=== PATIENT | female | born 1955 | race Caucasian/White ===

== ENCOUNTER 2018-09-10 21:30 | Inpatient (IN) | payer SELFPAY ==
[2018-09-10] MEDS ORDERED: FENTANYL CITR 100 MCG/2 ML ONE (22:14)
[2018-09-10] MEDS ORDERED: KETOROLAC 30 MG/ML INJ ONE (22:14)
[2018-09-10] MEDS ORDERED: NA CHLORIDE 0.9% 1,000 ML ONE (22:14)
[2018-09-10 22:28] LABS: Absolute Lymphocytes (CBC) 2.6 K/uL (0.7-4.9); Absolute Monocytes 1.3 K/uL (0.1-1.3); Absolute Neutrophil 5.3 K/uL (1.8-8.0); Basophils % 1.2 % (0-1.3); Eosinophils % 1.6 % (0-4.4); Hematocrit 42.4 % (36.0-45.0); Lymphocytes % 27.1 % (15.3-44.8); MCH 30.8 pg (27.0-35.0); MCV 89.9 fL (80-100); MPV 8.2 fL (7.6-11.3); Monocytes % 13.8 % (3.3-12.3); RBC Red Blood Cell Count 4.71 M/uL (3.86-4.86)
--- NOTE | 2018-09-10 22:56 | ER ---
Nurse's Notes [facility] Name: Simona Juárez Age: 63 yrs Sex: Female : 1955 Arrival Date: 09/10/2018 Time: 21:30 Bed 20 Private MD: Diagnosis: Cholecystitis Presentation: 09/10 21:42 Presenting complaint: Patient states: I have had upper abdominal pain since Sunday, and jb4 started having lower back pain yesterday. Transition of care: patient was not received from another setting of care. Onset of symptoms was September 08, 2018. Risk Assessment: Do you want to hurt yourself or someone else? Patient reports no desire to harm self or others. Initial Sepsis Screen: Does the patient meet any 2 criteria? No. Patient's initial sepsis screen is negative. Does the patient have a suspected source of infection? No. Patient's initial sepsis screen is negative. Care prior to arrival: None. 21:42 Method Of Arrival: Ambulatory jb4 21:42 Acuity: FRANCOISE 3 jb4 Triage Assessment: 21:44 General: Appears in no apparent distress. uncomfortable, Behavior is calm, cooperative, jb4 appropriate for age. Pain: Complains of pain in back, right upper quadrant and left upper quadrant Pain currently is 10 out of 10 on a pain scale. EENT: No signs and/or symptoms were reported regarding the EENT system. Neuro: Level of Consciousness is awake, alert, obeys commands, Oriented to person, place, time, situation. Cardiovascular: Patient's skin is warm and dry. Respiratory: Airway is patent Respiratory effort is even, unlabored, Respiratory pattern is regular, symmetrical. GI: Abdomen is round non-distended, Bowel sounds present X 4 quads. Abd is soft and non tender in right lower quadrant and left lower quadrant Abdomen is tender to palpation in umbilical area, right upper quadrant and left upper quadrant Reports upper abdominal pain. : No signs and/or symptoms were reported regarding the genitourinary system. Derm: Skin is intact, Skin is pink, warm \T\ dry. Musculoskeletal: Circulation, motion, and sensation intact. Reports pain in back. Historical: - Allergies: 21:44 No Known Allergies; jb4 - Home Meds: 21:44 lisinopril 40 mg Oral tab 1 tab once daily [Active]; jb4 21:48 amlodipine-benazepril oral oral [Active]; jb4 - PMHx: 21:44 Hypertension; jb4 - PSHx: 21:44 None; jb4 - Immunization history:: Adult Immunizations unknown, Flu vaccine is not up to date. - Social history:: Smoking status: Patient uses tobacco products, denies chronic smoking, but will smoke occasionally. - Ebola Screening: : No symptoms or risks identified at this time. Screenin:52 Abuse screen: Denies threats or abuse. Nutritional screening: No deficits noted. jb4 Tuberculosis screening: No symptoms or risk factors identified. Fall Risk None identified. Assessment: 21:52 General: see triage assessment.. jb4 Vital Signs: 21:44 BP 149 / 83; Pulse 74; Resp 18; Temp 98.1; Pulse Ox 94% on R/A; Weight 79.38 kg (R); jb4 Height 5 ft. 7 in. (170.18 cm) (R); Pain 10/10; 21:44 Body Mass Index 27.41 (79.38 kg, 170.18 cm) jb4 ED Course: 21:30 Patient arrived in ED. ds1 21:44 Triage completed. jb4 21:44 Arm band placed on right wrist. jb4 21:49 Kathy Benitez FNP-C [facility]. snw 21:49 Mehul Roberson MD is Attending Physician. snw 21:52 Cam Jose, RN is Primary Nurse. jb4 21:52 Patient has correct armband on for positive identification. Bed in low position. Call jb4 light in reach. Side rails up X 1. Pulse ox on. NIBP on. 22:00 No provider procedures requiring assistance completed. Patient admitted, IV remains in rv place. Inserted saline lock: 20 gauge in right antecubital area, using aseptic technique. Blood collected. 22:[address] via wheelchair. vr 22:14 US Abdomen Limited In Process Unspecified. EDMS 22:19 CT completed. Patient tolerated procedure well. Patient moved back from CT. nj 22:19 CT Stone Protocol In Process Unspecified. EDMS 22:55 Amber Wray MD is Hospitalizing Provider. snw 23:22 Notified Nurse Practitioner and/or Physician Care Team Coordinator Scheduler of a critical lab result(s), AST fc 380, ALT 388. Administered Medications: 22:15 Drug: TORadol 30 mg Route: IVP; Site: right forearm; jb4 09/11 00:18 Follow up: Response: No adverse reaction rv 09/10 22:15 Drug: fentaNYL (PF) 25 mcg Route: IVP; Site: right forearm; jb4 09/11 00:17 Follow up: Response: No adverse reaction rv 09/10 22:45 Drug: NS 0.9% 1000 ml Route: IV; Rate: 125 ml/hr; Site: right antecubital; rv 09/11 00:16 Follow up: IV Status: IV converted to saline lock rv 09/10 23:00 Drug: Mefoxin 1 grams Route: IVPB; Infused Over: 30 mins; Site: right antecubital; rv 09/11 00:16 Follow up: IV Status: Completed infusion rv Outcome: 09/10 22:55 Decision to Hospitalize by Provider. snw 09/11 00:19 Admitted to Med/surg accompanied by tech, via wheelchair, room 209, with chart, Report rv called to [facility] frank Condition: good 00:20 Patient left the ED. rv Signatures: Dispatcher [employer] EDMS Kathy Benitez, RN ADMISSION-C RN ADMISSION-Csnw Rajani Go, RN RN Eri Sanders Victoria vr Bryson, James, RN RN Gr[employer] Macedo Ronaldo, RN RN rv Corrections: (The following items were deleted from the chart) 09/10 21:52 21:44 GI: Reports upper abdominal pain, marina gray
--- NOTE | 2018-09-10 22:56 | EDPHYS ---
Physician Documentation [facility] Name: Simona Juárez Age: 63 yrs Sex: Female : 1955 Arrival Date: 09/10/2018 Time: 21:30 Bed 20 Private MD: ED Physician Mehul Roberson HPI: 09/10 22:31 This 63 yrs old Female presents to ER via Ambulatory with complaints of Abd snw Pain -Upper, Back Pain. 22:32 Onset: The symptoms/episode began/occurred suddenly, 3 day(s) ago, and became worse and snw became persistent. Associated signs and symptoms: Pertinent positives: back pain. Modifying factors: The patient symptoms are alleviated by nothing. The patient has not experienced similar symptoms in the past. The patient has not recently seen a physician. Historical: - Allergies: 21:44 No Known Allergies; jb4 - Home Meds: 21:44 lisinopril 40 mg Oral tab 1 tab once daily [Active]; jb4 21:48 amlodipine-benazepril oral oral [Active]; jb4 - PMHx: 21:44 Hypertension; jb4 - PSHx: 21:44 None; jb4 - Immunization history:: Adult Immunizations unknown, Flu vaccine is not up to date. - Social history:: Smoking status: Patient uses tobacco products, denies chronic smoking, but will smoke occasionally. - Ebola Screening: : No symptoms or risks identified at this time. ROS: 22:31 Constitutional: Negative for fever, chills, and weight loss, Eyes: Negative for injury, snw pain, redness, and discharge, ENT: Negative for injury, pain, and discharge, Neck: Negative for injury, pain, and swelling, Cardiovascular: Negative for chest pain, palpitations, and edema, Respiratory: Negative for shortness of breath, cough, wheezing, and pleuritic chest pain, Back: Negative for injury and pain, : Negative for injury, bleeding, discharge, and swelling, MS/Extremity: Negative for injury and deformity, Skin: Negative for injury, rash, and discoloration, Neuro: Negative for headache, weakness, numbness, tingling, and seizure. 22:31 Abdomen/GI: Positive for abdominal pain, nausea. Exam: 22:30 Constitutional: This is a well developed, well nourished patient who is awake, alert, snw and in no acute distress. Head/Face: Normocephalic, atraumatic. Eyes: Pupils equal round and reactive to light, extra-ocular motions intact. Lids and lashes normal. Conjunctiva and sclera are non-icteric and not injected. Cornea within normal limits. Periorbital areas with no swelling, redness, or edema. ENT: Nares patent. No nasal discharge, no septal abnormalities noted. Tympanic membranes are normal and external auditory canals are clear. Oropharynx with no redness, swelling, or masses, exudates, or evidence of obstruction, uvula midline. Mucous membranes moist. Neck: Trachea midline, no thyromegaly or masses palpated, and no cervical lymphadenopathy. Supple, full range of motion without nuchal rigidity, or vertebral point tenderness. No Meningismus. Chest/axilla: Normal chest wall appearance and motion. Nontender with no deformity. No lesions are appreciated. Cardiovascular: Regular rate and rhythm with a normal S1 and S2. No gallops, murmurs, or rubs. Normal PMI, no JVD. No pulse deficits. Respiratory: Lungs have equal breath sounds bilaterally, clear to auscultation and percussion. No rales, rhonchi or wheezes noted. No increased work of breathing, no retractions or nasal flaring. Abdomen/GI: Soft, tender, with normal bowel sounds No distension or tympany. No guarding or rebound. No evidence of tenderness throughout. Back: No spinal tenderness. No costovertebral tenderness. Full range of motion. Skin: Warm, dry with normal turgor. Normal color with no rashes, no lesions, and no evidence of cellulitis. MS/ Extremity: Pulses equal, no cyanosis. Neurovascular intact. Full, normal range of motion. Neuro: Awake and alert, GCS 15, oriented to person, place, time, and situation. Cranial nerves II-XII grossly intact. Motor strength 5/5 in all extremities. Sensory grossly intact. Cerebellar exam normal. Normal gait. Vital Signs: 21:44 BP 149 / 83; Pulse 74; Resp 18; Temp 98.1; Pulse Ox 94% on R/A; Weight 79.38 kg (R); jb4 Height 5 ft. 7 in. (170.18 cm) (R); Pain 10/10; 21:44 Body Mass Index 27.41 (79.38 kg, 170.18 cm) jb4 MDM: 21:50 Patient medically screened. snw 21:51 Patient medically screened. snw 22:46 Data reviewed: vital signs, nurses notes. Data interpreted: Pulse oximetry: on room air snw is 94 %. Interpretation: acceptable. Counseling: I had a detailed discussion with the patient and/or guardian regarding: the historical points, exam findings, and any diagnostic results supporting the discharge/admit diagnosis, the presence of at least one elevated blood pressure reading (>120/80) during this emergency department visit, lab results, radiology results, the need for further work-up and treatment in the hospital. Physician consultation: Cam Ayala MD was called at 22:47, was contacted at 22:47, regarding consult, patient's condition, would like admission per Dr. Amber Wray MD. 22:56 Physician consultation: Amber Wray MD was called at 22:56, was contacted at 22:56, snw regarding admission, to the telemetry unit. 09/10 21:50 Order name: Urine Microscopic Only; Complete Time: 23:45 snw 09/10 21:57 Order name: Basic Metabolic Panel; Complete Time: 23:24 snw 09/10 21:57 Order name: CBC with Diff; Complete Time: 22:30 snw 09/10 21:57 Order name: Hepatic Function; Complete Time: 23:24 snw 09/10 21:57 Order name: Lipase; Complete Time: 23:24 snw 09/10 22:10 Order name: Urine Dipstick--Ancillary (enter results); Complete Time: 23:42 oe 09/10 21:50 Order name: US Abdomen Limited snw 09/10 21:50 Order name: Urine Dipstick-Ancillary (obtain specimen); Complete Time: 22:10 snw 09/10 21:57 Order name: IV Saline Lock; Complete Time: 21:59 snw 09/10 21:57 Order name: CT Stone Protocol sn 09/10 21:57 Order name: Labs collected and sent; Complete Time: 21:59 snw 09/10 22:47 Order name: NPO; Complete Time: 23:33 snw Administered Medications: 22:15 Drug: TORadol 30 mg Route: IVP; Site: right forearm; jb4 09/11 00:18 Follow up: Response: No adverse reaction rv 09/10 22:15 Drug: fentaNYL (PF) 25 mcg Route: IVP; Site: right forearm; jb4 09/11 00:17 Follow up: Response: No adverse reaction rv 09/10 22:45 Drug: NS 0.9% 1000 ml Route: IV; Rate: 125 ml/hr; Site: right antecubital; rv 09/11 00:16 Follow up: IV Status: IV converted to saline lock rv 09/10 23:00 Drug: Mefoxin 1 grams Route: IVPB; Infused Over: 30 mins; Site: right antecubital; rv 09/11 00:16 Follow up: IV Status: Completed infusion rv Disposition: 06:46 Co-signature as Attending Physician, Mehul Roberson MD I agree with the assessment and pavithra plan of care. Disposition: 09/10/18 22:55 Hospitalization ordered by Amber Wray for Observation. Preliminary diagnosis is Cholecystitis. - Bed requested for Telemetry/MedSurg (observation). - Status is Observation. rv - Condition is Stable. - Problem is new. - Symptoms are unchanged. UTI on Admission? No Signatures: Dispatcher [employer] EDMS Gina Perry RN Mehul Phan MD MD cha Therrien, Shelly, DIRECTOR ENVIRONMENTAL-C DIRECTOR ENVIRONMENTAL-Csnw Cam Jose, RN RN jb4 Sushil Strong RN RN rv Corrections: (The following items were deleted from the chart) 09/10 23:12 22:55 Hospitalization Ordered by Amber Wray MD for Observation. Preliminary diagnosis is Cholecystitis. Bed requested for Telemetry/MedSurg (observation). Status is Observation. Condition is Stable. Problem is new. Symptoms are unchanged. UTI on Admission? No. snw 09/11 00:20 09/10 23:12 09/10/2018 22:55 Hospitalization Ordered by Amber Wray MD for rv Observation. Preliminary diagnosis is Cholecystitis. Bed requested for Telemetry/MedSurg (observation). Status is Observation. Condition is Stable. Problem is new. Symptoms are unchanged. UTI on Admission? No. kl
[2018-09-10] MEDS ORDERED: CEFOXITIN/SWI 1gm 1 GM/10 ML SYR ONE (23:17)
[2018-09-10 23:20] LABS: Albumin 3.4 g/dL (3.4-5.0); Bilirubin Direct 2.8 mg/dL (0-0.2); Bilirubin Total 3.6 mg/dL (0.2-1.0); Potassium 3.5 mmol/L (3.5-5.1); Protein, Total 8.1 g/dL (6.4-8.2)
[2018-09-10 23:40] LABS: Urine Blood NEGATIVE (NEG); Urine Glucose NEGATIVE (NEG); Urine Protein 1+ (NEG); Urine pH 6.5 (5.0-7.0)
[2018-09-10 23:44] LABS: Urine Bacteria <20 /HPF (<20); Urine Culture Reflex Order NOT NEEDED; Urine RBC <5 /HPF (NONE SEEN)
[2018-09-11] MEDS ORDERED: ENOXAPARIN 80 MG/0.8 ML SQ ONE (00:11)
[2018-09-11] MEDS ORDERED: ACETAMINOPHEN 500 MG TAB PO PRN (00:28)
[2018-09-11] MEDS ORDERED: ONDANSETRON 4 MG/2 ML VIAL IV PRN (00:28)
[2018-09-11 00:42] VITALS: BMI 28.1
[2018-09-11] MEDS: NA CHLORIDE 0.9% 1,000 ML IV SCH ×4 (01:02→20:53)
[2018-09-11] MEDS: MORPHINE 4 MG/ML SYR IV PRN ×3 (01:33→20:51)
[2018-09-11] MEDS: CEFOXITIN 1 GM in NA CHLORIDE 0.9% 100 ML IVPB SCH ×2 (05:00→06:00)
[2018-09-11] MEDS ORDERED: CEFOXITIN/SWI 1gm 1 GM/10 ML SYR ONE (05:09)
[2018-09-11 05:38] LABS: Absolute Monocytes 1.2 K/uL (0.1-1.3); Absolute Neutrophil 3.6 K/uL (1.8-8.0); Basophils % 0.9 % (0-1.3); Eosinophils % 3.1 % (0-4.4); Hematocrit 36.5 % (36.0-45.0); Lymphocytes % 37.3 % (15.3-44.8); MCH 31.3 pg (27.0-35.0); MPV 8.1 fL (7.6-11.3); RBC Red Blood Cell Count 4.02 M/uL (3.86-4.86)
[2018-09-11 05:44] LABS: Protime INR 1.02
[2018-09-11 06:07] LABS: Albumin 2.8 g/dL (3.4-5.0); Bilirubin Total 3.9 mg/dL (0.2-1.0); Potassium 3.3 mmol/L (3.5-5.1); Protein, Total 6.6 g/dL (6.4-8.2)
[2018-09-11 06:24] LABS: Blood Morphology Comment NOT SEEN (NOT SEEN); Platelet Estimate ADEQ; Urine White Blood Cell Casts OK
[2018-09-11] MEDS ORDERED: HYDRALAZINE HCL 20 MG/ML VIAL IV PRN (06:40)
[2018-09-11] MEDS ORDERED: SODIUM CHLORIDE 0.9% 10ML INJ IV PRN (06:40)
--- NOTE | 2018-09-11 07:39 | RAD REPORT ---
EXAM DESCRIPTION: CT - Stone Protocol - 09/11/2018 5:47 am CLINICAL HISTORY: Abdominal pain. Right upper quadrant pain COMPARISON: 2013 TECHNIQUE: Computed axial tomography of the abdomen pelvis was obtained without oral or IV contrast. Lack of IV and oral contrast limits evaluation of solid organs, bowel, and vessels. Coronal reformat wendy images were obtained and reviewed. Preliminaries report generated by [employer] and revi ewed prior to dictation All CT scans are performed using dose optimization technique as appropriate and may include automated exposure control or mA/KV adjustment according to patient size. FINDINGS: A renal calculus is not seen. An ureteral calculus is not noted. A bladder calculus is not present. The liver, spleen, pancreas and adrenals appear grossly normal. Small hepatic cyst There is no evidence of diverticulitis. The appendix appears normal The gallbladder is distended with a thickened wall. Biliary tree is dilated. Vague densities within t he gallbladder represent small stones Small umbilical hernia is present. IMPRESSION: Distended gallbladder with a thickened wall with cholecystitis. Cholelithiasis. The dila tation biliary tree probably secondary to a nonvisualized stone within duct
--- NOTE | 2018-09-11 07:40 | RAD REPORT ---
EXAM DESCRIPTION: US - Abdomen Exam Limited - 09/10/2018 10:14 pm CLINICAL HISTORY: Abdominal pain. COMPARISON: September 11, 2018 cat scan FINDINGS: The gallbladder is distended containing multiple gallstones. The gallbladder wall is thic kened measuring up to a 7 millimeters. Common bile duct measures 8 millimeters IMPRESSION: Cholelithiasis with gallbladder distention thickened wall compatible with cholecystitis Dilatation of the common bile duct probably secondary to a nonvisualized stone
[2018-09-11] MEDS ORDERED: INFLUENZA VACCINE (for 3y+) 0.5 ML DOSE IMVAC ONE (08:00)
[2018-09-11] MEDS: PANTOPRAZOLE 40 MG INJ IVP SCH (08:56)
--- NOTE | 2018-09-11 10:01 | RAD REPORT ---
EXAM DESCRIPTION: MRI - Cholangiogram - 09/11/2018 8:22 am CLINICAL HISTORY: Abdominal pain, abnormal CT with suspicion for bile duct stone COMPARISON: CT study September 10, gallbladder ultrasound September 10 TECHNIQUE: Axial and coronal heavily T2 weighted sequences were obtained. Coronal T2 HASTE fat satur ation static and coronal multiplane reconstruction imaging generated and reviewed. Horizontal and omid tical axis rotational views obtained using maximum intensity projection (MIP) protocol. FINDINGS: Gallbladder is distended and contains innumerable small less than 5 millimeter sized galls tones. These extend into the neck of the gallbladder. Wall is thickened. Common bile duct is dilated at 10 mm. There are at least 5 gallstones within the common bile duct all measuring less than 5 mm in size. Intrahepatic biliary tree is prominent. IMPRESSION: Multi stone choledocholithiasis with common bile duct 10 mm in size. Innumerable gallstones within the distended gallbladder.
--- NOTE | 2018-09-11 10:27 | P.PN ---
Subjective Date of Service: 09/11/18 Primary Care Provider: [facility] Chief Complaint: Right upper quadrant abdominal pain, nausea Subjective: Other (Right upper quadrant pain improved. Less nausea noted.) Physical Examination - Vital Signs Temperature: 97.1 F Blood Pressure: 161/77 Pulse: 63 Respirations: 16 Pulse Ox (%): 97 - Physical Exam General: Alert, In no apparent distress, Oriented x3, Cooperative HEENT: Atraumatic Neck: Supple Respiratory: Clear to auscultation bilaterally, Normal air movement Cardiovascular: Normal pulses, Regular rate/rhythm Gastrointestinal: Normal bowel sounds, Soft and benign, Non-distended, No masses , No rebound, No guarding, Tenderness (Pain to the right upper quadrant with palpation noted) Musculoskeletal: No erythema, No tenderness, No warmth Integumentary: No tenderness/swelling, No erythema, No warmth, No cyanosis Neurological: Normal speech, Normal strength at 5/5 x4 extr, Normal tone, Normal affect - Studies Laboratory Data (last 24 hrs) 09/10/18 21:44: WBC 9.4, Hgb 14.5, Hct 42.4, Plt Count 356 09/10/18 21:44: Sodium 138, Potassium 3.5, BUN 21 H, Creatinine 1.10, Glucose 123 H, Total Bilirubin 3.6 H, AST 380 H*, ALT 388 H*, Alkaline Phosphatase 208 H , Lipase 296 Medications List Reviewed: Yes Assessment & Plan Discharge Plan: Home Plan to discharge in: Greater than 2 days Physician Review Additional Text: Impression: Right upper quadrant abdominal pain with noted elevated liver function secondary to acute cholecystitis with cholelithiasis and choledocholithiasis Renal insufficiency likely dehydration Hypokalemia Hypertension Plan: Right upper quadrant abdominal pain with noted elevated liver function secondary to acute cholecystitis with cholelithiasis and choledocholithiasis: Will continue with IV fluids and antibiotic therapy. GI and surgery consulted. MRCP shows multi stone choledocholithiasis with cholelithiasis. Common bile duct around 10 mm in size. About 5 stones noted all less than 5 mm in size in the common bile duct noted. Will discuss case with GI. Patient will likely require ERCP prior to cholecystectomy. Will discuss with surgery as well. Renal insufficiency likely dehydration: Continue with IV fluids. Will monitor closely. Hypokalemia: Will continue to replace electrolytes. Hypertension: Will provide medication IV. Time Spent Managing Pts Care (In Minutes): 55
[2018-09-11] MEDS: CEFOXITIN/SWI 1gm 1 GM/10 ML SYR IV SCH ×2 (13:08→17:22)
--- NOTE | 2018-09-11 14:35 | P.CNS ---
Date of Consult: 09/11/18 PC: I saw this patient left side emergency room, complaining of right upper quadrant abdominal pain to presented for diagnosis and treatment. HPC: Patient been having right upper quadrant abdominal pain for the last few days. Pain intensified on Sunday. Describes it as severe, radiating straight through to her back between her shoulder blades. Described it is worsened labor pains. She could no longer stand it came to the emergency room PMH: Hypertension PSHx: Previous tubal ligation SOC: No known allergies SYS REVIEW: No cough, wheeze or shortness of breath. No chest pain or palpitations. States she has been relatively good health. Had noticed since been having right upper quadrant abdominal pain off and on for the last few months. O/E awake alert vital signs are stable, obviously uncomfortable at the moment. HEENT: Not clinically jaundice Chest: Chest movement equal bilaterally ABD: Mild right upper quadrant tenderness LOCO: Intact DATA: Elevated transaminases, and bili Encarnacion. Ultrasound demonstrates small stones IMPRESSION: Cholecystitis with cholelithiasis, biliary colic PLAN: I suspect this patient has in addition to her gallbladder stones common bile duct stones. I have discussed this with the ER physician. He was able to arrange for a GI Dc the patient with the offer of ERCP if needed. She will be admitted at this time. She will receive NM are CP in a.m.. Pending the results of this may require ERCP with stent. Cholecystectomy can be delayed as long as she continues to improve clinically.
--- NOTE | 2018-09-11 14:37 | P.CNS ---
Date of Consult: 09/11/18
--- NOTE | 2018-09-11 14:38 | P.HP ---
Patient History Date of Service: 09/11/18 Primary Care Provider: [facility] Reason for admission: Right upper quadrant abdominal pain, nausea Allergies No Known Allergies Allergy (Verified 09/11/18 00:41) Home Medications: Amlodipine Besylate 5 mg PO DAILY 09/11/18 - Past Medical/Surgical History Has patient received pneumonia vaccine in the past: No Diabetic: No -: HTN -: Tubal ligation - Social History Smoking Status: Current some day smoker Alcohol use: Yes CD- Drugs: No Caffeine use: Yes Place of Residence: Home Physical Examination - Vital Signs Temperature: 97.1 F Blood Pressure: 161/77 Pulse: 63 Respirations: 16 Pulse Ox (%): 97 - Studies Laboratory Data (last 24 hrs) 09/10/18 21:44: WBC 9.4, Hgb 14.5, Hct 42.4, Plt Count 356 09/10/18 21:44: Sodium 138, Potassium 3.5, BUN 21 H, Creatinine 1.10, Glucose 123 H, Total Bilirubin 3.6 H, AST 380 H*, ALT 388 H*, Alkaline Phosphatase 208 H , Lipase 296 Assessment and Plan - Advance Directives Does patient have a Living Will: No Does patient have a Durable POA for Healthcare: No
--- NOTE | 2018-09-11 21:27 | P.HP ---
Certification for Inpatient Patient admitted to: Inpatient With expected LOS: >2 Midnights Patient will require the following post-hospital care: None Practitioner: I am a practitioner with admitting privileges, knowledge of patient current condition, hospital course, and medical plan of care. Services: Services provided to patient in accordance with Admission requirements found in Title 42 Section 412.3 of the Code of Federal Regulations Patient History Date of Service: 09/10/18 Reason for admission: Right upper quadrant abdominal pain, nausea History of Present Illness: Patient is a 63-year-old female who came to the hospital with abdominal pain. Pain was mainly in the right upper quadrant. This pain has been going on for the last 48 hr and patient started having intractable nausea and vomiting. Her symptoms were not improving so patient came into the emergency room for further evaluation. In the emergency room patient had a CT scan which revealed cholelithiasis with acute cholecystitis. General surgery was consulted and we admitted the patient with GI consultation. Allergies No Known Allergies Allergy (Verified 09/11/18 00:41) Home Medications: Amlodipine Besylate 5 mg PO DAILY 09/11/18 - Past Medical/Surgical History Has patient received pneumonia vaccine in the past: No Diabetic: No -: HTN -: Tubal ligation - Family History Father Family History: Reviewed- Non-Contributory - Social History Smoking Status: Current some day smoker Alcohol use: Yes CD- Drugs: No Caffeine use: Yes Place of Residence: Home Review of Systems 10-point ROS is otherwise unremarkable Physical Examination - Vital Signs Temperature: 98.0 F Blood Pressure: 188/89 Pulse: 67 Respirations: 16 Pulse Ox (%): 96 - Physical Exam General: Alert, In no apparent distress, Oriented x3 HEENT: Atraumatic, PERRLA, Mucous membr. moist/pink, EOMI, Sclerae nonicteric Neck: Supple, 2+ carotid pulse no bruit, No LAD, Without JVD or thyroid abnormality Respiratory: Clear to auscultation bilaterally, Normal air movement Cardiovascular: Regular rate/rhythm, Normal S1 S2, No murmurs Gastrointestinal: Normal bowel sounds, Soft and benign, Non-distended, No rebound, No guarding, Tenderness Musculoskeletal: No tenderness Integumentary: No rashes Neurological: Normal gait, Normal speech, Normal strength at 5/5 x4 extr, Normal tone, Sensation intact, Cranial nerves 3-12 intact, Normal affect Lymphatics: No axilla or inguinal lymphadenopathy - Studies Laboratory Data (last 24 hrs) 09/11/18 05:00: Sodium Cancelled, Potassium Cancelled, BUN Cancelled, Creatinine Cancelled, Glucose Cancelled 09/11/18 05:00: WBC Cancelled, Hgb Cancelled, Hct Cancelled, Plt Count Cancelled 09/11/18 04:33: Sodium 142, Potassium 3.3 L, BUN 18, Creatinine 1.00, Glucose 92 , Total Bilirubin 3.9 H, AST 319 H*, ALT 352 H*, Alkaline Phosphatase 175 H, Triglycerides 145, Cholesterol 177, HDL Cholesterol 24 L, Cholesterol/HDL Ratio 7.38 09/11/18 04:33: PT 12.0, INR 1.02, APTT 32.0 09/11/18 04:33: WBC 8.1, Hgb 12.6, Hct 36.5, Plt Count 309 09/10/18 21:44: WBC 9.4, Hgb 14.5, Hct 42.4, Plt Count 356 09/10/18 21:44: Sodium 138, Potassium 3.5, BUN 21 H, Creatinine 1.10, Glucose 123 H, Total Bilirubin 3.6 H, AST 380 H*, ALT 388 H*, Alkaline Phosphatase 208 H , Lipase 296 Assessment & Plan - Problems (Diagnosis) (1) Acute cholecystitis due to biliary calculus Current Visit: Yes Status: Acute (2) HTN (hypertension) Current Visit: Yes Status: Acute Qualifiers: Hypertension type: essential hypertension Qualified Code(s): I10 - Essential (primary) hypertension - Plan -management per surgery & GI -IV hydration and IV antibiotics -NPO -strict blood pressure and blood sugar control -monitor electrolytes, LFTs, and blood count closely -pain control -DVT prophylaxis Discharge Plan: Home Plan to discharge in: Greater than 2 days - Advance Directives Does patient have a Living Will: No Does patient have a Durable POA for Healthcare: No - Code Status/Comfort Care Code Status Assessed: Yes Code Status: Full Code Critical Care: No Time Spent Managing PTS Care (In Minutes): 50
[2018-09-12] MEDS: NA CHLORIDE 0.9% 1,000 ML IV SCH ×5 (00:37→22:39)
[2018-09-12] MEDS: CEFOXITIN/SWI 1gm 1 GM/10 ML SYR IV SCH ×5 (00:37→23:23)
[2018-09-12 05:09] LABS: Absolute Lymphocytes (CBC) 3.1 K/uL (0.7-4.9); Absolute Neutrophil 3.6 K/uL (1.8-8.0); Basophils % 1.4 % (0-1.3); Eosinophils % 8.2 % (0-4.4); Hematocrit 38.3 % (36.0-45.0); Lymphocytes % 36.5 % (15.3-44.8); MPV 7.7 fL (7.6-11.3); Monocytes % 11.3 % (3.3-12.3); RBC Red Blood Cell Count 4.16 M/uL (3.86-4.86)
[2018-09-12 05:13] LABS: Protime INR 1.01
[2018-09-12 05:30] LABS: Albumin 2.8 g/dL (3.4-5.0); Bilirubin Total 1.3 mg/dL (0.2-1.0); Potassium 3.6 mmol/L (3.5-5.1); Protein, Total 6.8 g/dL (6.4-8.2)
[2018-09-12] MEDS: PANTOPRAZOLE 40 MG INJ IVP SCH (08:32)
[2018-09-12] MEDS: FENTANYL CITR 100 MCG/2 ML IV PRN ×2 (09:59→22:38)
[2018-09-12] MEDS ORDERED: GENTAMICIN SULF 80 MG/2ML INJ ONE (10:48)
[2018-09-12] MEDS ORDERED: GLUCAGON 1 MG/VIAL ONE (10:48)
[2018-09-12] MEDS ORDERED: Ringers Lactate 1,000 ML IV ONE (10:49)
[2018-09-12] MEDS ORDERED: PROPOFOL 200 MG/20 ML VIAL IV ONE ×2 (12:08)
[2018-09-12] MEDS ORDERED: LIDOCAINE 1% MPF 2 ML AMPULE ONE (12:08)
--- NOTE | 2018-09-12 12:54 | RAD REPORT ---
EXAM DESCRIPTION: RADFluoroscopy ERCP09/12/2018 12:44 pm CLINICAL HISTORY: Abdominal pain FINDINGS: The examination was performed by Dr. Adkins The common bile duct was cannulated and contr ast administered. Mild dilatation of the biliary tree is seen. Small filling defects within the duct are compatible wit h stones. Fluoroscopy 5.48 minutes. For fluoroscopic spot images obtained
--- NOTE | 2018-09-12 12:55 | ENDO RPT ---
[address], [address] ERCP PROCEDURE REPORT EXAM DATE: 09/12/2018 PATIENT NAME: Simona Juárez MR #: [id number] BIRTHDATE: 1955 ATTENDING: Marques Adkins Dr STATUS: inpatient - [facility] SPLICING SUPERVISOR: Lulu Santana and Petra Helms RN INDICATIONS: The patient is a 63 yr old Female here for an ERCP due to stone, abdominal pain, abnormal Liver Function Tests, jaundice, and abnormal Liver Function Tests PROCEDURE PERFORMED: ERCP with sphincterotomy, ERCP with balloon passage, and ERCP with stent placement MEDICATIONS: Per Anesthesia. CONSENT: The patient understands the risks and benefits of the procedure and understands that these risks include, but are not limited to: sedation, allergic reaction, infection, perforation and/or bleeding. Alternative means of evaluation and treatment include, among others: physical exam, x-rays, and/or surgical intervention. The patient elects to proceed with this endoscopic procedure. DESCRIPTION OF PROCEDURE: During intra-op preparation period all mechanical medical equipment was checked for proper function. Hand hygiene and appropriate measures for infection prevention was taken. Procedure, possible complications, and alternatives including but not limited to the possibility of bleeding, perforation, tear, infection, sepsis, need for surgery, need for blood transfusion, and anesthesia related complications were explained to the patient. In addition, 5-30% incidence of acute pancreatitis as a result of ERCP were explained. After the risks, benefits and alternatives of the procedure were thoroughly explained, Informed was verified, confirmed and timeout was successfully executed by the treatment team. With the patient in left semi-prone position, medications were administered intravenously.The [id number] ([id number]) was passed from the mouth into the esophagus and further advanced from the esophagus into the stomach. From stomach scope was directed to the descending duodenum. Major papilla was aligned with the duodenoscope. The scope position was confirmed fluoroscopically. Rest of the findings/therapeutics are given below. The scope was then completely withdrawn from the patient and the procedure completed. The pulse, BP, and O2 saturation were monitored and documented by the physician and the nursing staff throughout the entire procedure. The patient was cared for as planned according to standard protocol. The patient was then discharged to recovery in stable condition and with appropriate post procedure care. Multiple stones were found in the common bile duct. The common bile duct and intrahepatics were successfully cannulated and filled with contrast. Sphincterotomy was performed with a regular 20 mm papillotome. A stone retrieval balloon was passed. A straight stent was placed. ADVERSE EVENT: none IMPRESSIONS: 1) Multiple ( 3) small 5-7 mm stones in the common bile duct 2) 9 mm balloon catheter passage yet unable to remove stones (possibly all bunched up at distal CBD) 3) 7-5 plastic biliary stent placement RECOMMENDATIONS: 1. antibiotics 2. cholecystectomy as per surgery REPEAT EXAM: Return in 2 week(s) Marques Adkins Dr eSigned: Marques Adkins Dr 09/12/2018 12:47 PM cc: Oscar Guzman D.O. CPT CODES: ICD9 CODES: PATIENT NAME: Simona Juárez MR#: [id number]
--- NOTE | 2018-09-12 13:49 | P.PN ---
Subjective Date of Service: 09/12/18 Primary Care Provider: Hart Ric Chief Complaint: Right upper quadrant abdominal pain, nausea Subjective: Doing well (Patient NPO for ERCP today) Physical Examination - Vital Signs Temperature: 99.1 F Blood Pressure: 159/68 Pulse: 65 Respirations: 18 Pulse Ox (%): 96 - Physical Exam General: Alert, In no apparent distress, Oriented x3, Cooperative HEENT: Atraumatic Neck: Supple Respiratory: Clear to auscultation bilaterally, Normal air movement Cardiovascular: Normal pulses, Regular rate/rhythm Gastrointestinal: Normal bowel sounds, Soft and benign, Non-distended, No tenderness, No masses, No rebound, No guarding Musculoskeletal: No erythema, No tenderness, No warmth Integumentary: No tenderness/swelling, No erythema, No warmth, No cyanosis Neurological: Normal speech, Normal strength at 5/5 x4 extr, Normal tone - Studies Medications List Reviewed: Yes Assessment & Plan Discharge Plan: Home Plan to discharge in: 48 Hours Physician Review Additional Text: Impression: Right upper quadrant abdominal pain with noted elevated liver function secondary to acute cholecystitis with cholelithiasis and choledocholithiasis Renal insufficiency likely dehydration Hypokalemia Hypertension Plan: Right upper quadrant abdominal pain with noted elevated liver function secondary to acute cholecystitis with cholelithiasis and choledocholithiasis: Will continue with IV fluids and antibiotic therapy. Liver function tests slightly improved. GI and surgery consulted. MRCP shows multi stone choledocholithiasis with cholelithiasis. Common bile duct around 10 mm in size. About 5 stones noted all less than 5 mm in size in the common bile duct noted. ERCP planned for today. I suspect cholecystectomy will follow after the ERCP done after 1 day. Will discuss further with GI and surgery Renal insufficiency likely dehydration: Continue with IV fluids. Will monitor closely. Hypokalemia: Will continue to replace electrolytes. Hypertension: Will provide medication IV. Time Spent Managing Pts Care (In Minutes): 55
[2018-09-12] MEDS: HYDRALAZINE HCL 20 MG/ML VIAL IV PRN (23:23)
[2018-09-13] MEDS ORDERED: METOPROLOL TARTRATE 5 MG/5 ML INJ IV STA ×2 (00:42→00:52)
[2018-09-13] MEDS ORDERED: METOPROLOL TARTRATE 5 MG/5 ML INJ IV SCH (00:47)
[2018-09-13] MEDS: NA CHLORIDE 0.9% 1,000 ML IV SCH (05:41)
[2018-09-13] MEDS: CEFOXITIN/SWI 1gm 1 GM/10 ML SYR IV SCH ×4 (05:41→23:21)
[2018-09-13] MEDS: PANTOPRAZOLE 40 MG INJ IVP SCH (09:36)
[2018-09-13] MEDS: FENTANYL CITR 100 MCG/2 ML IV PRN ×2 (09:36→23:21)
--- NOTE | 2018-09-13 11:04 | P.PN ---
Subjective Date of Service: 09/13/18 Primary Care Provider: Nicky Larios Chief Complaint: Right upper quadrant abdominal pain, nausea Subjective: Doing well Physical Examination - Vital Signs Temperature: 99.1 F Blood Pressure: 174/79 Pulse: 72 Respirations: 17 Pulse Ox (%): 94 - Physical Exam General: Alert, In no apparent distress, Oriented x3, Cooperative HEENT: Atraumatic Neck: Supple Respiratory: Clear to auscultation bilaterally, Normal air movement Cardiovascular: Normal pulses, Regular rate/rhythm Gastrointestinal: Normal bowel sounds, Soft and benign, Non-distended, No tenderness, No masses, No rebound, No guarding Musculoskeletal: No erythema, No tenderness, No warmth Integumentary: No tenderness/swelling, No erythema, No warmth, No cyanosis Neurological: Normal speech, Normal strength at 5/5 x4 extr, Normal tone, Normal affect - Studies Medications List Reviewed: Yes Assessment & Plan Discharge Plan: Home Plan to discharge in: 24 Hours Physician Review Additional Text: Impression: Right upper quadrant abdominal pain with noted elevated liver function secondary to acute cholecystitis with cholelithiasis and choledocholithiasis status post ERCP with stent placement Renal insufficiency likely dehydration Hypokalemia Hypertension Plan: Right upper quadrant abdominal pain with noted elevated liver function secondary to acute cholecystitis with cholelithiasis and choledocholithiasis status post ERCP with stent placement: Will continue with IV fluids and antibiotic therapy. Will recheck lab again this morning to monitor liver function tests. Patient had ERCP done yesterday. Stones were not able to be removed. Stent placed. Surgery to assess patient today for possible cholecystectomy. Await recommendations by surgery and GI. Continue to monitor closely. Renal insufficiency likely dehydration: Continue with IV fluids. Will monitor closely. Hypokalemia: Will continue to replace electrolytes. Hypertension: Will provide medication IV as needed. Time Spent Managing Pts Care (In Minutes): 55
[2018-09-13 11:53] LABS: Absolute Lymphocytes (CBC) 2.8 K/uL (0.7-4.9); Absolute Monocytes 0.7 K/uL (0.1-1.3); Absolute Neutrophil 4.1 K/uL (1.8-8.0); Basophils % 1.1 % (0-1.3); Eosinophils % 3.5 % (0-4.4); Hematocrit 38.4 % (36.0-45.0); Lymphocytes % 35.2 % (15.3-44.8); MCV 91.2 fL (80-100); MPV 7.5 fL (7.6-11.3); Monocytes % 8.7 % (3.3-12.3); RBC Red Blood Cell Count 4.22 M/uL (3.86-4.86)
[2018-09-13 12:14] LABS: Albumin 3.1 g/dL (3.4-5.0); Bilirubin Total 0.9 mg/dL (0.2-1.0); Magnesium 2.1 mg/dL (1.8-2.4); Potassium 3.5 mmol/L (3.5-5.1); Protein, Total 7.4 g/dL (6.4-8.2)
[2018-09-13] MEDS: NACHLORIDE 0.45% 1,000 ML IV SCH (12:48)
[2018-09-13] MEDS: HYDRALAZINE HCL 20 MG/ML VIAL IV PRN (12:53)
[2018-09-13] MEDS ORDERED: PROPOFOL 200 MG/20 ML VIAL IV ONE (14:14)
[2018-09-13] MEDS ORDERED: FENTANYL CITR 100 MCG/2 ML ONE (14:15)
[2018-09-13] MEDS ORDERED: LIDOCAINE 2% MPF 5 ML VIAL ONE (14:16)
[2018-09-13] MEDS ORDERED: MIDAZOLAM HCL 2 MG/2 ML INJ ONE (14:16)
[2018-09-13] MEDS ORDERED: ONDANSETRON 4 MG/2 ML VIAL ONE (14:17)
[2018-09-13] MEDS ORDERED: ROCURONIUM 50 MG/5 ML VIAL IV ONE (14:17)
[2018-09-13] MEDS ORDERED: Ringers Lactate 1,000 ML IV ONE (14:19)
--- NOTE | 2018-09-13 14:26 | P.PN ---
Date of Service: 09/13/18 S: Patient feels well today, still has some right upper quadrant soreness. Has been NPO. O: Vital signs are stable, abdomen is soft, nontender no guarding or rebound A: Stable status post ERCP with stent placement P: I will take her to the operating room for laparoscopic cholecystectomy. The risks of this procedure have been discussed. The possibility of bleeding, infection, injury to bile ducts blood vessels and intestines has been described. The possible need for an open and/or further surgeries and procedures as been discussed. She understands and wants us to proceed.
[2018-09-13] MEDS ORDERED: EPHEDRINE SULF 50 MG/10 ML SYR ONE (15:00)
[2018-09-13] MEDS ORDERED: NEOSTIGMINE 1 MG/ML -5 ML SYRINGE ONE (15:39)
[2018-09-13] MEDS ORDERED: GLYCOPYRROLATE 0.2 MG/ML SYR ONE (15:39)
--- NOTE | 2018-09-13 15:40 | P.OP ---
Preoperative diagnosis: Cholecystitis with cholelithiasis, choledocholithiasis Postoperative diagnosis: The same Primary procedure: Laparoscopic cholecystectomy Anesthesia: General Estimated blood loss: Less than 10 cc Specimen: 1 gallbladder and contents Operative Technique: The patient was brought to the operating room placed supine on the table. After the induction of adequate general endotracheal anesthesia, the area of the abdomen is prepped with a DuraPrep solution, and draped in the usual aseptic manner. A subumbilical incision was made. This brought down through the skin and subcutaneous tissue. The Visiport was used to enter the peritoneal cavity and created pneumoperitoneum to approximately 12 mm of mercury. Under direct vision a 5 mm trocar was placed in the upper midline, and 2 other 5 mm trocars on the right lateral side. The patient's head was then elevated and rolled towards the landfill gas collection system operator's side. We could see a chronically in inflamed gallbladder. There were stones visible in the gallbladder through the wall. It was distended. A grasper was placed on the fundus of the gallbladder. Another 1 was placed down by Britt's pouch. Applying lateral traction we were able to dissect and expose the cystic duct and artery. The tissue in this area showed marked chronic inflammatory changes. The cystic duct was somewhat generous in size. The artery was dealt with 1st. It was clipped and divided in the usual manner. A clip was then placed between the gallbladder and the cystic duct. 2 clips were placed distally. The cystic duct was now transected as was the artery. The cystic duct was quite generous in size, and the 10 mm clip just barely made it across. Hence AE tie of 0 chromic was used to secure the cystic duct and an additional clip was placed. This secured the cystic duct. The gallbladder was now dissected free from the liver bed. We could see there was some dense fibrous tissue between the gallbladder and the liver itself. The gallbladder was finally freed, placed into an Endo-Catch, and brought out through the umbilical trocar site. The gallbladder fossa was inspected to ensure adequate hemostasis. It was irrigated with a saline solution and the irrigant aspirated from the peritoneal cavity. 0.25% Marcaine was aerosolized into the right upper quadrant and the gallbladder fossa. The umbilical trocar site was now approximated with an Endo Close and an absorbable sutures. The pneumoperitoneum was then collapsed, the suture tied, and manasa applied to the skin. A further 0.25% Marcaine was injected around are incision sites. At the end of the procedure the patient was in a stable condition when sent to the recovery room. Needle sponge instrument count were correct. 1 specimen was sent for histopathology.
[2018-09-13] MEDS: MEPERIDINE HCL 50 MG/ML AMP ONE ×3 (15:55→16:09)
[2018-09-13] MEDS: HYDROCODONE/APAP 7.5/325 MG TAB PO PRN (17:41)
--- NOTE | 2018-09-13 18:10 | P.PN ---
Subjective Date of Service: 09/13/18 Primary Care Provider: Nicky Larios Chief Complaint: Right upper quadrant abdominal pain, nausea Subjective: New changes (s/p lap kurt today with post-op pain.) Review of Systems 10-point ROS is otherwise unremarkable Gastrointestinal: Abdominal Pain Physical Examination - Vital Signs Temperature: 99.2 F Blood Pressure: 112/53 Pulse: 73 Respirations: 18 Pulse Ox (%): 96 - Physical Exam General: Alert, In no apparent distress, Oriented x3, Cooperative, Mild distress (with post-op pain) HEENT: Atraumatic, Normocephalic, PERRLA Neck: Supple Respiratory: Normal air movement Cardiovascular: Normal pulses Gastrointestinal: No rebound, Tenderness (post-op pain), Guarding Neurological: Normal speech, Normal strength at 5/5 x4 extr - Studies Medications List Reviewed: Yes Assessment And Plan - Current Problems (Diagnosis) (1) Choledocholithiasis with acute cholecystitis Current Visit: Yes Status: Acute Comment: Improved s/p ERCP with stent & lap kurt (2) Cholelithiasis and acute cholecystitis without obstruction Current Visit: Yes Status: Acute (3) Epigastric abdominal pain Current Visit: Yes Status: Acute (4) Abnormal magnetic resonance cholangiopancreatography (MRCP) Current Visit: Yes Status: Acute (5) Abnormal ultrasound Current Visit: Yes Status: Acute - Plan REC: 1) continue antibiotics 2) diet as per surgery 3) ERCP with stent removal in 2-3 weeks Physician Review Additional Text: Impression: Right upper quadrant abdominal pain with noted elevated liver function secondary to acute cholecystitis with cholelithiasis and choledocholithiasis status post ERCP with stent placement Renal insufficiency likely dehydration Hypokalemia Hypertension Plan: Right upper quadrant abdominal pain with noted elevated liver function secondary to acute cholecystitis with cholelithiasis and choledocholithiasis status post ERCP with stent placement: Will continue with IV fluids and antibiotic therapy. Will recheck lab again this morning to monitor liver function tests. Patient had ERCP done yesterday. Stones were not able to be removed. Stent placed. Surgery to assess patient today for possible cholecystectomy. Await recommendations by surgery and GI. Continue to monitor closely. Renal insufficiency likely dehydration: Continue with IV fluids. Will monitor closely. Hypokalemia: Will continue to replace electrolytes. Hypertension: Will provide medication IV as needed.
--- NOTE | 2018-09-13 19:00 | P.PN ---
Date of Service: 09/13/18 S: Resting comfortably. O: Vital signs are stable, incisions are clean A: Surgically stable status post laparoscopic cholecystectomy P: May be discharged when medically stable. She can see me next Sunday in my office. I left a prescription for pain medicine on her chart.
[2018-09-14] MEDS: NACHLORIDE 0.45% 1,000 ML IV SCH ×4 (02:25→23:02)
[2018-09-14] MEDS: HYDROCODONE/APAP 7.5/325 MG TAB PO PRN ×3 (02:35→16:05)
[2018-09-14] MEDS: FENTANYL CITR 100 MCG/2 ML IV PRN ×2 (04:46→16:50)
[2018-09-14] MEDS: CEFOXITIN/SWI 1gm 1 GM/10 ML SYR IV SCH ×3 (05:38→17:42)
[2018-09-14 09:11] LABS: Absolute Lymphocytes (CBC) 2.3 K/uL (0.7-4.9); Absolute Neutrophil 6.5 K/uL (1.8-8.0); Basophils % 0.7 % (0-1.3); Eosinophils % 0.8 % (0-4.4); Hematocrit 36.6 % (36.0-45.0); Lymphocytes % 23.4 % (15.3-44.8); MCH 31.3 pg (27.0-35.0); MPV 7.3 fL (7.6-11.3); Monocytes % 9.6 % (3.3-12.3); RBC Red Blood Cell Count 4.02 M/uL (3.86-4.86)
[2018-09-14 09:29] LABS: Albumin 2.8 g/dL (3.4-5.0); Bilirubin Total 0.7 mg/dL (0.2-1.0); Potassium 3.9 mmol/L (3.5-5.1); Protein, Total 7.1 g/dL (6.4-8.2)
[2018-09-14] MEDS: PANTOPRAZOLE 40 MG INJ IVP SCH (09:52)
--- NOTE | 2018-09-14 11:00 | P.PN ---
Subjective Date of Service: 09/14/18 Primary Care Provider: Nicky Larios Chief Complaint: Right upper quadrant abdominal pain, nausea Subjective: Other (Patient improved but still fatigued. Patient tolerating clear liquid diet. Some pain to the abdomen noted.) Physical Examination - Vital Signs Temperature: 98.5 F Blood Pressure: 131/64 Pulse: 72 Respirations: 16 Pulse Ox (%): 95 - Physical Exam General: Alert, In no apparent distress, Oriented x3, Cooperative HEENT: Atraumatic Neck: Supple Respiratory: Clear to auscultation bilaterally, Normal air movement Cardiovascular: Normal pulses, Regular rate/rhythm Gastrointestinal: Normal bowel sounds, Soft and benign, Non-distended, No masses , No rebound, No guarding, Tenderness (Pain to the right upper quadrant) Musculoskeletal: No erythema, No tenderness, No warmth Integumentary: No tenderness/swelling, No erythema, No warmth, No cyanosis Neurological: Normal speech, Normal strength at 5/5 x4 extr, Normal tone, Normal affect - Studies Medications List Reviewed: Yes Assessment & Plan Discharge Plan: Home Plan to discharge in: 24 Hours Physician Review Additional Text: Impression: Right upper quadrant abdominal pain with noted elevated liver function secondary to acute cholecystitis with cholelithiasis and choledocholithiasis status post ERCP with stent placement along with laparoscopic cholecystectomy Renal insufficiency likely dehydration Hypokalemia Hypertension Plan: Right upper quadrant abdominal pain with noted elevated liver function secondary to acute cholecystitis with cholelithiasis and choledocholithiasis status post ERCP with stent placement along with laparoscopic cholecystectomy: Patient improved after surgery. Still somewhat fatigued. Some renal insufficiency noted. Will increase IV fluids. Will advance diet slowly. Will have physical therapy ambulate. Anticipate possible discharge tomorrow if significantly improved. Liver function tests improved. Will continue monitor closely. Renal insufficiency likely dehydration: Will increase IV fluids. Encourage oral intake. Recheck lab in the morning Hypokalemia: Will continue to replace electrolytes. Hypertension: Will restart home medication Time Spent Managing Pts Care (In Minutes): 55
--- NOTE | 2018-09-14 15:21 | P.PN ---
Subjective Date of Service: 09/14/18 Primary Care Provider: Nicky Larios Chief Complaint: Right upper quadrant abdominal pain, nausea Subjective: No new changes (Still with post-op pain. Denies stools / flatus yet.) Review of Systems 10-point ROS is otherwise unremarkable Gastrointestinal: Abdominal Pain (post-op pain. ) Physical Examination - Vital Signs Temperature: 98.5 F Blood Pressure: 131/64 Pulse: 72 Respirations: 16 Pulse Ox (%): 95 - Physical Exam General: Alert, In no apparent distress, Oriented x3, Cooperative HEENT: Atraumatic, Normocephalic, PERRLA, EOMI Neck: Supple Respiratory: Normal air movement Cardiovascular: Normal pulses Gastrointestinal: No rebound, Tenderness, Guarding Neurological: Normal speech, Normal strength at 5/5 x4 extr - Studies Medications List Reviewed: Yes Assessment And Plan - Current Problems (Diagnosis) (1) Choledocholithiasis with acute cholecystitis Current Visit: Yes Status: Acute Comment: Improved s/p ERCP with stent & lap kurt (2) Cholelithiasis and acute cholecystitis without obstruction Current Visit: Yes Status: Acute (3) Epigastric abdominal pain Current Visit: Yes Status: Acute (4) Abnormal magnetic resonance cholangiopancreatography (MRCP) Current Visit: Yes Status: Acute (5) Abnormal ultrasound Current Visit: Yes Status: Acute - Plan REC: 1) continue antibiotics 2) diet as per surgery 3) ERCP with stent removal in 2-3 weeks Physician Review Additional Text: Impression: Right upper quadrant abdominal pain with noted elevated liver function secondary to acute cholecystitis with cholelithiasis and choledocholithiasis status post ERCP with stent placement along with laparoscopic cholecystectomy Renal insufficiency likely dehydration Hypokalemia Hypertension Plan: Right upper quadrant abdominal pain with noted elevated liver function secondary to acute cholecystitis with cholelithiasis and choledocholithiasis status post ERCP with stent placement along with laparoscopic cholecystectomy: Patient improved after surgery. Still somewhat fatigued. Some renal insufficiency noted. Will increase IV fluids. Will advance diet slowly. Will have physical therapy ambulate. Anticipate possible discharge tomorrow if significantly improved. Liver function tests improved. Will continue monitor closely. Renal insufficiency likely dehydration: Will increase IV fluids. Encourage oral intake. Recheck lab in the morning Hypokalemia: Will continue to replace electrolytes. Hypertension: Will restart home medication
[2018-09-14] MEDS: ENOXAPARIN 40 MG/0.4 ML SQ SCH (16:45)
[2018-09-15] MEDS: FENTANYL CITR 100 MCG/2 ML IV PRN (00:28)
[2018-09-15] MEDS: CEFOXITIN/SWI 1gm 1 GM/10 ML SYR IV SCH ×4 (00:29→17:46)
[2018-09-15] MEDS: HYDROCODONE/APAP 7.5/325 MG TAB PO PRN ×3 (05:22→19:59)
[2018-09-15 05:58] LABS: Absolute Lymphocytes (CBC) 2.5 K/uL (0.7-4.9); Absolute Neutrophil 5.9 K/uL (1.8-8.0); Basophils % 0.6 % (0-1.3); Eosinophils % 1.5 % (0-4.4); Lymphocytes % 26.4 % (15.3-44.8); MCH 31.6 pg (27.0-35.0); MCV 91.5 fL (80-100); MPV 7.9 fL (7.6-11.3); Monocytes % 10.2 % (3.3-12.3); RBC Red Blood Cell Count 3.94 M/uL (3.86-4.86)
[2018-09-15 06:31] LABS: Albumin 2.9 g/dL (3.4-5.0); Bilirubin Total 0.7 mg/dL (0.2-1.0); Magnesium 1.8 mg/dL (1.8-2.4); Potassium 3.4 mmol/L (3.5-5.1)
[2018-09-15] MEDS ORDERED: MAGNESIUM SULFATE 1 gm IVPB 1 GM/100 ML BAG IV ONE (07:00)
[2018-09-15] MEDS: NACHLORIDE 0.45% 1,000 ML IV SCH (07:00)
[2018-09-15] MEDS: PANTOPRAZOLE 40 MG INJ IVP SCH (09:20)
[2018-09-15] MEDS: AMLODIPINE 5 MG TAB PO SCH (09:20)
--- NOTE | 2018-09-15 12:35 | P.PN ---
Subjective Date of Service: 09/15/18 Primary Care Provider: Nicky Larios Chief Complaint: Right upper quadrant abdominal pain, nausea Subjective: No new changes (Still with post-op pain. No stools / flatus since lap kurt, though with hypoactive bowel sounds on physical exam today.) Review of Systems 10-point ROS is otherwise unremarkable Gastrointestinal: Abdominal Pain Physical Examination - Vital Signs Temperature: 97.9 F Blood Pressure: 134/68 Pulse: 80 Respirations: 16 Pulse Ox (%): 93 - Physical Exam General: Alert, Oriented x3, Cooperative, Mild distress (abdominal pain mild) HEENT: Atraumatic, Normocephalic, PERRLA, EOMI, Sclerae nonicteric Neck: Supple Respiratory: Normal air movement Cardiovascular: Normal pulses Gastrointestinal: Hypoactive, No rebound, Tenderness, Guarding Neurological: Normal speech, Normal strength at 5/5 x4 extr - Studies Medications List Reviewed: Yes Assessment And Plan - Current Problems (Diagnosis) (1) Choledocholithiasis with acute cholecystitis Current Visit: Yes Status: Acute Comment: Improved s/p ERCP with stent & lap kurt (2) Cholelithiasis and acute cholecystitis without obstruction Current Visit: Yes Status: Acute (3) Epigastric abdominal pain Current Visit: Yes Status: Acute (4) Abnormal magnetic resonance cholangiopancreatography (MRCP) Current Visit: Yes Status: Acute (5) Abnormal ultrasound Current Visit: Yes Status: Acute - Plan REC: 1) continue antibiotics 2) diet as per surgery 3) ERCP with stent removal in 2-3 weeks Physician Review Additional Text: Impression: Right upper quadrant abdominal pain with noted elevated liver function secondary to acute cholecystitis with cholelithiasis and choledocholithiasis status post ERCP with stent placement along with laparoscopic cholecystectomy Renal insufficiency likely dehydration Hypokalemia Hypertension Plan: Right upper quadrant abdominal pain with noted elevated liver function secondary to acute cholecystitis with cholelithiasis and choledocholithiasis status post ERCP with stent placement along with laparoscopic cholecystectomy: Patient improved after surgery. Still somewhat fatigued. Some renal insufficiency noted. Will increase IV fluids. Will advance diet slowly. Will have physical therapy ambulate. Anticipate possible discharge tomorrow if significantly improved. Liver function tests improved. Will continue monitor closely. Renal insufficiency likely dehydration: Will increase IV fluids. Encourage oral intake. Recheck lab in the morning Hypokalemia: Will continue to replace electrolytes. Hypertension: Will restart home medication
--- NOTE | 2018-09-15 14:44 | P.PN ---
Subjective Date of Service: 09/15/18 (Hospitalist) [facility] Chief Complaint: Status post laparoscopic cholecystectomy Patient is doing much better slight discomfort he has not had a bowel movement or passed gas feeling better Review of Systems Unremarkable Physical Examination - Vital Signs Temperature: 97.9 F Blood Pressure: 134/68 Pulse: 80 Respirations: 16 Pulse Ox (%): 93 - Physical Exam General: Alert, Oriented x3 Respiratory: Clear to auscultation bilaterally Cardiovascular: No edema Gastrointestinal: Hypoactive, Tenderness (Slight tenderness in the upper abdomen region) - Studies Medications List Reviewed: Yes Assessment & Plan - Problems (Diagnosis) (1) Choledocholithiasis with acute cholecystitis Current Visit: Yes Status: Acute Plan: Patient is 63 years of age she did undergo an ERCP with stent placement status post cholecystectomy and is doing very well. Patient is on on a diet IV fluids Dc possible discharge tomorrow Physician Review Additional Text: I
[2018-09-15] MEDS: ENOXAPARIN 40 MG/0.4 ML SQ SCH (17:46)
[2018-09-15 22:17] VITALS: O2SAT 95
[2018-09-16] MEDS: CEFOXITIN/SWI 1gm 1 GM/10 ML SYR IV SCH ×2 (00:38→06:11)
[2018-09-16] MEDS: HYDROCODONE/APAP 7.5/325 MG TAB PO PRN ×2 (00:46→10:26)
[2018-09-16 06:24] LABS: Absolute Lymphocytes (CBC) 2.8 K/uL (0.7-4.9); Absolute Monocytes 1.1 K/uL (0.1-1.3); Absolute Neutrophil 5.1 K/uL (1.8-8.0); Eosinophils % 5.1 % (0-4.4); Hematocrit 33.5 % (36.0-45.0); Lymphocytes % 29.6 % (15.3-44.8); MCH 32.2 pg (27.0-35.0); MCV 90.5 fL (80-100); MPV 7.9 fL (7.6-11.3); Monocytes % 11.1 % (3.3-12.3)
[2018-09-16 06:46] LABS: Albumin 2.6 g/dL (3.4-5.0); Bilirubin Total 0.5 mg/dL (0.2-1.0); Magnesium 2.2 mg/dL (1.8-2.4); Potassium 3.4 mmol/L (3.5-5.1); Protein, Total 6.8 g/dL (6.4-8.2)
[2018-09-16] MEDS: AMLODIPINE 5 MG TAB PO SCH (09:07)
[2018-09-16] MEDS: PANTOPRAZOLE 40 MG INJ IVP SCH (09:07)
[2018-09-16 10:32] VITALS: BP 171/81; TEMP 97.8
--- NOTE | 2018-09-16 15:46 | P.DS ---
Admission Date: 09/11/18 Discharge Date: 09/16/18 Primary Care Provider: Nicky Larios Disposition: ROUTINE DISCHARGE Discharge Condition: GOOD Reason for Admission: Status post laparoscopic cholecystectomy Consultations: Dr Ayala and Dr Adkins Procedures: Laproscopic Cholecystectomy MRCP and ERCP - Problems (1) Choledocholithiasis with acute cholecystitis Status: Acute (2) Epigastric abdominal pain Status: Acute (3) Abnormal magnetic resonance cholangiopancreatography (MRCP) Status: Acute (4) HTN (hypertension) Onset Date: 09/12/18 Status: Acute Qualifiers: Hypertension type: essential hypertension Qualified Code(s): I10 - Essential (primary) hypertension Brief History of Present Illness: Patient is a 63-year-old female who came to the hospital with abdominal pain. Pain was mainly in the right upper quadrant. This pain has been going on for the last 48 hr and patient started having intractable nausea and vomiting. Her symptoms were not improving so patient came into the emergency room for further evaluation. In the emergency room patient had a CT scan which revealed cholelithiasis with acute cholecystitis. General surgery was consulted and we admitted the patient with GI consultation. Hospital Course: Overall during the hospital stay patient remained stable The patient was initially admitted to the hospital for epigastric abdominal pain and right upper quadrant pain that was not getting better. Patient had an abdominal CT done here in the hospital which was consistent with choledocholithiasis along with acute cholecystitis. General surgery was consulted who recommended MRCP. MRCP was positive for CBD dilation along with stones. GI was consulted. Patient was prepped for a ERCP. Patient had a ECONOMIC ANALYSIS DIRECTOR done however stools were not able to be removed the stent was placed. Patient then had a lap cholecystectomy and gallbladder was removed. Patient tolerated the procedure well. Did overall well post surgery as well. Patient had marked improvement in her symptoms. Patient was able to ambulate and tolerate her diet. Patient was able to pass gas and thus was discharged home under stable condition. Patient was asked to follow up with general surgery and GI post discharge in about 1-2 days. Time Spent> 45 Mins Vital Signs/Physical Exam: Temp Pulse Resp BP Pulse Ox 97.8 F 67 18 171/81 H 97 09/16/18 08:00 09/16/18 08:00 09/16/18 08:00 09/16/18 08:00 09/16/18 08:00 General: Alert, In no apparent distress HEENT: Atraumatic, PERRLA, EOMI Neck: Supple, JVD not distended Respiratory: Clear to auscultation bilaterally, Normal air movement Cardiovascular: Regular rate/rhythm, Normal S1 S2 Gastrointestinal: Normal bowel sounds, No tenderness Musculoskeletal: No tenderness Integumentary: No rashes Neurological: Normal speech, Normal tone, Normal affect Lymphatics: No axilla or inguinal lymphadenopathy Laboratory Data at Discharge: WBC 9.6 K/uL (4.3-10.9) 09/16/18 05:44 Hgb 11.9 g/dL (12.0-15.0) L 09/16/18 05:44 Hct 33.5 % (36.0-45.0) L 09/16/18 05:44 Plt Count 347 K/uL (152-406) 09/16/18 05:44 PT 11.9 SECONDS (9.5-12.5) 09/12/18 04:51 INR 1.01 09/12/18 04:51 APTT 36.6 SECONDS (24.3-36.9) 09/12/18 04:51 Sodium 142 mmol/L (136-145) 09/16/18 05:44 Potassium 3.4 mmol/L (3.5-5.1) L 09/16/18 05:44 BUN 7 mg/dL (7-18) 09/16/18 05:44 Creatinine 0.90 mg/dL (0.55-1.3) 09/16/18 05:44 Glucose 105 mg/dL (74-106) 09/16/18 05:44 Magnesium 2.2 mg/dL (1.8-2.4) 09/16/18 05:44 Total Bilirubin 0.5 mg/dL (0.2-1.0) 09/16/18 05:44 AST 37 U/L (15-37) 09/16/18 05:44 ALT 94 U/L (12-78) H 09/16/18 05:44 Alkaline Phosphatase 100 U/L (45-117) 09/16/18 05:44 Triglycerides 145 mg/dL (<150) 09/11/18 04:33 Cholesterol 177 mg/dL (<200) 09/11/18 04:33 HDL Cholesterol 24 mg/dL (40-60) L 09/11/18 04:33 Cholesterol/HDL Ratio 7.38 09/11/18 04:33 Lipase 296 U/L (73-393) 09/10/18 21:44 Home Medications: Amlodipine Besylate 5 mg PO DAILY 09/11/18 Amlodipine Besylate 5 mg PO DAILY #30 tablet 09/16/18 New Medications: Amlodipine Besylate 5 mg PO DAILY #30 tablet Patient Discharge Instructions: F.U with Dr Ayala in 1 to 2 weeks post discharge. No new medication Diet: Regular Activity: Ad yodit Followup: Cam Ayala MD [ACTIVE - CAN ADMIT] - 1 Week
== END 2018-09-16 13:10 | disposition home or self-care (01) | DRG 419 ==
LOC: ER 21:30 → ERHOLD 22:57 → 2ND 09-11 00:02 → OBSVTOIN 09-11 14:56
PROVIDERS: ADMIT Hospitalist; ATTEND Family Medicine
PROC: 0F798DZ Dilation of Common Bile Duct with Intraluminal Device, Via Natural or Artificial Opening Endoscopic (ICD-10-PCS; 2018-09-12)
PROC: 0F778ZZ Dilation of Common Hepatic Duct, Via Natural or Artificial Opening Endoscopic (ICD-10-PCS; 2018-09-12)
PROC: BF10YZZ Fluoroscopy of Bile Ducts using Other Contrast (ICD-10-PCS; 2018-09-12)
PROC: 0FT44ZZ Resection of Gallbladder, Percutaneous Endoscopic Approach (ICD-10-PCS; principal; 2018-09-13 14:00)
DX: K80.66 Calculus of gallbladder and bile duct with acute and chronic cholecystitis without obstruction (principal); I10 Essential (primary) hypertension; E86.0 Dehydration; N28.9 Disorder of kidney and ureter, unspecified; E87.6 Hypokalemia; R94.5 Abnormal results of liver function studies; F17.210 Nicotine dependence, cigarettes, uncomplicated
CPT/HCPCS: 36415; 74176; 74181; 76377; 76705; 80048; 80053; 80061; 80076; 81003; 81015; 83690; 83735; 85025; 85610; 85730; 88304; 96365; 96375; 97163; 99285; C2625; C9113; G0008; G0378; J0360; J0694; J1580; J1610; J1650; J2001; J2175; J2250; J2405; J2704; J2710; J3010; J3475; J7030; Q2035

== ENCOUNTER 2020-02-20 02:21 | Observation (INO) | payer OTHER ==
--- NOTE | 2020-02-20 02:41 | ER ---
Nurse's Notes [facility] Name: Simona Juárez Age: 64 yrs Sex: Female : 1955 Arrival Date: 02/20/2020 Time: 02:23 Bed 6 Private MD: Diagnosis: Other chest pain;Angina pectoris Presentation: 02/19 02:24 Chief complaint: Patient states: CP in middle of chest radiating to both sides of sg anterior chest wall per EMS, pt states the pain began at 2130, worsening throughout the night, vomiting x1 around 0000, reports having discomfort at this time with anxiety but feeling better. Coronavirus screen: Proceed with normal triage. Ebola Screen: Patient negative for fever greater than or equal to 101.5 degrees Fahrenheit, and additional compatible Ebola Virus Disease symptoms Patient denies exposure to infectious person. Patient denies travel to an Ebola-affected area in the 21 days before illness onset. No symptoms or risks identified at this time. 02:24 Method Of Arrival: EMS: [facility] 02:24 Risk Assessment: Do you want to hurt yourself or someone else? Patient reports no sg desire to harm self or others. Care prior to arrival: Medication(s) given: ASA, 81 mg, x 4. 02:24 Initial Sepsis Screen: Does the patient meet any 2 criteria? No. Patient's initial sg sepsis screen is negative. Does the patient have a suspected source of infection? No. Patient's initial sepsis screen is negative. Onset of symptoms was February 19, 2020. 02:25 Acuity: FRANCOISE 3 sg Historical: - Allergies: 03:05 Morphine; sg - Home Meds: 03:05 amlodipine-benazepril Oral [Active]; lisinopril 40 mg Oral tab 1 tab once daily sg [Active]; Metoprolol Tartrate Oral [Active]; - PMHx: 03:05 Hypertension; sg - PSHx: 03:05 None; sg - Immunization history:: Adult Immunizations up to date. - Social history:: Smoking status: Patient denies any tobacco usage or history of. - Family history:: not pertinent. Screenin:23 Abuse screen: Denies threats or abuse. Denies injuries from another. Nutritional lp1 screening: No deficits noted. Tuberculosis screening: No symptoms or risk factors identified. Fall Risk None identified. Assessment: 02:45 General: Appears in no apparent distress. Behavior is calm, cooperative, appropriate lp1 for age. Pain: Complains of pain in chest Pain radiates to chest and left arm Quality of pain is described as shooting, Pain began gradually. Neuro: Level of Consciousness is awake, alert, obeys commands, Oriented to person, place, time, situation. Cardiovascular: Patient's skin is warm and dry. Respiratory: Respiratory effort is even, unlabored. GI: No signs and/or symptoms were reported involving the gastrointestinal system. : No signs and/or symptoms were reported regarding the genitourinary system. EENT: No signs and/or symptoms were reported regarding the EENT system. Derm: Skin is pink, warm \T\ dry. Musculoskeletal: No deficits noted. 03:30 Reassessment: Patient appears in no apparent distress at this time. lp1 04:24 Reassessment: Patient appears in no apparent distress at this time. Patient is alert, lp1 oriented x 3, equal unlabored respirations, skin warm/dry/pink. Patient aware of pending admission. 05:56 Reassessment: Patient and/or family updated on plan of care and expected duration. Pain ea level reassessed. Patient is alert, oriented x 3, equal unlabored respirations, skin warm/dry/pink. Report given to receiving nurse on second floor. Vital Signs: 02:40 BP 152 / 89; Pulse 88; Resp 18; Temp 97.8; Pulse Ox 99% on R/A; Pain 2/10; sg 03:00 BP 132 / 75; Pulse 67; Resp 17; Pulse Ox 95% on R/A; lp1 03:11 Weight 86.18 kg (R); lp1 03:45 BP 126 / 72; Pulse 62; Resp 20; Pulse Ox 95% on R/A; lp1 04:00 BP 142 / 82; Pulse 70; Resp 18; Pulse Ox 98% ; ea 05:55 BP 120 / 80; Pulse 68; Resp 18; Pulse Ox 98% ; ea ED Course: 02:23 Patient arrived in ED. sg 02:25 Mehul Roberson MD is Attending Physician. pavithra 02:25 Triage completed. sg 02:25 Arm band placed on. sg 02:30 protective services officer on. Pulse ox on. NIBP on. lp1 02:30 Patient has correct armband on for positive identification. Placed in gown. Bed in low lp1 position. 02:30 Patient maintains SpO2 saturation greater than 95% on room air. lp1 02:39 Bg Winters MD is Hospitalizing Provider. pavithra 02:40 Kelly Melara, ZORAIDA is Primary Nurse. ea 02:48 No provider procedures requiring assistance completed. Inserted saline lock: 20 gauge lp1 in right antecubital area, using aseptic technique. Blood collected. 03:12 Patty Mccullough, RN is Primary Nurse. lp1 03:41 XRAY Chest (1 view) In Process Unspecified. EDMS 04:27 Patient admitted, IV remains in place. lp1 Administered Medications: 02:48 Drug: NS 0.9% 1000 ml Route: IV; Rate: 75 ml/hr; Site: right antecubital; lp1 04:59 Follow up: Response: No adverse reaction; IV Status: Infusion continued upon admission ea 03:03 Not Given (EMS gave in route): Aspirin Chewable Tablet 324 mg PO once; 81 mg tablets x 4sg 03:04 Drug: Lopressor (metoprolol TARTRATE) 50 mg Route: PO; lp1 04:28 Follow up: Response: No adverse reaction lp1 04:34 Drug: Lovenox 1 mg/kg Route: Sub-Q; Site: right lower abdomen; lp1 04:59 Follow up: Response: No adverse reaction ea Outcome: 02:40 Decision to Hospitalize by Provider. [facility] 04:27 Condition: stable lp1 04:27 Instructed on the need for admit. 05:54 Admitted to Med/surg accompanied by tech, room 220, Report called to Receiving nurse ea on second floor. 06:01 Patient left the ED. ea Signatures: Dispatcher [employer] EDMS Vince Mccarthy RN RN sg Anderson, Corey, MD MD cha Pena, Laura, RN RN lp1 Kelly Melara, ZORAIDA RN ea Corrections: (The following items were deleted from the chart) 03:04 02:24 Chief complaint: Patient states: CP in middle of chest radiating to both sides of sg anterior chest wall per EMS, pt states the pain began at 2130, worsening throughout the night, vomiting x1 around 0000, reports having discomfort at this time with anxiety but feeling better sg
--- NOTE | 2020-02-20 02:41 | EDPHYS ---
Physician Documentation [facility] Name: Simona Juárez Age: 64 yrs Sex: Female : 1955 Arrival Date: 02/20/2020 Time: 02:23 Bed 6 Private MD: ED Physician Mehul Roberson HPI: 02/19 02:35 This 64 yrs old Female presents to ER via EMS with complaints of Chest Pain > pavithra 29 y/o, Anxiety. 02:35 The patient or guardian reports chest pain that is located primarily in the anterior pavithra chest wall, bilaterally. Onset: 6 hour(s) ago. The pain radiates to left arm. Associated signs and symptoms: Pertinent positives: diaphoresis, nausea, shortness of breath. The chest pain is described as a heaviness, a pressure. Duration: The patient or guardian reports multiple episodes, that have now resolved. Modifying factors: The symptoms are alleviated by nothing. the symptoms are aggravated by nothing. Severity of pain: At its worst the pain was moderate in the emergency department the pain has resolved and did so earlier today. The patient has not experienced similar symptoms in the past. Historical: - Allergies: 03:05 Morphine; sg - Home Meds: 03:05 amlodipine-benazepril Oral [Active]; lisinopril 40 mg Oral tab 1 tab once daily sg [Active]; Metoprolol Tartrate Oral [Active]; - PMHx: 03:05 Hypertension; sg - PSHx: 03:05 None; sg - Immunization history:: Adult Immunizations up to date. - Social history:: Smoking status: Patient denies any tobacco usage or history of. - Family history:: not pertinent. ROS: 02:35 Constitutional: Negative for fever, chills, and weight loss, Eyes: Negative for injury, pavithra pain, redness, and discharge, ENT: Negative for injury, pain, and discharge, Neck: Negative for injury, pain, and swelling, Abdomen/GI: Negative for abdominal pain, nausea, vomiting, diarrhea, and constipation, Back: Negative for injury and pain, : Negative for injury, bleeding, discharge, and swelling, MS/Extremity: Negative for injury and deformity, Skin: Negative for injury, rash, and discoloration, Neuro: Negative for headache, weakness, numbness, tingling, and seizure, Psych: Negative for depression, anxiety, suicide ideation, homicidal ideation, and hallucinations, Allergy/Immunology: Negative for hives, rash, and allergies, Endocrine: Negative for neck swelling, polydipsia, polyuria, polyphagia, and marked weight changes, Hematologic/Lymphatic: Negative for swollen nodes, abnormal bleeding, and unusual bruising. 02:35 Cardiovascular: Positive for chest pain. 02:35 Respiratory: Positive for cough, with no reported sputum, shortness of breath, at rest. Exam: 02:35 Constitutional: This is a well developed, well nourished patient who is awake, alert, pavithra and in no acute distress. Head/Face: Normocephalic, atraumatic. Eyes: Pupils equal round and reactive to light, extra-ocular motions intact. Lids and lashes normal. Conjunctiva and sclera are non-icteric and not injected. Cornea within normal limits. Periorbital areas with no swelling, redness, or edema. ENT: Nares patent. No nasal discharge, no septal abnormalities noted. Tympanic membranes are normal and external auditory canals are clear. Oropharynx with no redness, swelling, or masses, exudates, or evidence of obstruction, uvula midline. Mucous membranes moist. Neck: Trachea midline, no thyromegaly or masses palpated, and no cervical lymphadenopathy. Supple, full range of motion without nuchal rigidity, or vertebral point tenderness. No Meningismus. Chest/axilla: Normal chest wall appearance and motion. Nontender with no deformity. No lesions are appreciated. Cardiovascular: Regular rate and rhythm with a normal S1 and S2. No gallops, murmurs, or rubs. Normal PMI, no JVD. No pulse deficits. Respiratory: Lungs have equal breath sounds bilaterally, clear to auscultation and percussion. No rales, rhonchi or wheezes noted. No increased work of breathing, no retractions or nasal flaring. Abdomen/GI: Soft, non-tender, with normal bowel sounds. No distension or tympany. No guarding or rebound. No evidence of tenderness throughout. Back: No spinal tenderness. No costovertebral tenderness. Full range of motion. Skin: Warm, dry with normal turgor. Normal color with no rashes, no lesions, and no evidence of cellulitis. MS/ Extremity: Pulses equal, no cyanosis. Neurovascular intact. Full, normal range of motion. Neuro: Awake and alert, GCS 15, oriented to person, place, time, and situation. Cranial nerves II-XII grossly intact. Motor strength 5/5 in all extremities. Sensory grossly intact. Cerebellar exam normal. Normal gait. Psych: Awake, alert, with orientation to person, place and time. Behavior, mood, and affect are within normal limits. 02:35 Musculoskeletal/extremity: DVT Exam: No signs of deep vein thrombosis. no pain, no swelling, no tenderness, negative Homans' sign noted on exam, no appreciated bluish discoloration, no erythema, no increased warmth. 03:03 ECG was reviewed by the Attending Physician. [facility] 04:08 Abdomen/GI: Inspection: abdomen appears normal, Bowel sounds: normal, Palpation: [facility] abdomen is soft and non-tender, Liver: no appreciated palpable abnormalities, Hernia: not appreciated. Vital Signs: 02:40 BP 152 / 89; Pulse 88; Resp 18; Temp 97.8; Pulse Ox 99% on R/A; Pain 2/10; sg 03:00 BP 132 / 75; Pulse 67; Resp 17; Pulse Ox 95% on R/A; lp1 03:11 Weight 86.18 kg (R); lp1 03:45 BP 126 / 72; Pulse 62; Resp 20; Pulse Ox 95% on R/A; lp1 04:00 BP 142 / 82; Pulse 70; Resp 18; Pulse Ox 98% ; ea 05:55 BP 120 / 80; Pulse 68; Resp 18; Pulse Ox 98% ; ea MDM: 02:25 Patient medically screened. [facility] 02:38 Data reviewed: vital signs, nurses notes, lab test result(s), EKG, radiologic studies, [facility] CT scan, plain films. 02:40 Differential diagnosis: acute myocardial infarction, coronary artery disease congestive pavithra heart failure unstable angina. ED course: at 930 pm chest pain, pressure, sob and nausea. no hx of chest pain, no cp now. 02/19 02:35 Order name: Basic Metabolic Panel; Complete Time: 04:02 pavithra 02/19 02:35 Order name: CBC with Diff; Complete Time: 04:02 [facility] 02/19 02:35 Order name: LFT's; Complete Time: 04:02 [facility] 02/19 02:35 Order name: Magnesium; Complete Time: 04:02 [facility] 02/19 02:35 Order name: NT PRO-BNP; Complete Time: 04:02 [facility] 02/19 02:35 Order name: Troponin (emerg Dept Use Only); Complete Time: 04:02 [facility] 02/19 02:35 Order name: XRAY Chest (1 view) [facility] 02/19 04:46 Order name: CBC with Automated Diff EDMS 02/19 04:46 Order name: CBC with Automated Diff EDMS 02/19 04:46 Order name: Comprehensive Metabolic Panel EDRI 02/19 04:46 Order name: Comprehensive Metabolic Panel [facility] 02/19 04:46 Order name: Troponin I [facility] 02/19 04:46 Order name: Troponin I [facility] 02/19 04:46 Order name: Troponin I [facility] 02/19 02:35 Order name: EKG; Complete Time: 02:37 [facility] 02/19 02:35 Order name: Cardiac monitoring; Complete Time: 03:04 [facility] 02/19 02:35 Order name: EKG - Nurse/Tech; Complete Time: 03:04 [facility] 02/19 02:35 Order name: IV Saline Lock; Complete Time: 03:04 [facility] 02/19 02:35 Order name: Labs collected and sent; Complete Time: 03:04 [facility] 02/19 02:35 Order name: O2 Per Protocol; Complete Time: 03:04 [facility] 02/19 02:35 Order name: O2 Sat Monitoring; Complete Time: 03:04 [facility] 02/19 04:46 Order name: CONS Pharmacy Consult [facility] 02/19 04:46 Order name: CONS Physician Consult [facility] 02/19 04:46 Order name: Heart Healthy EDMS EC:03 Rate is 65 beats/min. Rhythm is regular. QRS [place] is Normal. [place] interval is normal. QRS pavithra interval is normal. QT interval is normal. No Q waves. T waves are Normal. No ST changes noted. Clinical impression: Normal ECG. Administered Medications: 02:48 Drug: NS 0.9% 1000 ml Route: IV; Rate: 75 ml/hr; Site: right antecubital; lp1 04:59 Follow up: Response: No adverse reaction; IV Status: Infusion continued upon admission ea 03:03 Not Given (EMS gave in route): Aspirin Chewable Tablet 324 mg PO once; 81 mg tablets x 4sg 03:04 Drug: Lopressor (metoprolol TARTRATE) 50 mg Route: PO; lp1 04:28 Follow up: Response: No adverse reaction lp1 04:34 Drug: Lovenox 1 mg/kg Route: Sub-Q; Site: right lower abdomen; lp1 04:59 Follow up: Response: No adverse reaction ea Disposition: 02/20/20 02:40 Hospitalization ordered by Bg Winters for Observation. Preliminary diagnosis are Other chest pain, Angina pectoris. - Bed requested for Telemetry/MedSurg (observation). - Status is Observation. ea - Condition is Stable. - Problem is new. - Symptoms have improved. Signatures: Dispatcher [employer] EDMS Vince Mccarthy RN RN sg Mehul Roberson MD MD cha Pena, Laura, RN RN lp1 Saray Noe RN RN Kelly Melara RN RN ea Corrections: (The following items were deleted from the chart) 04:48 02:40 Hospitalization Ordered by Bg Winters MD for Observation. Preliminary cg diagnosis is Other chest pain; Angina pectoris. Bed requested for Telemetry/MedSurg (observation). Status is Observation. Condition is Stable. Problem is new. Symptoms have improved. [facility] 06:01 04:48 02/20/2020 02:40 Hospitalization Ordered by Bg Winters MD for Observation. ea Preliminary diagnosis is Other chest pain; Angina pectoris. Bed requested for Telemetry/MedSurg (observation). Status is Observation. Condition is Stable. Problem is new. Symptoms have improved. cg
[2020-02-20] MEDS ORDERED: METOPROLOL TAR 50 MG TAB ONE (02:50)
[2020-02-20] MEDS ORDERED: ASPIRIN 81 MG CHEWABLE TABLET ONE (02:50)
[2020-02-20] MEDS ORDERED: NA CHLORIDE 0.9% 1,000 ML ONE (02:50)
[2020-02-20 03:08] LABS: Absolute Lymphocytes (CBC) 3.7 K/uL (0.7-4.9); Basophils % 1.5 % (0-1.3); Hematocrit 44.3 % (36.0-45.0); Lymphocytes % 40.7 % (15.3-44.8); MPV 7.9 fL (7.6-11.3); RBC Red Blood Cell Count 4.78 M/uL (3.86-4.86)
[2020-02-20 03:20] LABS: ALT/SGPT 175 U/L (12-78); AST/SGOT 103 U/L (15-37); Albumin 3.6 g/dL (3.4-5.0); Alkaline Phosphatase 150 U/L (45-117); BUN Blood Urea Nitrogen 16 mg/dL (7-18); Bicarbonate 26 mmol/L (21-32); Bilirubin Direct 0.1 mg/dL (0-0.2); Bilirubin Total 0.3 mg/dL (0.2-1.0); Glucose Level 134 mg/dL (74-106); Magnesium 2.1 mg/dL (1.8-2.4); NT PRO-BNP 151 pg/mL (<125); Potassium 3.8 mmol/L (3.5-5.1); Protein, Total 8.2 g/dL (6.4-8.2); Sodium Level 137 mmol/L (136-145); Troponin (Emerg Dept Use Only) < 0.02 ng/mL (0.0-0.045)
[2020-02-20] MEDS ORDERED: ENOXAPARIN 80 MG/0.8 ML SQ ONE (04:03)
[2020-02-20] MEDS ORDERED: ALBUTEROL 2.5 MG/3 ML NEB SOL NEB PRN (04:40)
[2020-02-20] MEDS ORDERED: ACETAMINOPHEN 500 MG TAB PO PRN (04:40)
[2020-02-20] MEDS ORDERED: ONDANSETRON 4 MG/2 ML VIAL IV PRN (04:40)
[2020-02-20] MEDS ORDERED: MORPHINE 2 MG/ML SYR IV PRN (04:40)
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
[2020-02-20] MEDS ORDERED: LORAZEPAM 0.5 MG TABLET PO PRN (04:50)
[2020-02-20] MEDS ORDERED: NITROGLYCERIN 0.4 MG/TAB SL ONE (04:50)
[2020-02-20] MEDS ORDERED: HYDRALAZINE HCL 20 MG/ML VIAL IV PRN (04:50)
[2020-02-20] MEDS: NA CHLORIDE 0.9% 1,000 ML IV SCH ×2 (05:00→16:12)
[2020-02-20 07:37] VITALS: BMI 30.2
--- NOTE | 2020-02-20 08:39 | RAD REPORT ---
EXAM DESCRIPTION: RAD - Chest Single View - 02/20/2020 3:40 am CLINICAL HISTORY: CHEST PAIN Chest pain. COMPARISON: Chest Single View dated 03/27/2016; CHEST SINGLE VIEW dated 07/17/2014; CHEST SINGLE VIEW dated 07/24/2013 FINDINGS: Portable technique limits examination quality. The lungs are grossly clear. The heart is normal in size. No displaced fractures. IMPRESSION: No acute intrathoracic process suspected.
[2020-02-20] MEDS: NICOTINE 21 MG/PAT TD SCH (09:00)
[2020-02-20] MEDS: ASPIRIN EC 81 MG TAB PO SCH (09:15)
[2020-02-20] MEDS: FAMOTIDINE 20 MG TAB PO SCH ×2 (09:17→20:13)
--- NOTE | 2020-02-20 12:03 | EKG ---
Test Date: 2020-02-20 Test Time: 03:00:58 Diagnostic Radiologist: [facility] MEASUREMENT RESULTS: Intervals: Rate: 65 TN: 152 QRSD: 90 QT: 414 QTc: 430 [place]: P: 70 TN: 152 QRS: -1 T: 51 INTERPRETIVE STATEMENTS: Normal sinus rhythm Normal ECG Compared to ECG 07/18/2014 07:53:47 Sinus bradycardia no longer present Electronically Signed On 02-20-20 12:02:39 CDT by Lorenzo Joe
--- NOTE | 2020-02-20 12:29 | ECHO ---
HEIGHT: 5 ft 7 in WEIGHT: 192 lb 12.8 oz DATE OF STUDY: 02/20/[address]: Lorenzo Joe MD 2-DIMENSIONAL: YES M.MODE: YES DOPPLER: YES COLOR FLOW: YES TDS: NO PORTABLE: NO DEFINITY: NO BUBBLE STUDY: NO DIAGNOSIS: CHEST PAIN CARDIAC HISTORY: CATHERIZATION: NO SURGERY: NO PROSTHETIC VALVE: NO PACEMAKER: NO MEASUREMENTS (cm) DIASTOLIC (NORMALS) SYSTOLIC (NORMALS) IVSd 1.2 (0.6-1.2) LA Diam 3.8 (1.9-4.0) LVEF 69% LVIDd 4.3 (3.5-5.7) LVIDs 2.6 (2.0-3.5) %FS 39% LVPWd 1.2 (0.6-1.2) Ao Diam 2.8 (2.0-3.7) 2 DIMENSIONAL ASSESSMENT: RIGHT ATRIUM: NORMAL LEFT ATRIUM: NORMAL RIGHT VENTRICLE: NORMAL LEFT VENTRICLE: NORMAL TRICUSPID VALVE: NORMAL MITRAL VALVE: NORMAL PULMONIC VALVE: NORMAL AORTIC VALVE: NORMAL PERICARDIAL EFFUSION: NONE AORTIC ROOT: NORMAL LEFT VENTRICULAR WALL MOTION: NORMAL. DOPPLER/COLOR FLOW: NORMAL. COMMENTS: NORMAL 2D ECHO WITH DOPPLER. NO WALL MOTION ABNORMALITY. NO EFFUSION. TECHNOLOGIST: REYNA RAY
[2020-02-20] MEDS ORDERED: PNEUMOCOCCAL VACCINE 0.5 ML IMVAC ONE (17:00)
--- NOTE | 2020-02-20 17:01 | CON ---
Date of Consultation: 02/20/2020 Reason For Consultation: Chest pain and hypertension. History Of Present Illness: Patient is a 64-year-old woman, has really no significant past cardiac h istory. She does have a history of hypertension for which she takes Norvasc. She came in with chest pain that was diffuse. It was anterior. She also had back pain, neck pain, leg pain, abdominal monserrat n. No nausea, vomiting, diaphoresis, PND, orthopnea, pedal edema, palpitation, or syncope. Her pain was not exertional. She denied any fever or chills or cough. On her blood work, she had a troponin of 0.05. Her ALT was 103, AST was 175. Patient denies any alcohol use. Past Medical History: Includes hypertension. Allergies: TO MORPHINE. Review of Systems: Negative. Social History: Negative. Family History: Noncontributory. Physical Examination: Vital Signs: Stable, afebrile, sinus rhythm. HEENT: Negative. Neck: Supple with no bruit. Chest: Clear. Cardiac: Revealed a regular rhythm and rate. No murmurs, gallops, or rubs. Abdomen: Benign. Extremities: Revealed no clubbing, cyanosis, or edema. Diagnostic Data: As stated earlier, her EKG was normal. Chest x-ray was normal. Impression And Plan: Atypical chest pain with slightly elevated troponin not consistent with acute c oronary syndrome. I am concerned that her pain may be gastrointestinal in nature. She does have sandy vated liver function enzymes, which needs to be worked up. Her blood pressure is better controlled r ight now. There is some issue with anxiety. She needs to have an echocardiogram and a stress test. Echocardiogram is pending. Her stress test was canceled because of the fact the patient has already eaten and drank caffeine. We consulted to see what the echo shows and the echo was normal. I think she can be discharged, but she needs to have a liver workup and may be an outpatient stress test at her convenience. DIONNE/SOL Voice ID: [id number] Report ID: [id number]
[2020-02-21] MEDS ORDERED: NITROGLYCERIN 0.4 MG/TAB SL PRN (02:46)
[2020-02-21] MEDS: NA CHLORIDE 0.9% 1,000 ML IV SCH ×2 (02:49→11:00)
[2020-02-21 05:18] LABS: Absolute Lymphocytes (CBC) 3.9 K/uL (0.7-4.9); Basophils % 1.3 % (0-1.3); Hematocrit 40.2 % (36.0-45.0); Lymphocytes % 49.1 % (15.3-44.8); MPV 8.2 fL (7.6-11.3); RBC Red Blood Cell Count 4.37 M/uL (3.86-4.86)
[2020-02-21 05:30] LABS: Albumin 3.2 g/dL (3.4-5.0); Bilirubin Total 0.4 mg/dL (0.2-1.0); Potassium 4.3 mmol/L (3.5-5.1); Protein, Total 7.2 g/dL (6.4-8.2)
[2020-02-21] MEDS: NICOTINE 21 MG/PAT TD SCH (09:00)
[2020-02-21] MEDS: ASPIRIN EC 81 MG TAB PO SCH (10:26)
[2020-02-21] MEDS: FAMOTIDINE 20 MG TAB PO SCH (10:26)
[2020-02-21 14:16] VITALS: O2SAT 98
[2020-02-21] MEDS ORDERED: carvediloL 12.5 MG TAB PO SCH (18:00)
--- NOTE | 2020-02-21 18:27 | P.DS ---
Admission Date: 02/20/20 Discharge Date: 02/21/20 Disposition: ROUTINE DISCHARGE Discharge Condition: GOOD Reason for Admission: Chest pain - Problems (1) Atypical chest pain Current Visit: No Status: Acute Brief History of Present Illness: Patient is a 64-year-old female with a past medical history of hypertension and GERD who presented to the hospital with chest pain. She was admitted for ACS rule out. Her troponins were negative x3. Her 2D echo was within normal limits without wall motion abnormalities. The was a plan to perform a stress test inpatient. However, this test was canceled as patient 8. Cardiology cleared the patient for discharge with a plan to perform a stress test as outpatient. Patient felt better symptomatically. She was also preoccupied by the fact that she has a biliary stent which needs to be removed. She has not seen a production proofreader since her last procedure. Her LFTs were slightly elevated but trending down over the past 24 hr. I advised the patient to call her production proofreader regarding the status of the stent of whether not it needed to be removed. Vital Signs/Physical Exam: Temp Pulse Resp BP Pulse Ox 97.6 F 68 18 188/106 H 98 02/21/20 16:00 02/21/20 16:32 02/21/20 16:00 02/21/20 16:32 02/21/20 16:00 General: Alert, In no apparent distress, Cooperative HEENT: Atraumatic, Normocephalic Neck: Supple Respiratory: Clear to auscultation bilaterally, Normal air movement Cardiovascular: No edema, Normal pulses, Regular rate/rhythm, Normal S1 S2, No murmurs Gastrointestinal: Normal bowel sounds, Soft and benign, Non-distended Musculoskeletal: No clubbing, No swelling, No contractures, No erythema, No tenderness, No warmth Integumentary: No rashes, No breakdown, No significant lesion, No tenderness/swelling, No erythema, No warmth, No cyanosis Neurological: Normal speech, Sensation intact, Normal affect Laboratory Data at Discharge: WBC 8.0 K/uL (4.3-10.9) 02/21/20 04:35 Hgb 13.5 g/dL (12.0-15.0) 02/21/20 04:35 Hct 40.2 % (36.0-45.0) 02/21/20 04:35 Plt Count 333 K/uL (152-406) 02/21/20 04:35 Sodium 143 mmol/L (136-145) 02/21/20 04:35 Potassium 4.3 mmol/L (3.5-5.1) 02/21/20 04:35 BUN 14 mg/dL (7-18) 02/21/20 04:35 Creatinine 0.95 mg/dL (0.55-1.3) 02/21/20 04:35 Glucose 99 mg/dL (74-106) 02/21/20 04:35 Magnesium 2.1 mg/dL (1.8-2.4) 02/20/20 02:48 Total Bilirubin 0.4 mg/dL (0.2-1.0) 02/21/20 04:35 AST 82 U/L (15-37) H 02/21/20 04:35 ALT 143 U/L (12-78) H 02/21/20 04:35 Alkaline Phosphatase 112 U/L (45-117) 02/21/20 04:35 Troponin I 0.08 ng/mL (0.0-0.045) H 02/20/20 10:59 Home Medications: Amlodipine Besylate 10 mg PO DAILY 09/11/18 Metoprolol Tartrate 100 mg PO DAILY 02/20/20 Pantoprazole [Protonix Tab*] 40 mg PO DAILY 02/20/20 Aspirin [Aspirin EC 81 MG] 81 mg PO DAILY #30 tablet. 02/21/20 Atorvastatin Calcium 40 mg PO BEDTIME #30 tablet 02/21/20 Nitroglycerin [Nitrostat*] 0.4 mg SL UD PRN #100 tab 02/21/20 New Medications: Aspirin [Aspirin EC 81 MG] 81 mg PO DAILY #30 tablet. Atorvastatin Calcium 40 mg PO BEDTIME #30 tablet Nitroglycerin [Nitrostat*] 0.4 mg SL UD PRN #100 tab PRN Reason: Pain Scale 2-4 (Mild) Diet: AHA
[2020-02-21 21:10] VITALS: BP 169/86; TEMP 97.3
[2020-02-22] MEDS ORDERED: AMLODIPINE 5 MG TAB PO SCH (09:00)
[2020-02-22] MEDS ORDERED: PANTOPRAZOLE 40MG TABLET PO SCH (09:00)
[2020-02-22] MEDS ORDERED: HOME MED 1 EA UNK (Metoprolol Tartrate [Metoprolol Tartrate] 100 MG) PO SCH (09:00)
== END 2020-02-21 20:15 | disposition home or self-care (01) ==
LOC: ER 02:21 → ERHOLD 04:50 → 2ND 05:55
PROVIDERS: ADMIT Internal Medicine; ATTEND Internal Medicine
DX: R07.89 Other chest pain (principal); I10 Essential (primary) hypertension; K21.9 Gastro-esophageal reflux disease without esophagitis; F17.210 Nicotine dependence, cigarettes, uncomplicated
CPT/HCPCS: 96361; 93005; 93306; 85025 ×2; 80048; 36415 ×2; 83735; 80076; 84484 ×3; 80053; 83880; 71045; 96360; 96372; 99285; J1650; J7030 ×3; G0378 ×3

== ENCOUNTER 2020-03-09 07:24 | Day surgery (SDC) | payer OTHER ==
--- NOTE | 2020-03-05 12:38 | RAD REPORT ---
EXAM DESCRIPTION: RAD - Chest Pa And Lat (2 Views) - 03/05/2020 12:32 pm CLINICAL HISTORY: pre-op for pathology lab technician procedure Chest pain. COMPARISON: Chest Single View dated 02/20/2020; Chest Single View dated 03/27/2016; CHEST SINGLE VIEW dated 07/17/2014; CHEST SINGLE VIEW dated 07/24/2013 FINDINGS: Mild linear opacities are seen in the left lung base likely representing atelectasis or sc arring. The lungs otherwise are hyperexpanded but clear of acute infiltrate. The heart is normal in s ize. No displaced fractures. IMPRESSION: Mild COPD.
[2020-03-05 13:04] LABS: Absolute Lymphocytes (CBC) 4.2 K/uL (0.7-4.9); Basophils % 1.5 % (0-1.3); Hematocrit 44.7 % (36.0-45.0); Lymphocytes % 38.2 % (15.3-44.8); MPV 8.1 fL (7.6-11.3); RBC Red Blood Cell Count 4.85 M/uL (3.86-4.86)
[2020-03-05 13:11] LABS: Protime INR 0.92
[2020-03-05 13:13] LABS: Potassium 4.3 mmol/L (3.5-5.1)
[~2020-03-09 07:24] MED LIST: HEPA 1000U/500MLS 1,000 UNIT/500 ML BAG IV ONE; LIDOCAINE 1% 20 ML MDV ONE; NA CHLORIDE 0.9% 500 ML ONE
[2020-03-09] MEDS ORDERED: ATROPINE SULF 1 MG/10 ML SYR IV ONE (07:33)
[2020-03-09] MEDS ORDERED: MIDAZOLAM HCL 2 MG/2 ML INJ ONE ×2 (07:33→07:40)
[2020-03-09] MEDS ORDERED: FENTANYL CITR 100 MCG/2 ML ONE (07:33)
[2020-03-09] MEDS ORDERED: NITROGLYCERIN 100 MCG/ML SYR (for cath lab use only) IV ONE (07:34)
[2020-03-09] MEDS ORDERED: NITROGLYCERIN/D5W 0 MG/0 ML BTL IV ONE (07:34)
[2020-03-09] MEDS ORDERED: NA CHLORIDE 0.9% 50 ML ONE (07:34)
[2020-03-09] MEDS ORDERED: ASPIRIN 325 MG TAB ONE ×2 (08:05→08:09)
[2020-03-09] MEDS ORDERED: PRASUGREL (EFFIENT) 10 MG TAB ONE (08:05)
[2020-03-09] MEDS ORDERED: ONDANSETRON 4 MG/2 ML VIAL IV PRN (08:51)
[2020-03-09] MEDS ORDERED: NA CHLORIDE 0.9% 1,000 ML IV SCH (09:00)
[2020-03-09] MEDS ORDERED: NITROGLYCERIN 0.4 MG/TAB SL PRN (09:00)
[2020-03-09] MEDS ORDERED: ACETAMINOPHEN 325 MG TABLET PO PRN (09:00)
[2020-03-09 10:19] VITALS: BMI 29.7
[2020-03-09] MEDS ORDERED: ATORVASTATIN 80 MG TAB PO SCH (21:00)
--- NOTE | 2020-03-10 00:11 | OP ---
Date of Procedure: 03/09/2020 Surgeon: Lorenzo Joe MD Coin Box Collector: Lucy Che Patient will remain in the hospital overnight. She will go home tomorrow on aspirin, beta-louise, P lavix, and Lipitor. Procedure: Left heart catheterization, selective coronary arteriogram, and primary stent of the prox imal LAD. Indication For Procedure: Ms. Juárez is a 64-year-old woman who had come into the hospital with atypi kalyan chest pain. Had an outpatient stress test, which was positive in the anteroapical inferior wall. She was scheduled for an outpatient catheterization today because of risk for IN. Description Of Procedure: Patient was brought to the collaborating supervising physician as an outpatient, prepped and draped i n the routine sterile fashion. She was given Versed for sedation. She was prepped and draped in the routine sterile fashion. A 6-Japanese sheath introduced in the right common femoral artery. Leisa catheter left and right were used to do the diagnostic catheterization. She was found to have a norm al left main, normal circumflex, a codominant system. She had 90% to 95% very proximal LAD before th e first septal. Her RCA was completely occluded at the ostium with collaterals to the RCA distally f rom the LAD and the circumflex. We decided to do an intervention. An XB LAD 3.5 guide with side hol e was used to cannulate the left main. A Protivin wire was used to cross the lesion successfully. A 3 .5 x 16 Synergy stent was placed in the proximal LAD with 0% residual and no complications. There we re no thrombus or acute closure. The inflation was done at 11 atmospheres. Intracoronary nitroglyce rin was given after the stent was placed. 0% residual was noted on angiography. There were no compl ications. Blood Loss: 5 mL. Anesthesia: Total conscious sedation was 45 minutes. Patient received aspirin, Effient, and Angiomax during the procedure. Final Diagnosis: Coronary artery disease status post successful primary stent of the proximal LAD. 100% ostial RCA with collaterals from the left system, we will treat medically. DIONNE/MODL Voice ID: [id number] Report ID: [id number]
[2020-03-10 05:17] LABS: Absolute Lymphocytes (CBC) 3.6 K/uL (0.7-4.9); Basophils % 1.2 % (0-1.3); Hematocrit 41.2 % (36.0-45.0); Lymphocytes % 37.9 % (15.3-44.8); MPV 7.7 fL (7.6-11.3); RBC Red Blood Cell Count 4.49 M/uL (3.86-4.86)
[2020-03-10 05:42] LABS: Potassium 3.8 mmol/L (3.5-5.1)
[2020-03-10] MEDS ORDERED: CLOPIDOGREL 75 MG TABLET PO SCH (09:00)
[2020-03-10] MEDS ORDERED: ASPIRIN 81 MG CHEWABLE TABLET PO SCH (09:00)
[2020-03-10 10:07] VITALS: BP 140/87; TEMP 98.1
[2020-03-10 10:24] VITALS: O2SAT 95
--- NOTE | 2020-03-10 13:43 | DS ---
Date of Discharge: 03/10/2020 Hospital Course: Ms. Juárez was admitted yesterday as an outpatient through the pathology laboratory technologist for chest pa in and positive stress test. She underwent a heart catheterization. She was found to have 100% occl usion of her RCA at the ostium with collaterals from the LAD and circumflex. She had a 95% very prox imal LAD lesion. A 3.5 x 16 Synergy stent was placed with 0% residual. Patient had no complication during the procedure. She had Angiomax, Effient, and aspirin during the procedure. Overnight, she d id well. She has no specific complaint. No chest pain. No shortness of breath. Her telemetry show ed normal sinus rhythm. Her vital signs are stable. Her chest is clear. Her right groin insertion site is intact without any hematoma. She has good distal pulses in the right posterior tibial and do rsalis pedis. She will be going home today. Final Diagnosis: Coronary artery disease, status post primary stent of the left anterior descending coronary artery. Plan: 100% loop occlusion of the RCA to be treated medically. The patient will be going home on shanique e medication, but in addition, she will be on Lipitor and Plavix. She can resume normal activities t omorrow. She needs to stay on a low-fat, low-cholesterol diet. She will come see me in the office i n 2 weeks. DIONNE/SOL Voice ID: [id number] Report ID: [id number]
--- NOTE | 2020-03-10 16:18 | EKG ---
Test Date: 2020-03-10 Test Time: 09:02:38 Fashion Supervisor: MARIA DE JESUS MEASUREMENT RESULTS: Intervals: Rate: 84 NM: 136 QRSD: 84 QT: 414 QTc: 489 [place]: P: 42 NM: 136 QRS: 7 T: 94 INTERPRETIVE STATEMENTS: Normal sinus rhythm ST & T wave abnormality, consider anterolateral ischemia Prolonged QT Abnormal ECG Compared to ECG 02/20/2020 03:00:58 ST (T wave) deviation now present Possible ischemia now present Prolonged QT interval now present Electronically Signed On 03-10-20 16:16:28 CDT by Lorenzo Joe
== END 2020-03-10 09:30 | disposition home or self-care (01) ==
LOC: CCL 07:24 → 2ND 08:30 → CCL 03-10 09:30
DX: I25.10 Atherosclerotic heart disease of native coronary artery without angina pectoris (principal); I25.82 Chronic total occlusion of coronary artery; I10 Essential (primary) hypertension; Z88.6 Allergy status to analgesic agent
CPT/HCPCS: 93005; 85025 ×2; 80048 ×2; 36415 ×2; 85610; 80061; 85347 ×3; 85730; 71046; 93454; C1893; C1760; C1725; C1877; C9600; J2250; J3010; J0583; J7040

== ENCOUNTER 2020-06-02 06:26 | Day surgery (SDC) | payer OTHER ==
[2020-05-31 15:17] LABS: Basophils % 1.3 % (0-1.3); Hematocrit 40.7 % (36.0-45.0); Lymphocytes % 40.5 % (15.3-44.8); MPV 8.1 fL (7.6-11.3); RBC Red Blood Cell Count 4.45 M/uL (3.86-4.86)
[2020-05-31 15:23] LABS: Potassium 3.5 mmol/L (3.5-5.1)
[2020-05-31 16:55] LABS: Blood Morphology Comment NOT SEEN (NOT SEEN)
[2020-05-31 16:59] LABS: Platelet Estimate ADEQ
[2020-06-02] MEDS ORDERED: Ringers Lactate 1,000 ML IV ONE (06:54)
[2020-06-02] MEDS ORDERED: FENTANYL CITR 100 MCG/2 ML ONE (07:13)
[2020-06-02] MEDS ORDERED: dexAMETHasone 10 MG/ML VIAL ONE (07:13)
[2020-06-02] MEDS ORDERED: propofoL 200 MG/20 ML VIAL IV ONE (07:13)
[2020-06-02] MEDS ORDERED: MIDAZOLAM HCL 2 MG/2 ML INJ ONE (07:14)
[2020-06-02] MEDS ORDERED: LIDOCAINE 2% MPF 5 ML VIAL ONE (07:14)
[2020-06-02] MEDS ORDERED: CEFAZOLIN/SWI 1gm 1 GM/10 ML SYR ONE (07:57)
[2020-06-02] MEDS ORDERED: GLYCOPYRROLATE 0.2 MG/ML SYR ONE (08:32)
[2020-06-02] MEDS ORDERED: EPHEDRINE SULF 50 MG/ML VIAL ONE (08:44)
[2020-06-02] MEDS ORDERED: KETOROLAC 30 MG/ML INJ ONE (08:50)
--- NOTE | 2020-06-02 09:05 | P.BOP ---
Preoperative diagnosis: tender posterior right shoulder subQ mass Postoperative diagnosis: same Primary procedure: Excisional biopsy tender posterior right shoulder subQ mass 10x9cm Marine Engine Mechanic: Yessy Werner (Cricket) Estimated blood loss: <10cc Specimen: mass Anesthesia: General Complications: None Transferred to: Recovery Room Condition: Good
[2020-06-02] MEDS ORDERED: ONDANSETRON 4 MG/2 ML VIAL ONE (09:20)
[2020-06-02] MEDS ORDERED: MEPERIDINE HCL 25 MG/ML SYR ONE (09:20)
[2020-06-02] MEDS ORDERED: TRAMADOL 37.5mg/APAP 325mg PER TAB ONE (09:56)
[2020-06-02 10:00] VITALS: TEMP 97
[2020-06-02 10:31] VITALS: BP 140/70; O2SAT 95
--- NOTE | 2020-06-02 10:59 | OP ---
Date of Procedure: 06/02/2020 Surgeon: Ignacio Rm MD Leather Coater: Yessy Figueroa. Preoperative Diagnosis: Tender posterior right shoulder subcutaneous mass. Postoperative Diagnosis: Tender posterior right shoulder subcutaneous mass. Procedure: Excisional biopsy of tender posterior right shoulder subcutaneous mass, 10 x 9 cm. Anesthesia: General. Complications: None. Specimen: Mass. Indication: Is the case of a 64-year-old patient who comes to us with a tender fast expanding mass o n the right posterior shoulder region. It is giving her pain, sensation of weakness and sensation of fullness in that area, and also she is concerned about getting bigger, and she is concerned about ca ncer. We explained to her different options that we have. She wants the mass excised. She understa nds the emergency we are going through in her care but at the same time she is concerned about cancer . So she was fully explained the benefits, alternatives, and risks of excisional biopsy of large rig ht posterior subcutaneous mass with benefits, alternatives, and risks including, but not limited to i nfection, bleeding, damage to adjacent structures, anesthesia complication, nonhealing wound, NH, and . She also understands this may not relieve her symptoms. She might need more than one surgic al intervention. She might have sensory deficit and motor deficits. She signed a consent. Description Of Procedure: The area of concern was marked by me and the patient in the holding room. The patient was brought to the operating room, placed in supine position. Anesthesia was done witho ut complication. The patient was placed in lateral decubitus position with proper protection. Local anesthesia was applied followed by sharp incision of the skin. We noticed this mass just deep in th e subcutaneous tissues seen just on top of the muscle. Some fascia of the muscle seems to be involve d, but does not penetrate the muscle itself. The mass was completely excised by blunt dissection of areas adjacent to it to make sure we have this as a 1 unit. The patient tolerated the procedure well . Hemostasis was obtained and then this area was closed in layers with 3-0 chromic and then 4-0 PDS. The patient tolerated the procedure well. Sponge count and instrument counts were correct. The pa tient was sent to recovery in stable condition. Disposition: Home. Activity: As tolerated. No heavy lifting. Plan: Follow up in my office in 1 week. Call for appointment at [phone]. Keep area dry until she see us in the clinic again. Medication: Ultracet q.4 hours p.r.n. pain, Bactrim DS b.i.d. GAGE/SOL Voice ID: [id number] Report ID: [id number]
== END 2020-06-02 10:40 | disposition home or self-care (01) ==
LOC: OR 06:26
PROVIDERS: ATTEND Surgery
PROC: 0JBD0ZZ Excision of Right Upper Arm Subcutaneous Tissue and Fascia, Open Approach (ICD-10-PCS; principal; 2020-06-02 08:15)
DX: D17.21 Benign lipomatous neoplasm of skin and subcutaneous tissue of right arm (principal); M79.89 Other specified soft tissue disorders; Z11.59 Encounter for screening for other viral diseases
CPT/HCPCS: 11406; 12034; 93005; 85025; 80048; 36415; 88304; 71046; U0002; J2704; J2250; J3010; J1100; J2175; J0690; J7120; J2405

== ENCOUNTER 2021-09-12 08:40 | Day surgery (SDC) | payer OTHER ==
[2021-09-08 10:07] LABS: Absolute Lymphocytes (CBC) 4.3 K/uL (0.7-4.9); Basophils % 0.8 % (0-1.3); Lymphocytes % 40.9 % (15.3-44.8); MPV 7.5 fL (7.6-11.3)
--- NOTE | 2021-09-08 10:21 | RAD REPORT ---
EXAM DESCRIPTION: Luan Sanabria And Jeanna (2 Views)09/08/2021 9:54 am CLINICAL HISTORY: Preop for cardiac catheterization. Hypertension COMPARISON: 2019 FINDINGS: Lungs are mildly to moderately hyperaerated. A few areas of scarring or subsegmental atelectasis are present within the lungs. Lungs are otherwise clear of acute infiltrate. Heart is normal size
[2021-09-08 10:23] LABS: Potassium 4.4 mmol/L (3.5-5.1)
[2021-09-08 10:55] LABS: Protime INR 0.93
[~2021-09-12 08:40] MED LIST changes: -HEPA 1000U/500MLS 1,000 UNIT/500 ML BAG IV ONE; -LIDOCAINE 1% 20 ML MDV ONE
[2021-09-12] MEDS ORDERED: HEPA 1000U/500MLS 2,000 UNIT/1,000 ML BAG IV ONE (10:27)
[2021-09-12] MEDS ORDERED: LIDOCAINE 1% 20 ML MDV ONE (10:27)
[2021-09-12] MEDS ORDERED: ATROPINE SULF 1 MG/10 ML SYR IV ONE (10:28)
[2021-09-12] MEDS ORDERED: FENTANYL CITR 100 MCG/2 ML ONE (10:28)
[2021-09-12] MEDS ORDERED: MIDAZOLAM HCL 2 MG/2 ML INJ ONE ×2 (10:28→10:44)
[2021-09-12] MEDS ORDERED: HEPARIN 5000 UNIT/ML 1 ML VIAL ONE (10:29)
--- NOTE | 2021-09-12 12:26 | OP ---
Date of Procedure: 09/12/2021 Surgeon: Lorenzo Joe MD Nonprofit Manager: Heather Che. Continue present medical regimen otherwise. The patient will go home in 2 hours. I will keep her up -to-date regarding the film reviews. Procedure Performed: Abdominal angiogram with runoff. Indication: Severe peripheral arterial disease, abnormal arterial Doppler, and claudication rabia daniels Procedure In Detail: The patient was brought to the stores laborer on 09/12/2021. She was prepped and jean marie ped in routine sterile fashion. Given Versed and fentanyl for sedation. A 6-Sierra Leonean sheath introduce d in the right common femoral artery successfully using the Seldinger technique and 10 cc of Xylocain e. A pigtail catheter was advanced above the renals and distal aorta. Abdominal angiography with ru noff showed a complete occlusion of her left common iliac artery at the ostium, she had 100% right SF A, both reconstitutes, otherwise normal. A 6-S[place] Leonean sheath and catheters were used. No complication s. Blood Loss: 5 cc. Postoperative Diagnosis: Severe peripheral arterial disease. I will review the film with Cardiovascular surgery and my partner, Dr. Montiel for possible left commo n iliac stent versus bypass surgery with an aortofemoral bypass. Case was discussed with the family and the patient. She will go home today after 2 hours of bedrest following an Angio-Seal on the right groin. DIONNE/SOL Voice ID: [id number] Report ID: [id number]
[2021-09-12 12:39] VITALS: TEMP 98
[2021-09-12 13:56] VITALS: O2SAT 96
[2021-09-12 14:08] VITALS: BP 130/60
== END 2021-09-12 13:50 | disposition home or self-care (01) ==
LOC: CCL 08:40
DX: I70.213 Atherosclerosis of native arteries of extremities with intermittent claudication, bilateral legs (principal); I70.92 Chronic total occlusion of artery of the extremities; I25.10 Atherosclerotic heart disease of native coronary artery without angina pectoris; I65.23 Occlusion and stenosis of bilateral carotid arteries; I10 Essential (primary) hypertension; E78.2 Mixed hyperlipidemia; E66.9 Obesity, unspecified; Z68.31 Body mass index [BMI] 31.0-31.9, adult; Z95.5 Presence of coronary angioplasty implant and graft; Z87.891 Personal history of nicotine dependence; Z20.822 Contact with and (suspected) exposure to COVID-19
CPT/HCPCS: 93005; 85025; 80048; 36415; 85610; 85730; 71046; 36200; 75630; U0003; C1893; C1760; J1644 ×2; J2250 ×2; J3010; J7040

== ENCOUNTER 2021-11-26 22:37 | Emergency (ER) | payer OTHER ==
--- OUTSIDE RECORDS SUMMARY | 2021-11-26 22:56 | XMS REPORT | Continuity of Care Document ---
:1955 Author Organization [facility] t Address [address] [place] [address] Care Team Providers Name Role Phone Raslan Attending Clinician Unavailable [place]oving[place], N Admitting Clinician Unavailable Rasdora Admitting Clinician Unavailable Payers Payer Name Policy Type Policy Number Effective Date Expiration Date S ource Problems This patient has no known problems. Allergies, Adverse Reactions, Alerts Allergy Allergy Status Severity Reaction(s) Onset Inactive Treating Comm ents Source Name Type Date Date Clinician morphine DA Active U [facility] 2020-11 [facility] 2-17 Clear 00:00: [address] No Known DA Active U 2020-11 [facility] Allergie - Clear s 00:00: [facility] morphine DA Active U [facility] 2020-11 [facility] 12-11 Clear 00:00: [place] [address] [place] [address] Medications This patient has no known medications. Procedures This patient has no known procedures. Encounters Start End Encounter Admission Attending Care Care Encounter Source Date/Time Date/Time Type Type Clinicians Facility Department ID 2021-11-15 Inpatient ANGELIKA SevillaYADIRA OUTD [id number] [facility] 11:00:00 Ted [id number] [facility] 2021-11-16 2021-11-16 Outpatient ANGELIKA SevillaYADIRA OUTD [id number] [facility] 05:04:00 05:04:00 Ted [id number] [facility] 2021-10-25 2021-10-25 [facility] [id number] [facility] 2021-10-25 2021-10-25 ambulatory [facility] [id number] [facility] 2021-10-24 2021-10-24 ambulatory [facility] [id number] [facility] 2021-10-21 2021-10-23 Inpatient JOHN Montiel [facility] MEDI.01 [id number] [facility] 19:41:00 09:13:00 Ted [id number] [facility] 2021-10-21 2021-10-21 Inpatient JOHN Montiel, [facility] MEDI.01 [id number] [facility] 19:41:00 19:41:00 Ted 34 [facility] 2021-10-11 2021-10-11 Outpatient RAMILA Sevilla OUTD [id number] [facility] 05:17:00 05:17:00 Ted [id number] [facility] 2021-10-10 2021-10-10 Outpatient JOHN Montiel [facility] 3DAY [id number] [facility] 09:00:00 23:00:00 Ted [id number] [facility] 2021-10-04 2021-10-04 ambulatory [facility] [id number] [facility] 2021-09-05 2021-09-05 Outpatient [facility] [id number] [facility] 2021-08-31 2021-08-31 Outpatient [facility] [id number] [facility] 2021-08-31 2021-08-31 Outpatient [facility] [id number] [facility] 2021-08-05 2021-08-05 Outpatient [facility] [id number] [facility] 2021-07-08 2021-07-08 [facility] [id number] [facility] 2021-07-05 2021-07-05 [facility] [id number] [facility] 2021-07-05 2021-07-05 [facility] [id number] [facility] 2021-07-05 2021-07-05 [facility] [id number] [facility] 2021-05-04 2021-05-04 [facility] [id number] [facility] Results Test Description Test Time Test Comments Results Result Comments Source ACT-ISTAT 2021-11-16 17:09:00 Test Item Value Reference Range Interpretation Comme nts ACT-ISTAT (test code = ACTI) 249 SEC 74-137 H 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 [facility] [id number] 16:29:00 Test Item Value Reference Range Interpretation Comments ACT-ISTAT (test code 261 SEC 74-137 H Perform ed by certified = ACTI) 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 press operator at [facility] [id number] 16:11:00 Test Item Value Reference Range Interpretation Comments ACT-ISTAT (test code 350 SEC 74-137 H Perform ed by certified = ACTI) 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 press operator at [facility] BASIC METABOLIC [id number] 13:11:00 Test Item Value Reference Range Interpretation Comments SODIUM (test code = NA) 141 mEq/L 134-147 N POTASSIUM (test code = 4.2 mEq/L 3.4-5.0 N K) CHLORIDE (test code = 107 mEq/L 100-108 N CL) CARBON DIOXIDE (test 30 mEq/l 21-33 N code = CO2) ANION GAP (test code = 9 0-20 N GAP) GLUCOSE (test code = 71 mg/dL 70-110 N GLU) BLOOD UREA NITROGEN 17 mg/dL 7-18 N (test code = BUN) GLOMERULAR FILTRATION 62.5 80-90 L Units of measure = RATE (test code = GFR) ml/mi n/1.73 m2 CREATININE (test code = 0.9 mg/dL 0.6-1.3 N CREAT) CALCIUM (test code = 9.4 mg/dL 8.0-10.5 N CA) PROTHROMBIN [id number] 13:03:00 Test Item Value Reference Range Interpretation Comments PROTHROMBIN TIME 11.1 SECONDS 9.3-12.9 N PATIENT (test code = PTP) INTERNATIONAL NORMAL 1.0 0.8-1.2 N TARGET RATIO (test code = INR BY IN DICATION INR) Indication INR1. Prophyl axis of venous thrombos is 2.0 - 3. 0 (orthopedic ernie sarai), Prophylaxis of venous thrombos is (other than hig h-risk surgery), Annie tment of Deep Vein Thrombosis/Pulm onary Embolism, Preve ntion of systemic emb olism - Tissue heart va lves, Acute Myocardia l Infarction (to prevent systemic embo lism), Valvular heart disease, Atri al Fibrillation, Bileaflet mecha nical valve in aortic position.2. Mec hanical prosthetic valv es (high risk), 2.5 - 3.5 Presence of Lupus Anticoagu lant or Antiphospholi pid Antibodies, Pre vention of systemic e mbolism - Acute Myocard ial Infarction (t o prevent recurre nt infarct). CBC W/AUTO [id number] 12:56:00 Test Item Value Reference Range Interpretation Comments WHITE BLOOD CELL (test code = 9.4 x10 3/uL 4.5-11.0 N WBC) RED BLOOD CELL (test code = 4.31 x10 6/uL 3.54-5.02 N RBC) HEMOGLOBIN (test code = HGB) 13.2 g/dL 11.0-15.0 N HEMATOCRIT (test code = HCT) 40.6 % 33.0-45.0 N MEAN CELL VOLUME (test code = 94.2 fL 81.0-99.0 N MCV) MEAN CELL HGB (test code = MCH) 30.6 pg 27.0-33.0 N MEAN CELL HGB CONCETRATION 32.5 g/dL 33.0-37.0 L (test code = MCHC) RED CELL DISTRIBUTION WIDTH CV 13.3 % 11.5-14.5 N (test code = RDW) PLATELET COUNT (test code = 364 x10 3/uL 150-400 N PLT) NEUTROPHIL % (test code = NT%) 38.0 % 56.0-77.0 L LYMPHOCYTE % (test code = LY%) 43.7 % 14.0-32.0 H NEUTROPHIL # (test code = NT#) 3.55 x10 3/uL 2.0-7.6 N LYMPHOCYTE # (test code = LY#) 4.09 x10 3/uL 1.0-3.8 H MANUAL DIFF REQUIRED (test code NO = MDIFF) RED CELL DISTRIBUTION WIDTH SD 45.6 fL 37.0-54.0 N (test code = RDW-SD) MEAN PLATELET VOLUME (test code 9.5 fL 7.0-9.0 H = MPV) IMMATURE GRANULOCYTE % (test 0.6 % 0.0-2.0 N code = IG%) MONOCYTE % (test code = MO%) 9.8 % 4.8-9.0 H EOSINOPHIL % (test code = EO%) 6.5 % 0.3-3.7 H BASOPHIL % (test code = BA%) 1.4 % 0.0-2.0 N NUCLEATED RBC % (test code = 0.0 % 0-0 N NRBC%) IMMATURE GRANULOCYTE # (test 0.06 x10 3/uL 0.00-0.03 H code = IG#) MONOCYTE # (test code = MO#) 0.92 x10 3/uL 0.1-0.8 H EOSINOPHIL # (test code = EO#) 0.61 x10 3/uL 0.0-0.2 H BASOPHIL # (test code = BA#) 0.13 x10 3/uL 0.0-0.2 N NUCLEATED RBC # (test code = 0.00 x10 3/uL 0.0-0.1 N NRBC#) - XR CHEST 2 [id number] [facility] 1955 Sex: F FAX: John Landin MD [phone] [place]: St: PRE FAX: Ted Pendleton MD [phone] Name: CARLO RICHMOND [facility] : 1955 Age/S: 66/F [address] [place] [address] Unit #: [id number] Loc: [place] [address] Phys: Ted Montiel MD Acct: [id number] Dis Date: Status: PRE [facility] PHONE #: [phone] Exam Date: 11/15/2021 1244 FAX #: [phone] Reason: PREOP EXAMS: CPT CODE: [id number] XR CHEST 2 V 77330 PROCEDURE INFORMATION: Exam: XR Chest Exam date and time: 11/15/2021 12:15 PM Age: 66 years old Clinical indication: Pre-operative exam; Respiratory screening exam; Additional info: Preop TECHNIQUE: Imaging protocol: XR of the chest. Views: 2 views.PA and Lateral COMPARISON: DX XR CHEST 2 V 10/10/2021 4:49 PM FINDINGS: Viv ngs: No consolidation. Pleural spaces: No pleural effusion. Heart/Mediastinum: The heart and vascular markings are within limits of normal. There is atherosclerotic calcificationof the aorta. Bones/joints: No gross acute findings. IMPRESSION: No acute cardiopulmonary findings at 1304 Reported and signed by: Rosmery Covington D.O. CC: John Covington MD; Ted Montiel MD Technologist: Nakul Garrett RT(R) Trnscrd Date/Time/By: 11/15/2021 (3811) : By: Wendy [email or web address] Orig Print D/T: S: 11/15/2021 (2874) PAGE 1 Signed ReportBASIC METABOLIC [id number] 20:17:00 Test Item Value Reference Range Interpretation Comments SODIUM (test code = NA) 143 mEq/L 134-147 N POTASSIUM (test code = 3.8 mEq/L 3.4-5.0 N K) CHLORIDE (test code = 114 mEq/L 100-108 H CL) CARBON DIOXIDE (test 22 mEq/l 21-33 N code = CO2) ANION GAP (test code = 11 0-20 N GAP) GLUCOSE (test code = 103 mg/dL 70-110 N GLU) BLOOD UREA NITROGEN 17 mg/dL 7-18 N (test code = BUN) GLOMERULAR FILTRATION 71.5 80-90 L Units of measure = RATE (test code = GFR) ml/mi n/1.73 m2 CREATININE (test code = 0.8 mg/dL 0.6-1.3 N CREAT) CALCIUM (test code = 8.1 mg/dL 8.0-10.5 N CA) CBC W/AUTO [id number] 19:19:00 Test Item Value Reference Range Interpretation Comments WHITE BLOOD CELL (test code = 9.2 x10 3/uL 4.5-11.0 N WBC) RED BLOOD CELL (test code = 3.97 x10 6/uL 3.54-5.02 N RBC) HEMOGLOBIN (test code = HGB) 12.3 g/dL 11.0-15.0 N HEMATOCRIT (test code = HCT) 36.8 % 33.0-45.0 N MEAN CELL VOLUME (test code = 92.7 fL 81.0-99.0 N MCV) MEAN CELL HGB (test code = MCH) 31.0 pg 27.0-33.0 N MEAN CELL HGB CONCETRATION 33.4 g/dL 33.0-37.0 N (test code = MCHC) RED CELL DISTRIBUTION WIDTH CV 13.2 % 11.5-14.5 N (test code = RDW) RED CELL DISTRIBUTION WIDTH SD 44.9 fL 37.0-54.0 N (test code = RDW-SD) PLATELET COUNT (test code = 303 x10 3/uL 150-400 N PLT) MEAN PLATELET VOLUME (test code 9.4 fL 7.0-9.0 H = MPV) NEUTROPHIL % (test code = NT%) 31.1 % 56.0-77.0 L IMMATURE GRANULOCYTE % (test 0.4 % 0.0-2.0 N code = IG%) LYMPHOCYTE % (test code = LY%) 53.2 % 14.0-32.0 H MONOCYTE % (test code = MO%) 7.4 % 4.8-9.0 N EOSINOPHIL % (test code = EO%) 7.1 % 0.3-3.7 H BASOPHIL % (test code = BA%) 0.8 % 0.0-2.0 N NUCLEATED RBC % (test code = 0.0 % 0-0 N NRBC%) NEUTROPHIL # (test code = NT#) 2.84 x10 3/uL 2.0-7.6 N IMMATURE GRANULOCYTE # (test 0.04 x10 3/uL 0.00-0.03 H code = IG#) LYMPHOCYTE # (test code = LY#) 4.87 x10 3/uL 1.0-3.8 H MONOCYTE # (test code = MO#) 0.68 x10 3/uL 0.1-0.8 N EOSINOPHIL # (test code = EO#) 0.65 x10 3/uL 0.0-0.2 H BASOPHIL # (test code = BA#) 0.07 x10 3/uL 0.0-0.2 N NUCLEATED RBC # (test code = 0.00 x10 3/uL 0.0-0.1 N NRBC#) MANUAL DIFF REQUIRED (test code NO = MDIFF) [id number] 18:42:00 Test Item Value Reference Range Interpretation Comments ACT-ISTAT (test code 255 SEC 74-137 H Perform ed by certified = ACTI) 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 press operator at [facility] [id number] 17:59:00 Test Item Value Reference Range Interpretation Comments ACT-ISTAT (test code 273 SEC 74-137 H Perform ed by certified = ACTI) 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 press operator at [facility] [id number] 17:29:00 Test Item Value Reference Range Interpretation Comments ACT-ISTAT (test code 357 SEC 74-137 H Perform ed by certified = ACTI) 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 press operator at [facility] BASIC METABOLIC [id number] 11:34:00 Test Item Value Reference Range Interpretation Comments SODIUM (test code = NA) 142 mEq/L 134-147 N POTASSIUM (test code = 3.8 mEq/L 3.4-5.0 N K) CHLORIDE (test code = 110 mEq/L 100-108 H CL) CARBON DIOXIDE (test 26 mEq/l 21-33 N code = CO2) ANION GAP (test code = 9 0-20 N GAP) GLUCOSE (test code = 96 mg/dL 70-110 N GLU) BLOOD UREA NITROGEN 22 mg/dL 7-18 H (test code = BUN) GLOMERULAR FILTRATION 71.5 80-90 L Units of measure = RATE (test code = GFR) ml/mi n/1.73 m2 CREATININE (test code = 0.8 mg/dL 0.6-1.3 N CREAT) CALCIUM (test code = 9.1 mg/dL 8.0-10.5 N CA) PROTHROMBIN [id number] 11:32:00 Test Item Value Reference Range Interpretation Comments PROTHROMBIN TIME 11.0 SECONDS 9.3-12.9 N PATIENT (test code = PTP) INTERNATIONAL NORMAL 1.0 0.8-1.2 N TARGET RATIO (test code = INR BY IN DICATION INR) Indication INR1. Prophyl axis of venous thrombos is 2.0 - 3. 0 (orthopedic ernie sarai), Prophylaxis of venous thrombos is (other than hig h-risk surgery), Annie tment of Deep Vein Thrombosis/Pulm onary Embolism, Preve ntion of systemic emb olism - Tissue heart va lves, Acute Myocardia l Infarction (to prevent systemic embo lism), Valvular heart disease, Atri al Fibrillation, Bileaflet mecha nical valve in aortic position.2. Mec hanical prosthetic valv es (high risk), 2.5 - 3.5 Presence of Lupus Anticoagu lant or Antiphospholi pid Antibodies, Pre vention of systemic e mbolism - Acute Myocard ial Infarction (t o prevent recurre nt infarct). CBC W/AUTO [id number] 11:11:00 Test Item Value Reference Range Interpretation Comments WHITE BLOOD CELL (test code = 9.1 x10 3/uL 4.5-11.0 N WBC) RED BLOOD CELL (test code = 4.42 x10 6/uL 3.54-5.02 N RBC) HEMOGLOBIN (test code = HGB) 13.9 g/dL 11.0-15.0 N HEMATOCRIT (test code = HCT) 41.2 % 33.0-45.0 N MEAN CELL VOLUME (test code = 93.2 fL 81.0-99.0 N MCV) MEAN CELL HGB (test code = MCH) 31.4 pg 27.0-33.0 N MEAN CELL HGB CONCETRATION 33.7 g/dL 33.0-37.0 N (test code = MCHC) RED CELL DISTRIBUTION WIDTH CV 13.2 % 11.5-14.5 N (test code = RDW) RED CELL DISTRIBUTION WIDTH SD 45.2 fL 37.0-54.0 N (test code = RDW-SD) PLATELET COUNT (test code = 343 x10 3/uL 150-400 N PLT) MEAN PLATELET VOLUME (test code 9.3 fL 7.0-9.0 H = MPV) NEUTROPHIL % (test code = NT%) 39.4 % 56.0-77.0 L IMMATURE GRANULOCYTE % (test 0.4 % 0.0-2.0 N code = IG%) LYMPHOCYTE % (test code = LY%) 45.2 % 14.0-32.0 H MONOCYTE % (test code = MO%) 8.0 % 4.8-9.0 N EOSINOPHIL % (test code = EO%) 6.0 % 0.3-3.7 H BASOPHIL % (test code = BA%) 1.0 % 0.0-2.0 N NUCLEATED RBC % (test code = 0.0 % 0-0 N NRBC%) NEUTROPHIL # (test code = NT#) 3.59 x10 3/uL 2.0-7.6 N IMMATURE GRANULOCYTE # (test 0.04 x10 3/uL 0.00-0.03 H code = IG#) LYMPHOCYTE # (test code = LY#) 4.13 x10 3/uL 1.0-3.8 H MONOCYTE # (test code = MO#) 0.73 x10 3/uL 0.1-0.8 N EOSINOPHIL # (test code = EO#) 0.55 x10 3/uL 0.0-0.2 H BASOPHIL # (test code = BA#) 0.09 x10 3/uL 0.0-0.2 N NUCLEATED RBC # (test code = 0.00 x10 3/uL 0.0-0.1 N NRBC#) MANUAL DIFF REQUIRED (test code NO = MDIFF) BASIC METABOLIC [id number] 18:08:00 Test Item Value Reference Range Interpretation Comments SODIUM (test code = NA) 142 mEq/L 134-147 N POTASSIUM (test code = 4.3 mEq/L 3.4-5.0 N K) CHLORIDE (test code = 109 mEq/L 100-108 H CL) CARBON DIOXIDE (test 28 mEq/l 21-33 N code = CO2) ANION GAP (test code = 9 0-20 N GAP) GLUCOSE (test code = 102 mg/dL 70-110 N GLU) BLOOD UREA NITROGEN 19 mg/dL 7-18 H (test code = BUN) GLOMERULAR FILTRATION 62.5 80-90 L Units of measure = RATE (test code = GFR) ml/mi n/1.73 m2 CREATININE (test code = 0.9 mg/dL 0.6-1.3 N CREAT) CALCIUM (test code = 9.2 mg/dL 8.0-10.5 N CA) PROTHROMBIN [id number] 18:03:00 Test Item Value Reference Range Interpretation Comments PROTHROMBIN TIME 10.9 SECONDS 9.3-12.9 N PATIENT (test code = PTP) INTERNATIONAL NORMAL 1.0 0.8-1.2 N TARGET RATIO (test code = INR BY IN DICATION INR) Indication INR1. Prophyl axis of venous thrombos is 2.0 - 3. 0 (orthopedic ernie sarai), Prophylaxis of venous thrombos is (other than hig h-risk surgery), Annie tment of Deep Vein Thrombosis/Pulm onary Embolism, Preve ntion of systemic emb olism - Tissue heart va lves, Acute Myocardia l Infarction (to prevent systemic embo lism), Valvular heart disease, Atri al Fibrillation, Bileaflet mecha nical valve in aortic position.2. Mec hanical prosthetic valv es (high risk), 2.5 - 3.5 Presence of Lupus Anticoagu lant or Antiphospholi pid Antibodies, Pre vention of systemic e mbolism - Acute Myocard ial Infarction (t o prevent recurre nt infarct). CBC W/AUTO [id number] 17:52:00 Test Item Value Reference Range Interpretation Comments WHITE BLOOD CELL (test code = 10.0 x10 3/uL 4.5-11.0 N WBC) RED BLOOD CELL (test code = 4.28 x10 6/uL 3.54-5.02 N RBC) HEMOGLOBIN (test code = HGB) 13.6 g/dL 11.0-15.0 N HEMATOCRIT (test code = HCT) 40.7 % 33.0-45.0 N MEAN CELL VOLUME (test code = 95.1 fL 81.0-99.0 N MCV) MEAN CELL HGB (test code = MCH) 31.8 pg 27.0-33.0 N MEAN CELL HGB CONCETRATION 33.4 g/dL 33.0-37.0 N (test code = MCHC) RED CELL DISTRIBUTION WIDTH CV 13.6 % 11.5-14.5 N (test code = RDW) RED CELL DISTRIBUTION WIDTH SD 47.7 fL 37.0-54.0 N (test code = RDW-SD) PLATELET COUNT (test code = 328 x10 3/uL 150-400 N PLT) MEAN PLATELET VOLUME (test code 9.5 fL 7.0-9.0 H = MPV) NEUTROPHIL % (test code = NT%) 33.7 % 56.0-77.0 L IMMATURE GRANULOCYTE % (test 0.7 % 0.0-2.0 N code = IG%) LYMPHOCYTE % (test code = LY%) 49.5 % 14.0-32.0 H MONOCYTE % (test code = MO%) 8.6 % 4.8-9.0 N EOSINOPHIL % (test code = EO%) 6.3 % 0.3-3.7 H BASOPHIL % (test code = BA%) 1.2 % 0.0-2.0 N NUCLEATED RBC % (test code = 0.0 % 0-0 N NRBC%) NEUTROPHIL # (test code = NT#) 3.36 x10 3/uL 2.0-7.6 N IMMATURE GRANULOCYTE # (test 0.07 x10 3/uL 0.00-0.03 H code = IG#) LYMPHOCYTE # (test code = LY#) 4.95 x10 3/uL 1.0-3.8 H MONOCYTE # (test code = MO#) 0.86 x10 3/uL 0.1-0.8 H EOSINOPHIL # (test code = EO#) 0.63 x10 3/uL 0.0-0.2 H BASOPHIL # (test code = BA#) 0.12 x10 3/uL 0.0-0.2 N NUCLEATED RBC # (test code = 0.00 x10 3/uL 0.0-0.1 N NRBC#) MANUAL DIFF REQUIRED (test code NO = MDIFF) - XR CHEST 2 [id number] [facility]00[facility] 1955 Sex: F FAX: John Landin MD [phone] [place]: St: PRE FAX: Ted Pendleton MD [phone] Name: CARLO RICHMOND [facility] : 1955 Age/S: 66/F [address] [place] [address] Unit #: [id number] Loc: [place] [address] Phys: Ted Montiel MD Acct: [id number] Dis Date: Status: PRE SDC PHONE #: [phone] Exam Date: 10/10/2021 1659 FAX #: [phone] Reason: PREOP EXAMS: CPT CODE: [id number] XR CHEST 2 V [id number] PROCEDURE INFORMATION: Exam: XR Chest Exam date and time: 10/10/2021 4:49 PM Age: 66 years old Clinical indication: Pre-operative exam; Cardiovascular screening and respiratory screening exam; Additional info: Preop TECHNIQUE: Imaging protocol: XR of the chest. Views: 2 views. PA and Lateral COMPARISON: No relevant prior studies available. FINDINGS: Lungs: The lungs are clear. Pleural spaces: No pleural effusion.No pneumothorax. Heart/Mediastinum: Cardiomediastinal silhouette is normal in size. Bones/joints: No acute bony finding. IMPRESSION: No acute or active pulmonary findings. at 1722 Reported and signed by: Vince Patrick M.D. CC: John Covington MD; Ted Montiel MD Technologist: RT Jian(R) Trnscrd Date/Time/By: 10/10/2021 (1721) : By: [email or web address] Orig Print D/T: S: 10/10/2021 (172) PAGE 1 Signed Report
[2021-11-27 00:02] LABS: Absolute Lymphocytes (CBC) 4.4 K/uL (0.7-4.9); Hematocrit 36.3 % (36.0-45.0); MPV 7.1 fL (7.6-11.3); RBC Red Blood Cell Count 4.01 M/uL (3.86-4.86)
[2021-11-27 00:03] LABS: Protime INR 0.99
[2021-11-27] MEDS ORDERED: NA CHLORIDE 0.9% 500 ML ONE (00:03)
[2021-11-27] MEDS ORDERED: ONDANSETRON 4 MG/2 ML VIAL ONE (00:03)
[2021-11-27] MEDS ORDERED: FENTANYL CITR 100 MCG/2 ML ONE (00:03)
[2021-11-27 00:35] LABS: ALT/SGPT 34 U/L (12-78); AST/SGOT 19 U/L (15-37); Albumin 3.4 g/dL (3.4-5.0); Alkaline Phosphatase 100 U/L (45-117); BUN Blood Urea Nitrogen 20 mg/dL (7-18); Bicarbonate 26 mmol/L (21-32); Bilirubin Direct < 0.1 mg/dL (0-0.2); Bilirubin Total 0.2 mg/dL (0.2-1.0); Glucose Level 127 mg/dL (74-106); Magnesium 2.4 mg/dL (1.8-2.4); NT PRO-BNP 69 pg/mL (<125); Potassium 3.7 mmol/L (3.5-5.1); Protein, Total 8.6 g/dL (6.4-8.2); Sodium Level 140 mmol/L (136-145)
[2021-11-27 01:31] LABS: Urine Blood Negative (Negative); Urine Glucose Negative (Negative); Urine Protein Negative (Negative); Urine Specific Gravity >=1.030 (1.005-1.030)
--- NOTE | 2021-11-27 02:02 | EDPHYS ---
Physician Documentation [facility] Name: Simona Juárez Age: 66 yrs Sex: Female : 1955 Arrival Date: 11/26/2021 Time: 22:40 Bed 11 Private MD: EWA Physician Mehul Roberson HPI: 11/26 23:18 This 66 yrs old Female presents to ER via Ambulatory with complaints of Leg pavithra Swelling. 23:18 The patient presents with decreased range of motion, pain, swelling, tenderness. The pavithra complaints affect the lateral aspect of left thigh, lateral aspect of left knee, lateral aspect of left calf, left quadriceps, left knee and left anthony. Context: The problem was sustained at an unknown site, resulted from an unknown cause, had stent 10 days ago. Onset: The symptoms/episode began/occurred 3 day(s) ago. Modifying factors: The symptoms are alleviated by nothing. the symptoms are aggravated by nothing. Associated signs and symptoms: The patient has no apparent associated signs or symptoms. Severity of symptoms: At their worst the symptoms were mild, in the emergency department the symptoms are unchanged. The patient has not experienced similar symptoms in the past. Historical: - Allergies: 22:52 Morphine; ld1 - Home Meds: 22:52 amlodipine-benazepril Oral [Active]; lisinopril 40 mg Oral tab 1 tab once daily ld1 [Active]; Metoprolol Tartrate Oral [Active]; levothyroxine oral [Active]; aspirin 81 mg Oral chew 1 tab once daily [Active]; - PMHx: 22:52 Hypertension; Hypercholesterolemia; ld1 - PSHx: 22:52 None; ld1 - Immunization history:: Adult Immunizations up to date, Client reports receiving the 2nd dose of the Covid vaccine. - Social history:: Smoking status: Patient denies any tobacco usage or history of. Patient/guardian denies using alcohol, Smoking status: . - Family history:: not pertinent. ROS: 23:18 Constitutional: Negative for fever, chills, and weight loss, Eyes: Negative for injury, pavithra pain, redness, and discharge, ENT: Negative for injury, pain, and discharge, Neck: Negative for injury, pain, and swelling, Cardiovascular: Negative for chest pain, palpitations, and edema, Respiratory: Negative for shortness of breath, cough, wheezing, and pleuritic chest pain, Abdomen/GI: Negative for abdominal pain, nausea, vomiting, diarrhea, and constipation, Back: Negative for injury and pain, : Negative for injury, bleeding, discharge, and swelling, Skin: Negative for injury, rash, and discoloration, Neuro: Negative for headache, weakness, numbness, tingling, and seizure, Psych: Negative for depression, anxiety, suicide ideation, homicidal ideation, and hallucinations, Allergy/Immunology: Negative for hives, rash, and allergies, Endocrine: Negative for neck swelling, polydipsia, polyuria, polyphagia, and marked weight changes, Hematologic/Lymphatic: Negative for swollen nodes, abnormal bleeding, and unusual bruising. 23:18 MS/extremity: Positive for pain, swelling, tenderness, of the left leg. Exam: 23:18 Constitutional: This is a well developed, well nourished patient who is awake, alert, pavithra and in no acute distress. Head/Face: Normocephalic, atraumatic. Eyes: Pupils equal round and reactive to light, extra-ocular motions intact. Lids and lashes normal. Conjunctiva and sclera are non-icteric and not injected. Cornea within normal limits. Periorbital areas with no swelling, redness, or edema. ENT: Nares patent. No nasal discharge, no septal abnormalities noted. Tympanic membranes are normal and external auditory canals are clear. Oropharynx with no redness, swelling, or masses, exudates, or evidence of obstruction, uvula midline. Mucous membranes moist. Neck: Trachea midline, no thyromegaly or masses palpated, and no cervical lymphadenopathy. Supple, full range of motion without nuchal rigidity, or vertebral point tenderness. No Meningismus. Chest/axilla: Normal chest wall appearance and motion. Nontender with no deformity. No lesions are appreciated. Cardiovascular: Regular rate and rhythm with a normal S1 and S2. No gallops, murmurs, or rubs. Normal PMI, no JVD. No pulse deficits. Respiratory: Lungs have equal breath sounds bilaterally, clear to auscultation and percussion. No rales, rhonchi or wheezes noted. No increased work of breathing, no retractions or nasal flaring. Abdomen/GI: Soft, non-tender, with normal bowel sounds. No distension or tympany. No guarding or rebound. No evidence of tenderness throughout. Back: No spinal tenderness. No costovertebral tenderness. Full range of motion. Female : Normal external genitalia. Skin: Warm, dry with normal turgor. Normal color with no rashes, no lesions, and no evidence of cellulitis. Neuro: Awake and alert, GCS 15, oriented to person, place, time, and situation. Cranial nerves II-XII grossly intact. Motor strength 5/5 in all extremities. Sensory grossly intact. Cerebellar exam normal. Normal gait. Psych: Awake, alert, with orientation to person, place and time. Behavior, mood, and affect are within normal limits. 23:18 Musculoskeletal/extremity: ROM: full active range of motion, full passive range of motion, Circulation is intact in all extremities. Pulses: noted to be 2+ in the bilateral radial, brachial, femoral, popliteal, posterior tibial and and dorsalis pedis arteries., Sensation intact. Compartment Syndrome exam of affected extremity: is normal. Weight bearing: able to fully bear weight, DVT Exam: negative Homans' sign noted on exam, no appreciated bluish discoloration, no erythema, no increased warmth, pain, swelling, tenderness. 11/27 02:01 ECG was reviewed by the Attending Physician. [facility] Vital Signs: 11/26 22:52 BP 141 / 77; Pulse 82; Resp 18; Temp 98.2(TE); Pulse Ox 100% on R/A; Weight 88.45 kg; ld1 Height 5 ft. 7 in. (170.18 cm); Pain 0/10; 11/27 03:28 BP 134 / 63; Pulse 70; Resp 22; Temp 98.8; Pulse Ox 95% on R/A; Pain 5/10; sv1 11/26 22:52 Body Mass Index 30.54 (88.45 kg, 170.18 cm) ld1 MDM: 11/26 23:03 Patient medically screened. [facility] 23:22 Differential diagnosis: contusion, abrasion, tendonitis. Data reviewed: vital signs, [facility] nurses notes, lab test result(s), EKG, radiologic studies, CT scan, doppler, plain films. Data interpreted: site monitor: rate is 82 beats/min, rhythm is regular, Pulse oximetry: on room air is 100 %. Test interpretation: by ED physician or midlevel provider: ECG, plain radiologic studies. Counseling: I had a detailed discussion with the patient and/or guardian regarding: the historical points, exam findings, and any diagnostic results supporting the discharge/admit diagnosis, lab results, radiology results. 11/26 23:12 Order name: Basic Metabolic Panel [facility] 11/26 23:12 Order name: CBC with Diff; Complete Time: 00:59 [facility] 11/26 23:12 Order name: LFT's [facility] 11/26 23:12 Order name: Magnesium; Complete Time: 00:59 [facility] 11/26 23:12 Order name: NT PRO-BNP; Complete Time: 00:59 [facility] 11/26 23:12 Order name: PT-INR; Complete Time: 00:59 [facility] 11/26 23:12 Order name: Troponin HS; Complete Time: 00:59 [facility] 11/26 23:12 Order name: XRAY Chest (1 view) [facility] 11/26 23:13 Order name: Basic Metabolic Panel; Complete Time: 00:59 [facility] 11/26 23:13 Order name: Liver (Hepatic) Function; Complete Time: 00:59 [facility] 11/26 23:14 Order name: US Extremity Venous W Compression Phong [facility] 11/26 23:14 Order name: Uric Acid; Complete Time: 00:59 [facility] 11/26 23:14 Order name: SARS-COV-2 RT PCR (Document "Date of Onset" if Symptomatic); Complete Time: [facility] 00:59 11/27 01:31 Order name: Urine Dipstick-Ancillary; Complete Time: 02:01 [facility] 11/26 23:12 Order name: EKG; Complete Time: 23:13 [facility] 11/26 23:12 Order name: Cardiac monitoring; Complete Time: 03:54 [facility] 11/26 23:12 Order name: EKG - Nurse/Tech; Complete Time: 03:54 [facility] 11/26 23:12 Order name: IV Saline Lock; Complete Time: 23:57 [facility] 11/26 23:12 Order name: Labs collected and sent; Complete Time: 23:57 [facility] 11/26 23:12 Order name: O2 Per Protocol; Complete Time: 23:57 [facility] 11/26 23:12 Order name: O2 Sat Monitoring; Complete Time: 23:58 [facility] 11/26 23:14 Order name: Urine Dipstick-Ancillary (obtain specimen) [facility] EC/23 02:01 Rate is 66 beats/min. Rhythm is regular. QRS [place] is Normal. GA interval is normal. QRS pavithra interval is normal. QT interval is normal. T waves are Normal. No ST changes noted. Clinical impression: Normal ECG and No evidence of ischemia. Interpreted by me. Reviewed by me. Administered Medications: 00:23 Drug: fentaNYL (PF) 50 mcg Route: IVP; Site: left antecubital; vc1 00:23 Drug: Zofran (Ondansetron) 4 mg Route: IVP; Site: left antecubital; vc1 00:24 Drug: NS 0.9% 500 ml Route: IV; Rate: bolus; Site: left antecubital; vc1 02:04 Follow up: Response: No adverse reaction; IV Status: Completed infusion sv1 02:23 Drug: KeFLEX (cephalexin) 500 mg Route: PO; sv1 03:56 Follow up: Response: No adverse reaction sv1 02:24 Drug: NS 0.9% 1000 ml Route: IV; Rate: 1 bolus; Site: left antecubital; sv1 03:56 Follow up: IV Status: Completed infusion; IV Intake: 1300ml sv1 02:24 Drug: Colcrys (colchicine) 1.2 mg Route: PO; sv1 02:25 Not Given (Provider DC'd.): Mucomyst - Acetylcysteine 600 mg PO once sv1 03:43 Drug: Colcrys (colchicine) 0.6 mg Route: PO; sv1 Disposition Summary: 11/27/21 02:02 Discharge Ordered Location: Home pavithra Problem: new pavithra Symptoms: have improved pavithra Condition: Stable pavithra Diagnosis - Edema, unspecified pavithra - Idiopathic gout, right ankle and foot pavithra Followup: pavithra - With: Private Physician - When: 2 - 3 days - Reason: Recheck today's complaints, Continuance of care, Re-evaluation by your physician Followup: pavithra - With: Ted Montiel MD - When: 2 - 3 days - Reason: Recheck today's complaints, Continuance of care, Re-evaluation by your physician Discharge Instructions: - Discharge Summary Sheet pavithra - Edema pavithra - Gout pavithra - Edema, [id number] pavithra - Low-Purine Eating Plan pavithra - Gout, [id number] pavithra - Peripheral Edema pavithra Forms: - Medication Reconciliation Form pavithra - Thank You Letter pavithra - Antibiotic Education pavithra - Prescription Opioid Use pavithra Prescriptions: - colchicine 0.6 mg Oral tablet - take 2 tablet by ORAL route 2 times per day; 6 tablet; Refills: 0, Product [facility] Selection Permitted - Cephalexin 500 mg Oral Capsule - take 1 capsule by ORAL route every 6 hours for 7 days; 28 capsule; Refills: 0, [facility] Product Selection Permitted - Medrol (Lazaro) 4 mg Oral Tablets, Dose Pack - take 1 tablet by ORAL route as directed - follow package instructions; 1 [facility] packet; Refills: 0, Product Selection Permitted - Tylenol-Codeine #3 300 mg-30 mg Oral - take 2 tablet by ORAL route every 6 hours; 20 tablet; Refills: 0, Product pavithra Selection Permitted Signatures: Dispatcher [employer] EDMehul Del Cid MD MD cha Dibbern, Lauren, RN RN ld1 Vince Kelly RN RN sv1 Tiara Ramírez RN RN vc1 Corrections: (The following items were deleted from the chart) 01:32 11/26 23:15 Chest For PE Angio+CT.RAD.BRZ ordered. EDTX EDMS
--- NOTE | 2021-11-27 02:02 | ER ---
Nurse's Notes [facility] Name: Simona Juárez Age: 66 yrs Sex: Female : 1955 Arrival Date: 11/26/2021 Time: 22:40 Bed 11 Private MD: Diagnosis: Edema, unspecified;Idiopathic gout, right ankle and foot Presentation: 11/26 22:52 Chief complaint: Patient states: Left leg swelling, toe swelling X 2 days. Coronavirus ld1 screen: At this time, the client does not indicate any symptoms associated with coronavirus-19. Ebola Screen: No symptoms or risks identified at this time. Initial Sepsis Screen: Does the patient meet any 2 criteria? No. Patient's initial sepsis screen is negative. Does the patient have a suspected source of infection? No. Patient's initial sepsis screen is negative. Risk Assessment: Do you want to hurt yourself or someone else? Patient reports no desire to harm self or others. Onset of symptoms was November 26, 2021. 22:52 Method Of Arrival: Ambulatory ld1 22:52 Acuity: FRANCOISE 3 ld1 Triage Assessment: 22:52 General: Appears in no apparent distress. comfortable, Behavior is calm, cooperative, ld1 appropriate for age. Pain: Denies pain. Neuro: Level of Consciousness is awake, alert, obeys commands, Oriented to person, place, time, situation. Respiratory: Airway is patent Respiratory effort is even, unlabored. Historical: - Allergies: 22:52 Morphine; ld1 - Home Meds: 22:52 amlodipine-benazepril Oral [Active]; lisinopril 40 mg Oral tab 1 tab once daily ld1 [Active]; Metoprolol Tartrate Oral [Active]; levothyroxine oral [Active]; aspirin 81 mg Oral chew 1 tab once daily [Active]; - PMHx: 22:52 Hypertension; Hypercholesterolemia; ld1 - PSHx: 22:52 None; ld1 - Immunization history:: Adult Immunizations up to date, Client reports receiving the 2nd dose of the Covid vaccine. - Social history:: Smoking status: Patient denies any tobacco usage or history of. Patient/guardian denies using alcohol, Smoking status: . - Family history:: not pertinent. Screenin/23 03:28 Abuse screen: Denies threats or abuse. Nutritional screening: No deficits noted. sv1 Tuberculosis screening: No symptoms or risk factors identified. Fall Risk No fall in past 12 months (0 pts). Secondary diagnosis (15 points) IV access (20 points). Ambulatory Aid- None/Bed Rest/Nurse Assist (0 pts). Gait- Weak (10 pts.). Mental Status- Oriented to own ability (0 pts). Total Vazquez Fall Scale indicates Low Risk Score (25-44 pts). Fall prevention measures have been instituted. Side Rails Up X 2 Placed close to Nursing Station Frequent Obs/Assesments occuring. Assessment: 03:54 Reassessment: All labs completed. Imaging completed. Tolerating meds well. . sv1 Vital Signs: 11/26 22:52 BP 141 / 77; Pulse 82; Resp 18; Temp 98.2(TE); Pulse Ox 100% on R/A; Weight 88.45 kg; ld1 Height 5 ft. 7 in. (170.18 cm); Pain 0/10; 11/27 03:28 BP 134 / 63; Pulse 70; Resp 22; Temp 98.8; Pulse Ox 95% on R/A; Pain 5/10; sv1 11/26 22:52 Body Mass Index 30.54 (88.45 kg, 170.18 cm) ld1 ED Course: 11/26 22:40 Patient arrived in ED. ja2 22:52 Arm band placed on right wrist. ld1 22:54 Triage completed. ld1 23:03 Mehul Roberson MD is Attending Physician. [facility] 23:23 Vince Kelly, RN is Primary Nurse. sv1 23:34 XRAY Chest (1 view) In Process Unspecified. EDMS 23:57 SARS-COV-2 RT PCR (Document "Date of Onset" if Symptomatic) Sent. sv1 23:57 Liver (Hepatic) Function Sent. sv1 23:57 Basic Metabolic Panel Sent. sv1 23:57 Basic Metabolic Panel Sent. sv1 23:57 LFT's Sent. sv1 23:57 CBC with Diff Sent. sv1 23:58 Magnesium Sent. sv1 23:58 NT PRO-BNP Sent. sv1 23:58 PT-INR Sent. sv1 23:58 Troponin HS Sent. sv1 11/27 00:25 SARS-COV-2 RT PCR (Document "Date of Onset" if Symptomatic) Sent. vc1 01:14 US Extremity Venous W Compression Phong In Process Unspecified. EDVT 02:02 Ted Montiel MD is Referral Physician. [facility] 03:28 Patient has correct armband on for positive identification. Call light in reach. Side sv1 rails up X 1. 03:57 No provider procedures requiring assistance completed. IV discontinued. sv1 Administered Medications: 00:23 Drug: fentaNYL (PF) 50 mcg Route: IVP; Site: left antecubital; vc1 00:23 Drug: Zofran (Ondansetron) 4 mg Route: IVP; Site: left antecubital; vc1 00:24 Drug: NS 0.9% 500 ml Route: IV; Rate: bolus; Site: left antecubital; vc1 02:04 Follow up: Response: No adverse reaction; IV Status: Completed infusion sv1 02:23 Drug: KeFLEX (cephalexin) 500 mg Route: PO; sv1 03:56 Follow up: Response: No adverse reaction sv1 02:24 Drug: NS 0.9% 1000 ml Route: IV; Rate: 1 bolus; Site: left antecubital; sv1 03:56 Follow up: IV Status: Completed infusion; IV Intake: 1300ml sv1 02:24 Drug: Colcrys (colchicine) 1.2 mg Route: PO; sv1 02:25 Not Given (Provider DC'd.): Mucomyst - Acetylcysteine 600 mg PO once sv1 03:43 Drug: Colcrys (colchicine) 0.6 mg Route: PO; sv1 Intake: 03:56 IV: 1300ml; Total: 1300ml. sv1 Outcome: 02:02 Discharge ordered by . pavithra 03:57 Discharged to home ambulatory. sv1 03:57 Condition: good 03:57 Discharge instructions given to patient. 04:25 Patient left the ED. sv1 Signatures: Dispatcher [employer] EDVT Mehul Roberson MD MD cha Dibbern, Lauren, RN RN ld1 Jessica Parsons Steven, RN RN sv1 Tiara Ramírez RN RN vc1 Corrections: (The following items were deleted from the chart) 02:24 02:23 Colcrys (colchicine) 0.6 mg PO sv1 sv1
[2021-11-27] MEDS ORDERED: COLCHICINE 0.6 MG TAB ONE ×2 (02:11→02:13)
[2021-11-27] MEDS ORDERED: CEPHALEXIN 250 MG CAP ONE (02:11)
[2021-11-27] MEDS ORDERED: NA CHLORIDE 0.9% 1,000 ML ONE (02:12)
[2021-11-27] MEDS ORDERED: ACETYLCYST 6,000 MG/30 ML VIAL ONE (02:16)
--- NOTE | 2021-11-27 07:56 | RAD REPORT ---
EXAM DESCRIPTION: US - Extrem Venous W Compress Phong - 11/27/2021 1:14 am CLINICAL HISTORY: Swelling COMPARISON: None. TECHNIQUE: Real-time sonographic evaluation of the bilateral lower extremity deep venous systems was performed. FINDINGS: Normal compressibility, flow augmentation, phasic flow and spontaneous flow is identified in both the left and right lower extremity deep venous systems. No intraluminal filling defects seen. IMPRESSION: No DVT in either lower extremity.
--- NOTE | 2021-11-27 07:58 | RAD REPORT ---
EXAM DESCRIPTION: RAD - Chest Single View - 11/26/2021 11:34 pm CLINICAL HISTORY: COUGH COMPARISON: Chest Pa And Lat (2 Views) dated 09/08/2021; Chest Pa And Lat (2 Views) dated 05/31/2020; Chest Pa And Lat (2 Views) dated 03/05/2020; Chest Single View dated 02/20/2020 FINDINGS: Lines: None. Lungs: Developing ill-defined airspace disease in the left lung base. Pleural: No significant pleural effusions or pneumothorax. Cardiac: The heart size is within normal limits. Bones: No acute fractures. Other: IMPRESSION: Developing airspace disease in the left lung base could reflect pneumonia.
[2021-11-27 10:19] VITALS: BP 134/63; TEMP 98.8; O2SAT 95
--- NOTE | 2021-11-28 08:05 | EKG ---
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
== END 2021-11-27 04:25 | disposition home or self-care (01) ==
LOC: ER 22:37
DX: M10.071 Idiopathic gout, right ankle and foot (principal); I10 Essential (primary) hypertension; E78.00 Pure hypercholesterolemia, unspecified; Z88.5 Allergy status to narcotic agent; Z20.822 Contact with and (suspected) exposure to COVID-19
CPT/HCPCS: 96361; 93005; 85025; 80048; 36415; 83735; 85610; 80076; 84550; 81003; 84484; 83880; 71045; 93970; 96375; 96374; 99283; U0003; J3010; J7040; J7030; J2405

== ENCOUNTER 2022-07-28 18:30 | Emergency (ER) | payer OTHER ==
--- OUTSIDE RECORDS SUMMARY | 2022-07-28 18:35 | XMS REPORT | Continuity of Care Document ---
:1955 Author Organization [facility] t Address [address] [place] [address] Care Team Providers Name Role Phone Suzanna Covington Attending Clinician Unavailable Ted Montiel Attending Clinician Unavailable John Covington Admitting Clinician Unavailable Payers Payer Name Policy Type Policy Number Effective Date Expiration Date S ource Problems This patient has no known problems. Allergies, Adverse Reactions, Alerts Allergy Allergy Status Severity Reaction(s) Onset Inactive Treating Comm ents Source Name Type Date Date Clinician morphine DA Active U ITCHING 2020-11 [facility] 12-22 Clear 00:00: Collins 00 [facility] No Known DA Active U 2020-11 [facility] Allergie 12-11 Clear s 00:00: Collins 00 [facility] morphine DA Active U ITCHING 2020-11 [facility] 12-11 Clear 00:00: Collins [address] [place] [address] Medications This patient has no known medications. Procedures Procedure Date / Time Performed Performing Clinician Murtaza humphrey [id number] 2021-10-21 00:00:00 RASSA [facility] Clear [facility] Encounters Start End Encounter Admission Attending Care Care Encounter Source Date/Time Date/Time Type Type Clinicians Facility Department ID 2022-05-02 Outpatient MARY Covington [facility] [id number] Common 10:18:02 Suzanna [facility] 2021-11-30 [facility] [id number] Common 14:18:57 Suzanna [id number] [facility] 2021-11-30 Outpatient Covington, STLMLC STLMLC [id number] Common 14:09:44 Suzanna [id number] [facility] 2021-11-30 Outpatient Covington, STLMLC STLMLC [id number] Common 13:45:52 Suzanna [id number] [facility] 2021-11-30 Outpatient Covington, STLMLC STLMLC [id number] Common 13:45:04 Suzanna [id number] [facility] 2021-11-30 Outpatient STLMLC STLMLC [id number] Common 13:43:37 [id number] [facility] 2021-11-30 Outpatient COVINGTON, STLMLC STLMLC [id number] Common 13:21:03 SUZANNA [id number] [facility] 2022-07-03 2022-07-03 ambulatory STLMLC STLMLC [id number] Common 00:00:00 00:00:00 [facility] 2022-05-04 2022-05-04 ambulatory STLMLC STLMLC [id number] Common 00:00:00 00:00:00 [facility] 2022-03-09 2022-03-09 ambulatory STLMLC STLMLC [id number] Common 00:00:00 00:00:00 [facility] 2022-01-03 2022-01-03 ambulatory STLMLC STLMLC [id number] Common 00:00:00 00:00:00 [facility] 2022-01-02 2022-01-02 ambulatory STLMLC STLMLC [id number] Common 00:00:00 00:00:00 [facility] 2021-12-28 2021-12-28 Inpatient EL Rasdora, HCACL OUTD [id number] [facility] 05:25:00 05:25:00 Ted Sinclair [facility] 2021-12-21 2021-12-21 ambulatory STLMLC STLMLC [id number] Common 00:00:00 00:00:00 [facility] 2021-12-20 2021-12-20 ambulatory STLMLC STLMLC [id number] Common 00:00:00 00:00:00 [facility] 2021-11-16 2021-11-16 Inpatient ANGELIKA SevillaCL OUTD [id number] [facility] 05:04:00 05:04:00 Ted 87 [facility] 2021-10-25 2021-10-25 ambulatory STLMLC STLMLC [id number] Common 00:00:00 00:00:00 [facility] 2021-10-25 2021-10-25 ambulatory STLMLC STLMLC [id number] Common 00:00:00 00:00:00 [facility] 2021-10-24 2021-10-24 ambulatory STLMLC STLMLC [id number] Common 00:00:00 00:00:00 [facility] 2021-10-11 2021-10-11 Inpatient JOHN Montiel, HCACL OUTD [id number] [facility] 05:17:00 05:17:00 Ted 34 [facility] 2021-10-10 2021-10-10 Outpatient JOHN Montiel, HCACL 3DAY [id number] [facility] 09:00:00 23:00:00 Ted 56 [facility] 2021-10-04 2021-10-04 ambulatory STLMLC STLMLC [id number] Common 00:00:00 00:00:00 [facility] 2021-09-05 2021-09-05 Outpatient STLMLC STLMLC [id number] Common 00:00:00 00:00:00 [facility] 2021-08-31 2021-08-31 Outpatient STLMLC STLMLC [id number] Common 00:00:00 00:00:00 [facility] 2021-08-31 2021-08-31 Outpatient STLMLC STLMLC [id number] Common 00:00:00 00:00:00 [facility] 2021-08-05 2021-08-05 Outpatient STLMLC STLMLC [id number] Common 00:00:00 00:00:00 [facility] 2021-07-08 2021-07-08 Outpatient STLMLC STLC [id number] Common 00:00:00 00:00:00 [facility] 2021-07-05 2021-07-05 Outpatient STLMLC STLC [id number] Common 00:00:00 00:00:00 [facility] 2021-07-05 2021-07-05 Outpatient STLMLC STLC [id number] Common 00:00:00 00:00:00 [facility] 2021-07-05 2021-07-05 Outpatient STLC STLC [id number] Common 00:00:00 00:00:00 [facility] 2021-05-04 2021-05-04 Outpatient STLC STLC [id number] Common 00:00:00 00:00:00 [facility] Results Test Description Test Time Test Comments Results Result Comments Source ACT-ISTAT 2021-12-28 15:47:00 Test Item Value Reference Range Interpretation Comme nts ACT-ISTAT (test code = ACTI) 255 SEC 74-137 H 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 Prophylax is of venous thrombos is 2.0 - 3.0 (orthoped ic surgery), Proph ylaxis of venous throm bosis (other than hig h-risk surgery), Treat ment of Deep Vein Thrombosis/Pulm onary Embolism, Preve ntion of systemic emb olism - Tissue heart va lves, Acute Myocardia l Infarction (to prevent systemic emboli sm), Valvular heart disease, Atrial Fibrillation, Bileaflet mecha nical valve in aortic position.2. Mec hanical prosthetic valv es (high risk), 2. 5 - 3.5 Presence of Lup us Anticoagulant o r Antiphospholipi d Antibodies, Pre vention of systemic emb olism - Acute Myocardia l Infarction (to prevent recurrent infar ct). BASIC METABOLIC [id number] 11:03:00 Test Item Value Reference Range Interpretation Comments SODIUM (test code = NA) 142 mEq/L 134-147 N POTASSIUM (test code = 4.0 mEq/L 3.4-5.0 N K) CHLORIDE (test code = 104 mEq/L 100-108 N CL) CARBON DIOXIDE (test 31 mEq/l 21-33 N code = CO2) ANION GAP (test code = 11 0-20 N GAP) GLUCOSE (test code = 101 mg/dL 70-110 N GLU) BLOOD UREA NITROGEN 23 mg/dL 7-18 H (test code = BUN) GLOMERULAR FILTRATION 55.3 80-90 L Units of measure = RATE (test code = GFR) ml/mi n/1.73 m2 CREATININE (test code = 1.0 mg/dL 0.6-1.3 N CREAT) CALCIUM (test code = 9.3 mg/dL 8.0-10.5 N CA) CBC W/AUTO [id number] 10:48:00 Test Item Value Reference Range Interpretation Comments WHITE BLOOD CELL (test code = 13.4 x10 3/uL 4.5-11.0 H WBC) RED BLOOD CELL (test code = 4.62 x10 6/uL 3.54-5.02 N RBC) HEMOGLOBIN (test code = HGB) 13.9 g/dL 11.0-15.0 N HEMATOCRIT (test code = HCT) 43.0 % 33.0-45.0 N MEAN CELL VOLUME (test code = 93.1 fL 81.0-99.0 N MCV) MEAN CELL HGB (test code = MCH) 30.1 pg 27.0-33.0 N MEAN CELL HGB CONCETRATION 32.3 g/dL 33.0-37.0 L (test code = MCHC) RED CELL DISTRIBUTION WIDTH CV 14.6 % 11.5-14.5 H (test code = RDW) RED CELL DISTRIBUTION WIDTH SD 49.6 fL 37.0-54.0 N (test code = RDW-SD) PLATELET COUNT (test code = 477 x10 3/uL 150-400 H PLT) MEAN PLATELET VOLUME (test code 9.1 fL 7.0-9.0 H = MPV) NEUTROPHIL % (test code = NT%) 57.9 % 56.0-77.0 N IMMATURE GRANULOCYTE % (test 2.1 % 0.0-2.0 H code = IG%) LYMPHOCYTE % (test code = LY%) 31.4 % 14.0-32.0 N MONOCYTE % (test code = MO%) 7.7 % 4.8-9.0 N EOSINOPHIL % (test code = EO%) 0.3 % 0.3-3.7 N BASOPHIL % (test code = BA%) 0.6 % 0.0-2.0 N NUCLEATED RBC % (test code = 0.0 % 0-0 N NRBC%) NEUTROPHIL # (test code = NT#) 7.78 x10 3/uL 2.0-7.6 H IMMATURE GRANULOCYTE # (test 0.28 x10 3/uL 0.00-0.03 H code = IG#) LYMPHOCYTE # (test code = LY#) 4.22 x10 3/uL 1.0-3.8 H MONOCYTE # (test code = MO#) 1.04 x10 3/uL 0.1-0.8 H EOSINOPHIL # (test code = EO#) 0.04 x10 3/uL 0.0-0.2 N BASOPHIL # (test code = BA#) 0.08 x10 3/uL 0.0-0.2 N NUCLEATED RBC # (test code = 0.00 x10 3/uL 0.0-0.1 N NRBC#) MANUAL DIFF REQUIRED (test code NO = MDIFF) [id number] 17:09:00 Test Item Value Reference Range Interpretation Comments ACT-ISTAT (test code 249 SEC 74-137 H Perform ed by certified = ACTI) hoop coiling machine operator at [facility] [id number] 16:29:00 Test Item Value Reference Range Interpretation Comments ACT-ISTAT (test code 261 SEC 74-137 H Perform ed by certified = ACTI) hoop coiling machine operator at [facility] [id number] 16:11:00 Test Item Value Reference Range Interpretation Comments ACT-ISTAT (test code 350 SEC 74-137 H Perform ed by certified = ACTJane) hoop coiling machine operator at [facility] BASIC METABOLIC [id number] 13:11:00 Test Item Value Reference Range Interpretation [...] = 9.4 mg/dL 8.0-10.5 N CA) PROTHROMBIN [id number] 13:03:00 Test Item Value Reference Range Interpretation Comments PROTHROMBIN TIME 11.1 SECONDS 9.3-12.9 N PATIENT (test code = PTP) INTERNATIONAL NORMAL 1.0 0.8-1.2 N TARGE T INR BY RATIO (test code = INDICATIO N Indication INR) INR1. Prophylax is of venous thrombos is 2.0 - 3.0 (orthoped ic surgery), Proph ylaxis of venous throm bosis (other than hig h-risk surgery), Treat ment of Deep Vein Thrombosis/Pulm onary Embolism, Preve ntion of systemic emb olism - Tissue heart va lves, Acute Myocardia l Infarction (to prevent systemic emboli sm), Valvular heart disease, Atrial Fibrillation, Bileaflet mecha nical valve in aortic position.2. Mec hanical prosthetic valv es (high risk), 2. 5 - 3.5 Presence of Lup us Anticoagulant o r Antiphospholipi d Antibodies, Pre vention of systemic emb olism - Acute Myocardia l Infarction (to prevent recurrent infar ct). CBC W/AUTO [id number] 12:56:00 Test Item Value Reference Range Interpretation [...] 0.0-0.1 N NRBC#) - XR CHEST 2 [id number] 00:00:00 [facility] : 1955 Sex: F FAX: John Landin MD [phone] [place]: St: PRE FAX: Ted Pendleton MD [phone] -------- Name: SIMONA JUÁREZ [facility] : 1955 Age/S: 66/F [address] [place] [address] Unit #: [id number] Loc: [place] [address] Phys: Ted Montiel MD Acct: [id number] Dis Date: Status: [place] [facility] [place] #: [phone] Exam Date: 11/15/2021 1244 FAX #: [phone] Reason: PREOP EXAMS: CPT CODE: [id number] XR CHEST 2 V 02751 PROCEDURE INFORMATION: Exam: XR Chest Exam date and time: 11/15/2021 12:15 PM Age: 66 years old Clinical indication: Pre-operative exam; Respiratory screening exam; Additional info: Preop TECHNIQUE: Imaging protocol: XR of the chest. Views: 2 views. PA and Lateral COMPARISON: DX XR CHEST 2 V 10/10/2021 4:49 PM FINDINGS: Lungs: No consolidation. Pleural spaces: No pleural effusion. Heart/Mediastinum: The heart and vascular markings are within limits of normal. There is atherosclerotic calcification of the aorta. Bones/joints: No gross acute findings. IMPRESSION: No acute cardiopulmonary findings at 1304 Reported and signed by: Rosmery Covington D.O. CC: John Covington MD; Ted Montiel MD Technologist: RT Omar(R) Trnscrd Date/Time/By: 11/15/2021 (7548) : By: [email or web address] Orig Print D/T: S: 11/15/2021 (9209) PAGE 1 Signed ReportBASIC METABOLIC [id number] 20:17:00 Test Item Value Reference Range Interpretation [...] 8.1 mg/dL 8.0-10.5 N CA) CBC W/AUTO [id number] 19:19:00 Test Item Value Reference Range Interpretation [...] DIFF REQUIRED (test code NO = MDIFF) [id number] 18:42:00 Test Item Value Reference Range Interpretation Comments ACT-ISTAT (test code 255 SEC 74-137 H Perform ed by certified = ACTI) hoop coiling machine operator at [facility] [id number] 17:59:00 Test Item Value Reference Range Interpretation Comments ACT-ISTAT (test code 273 SEC 74-137 H Perform ed by certified = ACTI) hoop coiling machine operator at [facility] [id number] 17:29:00 Test Item Value Reference Range Interpretation Comments ACT-ISTAT (test code 357 SEC 74-137 H Perform ed by certified = ACTI) hoop coiling machine operator at [facility] BASIC METABOLIC [id number] 11:34:00 Test Item Value Reference Range Interpretation [...] = 9.1 mg/dL 8.0-10.5 N CA) PROTHROMBIN [id number] 11:32:00 Test Item Value Reference Range Interpretation Comments PROTHROMBIN TIME 11.0 SECONDS 9.3-12.9 N PATIENT (test code = PTP) INTERNATIONAL NORMAL 1.0 0.8-1.2 N TARGET INR BY RATIO (test code = INDICATIO N Indication INR) INR1. Prophylax is of venous thrombos is 2.0 - 3.0 (orthoped ic surgery), Proph ylaxis of venous throm bosis (other than hig h-risk surgery), Treat ment of Deep Vein Thrombosis/Pulm onary Embolism, Preve ntion of systemic emb olism - Tissue heart va lves, Acute Myocardia l Infarction (to prevent systemic emboli sm), Valvular heart disease, Atrial Fibrillation, Bileaflet mecha nical valve in aortic position.2. Mec hanical prosthetic valv es (high risk), 2. 5 - 3.5 Presence of Lup us Anticoagulant o r Antiphospholipi d Antibodies, Pre vention of systemic emb olism - Acute Myocardia l Infarction (to prevent recurrent infar ct). CBC W/AUTO [id number] 11:11:00 Test Item Value Reference Range Interpretation [...] (test code NO = MDIFF) BASIC METABOLIC [id number] 18:08:00 Test Item Value Reference Range Interpretation [...] = 9.2 mg/dL 8.0-10.5 N CA) PROTHROMBIN [id number] 18:03:00 Test Item Value Reference Range Interpretation Comments PROTHROMBIN TIME 10.9 SECONDS 9.3-12.9 N PATIENT (test code = PTP) INTERNATIONAL NORMAL 1.0 0.8-1.2 N TARGE T INR BY RATIO (test code = INDICATIO N Indication INR) INR1. Prophylax is of venous thrombos is 2.0 - 3.0 (orthoped ic surgery), Proph ylaxis of venous throm bosis (other than hig h-risk surgery), Treat ment of Deep Vein Thrombosis/Pulm onary Embolism, Preve ntion of systemic emb olism - Tissue heart va lves, Acute Myocardia l Infarction (to prevent systemic emboli sm), Valvular heart disease, Atrial Fibrillation, Bileaflet mecha nical valve in aortic position.2. Mec hanical prosthetic valv es (high risk), 2. 5 - 3.5 Presence of Lup us Anticoagulant o r Antiphospholipi d Antibodies, Pre vention of systemic emb olism - Acute Myocardia l Infarction (to prevent recurrent infar ct). CBC W/AUTO [id number] 17:52:00 Test Item Value Reference Range Interpretation [...] NO = MDIFF) - XR CHEST 2 [id number] 00:00:00 [facility] : 1955 Sex: F FAX: John Landin MD [phone] [place]: St: PRE FAX: Ted Pendleton MD [phone] -------- Name: SIMONA JUÁREZ [facility] : 1955 Age/S: 66/F [address] [place] [address] Unit #: [id number] Loc: [place] [address] Phys: Ted Montiel MD Acct: [id number] Dis Date: Status[place] [facility] [place] #: [phone] Exam Date: 10/10/20211658 FAX #: [phone] Reason: PREOP EXAMS: CPT CODE: [id number] XR CHEST 2 V 40449 PROCEDURE INFORMATION: Exam: XR Chest Exam date and time: 10/10/2021 4:49 PM Age: 66 years old Clinical indication: Pre-operative exam; Cardiovascular screening and respiratory screening exam; Additional info: Preop TECHNIQUE: Imaging protocol: XR of the chest. Views: 2 views. PA and Lateral COMPARISON: No relevant prior studies available. FINDINGS: Lungs: The lungs are clear. Pleural spaces: No pleural effusion. No pneumothorax. Heart/Mediastinum: Cardiomediastinal silhouette is normal in size.Bones/joints: No acute bony finding. IMPRESSION: No acute or active pulmonary findings. at 1722 Reported and signed by: Vince Patrick M.D. CC: John Covington MD; Ted Montiel MD Technologist: Tricia Torres RT(R) Trnscrd Date/Time/By: 10/10/2021 (1721) : By: [email or web address] Orig Print D/T: S: 10/10/2021 (172) PAGE 1 Signed Report
--- NOTE | 2022-07-28 19:47 | RAD REPORT ---
EXAM DESCRIPTION: RAD - Foot Right 3 View - 07/28/2022 7:40 pm CLINICAL HISTORY: PAIN COMPARISON: No comparisons FINDINGS: Soft tissue swelling is seen along the dorsum of the midfoot. No fracture seen. Small plan tar calcaneal spur.
--- NOTE | 2022-07-28 20:49 | ER ---
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 Assumed it was a blood vessel. Swelling went down - now today the swelling is the size of a marble and foot is starting to swell and is painful. Coronavirus screen: At this time, the client does not indicate any symptoms associated with coronavirus-19. Ebola Screen: No symptoms or risks identified at this time. Initial Sepsis Screen: Does the patient meet any 2 criteria? No. Patient's initial sepsis screen is negative. Does the patient have a suspected source of infection? No. Patient's initial sepsis screen is negative. Risk Assessment: Do you want to hurt yourself or someone else? Patient reports no desire to harm self or others. Onset of symptoms was July 28, 2022. 19:09 Method Of Arrival: Wheelchair ld1 19:09 Acuity: FRANCOISE 3 ld1 Triage Assessment: 19:12 General: Appears in no apparent distress. comfortable, Behavior is calm, cooperative, ld1 appropriate for age. Pain: Complains of pain in right foot Pain does not radiate. Pain currently is 6 out of 10 on a pain scale. Quality of pain is described as throbbing. EENT: No signs and/or symptoms were reported regarding the EENT system. Neuro: Level of Consciousness is awake, alert, obeys commands, Oriented to person, place, time, situation. Cardiovascular: Capillary refill < 3 seconds Patient's skin is warm and dry. Respiratory: Airway is patent Respiratory effort is even, unlabored. GI: Abdomen is round non-distended. : No signs and/or symptoms were reported regarding the genitourinary system. Derm: No signs and/or symptoms reported regarding the dermatologic system. Musculoskeletal: No signs and/or symptoms reported regarding the musculoskeletal system. Historical: - Allergies: 19:12 Morphine; ld1 - PMHx: 19:12 Hypercholesterolemia; Hypertension; ld1 - PSHx: 19:12 Cholecystectomy; Heart stent; ld1 - Immunization history:: Adult Immunizations up to date, Client reports receiving the 2nd dose of the Covid vaccine. - Social history:: Smoking status: Patient denies any tobacco usage or history of. Patient/guardian denies using alcohol. Screenin:40 Abuse screen: Denies threats or abuse. Nutritional screening: No deficits noted. ke1 Tuberculosis screening: No symptoms or risk factors identified. 20:50 Fall Risk No fall in past 12 months (0 pts). No secondary diagnosis (0 pts). No IV (0 ke1 pts). Ambulatory Aid- None/Bed Rest/Nurse Assist (0 pts). Gait- Normal/Bed Rest/Wheelchair (0 pts) Mental Status- Oriented to own ability (0 pts). Total Vazquez Fall Scale indicates No Risk (0-24 pts). Assessment: 20:40 Reassessment: No changes from previously documented assessment. ke1 20:40 Reassessment: Patient is alert, oriented x 3, equal unlabored respirations, skin ke1 warm/dry/pink. 20:50 Pain: Complains of pain in right foot Pain currently is 4 out of 10 on a pain scale. at ke1 worst was 4 out of 10 on a pain scale. level that patient reports is acceptable is 3 out of 10 on a pain scale. Vital Signs: 19:09 BP 136 / 108; Pulse 62; Resp 18; Temp 97.3(TE); Pulse Ox 99% on R/A; Weight 86.18 kg; ld1 Height 5 ft. 7 in. (170.18 cm); Pain 6/10; 19:09 Body Mass Index 29.76 (86.18 kg, 170.18 cm) ld1 ED Course: 18:33 Patient arrived in ED. mr 18:33 Silvano Covington DO is Private Physician. mr 19:12 Triage completed. ld1 19:12 Arm band placed on right wrist. ld1 19:15 Mahsa Preston FNP-C is PHCP. kb 19:15 Robin Tyler MD is Attending Physician. kb 19:42 Foot Right 3 View XRAY In Process Unspecified. EDMS 20:03 Anne-Marie Barajas, ZORAIDA is Primary Nurse. ke1 20:40 Bed in low position. ke1 Administered Medications: 20:50 Drug: Ibuprofen 800 mg Route: PO; ke1 20:58 Follow up: Response: Medication administered at discharge. ke1 Outcome: 20:48 Discharge ordered by . kb 20:57 Patient left the ED. ke1 Signatures: Dispatcher [employer] EDMS Mahsa Preston FNP-C FNP-Marcial José MiguelCalli mr Tricia Urbina RN RN ld1 Anne-Marie Barajas RN RN ke1
--- NOTE | 2022-07-28 20:49 | EDPHYS ---
Physician Documentation [facility] Name: Simona Juárez Age: 67 yrs Sex: Female : 1955 Arrival Date: 07/28/2022 Time: 18:33 Bed 24 Private MD: Zack Covingtonh ED Physician Robni Tyler HPI: 07/29 00:23 This 67 yrs old Female presents to ER via Wheelchair with complaints of Feet Swelling. kb 00:23 The patient presents with pain. The complaints affect the right foot. Context: The kb problem was sustained at home, resulted from the patient kicking, the patient can fully bear weight, the patient is able to ambulate. Onset: The symptoms/episode began/occurred 5 day(s) ago. Modifying factors: The symptoms are alleviated by nothing, the symptoms are aggravated by weight bearing, movement. Associated signs and symptoms: Pertinent positives: swelling, Pertinent negatives: calf tenderness, fever, nausea, numbness, rash, tingling, vomiting, warmth, weakness. Severity of symptoms: At their worst the symptoms were moderate, in the emergency department the symptoms are unchanged. The patient has not experienced similar symptoms in the past. The patient has not recently seen a physician. Pt states she hit top of right foot on refrigerator on Sunday. Reports pain and swelling to top of right foot since then.. Historical: - Allergies: 07/28 19:12 Morphine; ld1 - PMHx: 19:12 Hypercholesterolemia; Hypertension; ld1 - PSHx: 19:12 Cholecystectomy; Heart stent; ld1 - Immunization history:: Adult Immunizations up to date, Client reports receiving the 2nd dose of the Covid vaccine. - Social history:: Smoking status: Patient denies any tobacco usage or history of. Patient/guardian denies using alcohol. ROS: 07/29 00:22 Constitutional: Negative for fever, chills, and weight loss. kb MS/extremity: Positive for contusion, pain, swelling, tenderness, of the dorsum of right foot. All other systems are negative. Exam: 00:21 Constitutional: This is a well developed, well nourished patient who is awake, alert, kb and in no acute distress. Head/Face: Normocephalic, atraumatic. ENT: Moist Mucous membranes Cardiovascular: Regular rate and rhythm with a normal S1 and S2. No gallops, murmurs, or rubs. No pulse deficits. Respiratory: Respirations even and unlabored. No increased work of breathing. Talking in full sentences Skin: Warm, dry with normal turgor. Normal color. Neuro: Awake and alert, GCS 15, oriented to person, place, time, and situation. Moves all extremities. Normal gait. Psych: Awake, alert, with orientation to person, place and time. Behavior, mood, and affect are within normal limits. 00:21 Musculoskeletal/extremity: Extremities: grossly normal except: noted in the right foot: contusion, pain, ROM: intact in all extremities, Circulation is intact in all extremities. Sensation intact. Weight bearing: able to fully bear weight. Vital Signs: 07/28 19:09 BP 136 / 108; Pulse 62; Resp 18; Temp 97.3(TE); Pulse Ox 99% on R/A; Weight 86.18 kg; ld1 Height 5 ft. 7 in. (170.18 cm); Pain 6/10; 19:09 Body Mass Index 29.76 (86.18 kg, 170.18 cm) ld1 MDM: 19:15 Patient medically screened. kb 07/29 00:21 Data reviewed: vital signs, nurses notes. Data interpreted: Pulse oximetry: on room air kb is 99 %. Interpretation: normal. Counseling: I had a detailed discussion with the patient and/or guardian regarding: the historical points, exam findings, and any diagnostic results supporting the discharge/admit diagnosis, radiology results, the need for outpatient follow up, a family practitioner, to return to the emergency department if symptoms worsen or persist or if there are any questions or concerns that arise at home. 07/28 19:20 Order name: Foot Right 3 View XRAY; Complete Time: 20:02 kb Administered Medications: 07/28 20:50 Drug: Ibuprofen 800 mg Route: PO; ke1 20:58 Follow up: Response: Medication administered at discharge. ke1 Disposition: 07/29 08:24 Co-signature as Attending Physician, Robin Tyler MD. rn Disposition Summary: 07/28/22 20:48 Discharge Ordered Location: Home kb Condition: Stable kb Diagnosis - Contusion of right foot kb Followup: kb - With: Emergency Department - When: As needed - Reason: Worsening of condition Followup: kb - With: Private Physician - When: 2 - 3 days - Reason: Recheck today's complaints, Continuance of care, Re-evaluation by your physician Discharge Instructions: - Discharge Summary Sheet kb - Hematoma, [id number] kb - Foot Contusion, [id number] kb Forms: - Medication Reconciliation Form kb - Thank You Letter kb - Antibiotic Education kb - Prescription Opioid Use kb Signatures: Dispatcher [employer] Mahsa Preston, ILIANAC GABRIELA-Robin Amaro MD MD rn Dibbern, Lauren RN RN ld1 Anne-Marie Barajas RN RN ke1
[2022-07-28] MEDS ORDERED: IBUPROFEN 400 MG TAB ONE (20:57)
[2022-07-30 11:58] VITALS: BP 136/108; TEMP 97.3; O2SAT 99
== END 2022-07-28 20:57 | disposition home or self-care (01) ==
LOC: ER 18:30
DX: S90.31XA Contusion of right foot, initial encounter (principal); Z88.5 Allergy status to narcotic agent
CPT/HCPCS: 99283

== ENCOUNTER 2024-09-26 17:37 | Emergency (ER) | payer OTHER ==
--- OUTSIDE RECORDS SUMMARY | 2024-09-26 17:42 | XMS REPORT | Continuity of Care Document ---
Author Name Unknown Address [address] [facility] [place] [address] Organization [facility]connect Address [address] [facility]. [address] [place] [address] Care Team Providers Care Health Underwriter Name Role Phone Suzanna Covington Attending Clinician Unavailable [email or web address] Attending Clinician Unavaila Ted Anderson Attending Clinician Unavailable [email or web address]_S Admitting Clinician Unavaila John Frey Admitting Clinician Unavailable Payers Payer Name Policy Type Policy Number Effective Date Expirati on Date Source [employer] (MEDICARE REPLACEMENT/ADV ANTAGE - PPO) [id number] [place] [id number] MEDICAID MC [id number] 2019 00:00:00 [facility] MEDICARE NOVITAS MB [id number] [facility] MEDICARE C1 [id number] [facility] MEDICAID MC [id number] 2019 00:00:00 [facility] [employer] MEDICARE [id number] [facility] MEDICAID MC [id number] 2019 00:00:00 [facility] [employer] MEDICARE C1 [id number] [facility] MEDICAID MC [id number] 2019 00:00:00 [facility] MEDICARE C1 [id number] Comm on [facility] MEDICARE C1 [id number] [facility] MEDICAID MC [id number] 2019 00:00:00 [facility] Problems Condition Name Condition Details Condition Category Status Onset Date Resolution Date Last Treatment Date Treating Clinician Comments Source Type B viral hepatitis Type B Viral Hepatitis Problem Active 2-20 00:00: 00 [facility] 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 coma Viral Hepatitis B without Hepatic Coma Problem Active 2-08 00:00: 00 [facility] Exposure to viral hepatitis Exposure to Viral Hepatitis Problem Active 2-22 00:00: 00 [facility] Hepatitis C carrier Hepatitis C Carrier Problem Active 2-22 00:00: 00 [facility] Herpetic vulvovagin itis Herpetic Vulvovagin itis Problem Active 2-22 00:00: 00 [facility] Ulceration of vulva Ulceration of Vulva Problem Active 2-07 00:00: 00 [facility] Atrophic vaginitis Atrophic Vaginitis Problem Active 1- 00:00: 00 [facility] Gynecologi kalyan examinatio n abnormal Gynecologi kalyan Examinatio n Abnormal Problem Active 2020-11 2- 00:00: 00 [facility] [id number] Stage 3a chronic kidney disease Problem [facility] [id number] PAD (periphera l artery disease) Problem [facility] [id number] 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 Problem [facility] Laboratory test result abnormal Abnormal laboratory test Problem [facility] [id number] Genital herpes simplex, unspecifie d site Problem [facility] [id number] Other obesity due to excess calories Problem [facility] [id number] Body mass index [BMI] 31.0-31.9, adult Problem [facility] [id number] Tobacco use disorder Problem [facility] [id number] Mixed hyperlipid emia Problem [facility] [id number] Stented coronary artery Problem [facility] [id number] Acute hepatitis C virus infection without hepatic coma Problem [facility] [id number] Essential (primary) hypertensi on Problem [facility] [id number] Hypothyroi dism (acquired) Problem [facility] [id number] 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 Problem [facility] [id number] 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 of body Problem [facility] Amnesia Memory changes Problem [facility] [id number] Primary insomnia Problem [facility] [id number] Chronic hepatitis C without hepatic coma Problem [facility] Allergies, Adverse Reactions, Alerts Allergy Name Allergy Type Status Severity Reaction(s) Onset Date Inactive Date Treating Clinician Comments Source morphine DA Active U ITCHING 2020-11 00:00: 00 [facility] No Known Allergie s DA Active U 2020-11 00:00: 00 [facility] morphine DA Active U ITCHING 2020-11 00:00: 00 [facility] Social History Social Habit Start Date Stop Date Quantity Comments Source History of Tobacco Use [facility] Sex Assigned At [facility] Smoking Status Start Date Stop Date Source Former Smoker [facility] Current Smoker 2022-05-04 00:00:00 [facility] Medications Ordered Medication Name Filled Medication Name Start Date Stop Date Current Medication? Ordering Clinician Indication Dosage Frequency Signature (SIG) Comments Components Source traZODone HCl 100 MG traZODone HCl 100 MG 07-10 00:00: 00 No 1{table t_at_be dtime} QD traZODone HCl 100 MG valACYclovi r HCl 1 GM valACYclovi r HCl 1 GM 08-03 00:00: 00 08-23 00:00 :00 No 1{table t} BID valACYclov ir HCl 1 GM aspirin 80 aspirin 80 No aspirin 80 [facility] atorvastati n 80 mg tablet Take 1 tablet every day by oral route. atorvastati n 80 mg tablet Take 1 tablet every day by oral route. No 1 Q1D atorvastat in 80 mg tablet Take 1 tablet every day by oral route. [facility] clopidogrel 75 mg tablet Take 1 tablet every day by oral route. clopidogrel 75 mg tablet Take 1 tablet every day by oral route. No 1 Q1D clopidogre l 75 mg tablet Take 1 tablet every day by oral route. [facility] hydrochloro thiazide 25 mg tablet Take 1 tablet every day by oral route. hydrochloro thiazide 25 mg tablet Take 1 tablet every day by oral route. No 1 Q1D hydrochlor othiazide 25 mg tablet Take 1 tablet every day by oral route. [facility] levothyroxi ne levothyroxi ne No levothyrox ine [facility] metoprolol tartrate 100 mg tablet 1 tablet with food; Twice a day; 30 day(s) metoprolol tartrate 100 mg tablet 1 tablet with food; Twice a day; 30 day(s) No metoprolol tartrate 100 mg tablet 1 tablet with food; Twice a day; 30 day(s) [facility] Levothyroxi ne Sodium 88 MCG Levothyroxi ne Sodium 88 MCG No QD Levothyrox ine Sodium 88 MCG Atorvastati n Calcium 80 MG Atorvastati n Calcium 80 MG No 1{table t} QD Atorvastat in Calcium 80 MG hydroCHLORO thiazide 25 MG hydroCHLORO thiazide 25 MG No 1{table t_in_th e_morni ng} QD hydroCHLOR Othiazide 25 MG Donepezil HCl 5 MG Donepezil HCl 5 MG No 1{table t_at_be dtime} QD Donepezil HCl 5 MG Melatonin 3 MG Melatonin 3 MG No 1{table t_at_be dtime_a s_neede d} QD Melatonin 3 MG amLODIPine Besylate 10 MG amLODIPine Besylate 10 MG No 1{table t} QD amLODIPine Besylate 10 MG Clopidogrel Bisulfate 75 MG Clopidogrel Bisulfate 75 MG No 1{table t} QD Clopidogre l Bisulfate 75 MG Metoprolol Tartrate 100 MG Metoprolol Tartrate 100 MG No 1{table t_with_ food} QD Metoprolol Tartrate 100 MG Aspirin Adult Low Strength 81 MG Aspirin Adult Low Strength 81 MG No 1{table t} QD Aspirin Adult Low Strength 81 MG Multivitami n Multivitami n No Multivitam in Immunizations Ordered Immunization Name Filled Immunization Name Date Status Comments Source FLUZONE HIGH DOSE OVER 65 FLUZONE HIGH DOSE OVER 65 2022-08-03 10:12:00 Completed [facility] FLUZONE HIGH DOSE OVER 65 FLUZONE HIGH DOSE OVER 65 2022-08-03 10:12:00 Completed [facility] FLUZONE HIGH DOSE OVER 65 FLUZONE HIGH DOSE OVER 65 2022-08-03 10:12:00 Completed [facility] FLUZONE HIGH DOSE OVER 65 FLUZONE HIGH DOSE OVER 65 2022-08-03 10:12:00 Completed [facility] FLUZONE HIGH DOSE OVER 65 FLUZONE HIGH DOSE OVER 65 2022-08-03 10:12:00 Completed [facility] FLUZONE HIGH DOSE OVER 65 FLUZONE HIGH DOSE OVER 65 2022-08-03 10:12:00 Completed [facility] FLUZONE HIGH DOSE OVER 65 FLUZONE HIGH DOSE OVER 65 2022-08-03 10:12:00 Completed [facility] FLUZONE HIGH DOSE OVER 65 FLUZONE HIGH DOSE OVER 65 2022-08-03 10:12:00 Completed [facility] Fluzone Fluzone 2021-10-04 10:15:00 Completed [facility] Fluzone Fluzone 2021-10-04 10:15:00 Completed [facility] Fluzone Fluzone 2021-10-04 10:15:00 Completed [facility] Fluzone Fluzone 2021-10-04 10:15:00 Completed [facility] Fluzone Fluzone 2021-10-04 10:15:00 Completed [facility] Fluzone Fluzone 2021-10-04 10:15:00 Completed [facility] Fluzone Fluzone 2021-10-04 10:15:00 Completed [facility] Fluzone Fluzone 2021-10-04 10:15:00 Completed [facility] Fluzone Fluzone 2021-10-04 10:15:00 Completed [facility] Fluzone Fluzone 2021-10-04 10:15:00 Completed [facility] Fluzone Fluzone 2021-10-04 10:15:00 Completed [facility] Moderna COVID-19 Vaccine Moderna COVID-19 Vaccine 2021-08-05 10:19:00 Completed [facility] Moderna COVID-19 Vaccine Moderna COVID-19 Vaccine 2021-08-05 10:19:00 Completed [facility] Moderna COVID-19 Vaccine Moderna COVID-19 Vaccine 2021-08-05 10:19:00 Completed [facility] Moderna COVID-19 Vaccine Moderna COVID-19 Vaccine 2021-08-05 10:19:00 Completed [facility] Moderna COVID-19 Vaccine Moderna COVID-19 Vaccine 2021-08-05 10:19:00 Completed [facility] Moderna COVID-19 Vaccine Moderna COVID-19 Vaccine 2021-08-05 10:19:00 Completed [facility] Moderna COVID-19 Vaccine Moderna COVID-19 Vaccine 2021-08-05 10:19:00 Completed [facility] Moderna COVID-19 Vaccine Moderna COVID-19 Vaccine 2021-08-05 10:19:00 Completed [facility] Moderna COVID-19 Vaccine Moderna COVID-19 Vaccine 2021-08-05 10:19:00 Completed [facility] Moderna COVID-19 Vaccine Moderna COVID-19 Vaccine 2021-08-05 10:19:00 Completed [facility] Moderna COVID-19 Vaccine Moderna COVID-19 Vaccine 2021-08-05 10:19:00 Completed [facility] Moderna COVID-19 Vaccine Moderna COVID-19 Vaccine 2021-08-05 10:19:00 Completed [facility] Moderna COVID-19 Vaccine Moderna COVID-19 Vaccine 2021-07-08 09:01:00 Completed [facility] Moderna COVID-19 Vaccine Moderna COVID-19 Vaccine 2021-07-08 09:01:00 Completed [facility] Moderna COVID-19 Vaccine Moderna COVID-19 Vaccine 2021-07-08 09:01:00 Completed [facility] Moderna COVID-19 Vaccine Moderna COVID-19 Vaccine 2021-07-08 09:01:00 Completed [facility] Moderna COVID-19 Vaccine Moderna COVID-19 Vaccine 2021-07-08 09:01:00 Completed [facility] Moderna COVID-19 Vaccine Moderna COVID-19 Vaccine 2021-07-08 09:01:00 Completed [facility] Moderna COVID-19 Vaccine Moderna COVID-19 Vaccine 2021-07-08 09:01:00 Completed [facility] Moderna COVID-19 Vaccine Moderna COVID-19 Vaccine 2021-07-08 09:01:00 Completed [facility] Moderna COVID-19 Vaccine Moderna COVID-19 Vaccine 2021-07-08 09:01:00 Completed [facility] Moderna COVID-19 Vaccine Moderna COVID-19 Vaccine 2021-07-08 09:01:00 Completed [facility] Moderna COVID-19 Vaccine Moderna COVID-19 Vaccine 2021-07-08 09:01:00 Completed [facility] Moderna COVID-19 Vaccine Moderna COVID-19 Vaccine 2021-07-08 09:01:00 Completed [facility] Prevnar 13 (PCV13) Prevnar 13 (PCV13) 2021-07-05 12:03:00 Completed [facility] Prevnar 13 (PCV13) Prevnar 13 (PCV13) 2021-07-05 12:03:00 Completed [facility] Prevnar 13 (PCV13) Prevnar 13 (PCV13) 2021-07-05 12:03:00 Completed [facility] Prevnar 13 (PCV13) Prevnar 13 (PCV13) 2021-07-05 12:03:00 Completed [facility] Prevnar 13 (PCV13) Prevnar 13 (PCV13) 2021-07-05 12:03:00 Completed [facility] Prevnar 13 (PCV13) Prevnar 13 (PCV13) 2021-07-05 12:03:00 Completed [facility] Prevnar 13 (PCV13) Prevnar 13 (PCV13) 2021-07-05 12:03:00 Completed [facility] Prevnar 13 (PCV13) Prevnar 13 (PCV13) 2021-07-05 12:03:00 Completed [facility] Prevnar 13 (PCV13) Prevnar 13 (PCV13) 2021-07-05 12:03:00 Completed [facility] Prevnar 13 (PCV13) Prevnar 13 (PCV13) 2021-07-05 12:03:00 Completed [facility] Prevnar 13 (PCV13) Prevnar 13 (PCV13) 2021-07-05 12:03:00 Completed [facility] Prevnar 13 (PCV13) Prevnar 13 (PCV13) 2021-07-05 12:03:00 Completed [facility] Prevnar 20 (PCV20) Prevnar 20 (PCV20) Unknown Completed [facility] Moderna COVID-19 Vaccine Moderna COVID-19 Vaccine Unknown Completed [facility] Fluzone Fluzone Unknown Completed [facility] FLUZONE HIGH DOSE OVER 65 FLUZONE HIGH DOSE OVER 65 Unknown Completed [facility] Prevnar 13 (PCV13) Prevnar 13 (PCV13) Unknown Completed [facility] Prevnar 20 (PCV20) Prevnar 20 (PCV20) Unknown Completed [facility] Moderna COVID-19 Vaccine Moderna COVID-19 Vaccine Unknown Completed [facility] Fluzone Fluzone Unknown Completed [facility] FLUZONE HIGH DOSE OVER 65 FLUZONE HIGH DOSE OVER 65 Unknown Completed [facility] Prevnar 13 (PCV13) Prevnar 13 (PCV13) Unknown Completed [facility] Prevnar 20 (PCV20) Prevnar 20 (PCV20) Unknown Completed [facility] Moderna COVID-19 Vaccine Moderna COVID-19 Vaccine Unknown Completed [facility] Fluzone Fluzone Unknown Completed [facility] FLUZONE HIGH DOSE OVER 65 FLUZONE HIGH DOSE OVER 65 Unknown Completed [facility] Prevnar 13 (PCV13) Prevnar 13 (PCV13) Unknown Completed [facility] Prevnar 20 (PCV20) Prevnar 20 (PCV20) Unknown Completed [facility] Moderna COVID-19 Vaccine Moderna COVID-19 Vaccine Unknown Completed [facility] Fluzone Fluzone Unknown Completed [facility] FLUZONE HIGH DOSE OVER 65 FLUZONE HIGH DOSE OVER 65 Unknown Completed [facility] Prevnar 13 (PCV13) Prevnar 13 (PCV13) Unknown Completed [facility] Prevnar 20 (PCV20) Prevnar 20 (PCV20) Unknown Completed [facility] Moderna COVID-19 Vaccine Moderna COVID-19 Vaccine Unknown Completed [facility] Fluzone Fluzone Unknown Completed [facility] FLUZONE HIGH DOSE OVER 65 FLUZONE HIGH DOSE OVER 65 Unknown Completed [facility] Prevnar 13 (PCV13) Prevnar 13 (PCV13) Unknown Completed [facility] Prevnar 20 (PCV20) Prevnar 20 (PCV20) Unknown Completed [facility] Moderna COVID-19 Vaccine Moderna COVID-19 Vaccine Unknown Completed [facility] Fluzone Fluzone Unknown Completed [facility] FLUZONE HIGH DOSE OVER 65 FLUZONE HIGH DOSE OVER 65 Unknown Completed [facility] Prevnar 13 (PCV13) Prevnar 13 (PCV13) Unknown Completed [facility] Prevnar 20 (PCV20) Prevnar 20 (PCV20) Unknown Completed [facility] Moderna COVID-19 Vaccine Moderna COVID-19 Vaccine Unknown Completed [facility] Fluzone Fluzone Unknown Completed [facility] FLUZONE HIGH DOSE OVER 65 FLUZONE HIGH DOSE OVER 65 Unknown Completed [facility] Prevnar 13 (PCV13) Prevnar 13 (PCV13) Unknown Completed [facility] Prevnar 20 (PCV20) Prevnar 20 (PCV20) Unknown Completed [facility] Moderna COVID-19 Vaccine Moderna COVID-19 Vaccine Unknown Completed [facility] Fluzone Fluzone Unknown Completed [facility] FLUZONE HIGH DOSE OVER 65 FLUZONE HIGH DOSE OVER 65 Unknown Completed [facility] Prevnar 13 (PCV13) Prevnar 13 (PCV13) Unknown Completed [facility] Prevnar 20 (PCV20) Prevnar 20 (PCV20) Unknown Completed [facility] Moderna COVID-19 Vaccine Moderna COVID-19 Vaccine Unknown Completed [facility] Fluzone Fluzone Unknown Completed [facility] FLUZONE HIGH DOSE OVER 65 FLUZONE HIGH DOSE OVER 65 Unknown Completed [facility] Prevnar 13 (PCV13) Prevnar 13 (PCV13) Unknown Completed [facility] Prevnar 20 (PCV20) Prevnar 20 (PCV20) Unknown Completed [facility] Moderna COVID-19 Vaccine Moderna COVID-19 Vaccine Unknown Completed [facility] Fluzone Fluzone Unknown Completed [facility] FLUZONE HIGH DOSE OVER 65 FLUZONE HIGH DOSE OVER 65 Unknown Completed [facility] Prevnar 13 (PCV13) Prevnar 13 (PCV13) Unknown Completed [facility] Prevnar 20 (PCV20) Prevnar 20 (PCV20) Unknown Completed [facility] Moderna COVID-19 Vaccine Moderna COVID-19 Vaccine Unknown Completed [facility] Fluzone Fluzone Unknown Completed [facility] FLUZONE HIGH DOSE OVER 65 FLUZONE HIGH DOSE OVER 65 Unknown Completed [facility] Prevnar 13 (PCV13) Prevnar 13 (PCV13) Unknown Completed [facility] Prevnar 20 (PCV20) Prevnar 20 (PCV20) Unknown Completed [facility] Moderna COVID-19 Vaccine Moderna COVID-19 Vaccine Unknown Completed [facility] Fluzone Fluzone Unknown Completed [facility] FLUZONE HIGH DOSE OVER 65 FLUZONE HIGH DOSE OVER 65 Unknown Completed [facility] Prevnar 13 (PCV13) Prevnar 13 (PCV13) Unknown Completed [facility] Prevnar 20 (PCV20) Prevnar 20 (PCV20) Unknown Completed [facility] Moderna COVID-19 Vaccine Moderna COVID-19 Vaccine Unknown Completed [facility] Fluzone Fluzone Unknown Completed [facility] FLUZONE HIGH DOSE OVER 65 FLUZONE HIGH DOSE OVER 65 Unknown Completed [facility] Prevnar 13 (PCV13) Prevnar 13 (PCV13) Unknown Completed [facility] Prevnar 20 (PCV20) Prevnar 20 (PCV20) Unknown Completed [facility] Moderna COVID-19 Vaccine Moderna COVID-19 Vaccine Unknown Completed [facility] Fluzone Fluzone Unknown Completed [facility] FLUZONE HIGH DOSE OVER 65 FLUZONE HIGH DOSE OVER 65 Unknown Completed [facility] Prevnar 13 (PCV13) Prevnar 13 (PCV13) Unknown Completed [facility] Vital Signs Vital Name Observation Time Observation Value Comments S dane height 2024-06-17 10:00:00 67 [in_i] Commo n [facility] weight 2024-06-17 10:00:00 205.4 [lb_av] Co [facility] temperature 2024-06-17 10:00:00 97.4 [degF] Com [facility] bmi 2024-06-17 10:00:00 32.17 kg/m2 Comm on [facility] oximetry 2024-06-17 10:00:00 96 % Commo n [facility] respiratory rate 2024-06-17 10:00:00 16 /min [facility] blood pressure systolic 2024-06-17 10:00:00 130 mm[Hg] [facility] blood pressure diastolic 2024-06-17 10:00:00 68 mm[Hg] [facility] height 2024-06-17 10:00:00 67 [in_i] Commo n [facility] weight 2024-06-17 10:00:00 205.4 [lb_av] Co [facility] temperature 2024-06-17 10:00:00 97.4 [degF] Com [facility] bmi 2024-06-17 10:00:00 32.17 kg/m2 Comm on [facility] oximetry 2024-06-17 10:00:00 96 % Commo n [facility] respiratory rate 2024-06-17 10:00:00 16 /min [facility] blood pressure systolic 2024-06-17 10:00:00 130 mm[Hg] [facility] blood pressure diastolic 2024-06-17 10:00:00 68 mm[Hg] [facility] [place] [facility] height 2024-02-08 11:10:00 67 [in_i] Commo n [facility] weight 2024-02-08 11:10:00 209 [lb_av] Comm on [facility] temperature 2024-02-08 11:10:00 98 [degF] Comm on [facility] bmi 2024-02-08 11:10:00 32.73 kg/m2 Comm on [facility] blood pressure systolic 2024-02-08 11:10:00 116 mm[Hg] [facility] blood pressure diastolic 2024-02-08 11:10:00 78 mm[Hg] [facility] BMI (Body Mass Index) 2023-12-25 00:00:00 34 kg/m2 [facility] Body Weight 2023-12-25 00:00:00 210.4 [lb_av] [facility] BP Diastolic 2023-12-25 00:00:00 69 mm[Hg] [facility] Height 2023-12-25 00:00:00 66 [in_i] [facility] BP Systolic 2023-12-25 00:00:00 146 mm[Hg] [facility] height 2023-10-09 11:40:00 67 [in_i] Commo n [facility] weight 2023-10-09 11:40:00 206 [lb_av] Comm on [facility] temperature 2023-10-09 11:40:00 98 [degF] Comm on [facility] bmi 2023-10-09 11:40:00 32.26 kg/m2 Comm on [facility] blood pressure systolic 2023-10-09 11:40:00 132 mm[Hg] [facility] blood pressure diastolic 2023-10-09 11:40:00 70 mm[Hg] [facility] height 2023-07-10 09:50:00 67 [in_i] Commo n [facility] weight 2023-07-10 09:50:00 211.0 [lb_av] Co [facility] temperature 2023-07-10 09:50:00 97.9 [degF] Com [facility] bmi 2023-07-10 09:50:00 33.04 kg/m2 Comm on [facility] oximetry 2023-07-10 09:50:00 98 % Commo n [facility] respiratory rate 2023-07-10 09:50:00 18 /min [facility] blood pressure systolic 2023-07-10 09:50:00 122 mm[Hg] [facility] blood pressure diastolic 2023-07-10 09:50:00 65 mm[Hg] [facility] height 2023-07-10 10:00:00 67 [in_i] Commo n [facility] weight 2023-07-10 10:00:00 211.0 [lb_av] Co [facility] temperature 2023-07-10 10:00:00 97.9 [degF] Com [facility] bmi 2023-07-10 10:00:00 33.04 kg/m2 Comm on [facility] oximetry 2023-07-10 10:00:00 98 % Commo n [facility] respiratory rate 2023-07-10 10:00:00 18 /min Common [facility] blood pressure systolic 2023-07-10 10:00:00 122 mm[Hg] [facility] blood pressure diastolic 2023-07-10 10:00:00 65 mm[Hg] [facility] height 2023-03-05 11:40:00 67 [in_i] Commo n [facility] weight 2023-03-05 11:40:00 197 [lb_av] Comm on [facility] temperature 2023-03-05 11:40:00 97 [degF] Comm on [facility] bmi 2023-03-05 11:40:00 30.85 kg/m2 Comm on [facility] blood pressure systolic 2023-03-05 11:40:00 132 mm[Hg] [facility] blood pressure diastolic 2023-03-05 11:40:00 70 mm[Hg] [facility] [place] [facility] height 2022-12-06 11:20:00 67 [in_i] Commo n [facility] weight 2022-12-06 11:20:00 198 [lb_av] Comm on [facility] temperature 2022-12-06 11:20:00 98 [degF] Comm on [facility] bmi 2022-12-06 11:20:00 31.01 kg/m2 Comm on [facility] blood pressure systolic 2022-12-06 11:20:00 126 mm[Hg] [facility] blood pressure diastolic 2022-12-06 11:20:00 76 mm[Hg] [facility] height 2022-11-01 14:40:00 67 [in_i] Commo n [facility] weight 2022-11-01 14:40:00 198.1 [lb_av] Co [facility]mon [facility] bmi 2022-11-01 14:40:00 31.02 kg/m2 Comm on [facility] height 2022-09-04 11:20:00 67 [in_i] Commo n [facility] weight 2022-09-04 11:20:00 198.1 [lb_av] Co [facility] temperature 2022-09-04 11:20:00 98.1 [degF] Com mon [facility] bmi 2022-09-04 11:20:00 31.02 kg/m2 Comm on [facility] oximetry 2022-09-04 11:20:00 95 % Commo n [facility] respiratory rate 2022-09-04 11:20:00 18 /min Common [facility] blood pressure systolic 2022-09-04 11:20:00 133 mm[Hg] [facility] blood pressure diastolic 2022-09-04 11:20:00 68 mm[Hg] [facility] height 2022-08-03 10:20:00 67 [in_i] Commo n [facility] weight 2022-08-03 10:20:00 198.2 [lb_av] Co on [facility] temperature 2022-08-03 10:20:00 97.1 [degF] Com [facility] bmi 2022-08-03 10:20:00 31.04 kg/m2 Comm on [facility] oximetry 2022-08-03 10:20:00 99 % Commo n [facility] respiratory rate 2022-08-03 10:20:00 18 /min [facility] blood pressure systolic 2022-08-03 10:20:00 127 mm[Hg] [facility] blood pressure diastolic 2022-08-03 10:20:00 74 mm[Hg] [facility] height 2022-08-03 09:20:00 67 [in_i] Commo n [facility] weight 2022-08-03 09:20:00 198.2 [lb_av] Co mmon [facility] temperature 2022-08-03 09:20:00 97.1 [degF] Com mon [facility] bmi 2022-08-03 09:20:00 31.04 kg/m2 Comm on [facility] oximetry 2022-08-03 09:20:00 99 % Commo n [facility] respiratory rate 2022-08-03 09:20:00 18 /min Common [facility] blood pressure systolic 2022-08-03 09:20:00 127 mm[Hg] Common Spiri t [facility] blood pressure diastolic 2022-08-03 09:20:00 74 mm[Hg] [facility] height 2022-05-04 11:10:00 67 [in_i] Commo n [facility] weight 2022-05-04 11:10:00 200.7 [lb_av] Co mmon [facility] temperature 2022-05-04 11:10:00 97.9 [degF] Com mon [facility] bmi 2022-05-04 11:10:00 31.43 kg/m2 Comm on [facility] oximetry 2022-05-04 11:10:00 97 % Commo n [facility] respiratory rate 2022-05-04 11:10:00 17 /min [facility] blood pressure systolic 2022-05-04 11:10:00 135 mm[Hg] [facility] blood pressure diastolic 2022-05-04 11:10:00 78 mm[Hg] [facility] height 2022-01-03 08:30:00 67 [in_i] Commo n [facility] weight 2022-01-03 08:30:00 197 [lb_av] Comm on [facility] temperature 2022-01-03 08:30:00 97.4 [degF] Com mon [facility] bmi 2022-01-03 08:30:00 30.85 kg/m2 Comm on [facility] blood pressure systolic 2022-01-03 08:30:00 132 mm[Hg] Common Spiri t [facility] blood pressure diastolic 2022-01-03 08:30:00 73 mm[Hg] [facility] [place] [facility] height 2021-12-21 13:20:00 67 [in_i] Commo n [facility] weight 2021-12-21 13:20:00 198 [lb_av] Comm on [facility] bmi 2021-12-21 13:20:00 31.01 kg/m2 Comm on [facility] height 2021-10-25 09:40:00 67 [in_i] Commo n [facility] weight 2021-10-25 09:40:00 197.5 [lb_av] Co mmon [facility] temperature 2021-10-25 09:40:00 98.4 [degF] Com mon [facility] bmi 2021-10-25 09:40:00 30.93 kg/m2 Comm on [facility] oximetry 2021-10-25 09:40:00 97 % Commo n [facility] respiratory rate 2021-10-25 09:40:00 17 /min Common [facility] blood pressure systolic 2021-10-25 09:40:00 135 mm[Hg] Common [facility] blood pressure diastolic 2021-10-25 09:40:00 74 mm[Hg] Common [facility] height 2021-10-04 10:00:00 67 [in_i] Commo n [facility] weight 2021-10-04 10:00:00 199.8 [lb_av] Co mmon [facility] temperature 2021-10-04 10:00:00 98.1 [degF] Com mon [facility] bmi 2021-10-04 10:00:00 31.29 kg/m2 Comm on [facility] oximetry 2021-10-04 10:00:00 95 % Commo n [facility] respiratory rate 2021-10-04 10:00:00 16 /min [facility] blood pressure systolic 2021-10-04 10:00:00 133 mm[Hg] Common [facility] blood pressure diastolic 2021-10-04 10:00:00 72 mm[Hg] Common Spiri t [facility] Procedures Procedure Date / Time Performed Performing Clinician Source MAMMO, screening, digital, bilateral 2023-12-25 00:00:00 [facility] [id number] 2021-10-21 00:00:00 WILLY [facility] Cardiac - Coronary Artery Stent 2020-11-05 00:00:00 [facility] Cholecystectomy (Gallbladder) 2017-11-05 00:00:00 [facility] Plan of Care Planned Activity Planned Date Details Comments Source Diagnostic Test Pending 2023-12-25 00:00:00 urin alysis, dipstick [code = urinalysis, dipstick] [facility] Future Appointment 2025-12-28 11:30:00 Makayla aguayo, [address] [place] [address] Dr Campbell; [address] [id number] [facility] Encounters Start Date/Time End Date/Time Encounter Type Admission Type Attending Clinicians Care Facility Care Department Encounter ID Source 2024-01-04 10:43:00 Outpatient C[place], Suzanna STLC STLMLC [id number] [facility] 2023-11-30 08:23:00 Outpatient [place], Suzanna STLC STLMLC [id number] [facility] 2022-12-06 07:55:01 Outpatient [place], Suzanna STLMLC STLMLC [id number] [facility] 2022-08-31 09:17:06 Outpatient [place], Suzanna STLC STLMLC [id number] [facility] 2022-05-02 10:18:02 Outpatient [place], Suzanna STLMLC STLMLC [id number] [facility] 2021-11-30 14:18:57 Outpatient [place], Suzanna STLMLC STLMLC [id number] [facility] 2021-11-30 14:09:44 Outpatient [place], Suzanna STLMLC STLMLC [id number] [facility] 2021-11-30 13:45:52 Outpatient [place], Suzanna STLMLC STLMLC [id number] [facility] 2021-11-30 13:45:04 Outpatient Suzanna Covington STLMLC STLMLC [id number] [facility] 2021-11-30 13:43:37 Outpatient STLMLC STLMLC [id number] [facility] 2021-11-30 13:21:03 Outpatient SUZANNA COVINGTON STLC STLMLC [id number] [facility] 2024-06-17 00:00:00 2024-06-17 00:00:00 OFFICE VISIT ESTAB PT LEVEL 4 STLMLC STLMLC [id number] [facility] 2024-06-17 00:00:00 2024-06-17 00:00:00 SUB ANNUAL [facility] WELLNESS VISIT STLMLC STLMLC [id number] [facility] 2024-04-09 00:00:00 2024-04-09 00:00:00 (TEL) STLMLC STLMLC [id number] [facility] 2024-02-08 00:00:00 2024-02-08 00:00:00 OFFICE VISIT ESTAB PT LEVEL 4 STLMLC STLMLC [id number] [facility] 2024-01-04 00:00:00 2024-01-04 00:00:00 (TEL) STLMLC STLMLC [id number] [facility] 2023-12-25 00:00:00 2023-12-25 00:00:00 Outpatient GC_GCBZW_Ka jennifera_S [facility] [id number] [facility] 2023-12-25 00:00:00 2023-12-25 00:00:00 GABRIELA Mars: [address], [place] [address] , Ph. [facility] - GC_GCBZW_[facility]* [id number] [facility] 2023-12-17 00:00:00 2023-12-17 00:00:00 Outpatient GC_GCBZW_Ka diyala_S PRIV PRIV [id number] [facility] 2023-12-13 00:00:00 2023-12-13 00:00:00 (TEL) STLMLC STLMLC [id number] [facility] 2023-12-12 00:00:00 2023-12-12 00:00:00 Outpatient GC_GCBZW_Ka diyala_S PRIV PRIV [id number] [facility] 2023-11-29 00:00:00 2023-11-29 00:00:00 (TEL) STLMLC STLMLC [id number] [facility] 2023-10-15 00:00:00 2023-10-15 00:00:00 (TEL) STLMLC STLMLC [id number] [facility] 2023-10-09 00:00:00 2023-10-09 00:00:00 OFFICE VISIT ESTAB PT LEVEL 4 STLMLC STLMLC [id number] [facility] 2023-10-01 00:00:00 2023-10-01 00:00:00 Outpatient GC_GCBZW_Ka diyala_S PRIV PRIV [id number] [facility] 2023-09-04 00:00:00 2023-09-04 00:00:00 Outpatient GC_GCBZW_Ka diyala_S PRIV PRIV [id number] [facility] 2023-09-03 00:00:00 2023-09-03 00:00:00 (TEL) STLMLC STLMLC [id number] [facility] 2023-07-10 00:00:00 2023-07-10 00:00:00 OFFICE VISIT ESTAB PT LEVEL 4 STLMLC STLMLC [id number] [facility] 2023-07-10 00:00:00 2023-07-10 00:00:00 SUB ANNUAL [facility] WELLNESS VISIT STLMLC STLMLC [id number] [facility] 2023-07-10 00:00:00 2023-07-10 00:00:00 (TEL) STLMLC STLMLC [id number] [facility] 2023-03-05 00:00:00 2023-03-05 00:00:00 OFFICE VISIT ESTAB PT LEVEL 4 STLMLC STLMLC [id number] [facility] 2023-01-05 00:00:00 2023-01-05 00:00:00 (TEL) STLMLC STLMLC [id number] [facility] 2022-12-26 00:00:00 2022-12-26 00:00:00 (TEL) STLMLC STLMLC [id number] [facility] 2022-12-06 00:00:00 2022-12-06 00:00:00 OFFICE VISIT ESTAB PT LEVEL 4 STLMLC STLMLC [id number] [facility] 2022-11-01 00:00:00 2022-11-01 00:00:00 OFFICE VISIT EST PT LEVEL 3 STLMLC STLMLC [id number] [facility] 2022-11-01 00:00:00 2022-11-01 00:00:00 (TEL) STLMLC STLMLC [id number] [facility] 2022-10-06 00:00:00 2022-10-06 00:00:00 (TEL) STLMLC STLMLC [id number] [facility] 2022-09-04 00:00:00 2022-09-04 00:00:00 OFFICE VISIT ESTAB PT LEVEL 4 STLMLC STLMLC [id number] [facility] 2022-08-03 00:00:00 2022-08-03 00:00:00 SUB ANNUAL [facility] WELLNESS VISIT STLMLC STLMLC [id number] [facility] 2022-08-03 00:00:00 2022-08-03 00:00:00 OFFICE VISIT ESTAB PT LEVEL 4 STLMLC STLMLC [id number] [facility] 2022-07-24 00:00:00 2022-07-24 00:00:00 (TEL) STLMLC STLMLC [id number] [facility] 2022-07-03 00:00:00 2022-07-03 00:00:00 (TEL) STLMLC STLMLC [id number] [facility] 2022-05-04 00:00:00 2022-05-04 00:00:00 OFFICE VISIT ESTAB PT LEVEL 4 STLMLC STLMLC [id number] [facility] 2022-03-09 00:00:00 2022-03-09 00:00:00 (TEL) STLMLC STLMLC [id number] [facility] 2022-01-03 00:00:00 2022-01-03 00:00:00 OFFICE VISIT ESTAB PT LEVEL 4 STLMLC STLMLC [id number] [facility] 2022-01-02 00:00:00 2022-01-02 00:00:00 (TEL) STLMLC STLMLC [id number] [facility] 2021-12-28 05:25:00 2021-12-28 05:25:00 Inpatient Ted Sevilla [facility] OUTD [id number] [facility] 2021-12-21 00:00:00 2021-12-21 00:00:00 OFFICE VISIT EST PT LEVEL 3 STLMLC STLMLC [id number] [facility] 2021-12-20 00:00:00 2021-12-20 00:00:00 (TEL) STLMLC STLMLC [id number] [facility] 2021-11-16 05:04:00 2021-11-16 05:04:00 Inpatient Ted Sevilla [facility] OUTD [id number] [facility] 2021-10-25 00:00:00 2021-10-25 00:00:00 (HOSP F/U) Hospital Follow Up STLMLC STLMLC [id number] [facility] 2021-10-25 00:00:2021-10-25 00:00:00 (TEL) STLMLC STLMLC [id number] [facility] 2021-10-24 00:00:00 2021-10-24 00:00:00 (TEL) STLMLC STLMLC [id number] [facility] 2021-10-11 05:17:00 2021-10-11 05:17:00 Inpatient Ted Sevilla [facility] OUTD [id number] [facility] 2021-10-10 09:00:00 2021-10-10 23:00:00 Outpatient Ted Sevilla [facility] 3DAY [id number] [facility] 2021-10-04 00:00:00 2021-10-04 00:00:00 OFFICE VISIT ESTAB PT LEVEL 4 STLMLC STLMLC [id number] [facility] 2021-09-05 00:00:00 2021-09-05 00:00:00 (TEL) STLMLC STLMLC [id number] [facility] 2021-08-31 00:00:00 2021-08-31 00:00:00 (TEL) STLMLC STLMLC [id number] [facility] 2021-08-31 00:00:00 2021-08-31 00:00:00 (TEL) STLMLC STLMLC [id number] [facility] 2021-08-05 00:00:00 2021-08-05 00:00:00 (COVID Inj) COVID Injection STLMLC STLMLC [id number] [facility] 2021-07-08 00:00:00 2021-07-08 00:00:00 Outpatient STLMLC STLMLC [id number] [facility] 2021-07-05 00:00:00 2021-07-05 00:00:00 Outpatient STLMLC STLMLC [id number] [facility] 2021-07-05 00:00:00 2021-07-05 00:00:00 Outpatient STLMLC STLMLC [id number] [facility] 2021-07-05 00:00:00 2021-07-05 00:00:[address] [facility] [id number] [facility] 2021-05-04 00:00:00 2021-05-04 00:00:[address] [facility] [id number] [facility] Results Test Description Test Time Test Comments Results Result Co mments Source Urinalysis macro (dipstick) panel - [id number] 11:49:32* Test Item Value Reference Range Interpretation Comme nts Leukocytes (test code = Leukocytes) Negative Nitrite (test code = Nitrite) negative Urobilinogen (test code = Urobilinogen) Normal Protein (test code = Protein) Negative pH (test code = pH) 6.0 Blood (test code = Blood) Negative Specific [place] (test code = Specific [place]) 1.005 Ketone (test code = Ketone) Negative Bilirubin (test code = Bilirubin) Negative Glucose (test code = Glucose) Negative Appearance (test code = Appearance) Clear Color (test code = Color) Yellow [facility] W/AUTO [id number] 00:00:00* Test Item Value Reference Range Interpretation Comme nts NUCLEATED RBCS (test code = 51656-0) 0.0 /100 WBC'S See_Comment [Automated messa ge] The system which generated this result transmitted reference range: 0.0 /100 WBC'S. The reference range was not used to interpret this result as normal/abnormal. ABSOLUTE EOSINOPHILS (test code = 01563-1) 0.33 K/UL See_Comment [Automated messa ge] The system which generated this result transmitted reference range: 0.00-0.50 K/UL. The reference range was not used to interpret this result as normal/abnormal. ABSOLUTE LYMPHOCYTES (test code = 07633-6) 3.46 K/UL See_Comment [Automated messa ge] The system which generated this result transmitted reference range: 1.00-4.00 K/UL. The reference range was not used to interpret this result as normal/abnormal. ABSOLUTE MONOCYTES (test code = 65492-5) 0.61 K/UL See_Comment [Automated messa ge] The system which generated this result transmitted reference range: 0.20-1.00 K/UL. The reference range was not used to interpret this result as normal/abnormal. ABSOLUTE NEUTROPHILS (test code = 89305-7) 3.17 K/UL See_Comment [Automated messa ge] The system which generated this result transmitted reference range: 1.50-7.50 K/UL. The reference range was not used to interpret this result as normal/abnormal. BASOPHILS (test code = 08210-5) 1.0 % EOSINOPHILS (test code = 16896-9) 4.3 % HEMATOCRIT (test code = 28873-4) 41.2 % See_Comment [Automated messa ge] The system which generated this result transmitted reference range: 34.0-45.0 %. The reference range was not used to interpret this result as normal/abnormal. HEMOGLOBIN (test code = 718-7) 14.1 G/DL See_Comment [Automated messa ge] The system which generated this result transmitted reference range: 11.5-15.5 G/DL. The reference range was not used to interpret this result as normal/abnormal. LYMPHOCYTES (test code = 03497-2) 44.9 % MCH (test code = 48706-8) 31.0 PG See_Comment [Automated messa ge] The system which generated this result transmitted reference range: 25.0-33.0 PG. The reference range was not used to interpret this result as normal/abnormal. MCHC (test code = 78921-2) 34.2 G/DL See_Comment [Automated messa ge] The system which generated this result transmitted reference range: 31.0-36.0 G/DL. The reference range was not used to interpret this result as normal/abnormal. MCV (test code = 74497-8) 90.5 fL See_Comment [Automated messa ge] The system which generated this result transmitted reference range: 80.0-99.0 fL. The reference range was not used to interpret this result as normal/abnormal. MONOCYTES (test code = 46559-4) 7.9 % NEUTROPHILS (test code = 82376-6) 41.3 % PLATELET COUNT (test code = 36189-1) 363 K/UL See_Comment [Automated messa ge] The system which generated this result transmitted reference range: 130-400 K/UL. The reference range was not used to interpret this result as normal/abnormal. RBC (test code = 02261-8) 4.55 M/UL See_Comment [Automated messa ge] The system which generated this result transmitted reference range: 3.80-5.40 M/UL. The reference range was not used to interpret this result as normal/abnormal. RDW (test code = 15617-0) 13.9 % See_Comment [Automated messa ge] The system which generated this result transmitted reference range: 11.5-15.0 %. The reference range was not used to interpret this result as normal/abnormal. WBC (test code = 85258-2) 7.7 K/UL See_Comment [Automated messa ge] The system which generated this result transmitted reference range: 3.5-11.0 K/UL. The reference range was not used to interpret this result as normal/abnormal. CBC W/AUTO [id number] 00:00:00* Test Item Value Reference Range Interpretation Comme nts NUCLEATED RBCS (test code = 24555-7) 0.0 /100 WBC'S See_Comment [Automated messa ge] The system which generated this result transmitted reference range: 0.0 /100 WBC'S. The reference range was not used to interpret this result as normal/abnormal. ABSOLUTE EOSINOPHILS (test code = 66859-6) 0.27 K/UL See_Comment [Automated messa ge] The system which generated this result transmitted reference range: 0.00-0.50 K/UL. The reference range was not used to interpret this result as normal/abnormal. ABSOLUTE LYMPHOCYTES (test code = 52133-7) 3.28 K/UL See_Comment [Automated messa ge] The system which generated this result transmitted reference range: 1.00-4.00 K/UL. The reference range was not used to interpret this result as normal/abnormal. ABSOLUTE MONOCYTES (test code = 50900-5) 0.82 K/UL See_Comment [Automated messa ge] The system which generated this result transmitted reference range: 0.20-1.00 K/UL. The reference range was not used to interpret this result as normal/abnormal. ABSOLUTE NEUTROPHILS (test code = 59531-6) 3.58 K/UL See_Comment [Automated messa ge] The system which generated this result transmitted reference range: 1.50-7.50 K/UL. The reference range was not used to interpret this result as normal/abnormal. BASOPHILS (test code = 81079-4) 1.4 % EOSINOPHILS (test code = 07668-9) 3.3 % HEMATOCRIT (test code = 81735-0) 43.7 % See_Comment [Automated messa ge] The system which generated this result transmitted reference range: 34.0-45.0 %. The reference range was not used to interpret this result as normal/abnormal. HEMOGLOBIN (test code = 718-7) 15.1 G/DL See_Comment [Automated messa ge] The system which generated this result transmitted reference range: 11.5-15.5 G/DL. The reference range was not used to interpret this result as normal/abnormal. LYMPHOCYTES (test code = 38424-7) 40.3 % MCH (test code = 21472-9) 30.8 PG See_Comment [Automated messa ge] The system which generated this result transmitted reference range: 25.0-33.0 PG. The reference range was not used to interpret this result as normal/abnormal. MCHC (test code = 63523-0) 34.6 G/DL See_Comment [Automated messa ge] The system which generated this result transmitted reference range: 31.0-36.0 G/DL. The reference range was not used to interpret this result as normal/abnormal. MCV (test code = 76980-2) 89.0 fL See_Comment [Automated messa ge] The system which generated this result transmitted reference range: 80.0-99.0 fL. The reference range was not used to interpret this result as normal/abnormal. MONOCYTES (test code = 90784-8) 10.1 % NEUTROPHILS (test code = 57549-3) 43.9 % PLATELET COUNT (test code = 20678-3) 373 K/UL See_Comment [Automated messa ge] The system which generated this result transmitted reference range: 130-400 K/UL. The reference range was not used to interpret this result as normal/abnormal. RBC (test code = 07440-9) 4.91 M/UL See_Comment [Automated messa ge] The system which generated this result transmitted reference range: 3.80-5.40 M/UL. The reference range was not used to interpret this result as normal/abnormal. RDW (test code = 57776-3) 13.7 % See_Comment [Automated [employer]] The system which generated this result transmitted reference range: 11.5-15.0 %. The reference range was not used to interpret this result as normal/abnormal. WBC (test code = 68321-8) 8.1 K/UL See_Comment [Automated [employer]] The system which generated this result transmitted reference range: 3.5-11.0 K/UL. The reference range was not used to interpret this result as normal/abnormal. Lipid Panel With LDL/HDL [id number] 00:00:00* Test Item Value Reference Range Interpretation Comme [facility] Cholesterol, Total (test code = 2093-3) 179 mg/dL See_Comment [Automated message] The system which generated this result transmitted reference range: 100-199 mg/dL. The reference range was not used to interpret this result as normal/abnormal. Triglycerides (test code = 2571-8) 329 mg/dL See_Comment H [Automated [employer]] The system which generated this result transmitted reference range: 0-149 mg/dL. The reference range was not used to interpret this result as normal/abnormal. HDL Cholesterol (test code = 2085-9) 33 mg/dL See_Comment L [Automated [employer]] The system which generated this result transmitted reference range: >39 mg/dL. The reference range was not used to interpret this result as normal/abnormal. [id number] 15:47:00* Test Item Value Reference Range Interpretation Comme [facility] ACT-ISTAT (test code = ACTI) 255 SEC 74-137 H Performed by cer tified nitric acid concentrator operator at [facility] [id number] 15:14:00* Test Item Value Reference Range Interpretation Comme [facility] ACT-ISTAT (test code = ACTI) 398 SEC 74-137 H Performed by DrDoctor nitric acid concentrator operator at [facility] PROTHROMBIN [id number] 11:06:00* Test Item Value Reference Range Interpretation Comme [facility] PROTHROMBIN TIME PATIENT (test code = PTP) 10.9 SECONDS 9.3-12.9 N 2PLAVIX/ASPARIN INTERNATIONAL NORMAL RATIO (test code = INR) 1.0 0.8-1.2 N TARGET INR BY INDICATION Indication INR1. Prophylaxis of venous thrombosis 2.0 - 3.0 (orthopedic surgery), Prophylaxis of venous thrombosis (other than high-risk surgery), Treatment of Deep Vein Thrombosis/Pulmonary Embolism, Prevention of systemic embolism - Tissue heart valves, Acute Myocardial Infarction (to prevent systemic embolism), Valvular heart disease, Atrial Fibrillation, Bileaflet mechanical valve in aortic position.2. Mechanical prosthetic valves (high risk), 2.5 - 3.5 Presence of Lupus Anticoagulant or Antiphospholipid Antibodies, Prevention of systemic embolism - Acute Myocardial Infarction (to prevent recurrent infarct). BASIC METABOLIC [id number] 11:03:00* Test Item Value Reference Range Interpretation Comme nts SODIUM (test code = NA) 142 mEq/L 134-147 N POTASSIUM (test code = K) 4.0 mEq/L 3.4-5.0 N CHLORIDE (test code = CL) 104 mEq/L 100-108 N CARBON DIOXIDE (test code = CO2) 31 mEq/l 21-33 N ANION GAP (test code = GAP) 11 0-20 N GLUCOSE (test code = GLU) 101 mg/dL 70-110 N BLOOD UREA NITROGEN (test code = BUN) 23 mg/dL 7-18 H GLOMERULAR FILTRATION RATE (test code = GFR) 55.3 80-90 L Units of measure = ml/min/1.73 m2 CREATININE (test code = CREAT) 1.0 mg/dL 0.6-1.3 N CALCIUM (test code = CA) 9.3 mg/dL 8.0-10.5 N CBC W/AUTO [id number] 10:48:00* Test Item Value Reference Range Interpretation Comme nts WHITE BLOOD CELL (test code = WBC) 13.4 x10 3/uL 4.5-11.0 H RED BLOOD CELL (test code = RBC) 4.62 x10 6/uL 3.54-5.02 N HEMOGLOBIN (test code = HGB) 13.9 g/dL 11.0-15.0 N HEMATOCRIT (test code = HCT) 43.0 % 33.0-45.0 N MEAN CELL VOLUME (test code = MCV) 93.1 fL 81.0-99.0 N MEAN CELL HGB (test code = MCH) 30.1 pg 27.0-33.0 N MEAN CELL HGB CONCETRATION (test code = MCHC) 32.3 g/dL 33.0-37.0 L RED CELL DISTRIBUTION WIDTH CV (test code = RDW) 14.6 % 11.5-14.5 H RED CELL DISTRIBUTION WIDTH SD (test code = RDW-SD) 49.6 fL 37.0-54.0 N PLATELET COUNT (test code = PLT) 477 x10 3/uL 150-400 H MEAN PLATELET VOLUME (test c ode = MPV) 9.1 fL 7.0-9.0 H NEUTROPHIL % (test code = NT%) 57.9 % 56.0-77.0 N IMMATURE GRANULOCYTE % (test code = IG%) 2.1 % 0.0-2.0 H LYMPHOCYTE % (test code = LY%) 31.4 % 14.0-32.0 N MONOCYTE % (test code = MO%) 7.7 % 4.8-9.0 N EOSINOPHIL % (test code = EO%) 0.3 % 0.3-3.7 N BASOPHIL % (test code = BA%) 0.6 % 0.0-2.0 N NUCLEATED RBC % (test code = NRBC%) 0.0 % 0-0 N NEUTROPHIL # (test code = NT#) 7.78 x10 3/uL 2.0-7.6 H IMMATURE GRANULOCYTE # (test code = IG#) 0.28 x10 3/uL 0.00-0.03 H LYMPHOCYTE # (test code = LY#) 4.22 x10 3/uL 1.0-3.8 H MONOCYTE # (test code = MO#) 1.04 x10 3/uL 0.1-0.8 H EOSINOPHIL # (test code = EO#) 0.04 x10 3/uL 0.0-0.2 N BASOPHIL # (test code = BA#) 0.08 x10 3/uL 0.0-0.2 N NUCLEATED RBC # (test code = NRBC#) 0.00 x10 3/uL 0.0-0.1 N MANUAL DIFF REQUIRED (test c ode = MDIFF) NO [id number] 17:09:00* Test Item Value Reference Range Interpretation Comme nts ACT-ISTAT (test code = ACTI) 249 SEC 74-137 H Performed by cer tified nitric acid concentrator operator at [facility] [id number] 16:29:00* Test Item Value Reference Range Interpretation Comme nts ACT-ISTAT (test code = ACTI) 261 SEC 74-137 H Performed by cer tified nitric acid concentrator operator at [facility] [id number] 16:11:00* Test Item Value Reference Range Interpretation Comme nts ACT-ISTAT (test code = ACTI) 350 SEC 74-137 H Performed by [facility] tified nitric acid concentrator operator at [facility] BASIC METABOLIC [id number] 13:11:00* Test Item Value Reference Range Interpretation Comme nts SODIUM (test code = NA) 141 mEq/L 134-147 N POTASSIUM (test code = K) 4.2 mEq/L 3.4-5.0 N CHLORIDE (test code = CL) 107 mEq/L 100-108 N CARBON DIOXIDE (test code = CO2) 30 mEq/l 21-33 N ANION GAP (test code = GAP) 9 0-20 N GLUCOSE (test code = GLU) 71 mg/dL 70-110 N BLOOD UREA NITROGEN (test code = BUN) 17 mg/dL 7-18 N GLOMERULAR FILTRATION RATE (test code = GFR) 62.5 80-90 L Units of measure = ml/min/1.73 m2 CREATININE (test code = CREAT) 0.9 mg/dL 0.6-1.3 N CALCIUM (test code = CA) 9.4 mg/dL 8.0-10.5 N PROTHROMBIN [id number] 13:03:00* Test Item Value Reference Range Interpretation Comme [facility] PROTHROMBIN TIME PATIENT (test code = PTP) 11.1 SECONDS 9.3-12.9 N INTERNATIONAL NORMAL RATIO (test code = INR) 1.0 0.8-1.2 N TARGET INR BY INDICATION Indication INR1. Prophylaxis of venous thrombosis 2.0 - 3.0 (orthopedic surgery), Prophylaxis of venous thrombosis (other than high-risk surgery), Treatment of Deep Vein Thrombosis/Pulmonary Embolism, Prevention of systemic embolism - Tissue heart valves, Acute Myocardial Infarction (to prevent systemic embolism), Valvular heart disease, Atrial Fibrillation, Bileaflet mechanical valve in aortic position.2. Mechanical prosthetic valves (high risk), 2.5 - 3.5 Presence of Lupus Anticoagulant or Antiphospholipid Antibodies, Prevention of systemic embolism - Acute Myocardial Infarction (to prevent recurrent infarct). CBC W/AUTO [id number] 12:56:00* Test Item Value Reference Range Interpretation Comme nts WHITE BLOOD CELL (test code = WBC) 9.4 x10 3/uL 4.5-11.0 N RED BLOOD CELL (test code = RBC) 4.31 x10 6/uL 3.54-5.02 N HEMOGLOBIN (test code = HGB) 13.2 g/dL 11.0-15.0 N HEMATOCRIT (test code = HCT) 40.6 % 33.0-45.0 N MEAN CELL VOLUME (test code = MCV) 94.2 fL 81.0-99.0 N MEAN CELL HGB (test code = MCH) 30.6 pg 27.0-33.0 N MEAN CELL HGB CONCETRATION (test code = MCHC) 32.5 g/dL 33.0-37.0 L RED CELL DISTRIBUTION WIDTH CV (test code = RDW) 13.3 % 11.5-14.5 N PLATELET COUNT (test code = PLT) 364 x10 3/uL 150-400 N NEUTROPHIL % (test code = NT%) 38.0 % 56.0-77.0 L LYMPHOCYTE % (test code = LY%) 43.7 % 14.0-32.0 H NEUTROPHIL # (test code = NT#) 3.55 x10 3/uL 2.0-7.6 N LYMPHOCYTE # (test code = LY#) 4.09 x10 3/uL 1.0-3.8 H MANUAL DIFF REQUIRED (test c ode = MDIFF) NO RED CELL DISTRIBUTION WIDTH SD (test code = RDW-SD) 45.6 fL 37.0-54.0 N MEAN PLATELET VOLUME (test c ode = MPV) 9.5 fL 7.0-9.0 H IMMATURE GRANULOCYTE % (test code = IG%) 0.6 % 0.0-2.0 N MONOCYTE % (test code = MO%) 9.8 % 4.8-9.0 H EOSINOPHIL % (test code = EO%) 6.5 % 0.3-3.7 H BASOPHIL % (test code = BA%) 1.4 % 0.0-2.0 N NUCLEATED RBC % (test code = NRBC%) 0.0 % 0-0 N IMMATURE GRANULOCYTE # (test code = IG#) 0.06 x10 3/uL 0.00-0.03 H MONOCYTE # (test code = MO#) 0.92 x10 3/uL 0.1-0.8 H EOSINOPHIL # (test code = EO#) 0.61 x10 3/uL 0.0-0.2 H BASOPHIL # (test code = BA#) 0.13 x10 3/uL 0.0-0.2 N NUCLEATED RBC # (test code = NRBC#) 0.00 x10 3/uL 0.0-0.1 N - XR CHEST 2 [id number] 00:00:00 [facility] : 1955 Sex: FFAX: John Landin MD [phone] [place]: St: PRE FAX: Ted Pendleton MD [phone] ----- Name: SIMONA JUÁREZ [facility] : 1955 Age/S: 66/F [address] [place] [address] Unit #: [id number] Loc: [place] [address] Phys: Ted Montiel MD Acct: [id number] Dis Date: Status: PRE [facility] PHONE #: [phone] Exam Date: 11/15/2021 1244 FAX #: [phone] Reason: PREOP EXAMS: CPT CODE: [id number] XR CHEST 2 V 31868 PROCEDURE INFORMATION: Exam: XR Chest Exam date and time: 11/15/2021 12:15 PM Age: 66 years old Clinical indication: Pre-operative exam; Respiratory screening exam; Additional info: Preop TECHNIQUE: Imaging protocol: XR of the chest. Views: 2 views. PA and Lateral COMPARISON: DX XR CHEST2 V 10/10/2021 4:49 PM FINDINGS: Lungs: No consolidation. Pleural spaces: No pleural effusion. Heart/Mediastinum: The heart and vascular markings are within limits of normal. There is atheroscleroticcalcification of the aorta. Bones/joints: No gross acute findings. IMPRESSION: No acute cardiopulmonary findings at 1304 Reported and signed by: Rosmery Covington D.O. CC: John Covington MD; Ted Montiel MD Technologist: RT Omar(R) Trnscrd Date/Time/By: 11/15/2021 (1400) : By: [email or web address] Orig Print D/T: S: 11/15/2021 (9557) PAGE 1 Signed ReportBASIC METABOLIC [id number] 20:17:00* Test Item Value Reference Range Interpretation Comme nts SODIUM (test code = NA) 143 mEq/L 134-147 N POTASSIUM (test code = K) 3.8 mEq/L 3.4-5.0 N CHLORIDE (test code = CL) 114 mEq/L 100-108 H CARBON DIOXIDE (test code = CO2) 22 mEq/l 21-33 N ANION GAP (test code = GAP) 11 0-20 N GLUCOSE (test code = GLU) 103 mg/dL 70-110 N BLOOD UREA NITROGEN (test code = BUN) 17 mg/dL 7-18 N GLOMERULAR FILTRATION RATE (test code = GFR) 71.5 80-90 L Units of measure = ml/min/1.73 m2 CREATININE (test code = CREAT) 0.8 mg/dL 0.6-1.3 N CALCIUM (test code = CA) 8.1 mg/dL 8.0-10.5 N CBC W/AUTO [id number] 19:19:00* Test Item Value Reference Range Interpretation Comme nts WHITE BLOOD CELL (test code = WBC) 9.2 x10 3/uL 4.5-11.0 N RED BLOOD CELL (test code = RBC) 3.97 x10 6/uL 3.54-5.02 N HEMOGLOBIN (test code = HGB) 12.3 g/dL 11.0-15.0 N HEMATOCRIT (test code = HCT) 36.8 % 33.0-45.0 N MEAN CELL VOLUME (test code = MCV) 92.7 fL 81.0-99.0 N MEAN CELL HGB (test code = MCH) 31.0 pg 27.0-33.0 N MEAN CELL HGB CONCETRATION (test code = MCHC) 33.4 g/dL 33.0-37.0 N RED CELL DISTRIBUTION WIDTH CV (test code = RDW) 13.2 % 11.5-14.5 N RED CELL DISTRIBUTION WIDTH SD (test code = RDW-SD) 44.9 fL 37.0-54.0 N PLATELET COUNT (test code = PLT) 303 x10 3/uL 150-400 N MEAN PLATELET VOLUME (test c ode = MPV) 9.4 fL 7.0-9.0 H NEUTROPHIL % (test code = NT%) 31.1 % 56.0-77.0 L IMMATURE GRANULOCYTE % (test code = IG%) 0.4 % 0.0-2.0 N LYMPHOCYTE % (test code = LY%) 53.2 % 14.0-32.0 H MONOCYTE % (test code = MO%) 7.4 % 4.8-9.0 N EOSINOPHIL % (test code = EO%) 7.1 % 0.3-3.7 H BASOPHIL % (test code = BA%) 0.8 % 0.0-2.0 N NUCLEATED RBC % (test code = NRBC%) 0.0 % 0-0 N NEUTROPHIL # (test code = NT#) 2.84 x10 3/uL 2.0-7.6 N IMMATURE GRANULOCYTE # (test code = IG#) 0.04 x10 3/uL 0.00-0.03 H LYMPHOCYTE # (test code = LY#) 4.87 x10 3/uL 1.0-3.8 H MONOCYTE # (test code = MO#) 0.68 x10 3/uL 0.1-0.8 N EOSINOPHIL # (test code = EO#) 0.65 x10 3/uL 0.0-0.2 H BASOPHIL # (test code = BA#) 0.07 x10 3/uL 0.0-0.2 N NUCLEATED RBC # (test code = NRBC#) 0.00 x10 3/uL 0.0-0.1 N MANUAL DIFF REQUIRED (test c ode = MDIFF) NO [id number] 18:42:00* Test Item Value Reference Range Interpretation Comme nts ACT-ISTAT (test code = ACTI) 255 SEC 74-137 H Performed by cer tified nitric acid concentrator operator at [facility] [id number] 17:59:00* Test Item Value Reference Range Interpretation Comme nts ACT-ISTAT (test code = ACTI) 273 SEC 74-137 H Performed by cer tified nitric acid concentrator operator at [facility] [id number] 17:29:00* Test Item Value Reference Range Interpretation Comme nts ACT-ISTAT (test code = ACTI) 357 SEC 74-137 H Performed by cer tified nitric acid concentrator operator at [facility] BASIC METABOLIC [id number] 11:34:00* Test Item Value Reference Range Interpretation Comme nts SODIUM (test code = NA) 142 mEq/L 134-147 N POTASSIUM (test code = K) 3.8 mEq/L 3.4-5.0 N CHLORIDE (test code = CL) 110 mEq/L 100-108 H CARBON DIOXIDE (test code = CO2) 26 mEq/l 21-33 N ANION GAP (test code = GAP) 9 0-20 N GLUCOSE (test code = GLU) 96 mg/dL 70-110 N BLOOD UREA NITROGEN (test code = BUN) 22 mg/dL 7-18 H GLOMERULAR FILTRATION RATE (test code = GFR) 71.5 80-90 L Units of measure = ml/min/1.73 m2 CREATININE (test code = CREAT) 0.8 mg/dL 0.6-1.3 N CALCIUM (test code = CA) 9.1 mg/dL 8.0-10.5 N PROTHROMBIN [id number] 11:32:00* Test Item Value Reference Range Interpretation Comme nts PROTHROMBIN TIME PATIENT (test code = PTP) 11.0 SECONDS 9.3-12.9 N INTERNATIONAL NORMAL RATIO (test code = INR) 1.0 0.8-1.2 N TARGET INR BY INDICATION Indication INR1. Prophylaxis of venous thrombosis 2.0 - 3.0 (orthopedic surgery), Prophylaxis of venous thrombosis (other than high-risk surgery), Treatment of Deep Vein Thrombosis/Pulmonary Embolism, Prevention of systemic embolism - Tissue heart valves, Acute Myocardial Infarction (to prevent systemic embolism), Valvular heart disease, Atrial Fibrillation, Bileaflet mechanical valve in aortic position.2. Mechanical prosthetic valves (high risk), 2.5 - 3.5 Presence of Lupus Anticoagulant or Antiphospholipid Antibodies, Prevention of systemic embolism - Acute Myocardial Infarction (to prevent recurrent infarct). CBC W/AUTO [id number] 11:11:00* Test Item Value Reference Range Interpretation Comme nts WHITE BLOOD CELL (test code = WBC) 9.1 x10 3/uL 4.5-11.0 N RED BLOOD CELL (test code = RBC) 4.42 x10 6/uL 3.54-5.02 N HEMOGLOBIN (test code = HGB) 13.9 g/dL 11.0-15.0 N HEMATOCRIT (test code = HCT) 41.2 % 33.0-45.0 N MEAN CELL VOLUME (test code = MCV) 93.2 fL 81.0-99.0 N MEAN CELL HGB (test code = MCH) 31.4 pg 27.0-33.0 N MEAN CELL HGB CONCETRATION (test code = MCHC) 33.7 g/dL 33.0-37.0 N RED CELL DISTRIBUTION WIDTH CV (test code = RDW) 13.2 % 11.5-14.5 N RED CELL DISTRIBUTION WIDTH SD (test code = RDW-SD) 45.2 fL 37.0-54.0 N PLATELET COUNT (test code = PLT) 343 x10 3/uL 150-400 N MEAN PLATELET VOLUME (test c ode = MPV) 9.3 fL 7.0-9.0 H NEUTROPHIL % (test code = NT%) 39.4 % 56.0-77.0 L IMMATURE GRANULOCYTE % (test code = IG%) 0.4 % 0.0-2.0 N LYMPHOCYTE % (test code = LY%) 45.2 % 14.0-32.0 H MONOCYTE % (test code = MO%) 8.0 % 4.8-9.0 N EOSINOPHIL % (test code = EO%) 6.0 % 0.3-3.7 H BASOPHIL % (test code = BA%) 1.0 % 0.0-2.0 N NUCLEATED RBC % (test code = NRBC%) 0.0 % 0-0 N NEUTROPHIL # (test code = NT#) 3.59 x10 3/uL 2.0-7.6 N IMMATURE GRANULOCYTE # (test code = IG#) 0.04 x10 3/uL 0.00-0.03 H LYMPHOCYTE # (test code = LY#) 4.13 x10 3/uL 1.0-3.8 H MONOCYTE # (test code = MO#) 0.73 x10 3/uL 0.1-0.8 N EOSINOPHIL # (test code = EO#) 0.55 x10 3/uL 0.0-0.2 H BASOPHIL # (test code = BA#) 0.09 x10 3/uL 0.0-0.2 N NUCLEATED RBC # (test code = NRBC#) 0.00 x10 3/uL 0.0-0.1 N MANUAL DIFF REQUIRED (test c ode = MDIFF) NO BASIC METABOLIC [id number] 18:08:00* Test Item Value Reference Range Interpretation Comme nts SODIUM (test code = NA) 142 mEq/L 134-147 N POTASSIUM (test code = K) 4.3 mEq/L 3.4-5.0 N CHLORIDE (test code = CL) 109 mEq/L 100-108 H CARBON DIOXIDE (test code = CO2) 28 mEq/l 21-33 N ANION GAP (test code = GAP) 9 0-20 N GLUCOSE (test code = GLU) 102 mg/dL 70-110 N BLOOD UREA NITROGEN (test code = BUN) 19 mg/dL 7-18 H GLOMERULAR FILTRATION RATE (test code = GFR) 62.5 80-90 L Units of measure = ml/min/1.73 m2 CREATININE (test code = CREAT) 0.9 mg/dL 0.6-1.3 N CALCIUM (test code = CA) 9.2 mg/dL 8.0-10.5 N PROTHROMBIN [id number] 18:03:00* Test Item Value Reference Range Interpretation Comme nts PROTHROMBIN TIME PATIENT (test code = PTP) 10.9 SECONDS 9.3-12.9 N INTERNATIONAL NORMAL RATIO (test code = INR) 1.0 0.8-1.2 N TARGET INR BY INDICATION Indication INR1. Prophylaxis of venous thrombosis 2.0 - 3.0 (orthopedic surgery), Prophylaxis of venous thrombosis (other than high-risk surgery), Treatment of Deep Vein Thrombosis/Pulmonary Embolism, Prevention of systemic embolism - Tissue heart valves, Acute Myocardial Infarction (to prevent systemic embolism), Valvular heart disease, Atrial Fibrillation, Bileaflet mechanical valve in aortic position.2. Mechanical prosthetic valves (high risk), 2.5 - 3.5 Presence of Lupus Anticoagulant or Antiphospholipid Antibodies, Prevention of systemic embolism - Acute Myocardial Infarction (to prevent recurrent infarct). CBC W/AUTO [id number] 17:52:00* Test Item Value Reference Range Interpretation Comme nts WHITE BLOOD CELL (test code = WBC) 10.0 x10 3/uL 4.5-11.0 N RED BLOOD CELL (test code = RBC) 4.28 x10 6/uL 3.54-5.02 N HEMOGLOBIN (test code = HGB) 13.6 g/dL 11.0-15.0 N HEMATOCRIT (test code = HCT) 40.7 % 33.0-45.0 N MEAN CELL VOLUME (test code = MCV) 95.1 fL 81.0-99.0 N MEAN CELL HGB (test code = MCH) 31.8 pg 27.0-33.0 N MEAN CELL HGB CONCETRATION (test code = MCHC) 33.4 g/dL 33.0-37.0 N RED CELL DISTRIBUTION WIDTH CV (test code = RDW) 13.6 % 11.5-14.5 N RED CELL DISTRIBUTION WIDTH SD (test code = RDW-SD) 47.7 fL 37.0-54.0 N PLATELET COUNT (test code = PLT) 328 x10 3/uL 150-400 N MEAN PLATELET VOLUME (test c ode = MPV) 9.5 fL 7.0-9.0 H NEUTROPHIL % (test code = NT%) 33.7 % 56.0-77.0 L IMMATURE GRANULOCYTE % (test code = IG%) 0.7 % 0.0-2.0 N LYMPHOCYTE % (test code = LY%) 49.5 % 14.0-32.0 H MONOCYTE % (test code = MO%) 8.6 % 4.8-9.0 N EOSINOPHIL % (test code = EO%) 6.3 % 0.3-3.7 H BASOPHIL % (test code = BA%) 1.2 % 0.0-2.0 N NUCLEATED RBC % (test code = NRBC%) 0.0 % 0-0 N NEUTROPHIL # (test code = NT#) 3.36 x10 3/uL 2.0-7.6 N IMMATURE GRANULOCYTE # (test code = IG#) 0.07 x10 3/uL 0.00-0.03 H LYMPHOCYTE # (test code = LY#) 4.95 x10 3/uL 1.0-3.8 H MONOCYTE # (test code = MO#) 0.86 x10 3/uL 0.1-0.8 H EOSINOPHIL # (test code = EO#) 0.63 x10 3/uL 0.0-0.2 H BASOPHIL # (test code = BA#) 0.12 x10 3/uL 0.0-0.2 N NUCLEATED RBC # (test code = NRBC#) 0.00 x10 3/uL 0.0-0.1 N MANUAL DIFF REQUIRED (test c ode = MDIFF) NO - XR CHEST 2 [id number] 00:00:00 [facility] : 1955 Sex: FFAX: John Landin MD [phone] [place]: St: PRE FAX: Ted Pendleton MD [phone] ----- Name: SIMONA JUÁREZ [facility] : 1955 Age/S: 66/F [address] [place] [address] Unit #: [id number] Loc: [place] [address] Phys: Ted Montiel MD Acct: [id number] Dis Date: Status: PRE SDC PHONE #: [phone] Exam Date: 10/10/20211658 FAX #: [phone] Reason: PREOP EXAMS: CPT CODE: [id number] XR CHEST 2 V 37530 PROCEDURE INFORMATION: Exam: XR Chest Exam date and time: 10/10/2021 4:49 PM Age: 66 years old Clinical indication: Pre-operative exam; Cardiovascular screening and respiratory screening exam; Additional info: Preop TECHNIQUE: Imaging protocol: XR of the chest. Views: 2 views. PA and Lateral COMPARISON: No relevant prior studies available. FINDINGS: Lungs: The lungs are clear. Pleuralspaces: No pleural effusion. No pneumothorax. Heart/Mediastinum: Cardiomediastinal silhouette is normal in size. Bones/joints: No acute bony finding. IMPRESSION: No acute or active pulmonary findings. at 1722 Reported and signed by: Vince Patrick M.D. CC: John Covington MD; Ted Montiel MD Technologist: Tricia Torres RT(R) Trnscrd Date/Time/By: 10/10/2021 (1721) : By: [email or web address] Orig Print D/T: S: 10/10/2021 (1721) PAGE1 Signed ReportDEXA, BONE DENSITY AXIAL SKELEDEXA, BONE DENSITY AXIAL SKELEColonoscopyColonoscopy Notes Date/Time Note Provider Source 2022-01-18 14:31:00 [id number] [address] PATIENT NAME: SIMONA JUÁREZ ADMIT DATE: 10/21/21 ACCOUNT NO: [id number] ROOM NO: [id number] AGE: 66 REPORT TYPE: OPERATIVE REPORT SEX: F ADMITTING PHYSICIAN:Ted Montiel MD ATTENDING PHYSICIAN:Ted Montiel MD OPERATION DATE: 10/21/2021 PREOPERATIVE DIAGNOSIS: POSTOPERATIVE DIAGNOSIS: PROCEDURE PERFORMED: Failed attempt of left ostial internal iliac artery AERIAL SPRAYER intervention. SURGEON: BONDING EQUIPMENT OPERATOR: ANESTHESIA: ACCESS: 1. Right radial artery, 6-Citizen [place] closed with TR band. 2. Right femoral artery, 6-Citizen [place] closed with manual pressure. COMPLICATIONS: None. ESTIMATED BLOOD LOSS: Less than 10 mL. DESCRIPTION OF PROCEDURE: After risks, benefits, and alternatives were explained, the patient agreed to proceed and signed informed consent. The patient was brought into cardiac catheterization laboratory, prepped and draped in usual sterile fashion. Then, we accessed the right radial artery using pediatric micropuncture kit and placed 6-Citizen [place] slender sheath and then I took a long multipurpose catheter into the distal aorta trying to perform angiogram; however, could not get a good picture. Then, I accessed the right femoral artery using ultrasound and micropuncture kit and placed a 6-Citizen [place] Henderson sheath and then I took a 6-Citizen [place] Destination sheath after doing a crossover and hooked that distal sheath into the area of AERIAL SPRAYER and multiple attempts to wire the AERIAL SPRAYER however failed to reenter the lumen. As such, I decided to abort the procedure and consult Vascular Surgery. I then removed all catheters and wires and closed the first access with TR band and the ____ closed with manual pressure. CONCLUSION: AERIAL SPRAYER of the left common iliac artery, status post failed attempt of balloon angioplasty. Dictated By: Ted Montiel MD PATIENT NAME: SIMONA JUÁREZ WT: OP:NIHARIKA/WILLY/GAMAL Conf#: [id number]/DID#: [id number] Authenticated by Ted Montiel MD On 02/02/2022 02:25:01 PM at 0225 PATIENT NAME: SIMONA JUÁREZ [facility] 2021-12-28 16:05:00 [id number] [address] PATIENT NAME: SIMONA JUÁREZ ADMIT DATE: 12/28/21 ACCOUNT NO: [id number] ROOM NO: AGE: 66 REPORT TYPE: OPERATIVE REPORT SEX: F ADMITTING PHYSICIAN: ATTENDING PHYSICIAN:Ted Montiel MD OPERATION DATE: 12/28/2021 PROCEDURES PERFORMED: 1. Selective peripheral angiogram. 2. CSI atherectomy of mid to distal right superficial femoral artery AERIAL SPRAYER 100% occlusion followed by balloon angioplasty and then a stent placement of 6 x 150 mm self-expandable stent, postdilated using a 5 x 100 mm balloon to high pressure. ACCESS: Right radial artery, 6-Citizen [place] closed with TR band. COMPLICATIONS: None. BLEEDING: Less than 10 mL. TOTAL SEDATION TIME: 75 minutes. INDICATIONS: Known totally occluded SFA on the right side. DESCRIPTION OF PROCEDURE: After risks, benefits, and alternatives were explained, the patient agreed to proceed and signed informed consent. The patient was brought into the cardiac catheterization laboratory, prepped and draped in usual sterile fashion and accessed the right radial artery using pediatric micropuncture kit, placed a 6-Citizen [place] slender sheath and then I took a long Glidewire into the distal aorta and to the right common iliac and then right femoral artery and then the right SFA and then exchanged the 6-Citizen [place] sheath for a long 6-Citizen [place] Destination sheath and placed it in the common femoral artery. Then, I took a microcatheter over the Glidewire into the area of the AERIAL SPRAYER and was able to cross and advance the microcatheter into the distal portion of the SFA and injecting contrast confirmed being within the lumen. Then, I took a ViperWire into the distal SFA and popliteal artery and placed it distally and took a 1.5 solid crown CSI into the area of AERIAL SPRAYER and did the atherectomy at low, medium, and high speed successfully and then took 5 x 100 mm balloon, did angioplasty and then there was dissection noted that is with the floor, so decided to place a stent. So, I took a 6 x 150 mm self-expandable stent and deployed it across the area of stenosis and dissection, sealed it very well and then I took a 5.0 x 100 mm balloon inside the stent and inflated it to a high pressure and the stent expanded very well. Final angiogram was satisfactory. No complication, then I removed the wire and the sheath was removed and placed a TR band with good hemostasis. CONCLUSION: Mid to distal right SFA AERIAL SPRAYER, status post successful CSI atherectomy and stent placement after balloon angioplasty. I used a 6 x 150 mm PATIENT NAME: SIMONA JUÁREZ self-expandable stent. PLAN: Aspirin and Plavix and high-dose statin. Follow up with me in the office in 1 week. Dictated By: Ted Montiel MD WT: OP:NIHARIKA/WILLY/GAMAL Conf#: [id number]/DID#: [id number] Authenticated by Ted Montiel MD On 01/03/2022 10:56:06 AM at 1056 PATIENT NAME: SIMONA JUÁREZ [facility] 2021-12-26 10:06:00 [id number] [place] [address] PATIENT NAME: SIMONA JUÁREZ ADMIT DATE: ACCOUNT NO: [id number] ROOM NO: AGE: 66 REPORT TYPE: eELECTROCARDIOGRAM REPORT SEX: F ADMITTING PHYSICIAN: ATTENDING PHYSICIAN:Ted Montiel MD Order: [id number] Test Reason : PREOP Test Date/Time Stamp: SunDec 26 2021 10:06:54 Blood Pressure : / mmHG Vent. Rate : 054 BPM Atrial Rate : 054 BPM P-R Int : 190 ms QRS Dur : 092 ms QT Int : 454 ms P-R-T Axes : 063 009 053 degrees QTc Int : 430 ms Sinus bradycardia Abnormal ECG PRE_OP Confirmed by JACOB CASPER MD ([id number]) on 12/26/2021 2:21:31 PM Referred By: Ted Montiel Confirmed by:JACOB CASPER MD at 1421 PATIENT NAME: SIMONA JUÁREZ [facility] 2021-11-21 10:46:00 [id number] [place] [address] PATIENT NAME: SIMONA JUÁREZ ADMIT DATE: 11/16/21 ACCOUNT NO: [id number] ROOM NO: AGE: 66 REPORT TYPE: OPERATIVE REPORT SEX: F ADMITTING PHYSICIAN: ATTENDING PHYSICIAN:Ted Montiel MD OPERATION DATE: 11/16/2021 PROCEDURES PERFORMED: 1. Selective peripheral angiogram. 2. Balloon angioplasty of totally occluded left common iliac artery followed by stent placement using 7 x 150 mm Viabahn stent, self-expandable stent followed by post-dilation using 7 x 100 mm balloon. ACCESS: Right femoral artery, 6-Citizen [place] closed with Perclose. COMPLICATIONS: None. BLEEDING: Less than 10 mL. OPERATORS: Ted Montiel MD and Dr. Hansen. DESCRIPTION OF PROCEDURE: After risks, benefits, and alternatives were explained, the patient agreed to proceed and signed informed consent. The patient was brought into cardiac catheterization laboratory, prepped and draped in usual sterile fashion. Then, I accessed the right femoral artery using ultrasound guidance and fluoroscopy and placed 6-Citizen [place] Henderson sheath and then took an Omniflush catheter into the distal aorta and using a Glidewire, we were able to cross the AERIAL SPRAYER. Subsequently, lesion was predilated and then placed a 7 x 150 mm self-expandable stent, Viabahn and with good results. Final angiogram was satisfactory. We used a 7 x 100 mm balloon to post-dilate the stent with good results and we removed the sheaths and placed Perclose with good hemostasis. During the procedure, heparin was given to assure ACT level above 250 and the patient was loaded with Plavix and aspirin. CONCLUSION: Successful balloon angioplasty followed by stent placement of left common iliac chronic total occlusion as outlined above, used 7 x 150 mm Viabahn stent. PLAN: Discharged home once recovery is complete. Continue aspirin and Plavix. Follow up with me in the office in 4 to 6 weeks. Dictated By: Ted Montiel MD WT: OP:NIHARIKA/WILLY/GAMAL Conf#: [id number]/DID#: [id number] PATIENT NAME: SIMONA JUÁREZ Authenticated by Ted Montiel MD On 12/14/2021 12:29:39 PM at 1229 PATIENT NAME: SIMONA JUÁREZ [facility] 2021-11-15 11:22:00 [id number] [place] [id number] PATIENT NAME: SIMONA JUÁREZ ADMIT DATE: ACCOUNT NO: [id number] ROOM NO: AGE: 66 REPORT TYPE: eELECTROCARDIOGRAM REPORT SEX: F ADMITTING PHYSICIAN: ATTENDING PHYSICIAN:Ted Montiel MD Order: [id number] Test Reason : PREOP Test Date/Time Stamp: SunNov 15 2021 11:22:59 Blood Pressure : / mmHG Vent. Rate : 053 BPM Atrial Rate : 053 BPM P-R Int : 210 ms QRS Dur : 086 ms QT Int : 450 ms P-R-T Axes : 073 053 060 degrees QTc Int : 422 ms Sinus bradycardia with 1st degree AV block Otherwise normal ECG When compared with ECG of 10-OCT-2021 16:43, No significant change was found Confirmed by BLAYNE YAÑEZ MD ([id number]) on 11/15/2021 1:04:53 PM Referred By: Ted Montiel Confirmed by:BLAYNE YAÑEZ MD at 1304 PATIENT NAME: SIMONA JUÁREZ [facility] 2021-10-22 21:27:00 [facility] Brief Discharge Note w/Med Rec REPORT#:[id number] REPORT STATUS: Signed DATE:10/22/21 TIME: 2126 PATIENT: SIMONA JUÁREZ UNIT #: [id number] ROOM/BED: [place] [address] : 54 AGE: 66 SEX: F ATTEND: Ted Montiel MD ADM AUTHOR: Kin Barnes DO * ALL edits or amendments must be made on the electronic/computer document * Med Rec Med Rec Discharge meds: Continue taking these medications: ATORVASTATIN (LIPITOR) 80 MG TAB 80 MILLIGRAM ORAL DAILY. CLOPIDOGREL (PLAVIX) 75 MG TAB 75 MILLIGRAM ORAL DAILY. LEVOTHYROXINE (SYNTHROID) 100 MCG TAB 100 MICROGRAM ORAL DAILY. amLODIPine (NORVASC) 10 MG TAB 10 MILLIGRAM ORAL DAILY. METOPROLOL SUCC XL (TOPROL XL) 100 MG TAB.SA 100 MILLIGRAM ORAL DAILY. ASPIRIN EC (ECOTRIN) 81 MG TAB.EC 81 MILLIGRAM ORAL DAILY. Objective Free Text Obj Notes Free Text Obj Notes: General appearance: alert, awake, oriented HEENT: mucosal membranes moist Neck: non-tender, no JVD Cardiovascular: regular rate rhythm, normal heart sounds Respiratory: clear to auscultation, no distress, no tenderness, aerating well Abdomen: soft, non-tender, no guarding, no rebound, no distention Neuro/HOOK LOADER: alert, oriented X 3, normal speech, no motor deficits, no sensory deficits Extremities: Left moves all, Left no edema, Left normal range of motion, Left normal sensory, Left normal motor function, Left normal tone, Left no cyanosis, Left no pedal edema, Right moves all, Right no edema, Right normal range of motion, Right normal sensory, Right normal motor function, Right normal tone, Right no cyanosis, Right no pedal edema Skin: dry, intact, no gross abnormalities Brief Discharge Note w/Med Rec Discharge to: Home/Self Care Additional Discharge Routines: PCP Follow-Up, Wireless Sales Representative Follow-Up (Dr Montiel as directed ), F/U Labs/Procedures Diet: Cardiac Activity: As Tolerated Follow-up labs, proc, tx: If right lower extremity pain worsens, you develop worsening numbness or urinary retention, return to the ER. Follow up with your PCP for further workup of right leg pain Follow-up Appointments PCP: PCP: John Covington MD PCP follow up timeframe: In 3 days Consulting provider 1: Provider 1: Ted Montiel MD Specialty: CardiologyInterventional Consult follow up timeframe: In 1-2 weeks at 0648 RPT #:[id number] END OF REPORT [facility] 2021-10-22 20:57:00 [facility] ([facility]) Consultation Note - Brief REPORT#:[id number] REPORT STATUS: Signed DATE:10/22/21 TIME: 2056 PATIENT: SIMONA JUÁREZ UNIT #: [id number] ROOM/BED: [place] [address] : 53 AGE: 66 SEX: F ATTEND: Ted Montiel MD ADM AUTHOR: Kin Barnes DO * ALL edits or amendments must be made on the electronic/computer document * History of Present Illness HPI Requesting Clinician: Ted Montiel Reason for consult: Discharge PCP: PCP: John Covington MD History of present illness: Simona is a 66-year-old female with a past medical history of coronary artery disease, hypertension, dyslipidemia, COPD, intermittent claudication of the bilateral lower limbs due to atherosclerosis who presents to the hospital for an outpatient angiogram with Dr. Montiel. Consult was called by RN on 10/22/2021 at 2008. It is unclear why the patient stayed overnight post procedure however the patient reports her procedure ran late. The patient denied any complaints post procedure and reports she was unable to receive the stent that was planned with plans for repeat angiogram with Dr. Montiel in November. The patient states since this morning she has been having intermittent pains down her right leg which has happened about 5-6 times with no clear aggravating or relieving factors. The pain is currently resolved. The patient is confused why she stayed in the hospital all afternoon and wanted to go home earlier. History - Adult longitudinal Additional medical history: coronary artery disease, hypertension, dyslipidemia, COPD, intermittent claudication of the bilateral lower limbs due to atherosclerosis Additional surgical history: Angiograms Additional family history: Denies Smoking status: Smoking status for patients 13 years old or older: Current every day smoker Packs per day: 0.25 Years smoked: 40 Pack years: 10.00 Medications: Home Medications: Medication Dose/Rte/Freq Days Qty Entered Last Max Daily Dose Reviewed ATORVASTATIN (LIPITOR) 80 MG PO DAILY 10/10/21 10/21/21 Strength: 80 MG TAB 1729 1034 CLOPIDOGREL (PLAVIX) 75 MG PO DAILY 10/10/21 10/21/21 Strength: 75 MG TAB 1729 1034 LEVOTHYROXINE 100 MCG PO DAILY 10/10/21 10/21/21 (SYNTHROID) 1730 1034 Strength: 100 MCG TAB amLODIPine (NORVASC) 10 MG PO DAILY 10/10/21 10/21/21 Strength: 10 MG TAB 1731 1034 METOPROLOL SUCC XL 100 MG PO DAILY 10/10/21 10/21/21 (TOPROL XL) 1732 1034 Strength: 100 MG TAB.SA ASPIRIN EC (ECOTRIN) 81 MG PO DAILY 10/21/21 10/21/21 Strength: 81 MG TAB.EC 1033 1034 Current Hospital Medications: Autonomic Drugs Sig/Moise Start time Last Medication Dose Route Stop Time Status Admin Atropine Sulfate 0.5 MG ASDIR PRN 10/21 1615 DC (ATROPINE SULFATE IV 10/22 1605 0.1MG/ML SYR) Blood Formation,Coagulation Sig/Moise Start time Last Medication Dose Route Stop Time Status Admin Clopidogrel Bisulfate 75 MG DAILY 10/22 900 AC 10/22 (Plavix) PO 11/21 0859 0903 Cardiovascular Drugs Sig/Moise Start time Last Medication Dose Route Stop Time Status Admin Amlodipine Besylate 10 MG DAILY 10/22 900 AC 10/22 (NORVASC) PO 11/21 0859 0906 Atorvastatin Calcium 80 MG DAILY 10/22 09 AC 10/22 (LIPITOR) PO 11/21 0859 0903 Metoprolol Succinate 100 MG DAILY 10/22 09 AC 10/22 (TOPROL XL 100MG) PO 11/21 0859 0903 Central Nervous System Agents Sig/Moise Start time Last Medication Dose Route Stop Time Status Admin Aspirin 81 MG DAILY 10/22 0900 AC 10/22 (ASPIRIN) PO 11/21 0859 0903 Electrolytic, Caloric, And Nick Sig/Moise Start time Last Medication Dose Route Stop Time Status Admin Sodium Chloride 1,000 ML .[id number] 10/21 1615 DC 10/21 (SODIUM CHLORIDE IV 10/22 0534 1953 0.9%) Sodium Chloride 500 ML ASDIR PRN 10/21 161 DC (SODIUM CHLORIDE IV 10/22 1605 0.9%) Sodium Chloride 300 ML PREOP IV FLUID 10/10 183 AC (SODIUM CHLORIDE IV 0.9%) Sodium Chloride 1,000 ML PREOP IV FLUID 10/10 183 AC (SODIUM CHLORIDE IV 11/09 182 0.9%) Hormones And Synthetic Substit Sig/Moise Start time Last Medication Dose Route Stop Time Status Admin Levothyroxine Sodium 100 MCG DAILY 10/22 0900 AC 10/22 (Synthroid) PO 11/21 0859 0802 Allergies: Coded Allergies: morphine (ITCHING 10/21/21) Brief Consult Note Physical Exam Vitals: Last Documented: Result Date Time Pulse Ox 94 10/22 1929 B/P 131/64 10/22 1929 B/P Mean 86.4 10/22 1929 O2 Delivery Room air 10/22 1929 Temp 98.1 10/22 1929 Pulse 64 10/22 1929 Resp 18 10/22 1929 General appearance: alert, awake, oriented HEENT: mucosal membranes moist Neck: non-tender, no JVD Cardiovascular: regular rate rhythm, normal heart sounds Respiratory: clear to auscultation, no distress, no tenderness, aerating well Abdomen: soft, non-tender, no guarding, no rebound, no distention Neuro/HOOK LOADER: alert, oriented X 3, normal speech, no motor deficits, no sensory deficits Extremities: Left moves all, Left no edema, Left normal range of motion, Left normal sensory, Left normal motor function, Left normal tone, Left no cyanosis, Left no pedal edema, Right moves all, Right no edema, Right normal range of motion, Right normal sensory, Right normal motor function, Right normal tone, Right no cyanosis, Right no pedal edema Skin: dry, intact, no gross abnormalities Free Text A P: Intermittent claudication status post angiogram with unsuccessful stent attempt * Plan for reattempt per Dr. Montiel in the future * Continue prior medications * Follow-up with Dr. Montiel as an outpatient Right lower extremity pain * Intermittent, possibly radicular component, suspect musculoskeletal component, no signs of compartment syndrome, no calf pain, extremities warm * Denies any urinary retention, saddle anesthesia * No hematoma/abscess noted, no bruit appreciated * Pain appears currently resolved * Instructed patient she will need ongoing outpatient follow-up with her primary care physician as well as cardiology. Supportive care with analgesics for now Disposition: Internal medicine group was not previously notified of patient prior to 10/22/21 20:08 call by RN. Called and discussed case with Dr. Montiel who reports the patient is cleared for discharge from his standpoint, however, it is currently past 9 PM and the patient reports she does not feel comfortable driving back to [place] at night. Patient family also requested to speak to Dr. Montiel and the patient's phone number of [phone] Montiel to contact patient and address concerns. Will place conditional discharge if the patient's right lower extremity pain remains resolved for discharge in the morning at 0648 RPT #:[id number] END OF REPORT [facility] 2021-10-10 16:43:00 [id number] [place] [address] PATIENT NAME: SIMONA JUÁREZ ADMIT DATE: ACCOUNT NO: [id number] ROOM NO: AGE: 66 REPORT TYPE: eELECTROCARDIOGRAM REPORT SEX: F ADMITTING PHYSICIAN: ATTENDING PHYSICIAN:Ted Montiel MD Order: [id number] Test Reason : PREOP Test Date/Time Stamp: SunOct 10 2021 16:43:18 Blood Pressure : / mmHG Vent. Rate : 061 BPM Atrial Rate : 061 BPM P-R Int : 210 ms QRS Dur : 088 ms QT Int : 436 ms P-R-T Axes : 077 072 071 degrees QTc Int : 438 ms Sinus rhythm with 1st degree AV block Otherwise normal ECG No previous ECGs available Confirmed by BLAYNE YAÑEZ MD ([id number]) on 10/10/2021 6:25:22 PM Referred By: Ted Montiel Confirmed by:BLAYNE YAÑEZ MD at 3129 PATIENT NAME: SIMONA JUÁREZ [facility]
[2024-09-26] MEDS ORDERED: KETOROLAC 30 MG/ML INJ ONE (18:38)
[2024-09-26] MEDS ORDERED: COLCHICINE 0.6 MG TAB ONE ×2 (18:38→20:15)
[2024-09-26] MEDS ORDERED: ACETAMINOPHEN 500 MG TAB ONE (18:38)
--- NOTE | 2024-09-26 20:20 | RAD REPORT ---
EXAM:Extremity Venous Uni Ltd HISTORY: Right leg pain TECHNIQUE: Sonographic evaluation right lower extremity performed.Grayscale, color and spectral elias sis performed on all vessels COMPARISON: None. FINDINGS: Right r common femoral, superficial femoral, greater saphenous, popliteal and posterior tibial veins are compressible and demonstrate augmentation. Doppler demonstrates good flow. IMPRESSION: No evidence of deep venous thrombosis involving the right lower extremity.
--- NOTE | 2024-09-26 20:25 | EDPHYS ---
Physician Documentation [facility] Name: Simona Juárez Age: 69 yrs Sex: Female : 1955 Arrival Date: 09/26/2024 Time: 17:37 Bed 6 Private MD: ED Physician Elder Kapoor HPI: 09/26 18:30 This 69 yrs old Female presents to ER via Wheelchair with complaints of Foot ec2 Pain - Right. 18:30 Patient arrives today for evaluation of right foot pain. Reports that she has been ec2 considering seeing pain to the dorsum of the right foot along with swelling. Patient reports history of previous blood clots, on aspirin. Not on anticoagulation. Patient reports no difficulty breathing. Denies any fevers or chills or nausea or vomiting.. Historical: - Allergies: 18:12 Morphine; ss - PMHx: 18:12 Hypercholesterolemia; Hypertension; ss - PSHx: 18:12 Cholecystectomy; heart stent; ss - Immunization history:: Adult Immunizations up to date, Client reports receiving the 2nd dose of the Covid vaccine. - Infectious Disease History:: Denies. - Social history:: Smoking status: Patient denies any tobacco usage or history of. ROS: 18:30 Constitutional: as per hpi ec2 Exam: 18:30 Constitutional: GEN: NAD Head: atraumatic Eyes: EOMI Ears: External ears are ec2 normal. CV: regular rate LUNGS: no respiratory distress ABD: non-distended SKIN: Right great toe with erythema noted, trace swelling noted over the dorsum of the foot MSK: no evidence of trauma Vital Signs: 18:09 BP 129 / 68; Pulse 57; Resp 18; Temp 98.1; Pulse Ox 96% ; Weight 90.26 kg; ss 20:58 BP 123 / 60; Pulse 52; Resp 18; Pulse Ox 100% ; cp4 MDM: 18:16 Medical Screening Exam initiated ec2 18:30 Data reviewed: vital signs, nurses notes. ED course: Patient arrives today for right ec2 foot swelling and right foot pain. Examination remarkable for skin findings as above. Will obtain ultrasound to evaluate for DVT. Additionally considering gout.. 20:24 ED course: Ultrasound negative. Will discharge home with prescription for steroids. ec2 Give the patient 2 doses of colchicine and instructed follow-up PCP.. 09/26 18:17 Order name: Extremity Venous Uni Ltd US; Complete Time: 20:24 ec2 Administered Medications: 19:01 Drug: Acetaminophen PO 1000 mg PO once Route: PO; aa5 20:14 Follow up: Response: No adverse reaction cp4 19:01 Drug: Colcrys PO 1.2 mg PO once Route: PO; aa5 20:14 Follow up: Response: No adverse reaction cp4 19:02 Drug: Ketorolac IM 30 mg IM once Route: IM; Site: right gluteus; aa5 20:13 Follow up: Response: No adverse reaction cp4 20:17 Drug: Colcrys PO 0.6 mg PO once Route: PO; cp4 20:58 Follow up: Response: No adverse reaction cp4 20:58 Drug: Ibuprofen PO 800 mg PO once Route: PO; cp4 20:58 Follow up: Response: No adverse reaction cp4 Disposition Summary: 09/26/24 20:25 Discharge Ordered Notes: Location: Home ec2 Condition: Stable ec2 Diagnosis - Gout, unspecified ec2 Followup: ec2 - With: Private Physician - When: - Reason: Re-evaluation by your physician Discharge Instructions: - Discharge Summary Sheet ec2 - Gout ec2 Forms: - Medication Reconciliation Form ec2 - Antibiotic Education ec2 - Prescription Opioid Use ec2 - Patient Portal Instructions ec2 - Leadership Thank You Letter ec2 Prescriptions: - Ibuprofen 800 mg Oral Tablet - take 1 tablet ORAL route every 8 hours As needed take with food; 30 tablet; ec2 Refills: 0, Product Selection Permitted - Prednisone 20 mg Oral Tablet - take 1 tablet ORAL route once daily for 5 days; 5 tablet; Refills: 0, Product ec2 Selection Permitted Signatures: Dispatcher [employer] Yulisa Greenwood RN RN aa5 Janneth Bedolla RN RN ss Elder Kapoor MD MD ec2 Heather Feliz cp4
--- NOTE | 2024-09-26 20:25 | ER ---
Nurse's Notes [facility] Name: Simona Juárez Age: 69 yrs Sex: Female : 1955 Arrival Date: 09/26/2024 Time: 17:37 Bed 6 Private MD: Diagnosis: Gout, unspecified Presentation: 09/26 18:09 Chief complaint: Patient states: Patient presents in the ED c/o right foot pain for the ss past 24 hrs. Per patient, " I called my doctor, and because of my history he said to go to the ER to check for blood clot". Coronavirus screen: At this time, the client does not indicate any symptoms associated with coronavirus-19. Ebola Screen: No symptoms or risks identified at this time. Initial Sepsis Screen: Does the patient meet any 2 criteria? No. Patient's initial sepsis screen is negative. Does the patient have a suspected source of infection? No. Patient's initial sepsis screen is negative. Risk Assessment: Do you want to hurt yourself or someone else? Patient reports no desire to harm self or others. Onset of symptoms was September 25, 2024. 18:09 Method Of Arrival: Wheelchair ss 18:09 Acuity: FRANCOISE 3 ss Triage Assessment: 18:12 General: Appears uncomfortable, Behavior is calm, cooperative, appropriate for age. ss Pain: Complains of pain in right leg Pain currently is 6 out of 10 on a pain scale. Neuro: No deficits noted. Cardiovascular: No deficits noted. Respiratory: No deficits noted. Historical: - Allergies: 18:12 Morphine; ss - PMHx: 18:12 Hypercholesterolemia; Hypertension; ss - PSHx: 18:12 Cholecystectomy; heart stent; ss - Immunization history:: Adult Immunizations up to date, Client reports receiving the 2nd dose of the Covid vaccine. - Infectious Disease History:: Denies. - Social history:: Smoking status: Patient denies any tobacco usage or history of. Screenin:50 [facility] ED Fall Risk Assessment (Adult) History of falling in the last 3 months, aa5 including since admission No falls in past 3 months (0 pts) Confusion or Disorientation No (0 pts) Intoxicated or Sedated No (0 pts) Impaired Gait No (0 pts) Mobility Assist Device Used No (0 pt) Altered Elimination No (0 pt) Score/Fall Risk Level 0 - 2 = Low Risk Oriented to surroundings, Maintained a safe environment, Educated pt \\T\\ family on fall prevention, incl call for assistance when getting out of bed. Abuse screen: Denies threats or abuse. Nutritional screening: No deficits noted. Tuberculosis screening: No symptoms or risk factors identified. Assessment: 18:50 General: Appears uncomfortable, Behavior is calm, cooperative. Pain: Complains of pain aa5 in dorsum of right foot Pain radiates to right calf. Neuro: Level of Consciousness is awake, alert, obeys commands, Oriented to person, place, time, situation. Cardiovascular: Patient's skin is warm and dry. Respiratory: Airway is patent Respiratory effort is even, unlabored, Respiratory pattern is regular, symmetrical. GI: No signs and/or symptoms were reported involving the gastrointestinal system. : No signs and/or symptoms were reported regarding the genitourinary system. EENT: No signs and/or symptoms were reported regarding the EENT system. Derm: Skin is pink, warm \\T\\ dry. Musculoskeletal: Range of motion: intact in all extremities. Vital Signs: 18:09 BP 129 / 68; Pulse 57; Resp 18; Temp 98.1; Pulse Ox 96% ; Weight 90.26 kg; ss 20:58 BP 123 / 60; Pulse 52; Resp 18; Pulse Ox 100% ; cp4 ED Course: 17:41 Patient arrived in ED. ra3 17:51 Elder Kapoor MD is Attending Physician. ec2 18:12 Triage completed. ss 18:28 Yulisa Saleh, RN is Primary Nurse. aa5 18:50 Patient has correct armband on for positive identification. Bed in low position. Call aa5 light in reach. Side rails up X 1. Adult w/ patient. 19:00 Report given to ZORAIDA Price and ZORAIDA Romero. aa5 19:46 Extremity Venous Uni Ltd US In Process Unspecified. EDMS 20:59 Provided Education on: gout. cp4 20:59 No provider procedures requiring assistance completed. Patient did not have IV access cp4 during this emergency room visit. Administered Medications: 19:01 Drug: Acetaminophen PO 1000 mg PO once Route: PO; aa5 20:14 Follow up: Response: No adverse reaction cp4 19:01 Drug: Colcrys PO 1.2 mg PO once Route: PO; aa5 20:14 Follow up: Response: No adverse reaction cp4 19:02 Drug: Ketorolac IM 30 mg IM once Route: IM; Site: right gluteus; aa5 20:13 Follow up: Response: No adverse reaction cp4 20:17 Drug: Colcrys PO 0.6 mg PO once Route: PO; cp4 20:58 Follow up: Response: No adverse reaction cp4 20:58 Drug: Ibuprofen PO 800 mg PO once Route: PO; cp4 20:58 Follow up: Response: No adverse reaction cp4 Medication: 20:59 VIS not applicable for this client. cp4 Outcome: 20:25 Discharge ordered by . ec2 20:59 Discharged to home ambulatory, cp4 20:59 Condition: stable 20:59 Discharge instructions given to patient, family, Instructed on discharge instructions, follow up and referral plans. medication usage, Demonstrated understanding of instructions, follow-up care, medications, Prescriptions given X 2, 21:00 Patient left the ED. cp4 Signatures: Dispatcher [employer] Yulisa Greenwood RN RN aa5 Janneth Bedolla RN RN ss Corral, Edwin, MD MD ec2 Heather Feliz cp4 India Zheng 3
[2024-09-26] MEDS ORDERED: IBUPROFEN 400 MG TAB ONE (20:49)
[2024-09-26 23:31] VITALS: TEMP 98.1
[2024-09-26 23:32] VITALS: BP 123/60; O2SAT 100
== END 2024-09-26 21:00 | disposition home or self-care (01) ==
LOC: ER 17:37
DX: M10.9 Gout, unspecified (principal)
CPT/HCPCS: 93971; 96372; 99284

== ENCOUNTER 2024-11-27 16:57 | Emergency (ER) | payer OTHER ==
--- OUTSIDE RECORDS SUMMARY | 2024-11-27 17:01 | XMS REPORT | Continuity of Care Document ---
Author Name Unknown Address [address] [facility] [address] [place] [address] Organization [facility] thconnect Address [address] [facility] [place] [address] Care Team Providers Care Jigger Artisan Name Role Phone Suzanna Covington Attending Clinician Unavailable [email or web address] Attending Clinician Unavaila Ted Anderson Attending Clinician Unavailable [email or web address]_S Admitting Clinician Unavaila John Frey Admitting Clinician Unavailable Payers Payer Name Policy Type Policy Number Effective Date Expirati on Date Source [employer] (MEDICARE REPLACEMENT/ADV ANTAGE - PPO) [id number] [place] [id number] MEDICAID MC [id number] 2019 00:00:00 [facility] MEDICARE NOVITAS MB [id number] [facility] MEDICARE C1 [id number] [facility] MEDICAID MC [id number] 2019 00:00:00 [facility] [employer] MEDICARE [id number] [facility] MEDICAID MC [id number] 2019 00:00:00 [facility] [employer] MEDICARE C1 [id number] Comm on [facility] MEDICAID [id number] 2019 00:00:00 [facility] MEDICARE C1 [id number] Comm on [facility] MEDICARE C1 [id number] Comm on [facility] MEDICAID [id number] 2019 00:00:00 [facility] Problems Condition Name Condition Details Condition Category Status Onset Date Resolution Date Last Treatment Date Treating Clinician Comments Source Type B viral hepatitis Type B Viral Hepatitis Problem Active 2-20 00:00: 00 [facility] 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 coma Viral Hepatitis B without Hepatic Coma Problem Active 2-08 00:00: 00 [facility] Exposure to viral hepatitis Exposure to Viral Hepatitis Problem Active 2-22 00:00: 00 [facility] Hepatitis C carrier Hepatitis C Carrier Problem Active 2-22 00:00: 00 [facility] Herpetic vulvovagin itis Herpetic Vulvovagin itis Problem Active 2-22 00:00: 00 [facility] Ulceration of vulva Ulceration of Vulva Problem Active 2-07 00:00: 00 [facility] Atrophic vaginitis Atrophic Vaginitis Problem Active 1-31 00:00: 00 [facility] Gynecologi kalyan examinatio n abnormal Gynecologi kalyan Examinatio n Abnormal Problem Active 2020-11 2-09 00:00: 00 [facility] [id number] Stage 3a chronic kidney disease Problem Common [facility] Gout Gout, unspecifie d cause, unspecifie d chronicity , unspecifie d site Problem Common [facility] [id number] Acute gout of multiple sites, unspecifie d cause Problem [facility] Mild dementia (disorder) Mild dementia, unspecifie d dementia type, unspecifie d whether behavioral , psychotic, or mood disturbanc e or anxiety Problem [facility] [id number] PAD (periphera l artery disease) Problem Common [facility] [id number] 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 Problem [facility] Laboratory test result abnormal Abnormal laboratory test Problem [facility] [id number] Genital herpes simplex, unspecifie d site Problem [facility] [id number] Other obesity due to excess calories Problem [facility] [id number] Body mass index [BMI] 31.0-31.9, adult Problem [facility] [id number] Tobacco use disorder Problem [facility] [id number] Mixed hyperlipid emia Problem [facility] [id number] Stented coronary artery Problem [facility] [id number] Acute hepatitis C virus infection without hepatic coma Problem [facility] [id number] Essential (primary) hypertensi on Problem [facility] [id number] Hypothyroi dism (acquired) Problem [facility] [id number] Coronary artery disease involving [place] coronary artery of [place] heart with other form of angina pectoris Problem [facility] [id number] 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 of body Problem [facility] Amnesia Memory changes Problem [facility] [id number] Primary insomnia Problem [facility] [id number] Chronic hepatitis C without hepatic coma Problem [facility] Allergies, Adverse Reactions, Alerts Allergy Name Allergy Type Status Severity Reaction(s) Onset Date Inactive Date Treating Clinician Comments Source morphine DA Active U [facility] 2020-11 00:[facility] No Known Allergie s DA Active U 2020-11 00:[facility]: [facility] morphine DA Active U ITCHING 2020-11 00:00: 00 [facility] morphine morphine Active rash [facility] Social History Social Habit Start Date Stop Date Quantity Comments Source History of Tobacco Use [facility] Sex Assigned At [facility] Smoking Status Start Date Stop Date Source Former Smoker [facility] Current Smoker 2022-05-04 00:00:00 [facility] Medications Ordered Medication Name Filled Medication Name Start Date Stop Date Current Medication? Ordering Clinician Indication Dosage Frequency Signature (SIG) Comments Components Source Ketorolac 15mg Ketorolac 15mg 2023-11 00:00: 00 No 30mg [facility] Kenalog (Triamcinol one) Kenalog (Triamcinol one) 2023-11 00:00: 00 No 40mg [facility] traZODone HCl 100 MG traZODone HCl 100 MG 07-10 00:00: 00 No 1{table t_at_be dtime} QD traZODone HCl 100 MG valACYclovi r HCl 1 GM valACYclovi r HCl 1 GM 08-03 00:00: 00 08-23 00:00 :00 No 1{table t} BID valACYclov ir HCl 1 GM aspirin 80 aspirin 80 No aspirin 80 [facility] atorvastati n 80 mg tablet Take 1 tablet every day by oral route. atorvastati n 80 mg tablet Take 1 tablet every day by oral route. No 1 Q1D atorvastat in 80 mg tablet Take 1 tablet every day by oral route. [facility] clopidogrel 75 mg tablet Take 1 tablet every day by oral route. clopidogrel 75 mg tablet Take 1 tablet every day by oral route. No 1 Q1D clopidogre l 75 mg tablet Take 1 tablet every day by oral route. [facility] hydrochloro thiazide 25 mg tablet Take 1 tablet every day by oral route. hydrochloro thiazide 25 mg tablet Take 1 tablet every day by oral route. No 1 Q1D hydrochlor othiazide 25 mg tablet Take 1 tablet every day by oral route. [facility] levothyroxi ne levothyroxi ne No levothyrox ine [facility] metoprolol tartrate 100 mg tablet 1 tablet with food; Twice a day; 30 day(s) metoprolol tartrate 100 mg tablet 1 tablet with food; Twice a day; 30 day(s) No metoprolol tartrate 100 mg tablet 1 tablet with food; Twice a day; 30 day(s) [facility] Levothyroxi ne Sodium 88 MCG Levothyroxi [...] t_with_ food} QD Metoprolol Tartrate 100 MG Colchicine 0.6 MG Colchicine 0.6 MG No QD Colchicine 0.6 MG Indomethaci n 25 MG Indomethaci n 25 MG No 1{capsu le_with _food_o r_milk} BID Indomethac in 25 MG methylPREDN ISolone 4 MG methylPREDN ISolone 4 MG No QD methylPRED NISolone 4 MG Aspirin Adult Low Strength 81 MG Aspirin Adult Low Strength 81 MG No 1{table t} QD Aspirin Adult Low Strength 81 MG Multivitami n Multivitami n No Multivitam in Immunizations Ordered Immunization Name Filled Immunization Name Date Status Comments Source FLUZONE HIGH DOSE OVER 65 FLUZONE HIGH DOSE OVER 65 2022-08-03 10:12:00 Completed [facility] FLUZONE HIGH DOSE OVER 65 FLUZONE HIGH DOSE OVER 65 2022-08-03 10:12:00 Completed [facility] FLUZONE HIGH DOSE OVER 65 FLUZONE HIGH DOSE OVER 65 2022-08-03 10:12:00 Completed [facility] FLUZONE HIGH DOSE OVER 65 FLUZONE HIGH DOSE OVER 65 2022-08-03 10:12:00 Completed [facility] FLUZONE HIGH DOSE OVER 65 FLUZONE HIGH DOSE OVER 65 2022-08-03 10:12:00 Completed [facility] FLUZONE HIGH DOSE OVER 65 FLUZONE HIGH DOSE OVER 65 2022-08-03 10:12:00 Completed [facility] FLUZONE HIGH DOSE OVER 65 FLUZONE HIGH DOSE OVER 65 2022-08-03 10:12:00 Completed [facility] FLUZONE HIGH DOSE OVER 65 FLUZONE HIGH DOSE OVER 65 2022-08-03 10:12:00 Completed [facility] Fluzone Fluzone 2021-10-04 10:15:00 Completed [facility] Fluzone Fluzone 2021-10-04 10:15:00 Completed [facility] Fluzone Fluzone 2021-10-04 10:15:00 Completed [facility] Fluzone Fluzone 2021-10-04 10:15:00 Completed [facility] Fluzone Fluzone 2021-10-04 10:15:00 Completed [facility] Fluzone Fluzone 2021-10-04 10:15:00 Completed [facility] Fluzone Fluzone 2021-10-04 10:15:00 Completed [facility] Fluzone Fluzone 2021-10-04 10:15:00 Completed [facility] Fluzone Fluzone 2021-10-04 10:15:00 Completed [facility] Fluzone Fluzone 2021-10-04 10:15:00 Completed [facility] Fluzone Fluzone 2021-10-04 10:15:00 Completed [facility] Moderna COVID-19 Vaccine Moderna COVID-19 Vaccine 2021-08-05 10:19:00 Completed [facility] Moderna COVID-19 Vaccine Moderna COVID-19 Vaccine 2021-08-05 10:19:00 Completed [facility] Moderna COVID-19 Vaccine Moderna COVID-19 Vaccine 2021-08-05 10:19:00 Completed Common [facility] Moderna COVID-19 Vaccine Moderna COVID-19 Vaccine 2021-08-05 10:19:00 Completed Common [facility] Moderna COVID-19 Vaccine Moderna COVID-19 Vaccine 2021-08-05 10:19:00 Completed [facility] Moderna COVID-19 Vaccine Moderna COVID-19 Vaccine 2021-08-05 10:19:00 Completed Common [facility] Moderna COVID-19 Vaccine Moderna COVID-19 Vaccine 2021-08-05 10:19:00 Completed [facility] Moderna COVID-19 Vaccine Moderna COVID-19 Vaccine 2021-08-05 10:19:00 Completed [facility] Moderna COVID-19 Vaccine Moderna COVID-19 Vaccine 2021-08-05 10:19:00 Completed [facility] Moderna COVID-19 Vaccine Moderna COVID-19 Vaccine 2021-08-05 10:19:00 Completed [facility] Moderna COVID-19 Vaccine Moderna COVID-19 Vaccine 2021-08-05 10:19:00 Completed [facility] Moderna COVID-19 Vaccine Moderna COVID-19 Vaccine 2021-08-05 10:19:00 Completed [facility] Moderna COVID-19 Vaccine Moderna COVID-19 Vaccine 2021-07-08 09:01:00 Completed [facility] Moderna COVID-19 Vaccine Moderna COVID-19 Vaccine 2021-07-08 09:01:00 Completed [facility] Moderna COVID-19 Vaccine Moderna COVID-19 Vaccine 2021-07-08 09:01:00 Completed [facility] Moderna COVID-19 Vaccine Moderna COVID-19 Vaccine 2021-07-08 09:01:00 Completed [facility] Moderna COVID-19 Vaccine Moderna COVID-19 Vaccine 2021-07-08 09:01:00 Completed [facility] Moderna COVID-19 Vaccine Moderna COVID-19 Vaccine 2021-07-08 09:01:00 Completed [facility] Moderna COVID-19 Vaccine Moderna COVID-19 Vaccine 2021-07-08 09:01:00 Completed [facility] Moderna COVID-19 Vaccine Moderna COVID-19 Vaccine 2021-07-08 09:01:00 Completed [facility] Moderna COVID-19 Vaccine Moderna COVID-19 Vaccine 2021-07-08 09:01:00 Completed [facility] Moderna COVID-19 Vaccine Moderna COVID-19 Vaccine 2021-07-08 09:01:00 Completed [facility] Moderna COVID-19 Vaccine Moderna COVID-19 Vaccine 2021-07-08 09:01:00 Completed [facility] Moderna COVID-19 Vaccine Moderna COVID-19 Vaccine 2021-07-08 09:01:00 Completed [facility] Prevnar 13 (PCV13) Prevnar 13 (PCV13) 2021-07-05 12:03:00 Completed [facility] Prevnar 13 (PCV13) Prevnar 13 (PCV13) 2021-07-05 12:03:00 Completed [facility] Prevnar 13 (PCV13) Prevnar 13 (PCV13) 2021-07-05 12:03:00 Completed [facility] Prevnar 13 (PCV13) Prevnar 13 (PCV13) 2021-07-05 12:03:00 Completed [facility] Prevnar 13 (PCV13) Prevnar 13 (PCV13) 2021-07-05 12:03:00 Completed [facility] Prevnar 13 (PCV13) Prevnar 13 (PCV13) 2021-07-05 12:03:00 Completed [facility] Prevnar 13 (PCV13) Prevnar 13 (PCV13) 2021-07-05 12:03:00 Completed [facility] Prevnar 13 (PCV13) Prevnar 13 (PCV13) 2021-07-05 12:03:00 Completed [facility] Prevnar 13 (PCV13) Prevnar 13 (PCV13) 2021-07-05 12:03:00 Completed [facility] Prevnar 13 (PCV13) Prevnar 13 (PCV13) 2021-07-05 12:03:00 Completed [facility] Prevnar 13 (PCV13) Prevnar 13 (PCV13) 2021-07-05 12:03:00 Completed [facility] Prevnar 13 (PCV13) Prevnar 13 (PCV13) 2021-07-05 12:03:00 Completed [facility] Prevnar 20 (PCV20) Prevnar 20 (PCV20) Unknown Completed [facility] Moderna COVID-19 Vaccine Moderna COVID-19 Vaccine Unknown Completed [facility] Fluzone Fluzone Unknown Completed [facility] FLUZONE HIGH DOSE OVER 65 FLUZONE HIGH DOSE OVER 65 Unknown Completed [facility] Prevnar 13 (PCV13) Prevnar 13 (PCV13) Unknown Completed [facility] Prevnar 20 (PCV20) Prevnar 20 (PCV20) Unknown Completed [facility] Moderna COVID-19 Vaccine Moderna COVID-19 Vaccine Unknown Completed [facility] Fluzone Fluzone Unknown Completed [facility] FLUZONE HIGH DOSE OVER 65 FLUZONE HIGH DOSE OVER 65 Unknown Completed [facility] Prevnar 13 (PCV13) Prevnar 13 (PCV13) Unknown Completed [facility] Prevnar 20 (PCV20) Prevnar 20 (PCV20) Unknown Completed [facility] Moderna COVID-19 Vaccine Moderna COVID-19 Vaccine Unknown Completed [facility] Fluzone Fluzone Unknown Completed [facility] FLUZONE HIGH DOSE OVER 65 FLUZONE HIGH DOSE OVER 65 Unknown Completed [facility] Prevnar 13 (PCV13) Prevnar 13 (PCV13) Unknown Completed [facility] Prevnar 20 (PCV20) Prevnar 20 (PCV20) Unknown Completed [facility] Moderna COVID-19 Vaccine Moderna COVID-19 Vaccine Unknown Completed [facility] Fluzone Fluzone Unknown Completed [facility] FLUZONE HIGH DOSE OVER 65 FLUZONE HIGH DOSE OVER 65 Unknown Completed [facility] Prevnar 13 (PCV13) Prevnar 13 (PCV13) Unknown Completed [facility] Prevnar 20 (PCV20) Prevnar 20 (PCV20) Unknown Completed [facility] Moderna COVID-19 Vaccine Moderna COVID-19 Vaccine Unknown Completed [facility] Fluzone Fluzone Unknown Completed [facility] FLUZONE HIGH DOSE OVER 65 FLUZONE HIGH DOSE OVER 65 Unknown Completed [facility] Prevnar 13 (PCV13) Prevnar 13 (PCV13) Unknown Completed [facility] Prevnar 20 (PCV20) Prevnar 20 (PCV20) Unknown Completed [facility] Moderna COVID-19 Vaccine Moderna COVID-19 Vaccine Unknown Completed [facility] Fluzone Fluzone Unknown Completed [facility] FLUZONE HIGH DOSE OVER 65 FLUZONE HIGH DOSE OVER 65 Unknown Completed [facility] Prevnar 13 (PCV13) Prevnar 13 (PCV13) Unknown Completed [facility] Prevnar 20 (PCV20) Prevnar 20 (PCV20) Unknown Completed [facility] Moderna COVID-19 Vaccine Moderna COVID-19 Vaccine Unknown Completed [facility] Fluzone Fluzone Unknown Completed [facility] FLUZONE HIGH DOSE OVER 65 FLUZONE HIGH DOSE OVER 65 Unknown Completed [facility] Prevnar 13 (PCV13) Prevnar 13 (PCV13) Unknown Completed [facility] Prevnar 20 (PCV20) Prevnar 20 (PCV20) Unknown Completed [facility] Moderna COVID-19 Vaccine Moderna COVID-19 Vaccine Unknown Completed [facility] Fluzone Fluzone Unknown Completed [facility] FLUZONE HIGH DOSE OVER 65 FLUZONE HIGH DOSE OVER 65 Unknown Completed [facility] Prevnar 13 (PCV13) Prevnar 13 (PCV13) Unknown Completed [facility] Prevnar 20 (PCV20) Prevnar 20 (PCV20) Unknown Completed [facility] Moderna COVID-19 Vaccine Moderna COVID-19 Vaccine Unknown Completed [facility] Fluzone Fluzone Unknown Completed [facility] FLUZONE HIGH DOSE OVER 65 FLUZONE HIGH DOSE OVER 65 Unknown Completed [facility] Prevnar 13 (PCV13) Prevnar 13 (PCV13) Unknown Completed [facility] Prevnar 20 (PCV20) Prevnar 20 (PCV20) Unknown Completed [facility] Moderna COVID-19 Vaccine Moderna COVID-19 Vaccine Unknown Completed [facility] Fluzone Fluzone Unknown Completed [facility] FLUZONE HIGH DOSE OVER 65 FLUZONE HIGH DOSE OVER 65 Unknown Completed [facility] Prevnar 13 (PCV13) Prevnar 13 (PCV13) Unknown Completed [facility] Prevnar 20 (PCV20) Prevnar 20 (PCV20) Unknown Completed [facility] Moderna COVID-19 Vaccine Moderna COVID-19 Vaccine Unknown Completed [facility] Fluzone Fluzone Unknown Completed [facility] FLUZONE HIGH DOSE OVER 65 FLUZONE HIGH DOSE OVER 65 Unknown Completed [facility] Prevnar 13 (PCV13) Prevnar 13 (PCV13) Unknown Completed [facility] Prevnar 20 (PCV20) Prevnar 20 (PCV20) Unknown Completed [facility] Moderna COVID-19 Vaccine Moderna COVID-19 Vaccine Unknown Completed [facility] Fluzone Fluzone Unknown Completed [facility] FLUZONE HIGH DOSE OVER 65 FLUZONE HIGH DOSE OVER 65 Unknown Completed [facility] Prevnar 13 (PCV13) Prevnar 13 (PCV13) Unknown Completed [facility] Prevnar 20 (PCV20) Prevnar 20 (PCV20) Unknown Completed [facility] Moderna COVID-19 Vaccine Moderna COVID-19 Vaccine Unknown Completed [facility] Fluzone Fluzone Unknown Completed [facility] FLUZONE HIGH DOSE OVER 65 FLUZONE HIGH DOSE OVER 65 Unknown Completed [facility] Prevnar 13 (PCV13) Prevnar 13 (PCV13) Unknown Completed [facility] Prevnar 20 (PCV20) Prevnar 20 (PCV20) Unknown Completed [facility] Moderna COVID-19 Vaccine Moderna COVID-19 Vaccine Unknown Completed [facility] Fluzone Fluzone Unknown Completed [facility] FLUZONE HIGH DOSE OVER 65 FLUZONE HIGH DOSE OVER 65 Unknown Completed [facility] Prevnar 13 (PCV13) Prevnar 13 (PCV13) Unknown Completed [facility] Vital Signs Vital Name Observation Time Observation Value Comments S ource height 2024-10-24 09:30:00 67 [in_i] Commo n [facility] weight 2024-10-24 09:30:00 201 [lb_av] Comm on [facility] bmi 2024-10-24 09:30:00 31.48 kg/m2 Comm on [facility] blood pressure systolic 2024-10-24 09:30:00 121 mm[Hg] [facility] blood pressure diastolic 2024-10-24 09:30:00 76 mm[Hg] [facility] height 2024-09-30 13:20:00 67 [in_i] Commo n [facility] weight 2024-09-30 13:20:00 202.4 [lb_av] Co mmon [facility] temperature 2024-09-30 13:20:00 97.5 [degF] Com [facility] bmi 2024-09-30 13:20:00 31.7 kg/m2 Commo n [facility] oximetry 2024-09-30 13:20:00 97 % Commo n [facility] respiratory rate 2024-09-30 13:20:00 17 /min [facility] blood pressure systolic 2024-09-30 13:20:00 119 mm[Hg] [facility] blood pressure diastolic 2024-09-30 13:20:00 59 mm[Hg] Common [facility] height 2024-06-17 10:00:00 67 [in_i] Commo n [facility] weight 2024-06-17 10:00:00 205.4 [lb_av] Co mmon [facility] temperature 2024-06-17 10:00:00 97.4 [degF] Com [facility] bmi 2024-06-17 10:00:00 32.17 kg/m2 Comm on [facility] oximetry 2024-06-17 10:00:00 96 % Commo n [facility] respiratory rate 2024-06-17 10:00:00 16 /min [facility] blood pressure systolic 2024-06-17 10:00:00 130 mm[Hg] [facility] blood pressure diastolic 2024-06-17 10:00:00 68 mm[Hg] Common [facility] height 2024-06-17 10:00:00 67 [in_i] Commo n [facility] weight 2024-06-17 10:00:00 205.4 [lb_av] Co mmon [facility] temperature 2024-06-17 10:00:00 97.4 [degF] Com mon [facility] bmi 2024-06-17 10:00:00 32.17 kg/m2 Comm on [facility] oximetry 2024-06-17 10:00:00 96 % Commo n [facility] respiratory rate 2024-06-17 10:00:00 16 /min [facility] blood pressure systolic 2024-06-17 10:00:00 130 mm[Hg] [facility] blood pressure diastolic 2024-06-17 10:00:00 68 mm[Hg] [facility] height 2024-06-17 10:00:00 67 [in_i] Commo n [facility] weight 2024-06-17 10:00:00 205.4 [lb_av] Co mmon [facility] temperature 2024-06-17 10:00:00 97.4 [degF] Com mon [facility] bmi 2024-06-17 10:00:00 32.17 kg/m2 Comm on [facility] oximetry 2024-06-17 10:00:00 96 % Commo n [facility] respiratory rate 2024-06-17 10:00:00 16 /min [facility] blood pressure systolic 2024-06-17 10:00:00 130 mm[Hg] [facility] blood pressure diastolic 2024-06-17 10:00:00 68 mm[Hg] [facility] height 2024-02-08 11:10:00 67 [in_i] Commo n [facility] weight 2024-02-08 11:10:00 209 [lb_av] Comm on [facility] temperature 2024-02-08 11:10:00 98 [degF] Comm on [facility] bmi 2024-02-08 11:10:00 32.73 kg/m2 Comm on [facility] blood pressure systolic 2024-02-08 11:10:00 116 mm[Hg] [facility] blood pressure diastolic 2024-02-08 11:10:00 78 mm[Hg] [facility] BMI (Body Mass Index) 2023-12-25 00:00:00 34 kg/m2 [facility] Body Weight 2023-12-25 00:00:00 210.4 [lb_av] [facility] BP Diastolic 2023-12-25 00:00:00 69 mm[Hg] [facility] Height 2023-12-25 00:00:00 66 [in_i] [facility] BP Systolic 2023-12-25 00:00:00 146 mm[Hg] [facility] height 2023-10-09 11:40:00 67 [in_i] Commo n [facility] weight 2023-10-09 11:40:00 206 [lb_av] Comm on [facility] temperature 2023-10-09 11:40:00 98 [degF] Comm on [facility] bmi 2023-10-09 11:40:00 32.26 kg/m2 Comm on [facility] blood pressure systolic 2023-10-09 11:40:00 132 mm[Hg] [facility] blood pressure diastolic 2023-10-09 11:40:00 70 mm[Hg] [facility] height 2023-07-10 09:50:00 67 [in_i] Commo n [facility] weight 2023-07-10 09:50:00 211.0 [lb_av] Co [facility] temperature 2023-07-10 09:50:00 97.9 [degF] Com mon [facility] bmi 2023-07-10 09:50:00 33.04 kg/m2 Comm on [facility] oximetry 2023-07-10 09:50:00 98 % Commo n [facility] respiratory rate 2023-07-10 09:50:00 18 /min [facility] blood pressure systolic 2023-07-10 09:50:00 122 mm[Hg] [facility] blood pressure diastolic 2023-07-10 09:50:00 65 mm[Hg] [facility] height 2023-07-10 10:00:00 67 [in_i] Commo n [facility] weight 2023-07-10 10:00:00 211.0 [lb_av] Co m[facility] temperature 2023-07-10 10:00:00 97.9 [degF] Com mon [facility] bmi 2023-07-10 10:00:00 33.04 kg/m2 Comm on [facility] oximetry 2023-07-10 10:00:00 98 % Commo n [facility] respiratory rate 2023-07-10 10:00:00 18 /min [facility] blood pressure systolic 2023-07-10 10:00:00 122 mm[Hg] [facility] blood pressure diastolic 2023-07-10 10:00:00 65 mm[Hg] [facility] height 2023-03-05 11:40:00 67 [in_i] Commo n [facility] weight 2023-03-05 11:40:00 197 [lb_av] Comm on [facility] temperature 2023-03-05 11:40:00 97 [degF] Comm on [facility] bmi 2023-03-05 11:40:00 30.85 kg/m2 Comm on [facility] blood pressure systolic 2023-03-05 11:40:00 132 mm[Hg] [facility] blood pressure diastolic 2023-03-05 11:40:00 70 mm[Hg] [facility] [facility] height 2022-12-06 11:20:00 67 [in_i] Commo n [facility] weight 2022-12-06 11:20:00 198 [lb_av] Comm on [facility] temperature 2022-12-06 11:20:00 98 [degF] Comm on [facility] bmi 2022-12-06 11:20:00 31.01 kg/m2 Comm on [facility] blood pressure systolic 2022-12-06 11:20:00 126 mm[Hg] [facility] blood pressure diastolic 2022-12-06 11:20:00 76 mm[Hg] [facility] height 2022-11-01 14:40:00 67 [in_i] Commo n [facility] weight 2022-11-01 14:40:00 198.1 [lb_av] Co on [facility] bmi 2022-11-01 14:40:00 31.02 kg/m2 Comm on [facility] height 2022-09-04 11:20:00 67 [in_i] Commo n [facility] weight 2022-09-04 11:20:00 198.1 [lb_av] Co [facility] temperature 2022-09-04 11:20:00 98.1 [degF] Com mon [facility] bmi 2022-09-04 11:20:00 31.02 kg/m2 Comm on [facility] oximetry 2022-09-04 11:20:00 95 % Commo n [facility] respiratory rate 2022-09-04 11:20:00 18 /min Common [facility] blood pressure systolic 2022-09-04 11:20:00 133 mm[Hg] [facility] blood pressure diastolic 2022-09-04 11:20:00 68 mm[Hg] [facility] height 2022-08-03 10:20:00 67 [in_i] Commo n [facility] weight 2022-08-03 10:20:00 198.2 [lb_av] Co mmon [facility] temperature 2022-08-03 10:20:00 97.1 [degF] Com mon [facility] bmi 2022-08-03 10:20:00 31.04 kg/m2 Comm on [facility] oximetry 2022-08-03 10:20:00 99 % Commo n [facility] respiratory rate 2022-08-03 10:20:00 18 /min Common [facility] blood pressure systolic 2022-08-03 10:20:00 127 mm[Hg] [facility] blood pressure diastolic 2022-08-03 10:20:00 74 mm[Hg] [facility] height 2022-08-03 09:20:00 67 [in_i] Commo n [facility] weight 2022-08-03 09:20:00 198.2 [lb_av] Co mmon [facility] temperature 2022-08-03 09:20:00 97.1 [degF] Com [facility] bmi 2022-08-03 09:20:00 31.04 kg/m2 Comm on [facility] oximetry 2022-08-03 09:20:00 99 % Commo n [facility] respiratory rate 2022-08-03 09:20:00 18 /min Common [facility] blood pressure systolic 2022-08-03 09:20:00 127 mm[Hg] Common [facility] blood pressure diastolic 2022-08-03 09:20:00 74 mm[Hg] [facility] height 2022-05-04 11:10:00 67 [in_i] Commo n [facility] weight 2022-05-04 11:10:00 200.7 [lb_av] Co mmon [facility] temperature 2022-05-04 11:10:00 97.9 [degF] Com mon [facility] bmi 2022-05-04 11:10:00 31.43 kg/m2 Comm on [facility] oximetry 2022-05-04 11:10:00 97 % Commo n [facility] respiratory rate 2022-05-04 11:10:00 17 /min Common [facility] blood pressure systolic 2022-05-04 11:10:00 135 mm[Hg] [facility] blood pressure diastolic 2022-05-04 11:10:00 78 mm[Hg] [facility] height 2022-01-03 08:30:00 67 [in_i] Commo n [facility] weight 2022-01-03 08:30:00 197 [lb_av] Comm on [facility] temperature 2022-01-03 08:30:00 97.4 [degF] Com mon [facility] bmi 2022-01-03 08:30:00 30.85 kg/m2 Comm on [facility] blood pressure systolic 2022-01-03 08:30:00 132 mm[Hg] [facility] blood pressure diastolic 2022-01-03 08:30:00 73 mm[Hg] [facility] height 2021-12-21 13:20:00 67 [in_i] Commo n [facility] weight 2021-12-21 13:20:00 198 [lb_av] Comm on [facility] bmi 2021-12-21 13:20:00 31.01 kg/m2 Comm on [facility] height 2021-10-25 09:40:00 67 [in_i] Commo n [facility] weight 2021-10-25 09:40:00 197.5 [lb_av] Co mmon [facility] temperature 2021-10-25 09:40:00 98.4 [degF] Com mon [facility] bmi 2021-10-25 09:40:00 30.93 kg/m2 Comm on [facility] oximetry 2021-10-25 09:40:00 97 % Commo n [facility] respiratory rate 2021-10-25 09:40:00 17 /min [facility] blood pressure systolic 2021-10-25 09:40:00 135 mm[Hg] [facility] blood pressure diastolic 2021-10-25 09:40:00 74 mm[Hg] [facility] height 2021-10-04 10:00:00 67 [in_i] Commo n [facility] weight 2021-10-04 10:00:00 199.8 [lb_av] Co mmon [facility] temperature 2021-10-04 10:00:00 98.1 [degF] Com mon [facility] bmi 2021-10-04 10:00:00 31.29 kg/m2 Comm on [facility] oximetry 2021-10-04 10:00:00 95 % Commo n [facility] respiratory rate 2021-10-04 10:00:00 16 /min [facility] blood pressure systolic 2021-10-04 10:00:00 133 mm[Hg] [facility] blood pressure diastolic 2021-10-04 10:00:00 72 mm[Hg] [facility] Procedures Procedure Date / Time Performed Performing Clinician Source MAMMO, screening, digital, bilateral 2023-12-25 00:00:00 [facility] [id number] 2021-10-21 00:00:00 WILLY [facility] Cardiac - Coronary Artery Stent 2020-11-05 00:00:00 [facility] Cholecystectomy (Gallbladder) 2017-11-05 00:00:00 [facility] Plan of Care Planned Activity Planned Date Details Comments Source Diagnostic Test Pending 2023-12-25 00:00:00 urin alysis, dipstick [code = urinalysis, dipstick] [facility] Medical Future Appointment 2025-12-28 11:30:00 Makayla aguayo, [address] [place] [address] Dr Campbell; [address] [address], [place] [address] [facility] Medical Encounters Start Date/Time End Date/Time Encounter Type Admission Type Attending [facility] Care Department Encounter ID Source 2024-01-04 10:43:00 Outpatient [place], Suzanna STLMLC STLMLC [id number] [facility] 2023-11-30 08:23:00 Outpatient [place], Suzanna STLC STLMLC [id number] [facility] 2022-12-06 07:55:01 Outpatient [place], Suzanna STLC STLMLC [id number] [facility] 2022-08-31 09:17:06 Outpatient [place], Suzanna STLC STLMLC [id number] [facility] 2022-05-02 10:18:02 Outpatient [place], Suzanna STLC STLMLC [id number] [facility] 2021-11-30 14:18:57 Outpatient [place], Suzanna STLMLC STLMLC [id number] [facility] 2021-11-30 14:09:44 Outpatient [place], Suzanna STLC STLMLC [id number] [facility] 2021-11-30 13:45:52 Outpatient [place], Suzanna STLMLC STLMLC [id number] [facility] 2021-11-30 13:45:04 Outpatient [place], Suzanna STLMLC STLMLC [id number] [facility] 2021-11-30 13:43:37 Outpatient STLMLC STLMLC [id number] [facility] 2021-11-30 13:21:03 Outpatient COVINGTON, SUZANNA STLC STLMLC [id number] [facility] 2024-10-24 00:00:00 2024-10-24 00:00:00 OFFICE VISIT ESTAB PT LEVEL 4 STLMLC STLMLC [id number] [facility] 2024-09-30 00:00:00 2024-09-30 00:00:00 (TEL) STLMLC STLMLC [id number] [facility] 2024-09-30 00:00:00 2024-09-30 00:00:00 OFFICE VISIT ESTAB PT LEVEL 4 STLMLC STLMLC [id number] [facility] 2024-09-26 00:00:00 2024-09-26 00:00:00 (TEL) STLMLC STLMLC [id number] [facility] 2024-09-26 00:00:00 2024-09-26 00:00:00 (TEL) STLMLC STLMLC [id number] [facility] 2024-06-17 00:00:00 2024-06-17 00:00:00 OFFICE VISIT ESTAB PT LEVEL 4 STLMLC STLMLC [id number] [facility] 2024-06-17 00:00:00 2024-06-17 00:00:00 SUB ANNUAL [facility] WELLNESS VISIT STLMLC STLMLC [id number] [facility] 2024-04-09 00:00:00 2024-04-09 00:00:00 (TEL) STLMLC STLMLC [id number] [facility] 2024-02-08 00:00:00 2024-02-08 00:00:00 OFFICE VISIT ESTAB PT LEVEL 4 STLMLC STLMLC [id number] [facility] 2024-01-04 00:00:00 2024-01-04 00:00:00 (TEL) STLMLC STLMLC [id number] [facility] 2023-12-25 00:00:00 2023-12-25 00:00:00 Outpatient GC_GCBZW_Ka dijose mariaa_S [facility] [id number] [facility] 2023-12-25 00:00:2023-12-25 00:00:00 Aleena Graham, MUSEUM EXHIBIT TECHNICIAN: [address], [place] [address] , Ph. [facility] - GC_GCBZW_La dwight [place]* [id number] [facility] 2023-12-17 00:00:00 2023-12-17 00:00:00 Outpatient GC_GCBZW_Ka diyala_S PRIV PRIV [id number] [facility] 2023-12-13 00:00:00 2023-12-13 00:00:00 (TEL) STLMLC STLC [id number] [facility] 2023-12-12 00:00:00 2023-12-12 00:00:00 Outpatient GC_GCBZW_Ka diyala_S PRIV PRIV [id number] [facility] 2023-11-29 00:00:00 2023-11-29 00:00:00 (TEL) STLMLC STLC [id number] [facility] 2023-10-15 00:00:00 2023-10-15 00:00:00 (TEL) STLMLC STLMLC [id number] [facility] 2023-10-09 00:00:00 2023-10-09 00:00:00 OFFICE VISIT ESTAB PT LEVEL 4 STLMLC STLMLC [id number] [facility] 2023-10-01 00:00:00 2023-10-01 00:00:00 Outpatient GC_GCBZW_Ka diyala_S PRIV PRIV [id number] [facility] 2023-09-04 00:00:00 2023-09-04 00:00:00 Outpatient GC_GCBZW_Ka diyala_S PRIV PRIV [id number] [facility] 2023-09-03 00:00:00 2023-09-03 00:00:00 (TEL) STLMLC STLMLC [id number] [facility] 2023-07-10 00:00:00 2023-07-10 00:00:00 OFFICE VISIT ESTAB PT LEVEL 4 STLMLC STLMLC [id number] [facility] 2023-07-10 00:00:00 2023-07-10 00:00:00 SUB ANNUAL MCR WELLNESS VISIT STLMLC STLMLC [id number] [facility] 2023-07-10 00:00:00 2023-07-10 00:00:00 (TEL) STLMLC STLMLC [id number] [facility] 2023-03-05 00:00:00 2023-03-05 00:00:00 OFFICE VISIT ESTAB PT LEVEL 4 STLMLC STLMLC [id number] [facility] 2023-01-05 00:00:00 2023-01-05 00:00:00 (TEL) STLMLC STLMLC [id number] [facility] 2022-12-26 00:00:00 2022-12-26 00:00:00 (TEL) STLMLC STLMLC [id number] [facility] 2022-12-06 00:00:00 2022-12-06 00:00:00 OFFICE VISIT ESTAB PT LEVEL 4 STLMLC STLMLC [id number] [facility] 2022-11-01 00:00:00 2022-11-01 00:00:00 OFFICE VISIT EST PT LEVEL 3 STLMLC STLMLC [id number] [facility] 2022-11-01 00:00:00 2022-11-01 00:00:00 (TEL) STLMLC STLMLC [id number] [facility] 2022-10-06 00:00:00 2022-10-06 00:00:00 (TEL) STLMLC STLMLC [id number] [facility] 2022-09-04 00:00:00 2022-09-04 00:00:00 OFFICE VISIT ESTAB PT LEVEL 4 STLMLC STLMLC [id number] [facility] 2022-08-03 00:00:00 2022-08-03 00:00:00 SUB ANNUAL MCR WELLNESS VISIT STLMLC STLMLC [id number] [facility] 2022-08-03 00:00:00 2022-08-03 00:00:00 OFFICE VISIT ESTAB PT LEVEL 4 STLMLC STLMLC [id number] [facility] 2022-07-24 00:00:00 2022-07-24 00:00:00 (TEL) STLMLC STLMLC [id number] [facility] 2022-07-03 00:00:00 2022-07-03 00:00:00 (TEL) STLMLC STLMLC [id number] [facility] 2022-05-04 00:00:00 2022-05-04 00:00:00 OFFICE VISIT ESTAB PT LEVEL 4 STLMLC STLMLC [id number] [facility] 2022-03-09 00:00:00 2022-03-09 00:00:00 (TEL) STLMLC STLMLC [id number] [facility] 2022-01-03 00:00:00 2022-01-03 00:00:00 OFFICE VISIT ESTAB PT LEVEL 4 STLMLC STLMLC [id number] [facility] 2022-01-02 00:00:00 2022-01-02 00:00:00 (TEL) STLMLC STLMLC [id number] [facility] 2021-12-28 05:25:00 2021-12-28 05:25:00 Inpatient Ted Sevilla [facility] OUTD [id number] [facility] 2021-12-21 00:00:00 2021-12-21 00:00:00 OFFICE VISIT EST PT LEVEL 3 STLMLC STLMLC [id number] [facility] 2021-12-20 00:00:00 2021-12-20 00:00:00 (TEL) STLMLC STLMLC [id number] [facility] 2021-11-16 05:04:00 2021-11-16 05:04:00 Inpatient Ted Sevilla [facility] OUTD [id number] [facility] 2021-10-25 00:00:00 2021-10-25 00:00:00 (HOSP F/U) Hospital Follow Up STLMLC STLMLC [id number] [facility] 2021-10-25 00:00:00 2021-10-25 00:00:00 (TEL) STLMLC STLMLC [id number] [facility] 2021-10-24 00:00:00 2021-10-24 00:00:00 (TEL) STLMLC STLMLC [id number] [facility] 2021-10-11 05:17:00 2021-10-11 05:17:00 Inpatient Lissette Sevillaem [facility] OUTD [id number] [facility] 2021-10-10 09:00:00 2021-10-10 23:00:00 Outpatient JOHN MontielTed [facility] 3DAY [id number] [facility] 2021-10-04 00:00:00 2021-10-04 00:00:00 OFFICE VISIT ESTAB PT LEVEL 4 STLMLC STLMLC [id number] [facility] 2021-09-05 00:00:00 2021-09-05 00:00:00 (TEL) STLMLC STLMLC [id number] [facility] 2021-08-31 00:00:00 2021-08-31 00:00:00 (TEL) STLMLC STLMLC [id number] [facility] 2021-08-31 00:00:00 2021-08-31 00:00:00 (TEL) STLMLC STLMLC [id number] [facility] 2021-08-05 00:00:00 2021-08-05 00:00:00 (COVID Inj) COVID Injection STLMLC STLMLC [id number] [facility] 2021-07-08 00:00:00 2021-07-08 00:00:00 Outpatient STLMLC STLMLC [id number] [facility] 2021-07-05 00:00:00 2021-07-05 00:00:00 [facility] [id number] [facility] 2021-07-05 00:00:00 2021-07-05 00:00:00 Outpatient STLC STLC [id number] [facility] 2021-07-05 00:00:00 2021-07-05 00:00:00 [facility] [id number] [facility] 2021-05-04 00:00:00 2021-05-04 00:00:00 [facility] [id number] [facility] Results Test Description Test Time Test Comments Results Result Co mments Source Urinalysis macro (dipstick) panel - [id number] 11:49:32* Test Item Value Reference Range Interpretation Comme nts Leukocytes (test code = Leukocytes) Negative Nitrite (test code = Nitrite) negative Urobilinogen (test code = Urobilinogen) Normal Protein (test code = Protein) Negative pH (test code = pH) 6.0 Blood (test code = Blood) Negative Specific [place] (test code = Specific [place]) 1.005 Ketone (test code = Ketone) Negative Bilirubin (test code = Bilirubin) Negative Glucose (test code = Glucose) Negative Appearance (test code = Appearance) Clear Color (test code = Color) Yellow [facility] W/AUTO [id number] 00:00:00* Test Item Value Reference Range Interpretation Comme nts NUCLEATED RBCS (test code = 18929-3) 0.0 /100 WBC'S See_Comment [Automated [employer]] The system which generated this result transmitted reference range: 0.0 /100 WBC'S. The reference range was not used to interpret this result as normal/abnormal. ABSOLUTE EOSINOPHILS (test code = 60422-4) 0.33 K/UL See_Comment [Automated [employer]] The system which generated this result transmitted reference range: 0.00-0.50 K/UL. The reference range was not used to interpret this result as normal/abnormal. ABSOLUTE LYMPHOCYTES (test code = 32274-0) 3.46 K/UL See_Comment [Automated messa ge] The system which generated this result transmitted reference range: 1.00-4.00 K/UL. The reference range was not used to interpret this result as normal/abnormal. ABSOLUTE MONOCYTES (test code = 07347-5) 0.61 K/UL See_Comment [Automated messa ge] The system which generated this result transmitted reference range: 0.20-1.00 K/UL. The reference range was not used to interpret this result as normal/abnormal. ABSOLUTE NEUTROPHILS (test code = 05315-1) 3.17 K/UL See_Comment [Automated messa ge] The system which generated this result transmitted reference range: 1.50-7.50 K/UL. The reference range was not used to interpret this result as normal/abnormal. BASOPHILS (test code = 67796-1) 1.0 % EOSINOPHILS (test code = 18261-6) 4.3 % HEMATOCRIT (test code = 56044-4) 41.2 % See_Comment [Automated messa ge] The [...] result as normal/abnormal. LYMPHOCYTES (test code = 20007-8) 44.9 % MCH (test code = 60393-0) 31.0 PG See_Comment [Automated messa ge] The system which generated this result transmitted reference range: 25.0-33.0 PG. The reference range was not used to interpret this result as normal/abnormal. MCHC (test code = 98871-5) 34.2 G/DL See_Comment [Automated messa ge] The system which generated this result transmitted reference range: 31.0-36.0 G/DL. The reference range was not used to interpret this result as normal/abnormal. MCV (test code = 81821-0) 90.5 fL See_Comment [Automated messa ge] The system which generated this result transmitted reference range: 80.0-99.0 fL. The reference range was not used to interpret this result as normal/abnormal. MONOCYTES (test code = 26723-6) 7.9 % NEUTROPHILS (test code = 59124-9) 41.3 % PLATELET COUNT (test code = 78071-3) 363 K/UL See_Comment [Automated messa ge] The system which generated this result transmitted reference range: 130-400 K/UL. The reference range was not used to interpret this result as normal/abnormal. RBC (test code = 02560-5) 4.55 M/UL See_Comment [Automated messa ge] The system which generated this result transmitted reference range: 3.80-5.40 M/UL. The reference range was not used to interpret this result as normal/abnormal. RDW (test code = 75890-1) 13.9 % See_Comment [Automated messa ge] The system which generated this result transmitted reference range: 11.5-15.0 %. The reference range was not used to interpret this result as normal/abnormal. WBC (test code = 67819-5) 7.7 K/UL See_Comment [Automated messa ge] The system which generated this result transmitted reference range: 3.5-11.0 K/UL. The reference range was not used to interpret this result as normal/abnormal. CBC W/AUTO [id number] 00:00:00* Test Item Value Reference Range Interpretation Comme nts NUCLEATED RBCS (test code = 26205-6) 0.0 /100 WBC'S See_Comment [Automated messa ge] The system which generated this result transmitted reference range: 0.0 /100 WBC'S. The reference range was not used to interpret this result as normal/abnormal. ABSOLUTE EOSINOPHILS (test code = 62866-4) 0.27 K/UL See_Comment [Automated messa ge] The system which generated this result transmitted reference range: 0.00-0.50 K/UL. The reference range was not used to interpret this result as normal/abnormal. ABSOLUTE LYMPHOCYTES (test code = 36634-3) 3.28 K/UL See_Comment [Automated messa ge] The system which generated this result transmitted reference range: 1.00-4.00 K/UL. The reference range was not used to interpret this result as normal/abnormal. ABSOLUTE MONOCYTES (test code = 30232-9) 0.82 K/UL See_Comment [Automated messa ge] The system which generated this result transmitted reference range: 0.20-1.00 K/UL. The reference range was not used to interpret this result as normal/abnormal. ABSOLUTE NEUTROPHILS (test code = 72982-8) 3.58 K/UL See_Comment [Automated messa ge] The system which generated this result transmitted reference range: 1.50-7.50 K/UL. The reference range was not used to interpret this result as normal/abnormal. BASOPHILS (test code = 44464-6) 1.4 % EOSINOPHILS (test code = 70976-0) 3.3 % HEMATOCRIT (test code = 38188-5) 43.7 % See_Comment [Automated messa ge] The [...] result as normal/abnormal. LYMPHOCYTES (test code = 34973-4) 40.3 % MCH (test code = 47096-4) 30.8 PG See_Comment [Automated messa ge] The system which generated this result transmitted reference range: 25.0-33.0 PG. The reference range was not used to interpret this result as normal/abnormal. MCHC (test code = 75887-7) 34.6 G/DL See_Comment [Automated messa ge] The system which generated this result transmitted reference range: 31.0-36.0 G/DL. The reference range was not used to interpret this result as normal/abnormal. MCV (test code = 60374-7) 89.0 fL See_Comment [Automated messa ge] The system which generated this result transmitted reference range: 80.0-99.0 fL. The reference range was not used to interpret this result as normal/abnormal. MONOCYTES (test code = 73243-2) 10.1 % NEUTROPHILS (test code = 70436-2) 43.9 % PLATELET COUNT (test code = 28062-1) 373 K/UL See_Comment [Automated messa ge] The system which generated this result transmitted reference range: 130-400 K/UL. The reference range was not used to interpret this result as normal/abnormal. RBC (test code = 23254-2) 4.91 M/UL See_Comment [Automated [employer]] The system which generated this result transmitted reference range: 3.80-5.40 M/UL. The reference range was not used to interpret this result as normal/abnormal. RDW (test code = 50575-6) 13.7 % See_Comment [Automated [employer]] The system which generated this result transmitted reference range: 11.5-15.0 %. The reference range was not used to interpret this result as normal/abnormal. WBC (test code = 58605-1) 8.1 K/UL See_Comment [Automated messa ge] The system which generated this result transmitted reference range: 3.5-11.0 K/UL. The reference range was not used to interpret this result as normal/abnormal. Lipid Panel With LDL/HDL [id number] 00:00:00* Test Item Value Reference Range Interpretation Comme [facility] Cholesterol, Total (test code = 2093-3) 179 mg/dL See_Comment [Automated message] The system which generated this result transmitted reference range: 100-199 mg/dL. The reference range was not used to interpret this result as normal/abnormal. Triglycerides (test code = 2571-8) 329 mg/dL See_Comment H [Automated [employer]] The system which generated this result transmitted reference range: 0-149 mg/dL. The reference range was not used to interpret this result as normal/abnormal. HDL Cholesterol (test code = 2085-9) 33 mg/dL See_Comment L [Automated [employer]] The system which generated this result transmitted reference range: >39 mg/dL. The reference range was not used to interpret this result as normal/abnormal. [id number] 15:47:00* Test Item Value Reference Range Interpretation Comme nts ACT-ISTAT (test code = ACTI) 255 SEC 74-137 H Performed by cer ICONOGRAFICO double surface operator at [facility] [id number] 15:14:00* Test Item Value Reference Range Interpretation Comme nts ACT-ISTAT (test code = ACTI) 398 SEC 74-137 H Performed by cer ICONOGRAFICO double surface operator at [facility] PROTHROMBIN [id number] 11:06:00* Test Item Value Reference Range Interpretation [...] Infarction (to prevent recurrent infarct). BASIC METABOLIC [id number] 11:03:00* Test Item Value Reference Range Interpretation [...] CA) 9.3 mg/dL 8.0-10.5 N CBC W/AUTO [id number] 10:48:00* Test Item Value Reference Range Interpretation [...] REQUIRED (test c ode = MDIFF) NO [id number] 17:09:00* Test Item Value Reference Range Interpretation Comme nts ACT-ISTAT (test code = ACTI) 249 SEC 74-137 H Performed by cer tified double surface operator at [facility] [id number] 16:29:00* Test Item Value Reference Range Interpretation Comme nts ACT-ISTAT (test code = ACTI) 261 SEC 74-137 H Performed by cer tified double surface operator at [facility] [id number] 16:11:00* Test Item Value Reference Range Interpretation Comme nts ACT-ISTAT (test code = ACTI) 350 SEC 74-137 H Performed by cer tified double surface operator at [facility] BASIC METABOLIC [id number] 13:11:00* Test Item Value Reference Range Interpretation [...] = CA) 9.4 mg/dL 8.0-10.5 N PROTHROMBIN [id number] 13:03:00* Test Item Value Reference Range Interpretation Comme [facility] PROTHROMBIN TIME PATIENT (test code = PTP) [...] Infarction (to prevent recurrent infarct). CBC W/AUTO [id number] 12:56:00* Test Item Value Reference Range Interpretation [...] 3/uL 0.0-0.1 N - XR CHEST 2 [id number] 00:00:00 [facility] 1955 Sex: FFAX: John Landin MD [phone] [place]: St: PRE FAX: Ted Pendleton MD [phone] ----- Name: SIMONA JUÁREZ [facility] : 1955 Age/S: 66/F [address] [place] [address] Unit #: [id number] Loc: [place] [address] Phys: Ted Montiel MD Acct: [id number] Dis Date: Status: PRE SDC PHONE #: [phone] Exam Date: 11/15/2021 1244 FAX #: [phone] Reason: PREOP EXAMS: CPT CODE: [id number] XR CHEST 2 V 88019 PROCEDURE INFORMATION: Exam: XR Chest Exam date [...] Technologist: Nakul Garrett RT(R) Trnscrd Date/Time/By: 11/15/2021 (4165) : By: [email or web address] Orig Print D/T: S: 11/15/2021 (8543) PAGE 1 Signed ReportBASIC METABOLIC [id number] 20:17:00* Test Item Value Reference Range Interpretation [...] CA) 8.1 mg/dL 8.0-10.5 N CBC W/AUTO [id number] 19:19:00* Test Item Value Reference Range Interpretation [...] REQUIRED (test c ode = MDIFF) NO [id number] 18:42:00* Test Item Value Reference Range Interpretation Comme nts ACT-ISTAT (test code = ACTI) 255 SEC 74-137 H Performed by cer tified double surface operator at [facility] [id number] 17:59:00* Test Item Value Reference Range Interpretation Comme nts ACT-ISTAT (test code = ACTI) 273 SEC 74-137 H Performed by cer tified double surface operator at [facility] [id number] 17:29:00* Test Item Value Reference Range Interpretation Comme nts ACT-ISTAT (test code = ACTI) 357 SEC 74-137 H Performed by cer tified double surface operator at [facility] BASIC METABOLIC [id number] 11:34:00* Test Item Value Reference Range Interpretation [...] = CA) 9.1 mg/dL 8.0-10.5 N PROTHROMBIN [id number] 11:32:00* Test Item Value Reference Range Interpretation [...] Infarction (to prevent recurrent infarct). CBC W/AUTO [id number] 11:11:00* Test Item Value Reference Range Interpretation [...] c ode = MDIFF) NO BASIC METABOLIC [id number] 18:08:00* Test Item Value Reference Range Interpretation [...] = CA) 9.2 mg/dL 8.0-10.5 N PROTHROMBIN [id number] 18:03:00* Test Item Value Reference Range Interpretation [...] Infarction (to prevent recurrent infarct). CBC W/AUTO [id number] 17:52:00* Test Item Value Reference Range Interpretation [...] = MDIFF) NO - XR CHEST 2 [id number] 00:00:00 [facility] SIMONA JUÁREZ : 1955 Sex: FFAX: John Landin MD [phone] [place]: St: PRE FAX: Ted Pendleton MD [phone] ----- Name: SIMONA JUÁREZ [facility] : 1955 Age/S: 66/F [address] [place] [address] Unit #: [id number] Loc: [place] [address] Phys: Ted Montiel MD Acct: [id number] Dis Date: Status: PRE [facility] PHONE #: [phone] Exam Date: 10/10/2021 165 FAX #: [phone] Reason: PREOP EXAMS: CPT CODE: [id number] XR CHEST 2 V 19921 PROCEDURE INFORMATION: Exam: XR Chest Exam date and time: 10/10/2021 4:49 PM Age: 66 years old Clinical indication: Pre-operative exam; Cardiovascular screening and respiratory screeningexam; Additional info: Preop TECHNIQUE: Imaging protocol: XR of the chest. Views: 2 views. PA and Lateral COMPARISON: No relevant prior studies available. FINDINGS: Lungs: The lungs are clear. Pleural spaces: No pleural effusion. No pneumothorax. Heart/Mediastinum: Cardiomediastinal silhouette isnormal in size. Bones/joints: No acute bony finding. IMPRESSION: No acute or active pulmonary findings. at 1722 Reported and sig brian by: Vince Patrick M.D. CC: John Covington MD; Ted Montiel MD Technologist: Tricia Torres, RT(R) [facility] Date/Time/By: 10/10/2021 (1721) : By: [email or web address] Orig Print D/T: S: 10/10/2021 (1721) PAGE 1 Signed ReportDEXA, BONE DENSITY AXIAL SKELEDEXA, BONE DENSITY AXIAL SKELEColonoscopyColonoscopy
--- NOTE | 2024-11-27 19:16 | RAD REPORT ---
EXAM: CT Head Brain Wo Cont HISTORY: Fall COMPARISON: None TECHNIQUE: Multiple contiguous axial images were obtained for a CT of the brain without contrast. Sag ittal and coronal reformats were performed. One or more of the following dose reduction techniques were used: Automated exposure control, adjus tment of the mA and kV according to patient size, and iterative reconstruction. Unless otherwise specified, incidental findings do not require dedicated imaging follow-up. FINDINGS: No evidence of hydrocephalus, intracranial hemorrhage, or extra-axial fluid collection. The brain is normal in morphology. The calvarium is intact. The visualized paranasal sinuses and mastoid air cells are essentially clear . IMPRESSION: No evidence of acute intracranial abnormality.
--- NOTE | 2024-11-27 19:19 | RAD REPORT ---
EXAMINATION: CT Thorax Wo Con CLINICAL INDICATION: Female, 69 years old. [facility] MA[facility] Fall Bed Name: IW3 Y TECHNIQUE: Axial CT scan of the chest without intravenous contrast. Multiplanar reformats were genera wendy and reviewed. One or more of the following dose reduction techniques were used: Automated exposure control, adjustment of the mA and/or kV according patient size, and/or iterative reconstruct ion. Unless otherwise specified, incidental findings do not require dedicated imaging follow-up. COMPARISON: No prior exam. FINDINGS: LOWER NECK: Visualized thyroid gland and soft tissues are normal. LUNGS: The lungs are clear. No evidence of airspace or interstitial process. No worrisome nodules. PLEURA: No pleural effusion. No pneumothorax. . MEDIASTINUM AND LYMPH NODES: No mediastinal mass or fluid collection. Normal size mediastinal, hilar, and axillary lymph nodes. Up to moderate atherosclerotic calcifications of the thoracic aorta. OSSEOUS STRUCTURES AND CHEST WALL: No suspicious abnormalities. Hemangioma incidentally noted along t he right aspect of T6 vertebral body. UPPER ABDOMEN: No significant abnormalities. IMPRESSION: No acute or suspicious abnormalities. Examination is limited by lack of contrast. Incidental findings as above.
--- NOTE | 2024-11-27 19:43 | EDPHYS ---
Physician Documentation [facility] Name: Simona Juárez Age: 69 yrs Sex: Female : 1955 Arrival Date: 11/27/2024 Time: 16:57 Bed IW1 Private MD: ED Physician Dwight Corey HPI: 11/27 18:49 This 69 yrs old Female presents to ER via Wheelchair with complaints of Fall Injury. bo1 18:49 Details of fall: The patient fell from an upright position, while walking. Onset: The bo1 symptoms/episode began/occurred suddenly, just prior to arrival. Associated injuries: The patient sustained injury to the head. Severity of symptoms: At their worst the symptoms were mild, Potential head injury on Plavix or ASA. Pain to the ribs on the left and left knee/ankle. "My whole body hurts.". Pt drove to the ER herself. Historical: - Allergies: 17:45 Morphine; ld1 - Home Meds: 17:51 clopidogrel oral [Active]; ld1 - PMHx: 17:45 Hypercholesterolemia; Hypertension; ld1 - PSHx: 17:45 Cholecystectomy; heart stent; ld1 - Immunization history:: Adult Immunizations up to date. - Infectious Disease History:: Denies. - Social history:: Smoking status: Patient denies any tobacco usage or history of. ROS: 18:52 Constitutional: Negative for fever, chills, and weight loss. No LOC bo1 18:52 Constitutional: Negative for fever, weight loss, 18:52 Eyes: Negative for acute changes, blurry vision, visual disturbance, 18:52 Neck: Negative for pain with movement, pain at rest, 18:52 Cardiovascular: Positive for chest pain, Left ribs, 18:52 Respiratory: Negative for cough, shortness of breath, acute changes, 18:52 Abdomen/GI: Negative for abdominal pain, nausea and vomiting, 18:52 Back: Negative for pain at rest, pain with movement, 18:52 MS/extremity: Positive for pain, of the left leg, At the knee and ankle, pt is able to bear weight and walk, 18:52 Skin: Negative for rash, Injury or changes, Exam: 19:39 Constitutional: This is a well developed, well nourished patient who is awake, alert, bo1 and in no acute distress. 19:39 Constitutional: The patient appears in no acute distress, alert, awake, comfortable, Pt was examined in triage room in a wheelchair 19:39 Head/face: Exam is negative for acute changes, obvious evidence of injury or deformity, bo1 erythema, swelling, tenderness, 19:39 Eyes: Exam is negative for acute changes, 19:39 Neck: Exam negative for External neck: is normal, no acute changes, 19:39 Chest/axilla: Palpation: no acute changes, tenderness, is not appreciated, of the left lateral posterior chest, 19:39 Cardiovascular: Rate: normal, Rhythm: regular, 19:39 Respiratory: the patient does not display signs of respiratory distress, Respirations: normal, no acute changes, Breath sounds: are clear throughout, 19:39 Abdomen/GI: Inspection: abdomen appears normal, 19:39 Back: pain, is absent, 19:39 Musculoskeletal/extremity: Extremities: all appear grossly normal, with no appreciated pain with palpation, Pt able to drive and operate a vehicle to the ER, 19:39 Skin: injury, is not appreciated, no rash present. 19:39 Neuro: Orientation: is normal, appropriate for stated age, Mentation: is normal, appropriate for stated age, Vital Signs: 17:45 BP 126 / 68; Pulse 56; Resp 18; Temp 97.2(TE); Pulse Ox 96% on R/A; Weight 95.25 kg; ld1 Height 5 ft. 6 in. ; Pain 8/10; 17:45 Body Mass Index 33.89 (95.25 kg, 167.64 cm) ld1 17:45 Pain Scale: Adult ld1 MDM: 17:53 Medical Screening Exam initiated bo1 19:41 Differential diagnosis: closed head injury, Fall. Data reviewed: vital signs, bo1 radiologic studies, CT scan. ED course: Pt is to continue her ASA and Plavix. No criteria for acute hospitalization or obs. 11/27 17:54 Order name: CT Head Brain wo Cont; Complete Time: 19:25 bo1 11/27 17:54 Order name: CT Chest Wo Con; Complete Time: 19:25 bo1 Administered Medications: No medications were administered Disposition Summary: 11/27/24 19:43 Discharge Ordered Notes: Location: Home bo1 Problem: new bo1 Symptoms: are unchanged bo1 Condition: Stable bo1 Diagnosis - Fall on same level, unspecified bo1 - Unspecified injury of head, initial encounter bo1 - Chest pain, unspecified bo1 Followup: bo1 - With: Private Physician - When: Upon discharge from the Emergency Department - Reason: Recheck today's complaints, Continuance of care Discharge Instructions: - Discharge Summary Sheet bo1 - Chest Wall Pain bo1 - Head Injury, Adult bo1 Forms: - Medication Reconciliation Form bo1 - Antibiotic Education bo1 - Prescription Opioid Use bo1 - Patient Portal Instructions bo1 - Leadership Thank You Letter bo1 Signatures: Dispatcher [employer] Tricia Yan, RN RN ld1 OeiDwight MD MD bo1
--- NOTE | 2024-11-27 19:43 | ER ---
Nurse's Notes [facility] Name: Simona Juárez Age: 69 yrs Sex: Female : 1955 Arrival Date: 11/27/2024 Time: 16:57 Bed IW1 Private MD: Diagnosis: Fall on same level, unspecified;Unspecified injury of head, initial encounter;Chest pain, unspecified Presentation: 11/27 17:45 Chief complaint: Patient states: Pt reports falling 2 days ago. Bent over to hug ld1 grandson and hit head, left shoulder, left ribs, knees, left ankle. Pt reports taking unknown blood thinner for cardiac stent. Denies LOC. Pt states "I feel the same mentally, I just hurt really bad.". Coronavirus screen: At this time, the client does not indicate any symptoms associated with coronavirus-19. Ebola Screen: No symptoms or risks identified at this time. Initial Sepsis Screen: Does the patient meet any 2 criteria? No. Patient's initial sepsis screen is negative. Does the patient have a suspected source of infection? No. Patient's initial sepsis screen is negative. Risk Assessment: Do you want to hurt yourself or someone else? Patient reports no desire to harm self or others. Onset of symptoms was November 27, 2024. 17:45 Method Of Arrival: Wheelchair ld1 17:45 Acuity: FRANCOISE 3 ld1 Triage Assessment: 17:45 General: Appears in no apparent distress. comfortable, Behavior is calm, cooperative, ld1 appropriate for age. Pain: Complains of pain in face, left foot, left arm, right leg and left leg Pain does not radiate. Pain currently is 8 out of 10 on a pain scale. Quality of pain is described as throbbing. EENT: No signs and/or symptoms were reported regarding the EENT system. Neuro: Level of Consciousness is awake, alert, obeys commands, Oriented to person, place, time, situation. Cardiovascular: Capillary refill < 3 seconds Patient's skin is warm and dry. Respiratory: Airway is patent Respiratory effort is even, unlabored. GI: Abdomen is round non-distended. : No signs and/or symptoms were reported regarding the genitourinary system. Derm: No signs and/or symptoms reported regarding the dermatologic system. Musculoskeletal: No signs and/or symptoms reported regarding the musculoskeletal system. Historical: - Allergies: 17:45 Morphine; ld1 - Home Meds: 17:51 clopidogrel oral [Active]; ld1 - PMHx: 17:45 Hypercholesterolemia; Hypertension; ld1 - PSHx: 17:45 Cholecystectomy; heart stent; ld1 - Immunization history:: Adult Immunizations up to date. - Infectious Disease History:: Denies. - Social history:: Smoking status: Patient denies any tobacco usage or history of. Screenin:[facility] ED Fall Risk Assessment (Adult) History of falling in the last 3 months, br2 including since admission Yes- single mechanical fall (1 pt) Confusion or Disorientation No (0 pts) Intoxicated or Sedated No (0 pts) Impaired Gait No (0 pts) Mobility Assist Device Used No (0 pt) Altered Elimination No (0 pt) Score/Fall Risk Level 0 - 2 = Low Risk Oriented to surroundings. Abuse screen: Denies threats or abuse. Denies injuries from another. Nutritional screening: No deficits noted. Tuberculosis screening: No symptoms or risk factors identified. Assessment: 19:50 Reassessment: Patient and/or family updated on plan of care and expected duration. Pain br2 level reassessed. Patient is alert, oriented x 3, equal unlabored respirations, skin warm/dry/pink. Patient states feeling better. Neuro: Hutchison Agitation-Sedation Scale (RASS): 0 - Alert and Calm. Vital Signs: 17:45 BP 126 / 68; Pulse 56; Resp 18; Temp 97.2(TE); Pulse Ox 96% on R/A; Weight 95.25 kg; ld1 Height 5 ft. 6 in. ; Pain 8/10; 17:45 Body Mass Index 33.89 (95.25 kg, 167.64 cm) ld1 17:45 Pain Scale: Adult ld1 ED Course: 17:01 Patient arrived in ED. sj2 17:45 Arm band placed on right wrist. ld1 17:48 Triage completed. ld1 17:53 Dwight Corey MD is Attending Physician. bo1 19:05 CT Head Brain wo Cont In Process Unspecified. EDMS 19:05 CT Chest Wo Con In Process Unspecified. EDMS 19:50 Patient has correct armband on for positive identification. Provided Education on: br2 discharge insturctions. 19:50 No provider procedures requiring assistance completed. Patient did not have IV access br2 during this emergency room visit. Administered Medications: No medications were administered Outcome: 19:43 Discharge ordered by . bo1 19:50 Discharged to home via wheelchair, br2 19:50 Condition: good 19:50 Discharge instructions given to patient, Instructed on discharge instructions, follow up and referral plans. Demonstrated understanding of instructions, follow-up care, 19:59 Patient left the ED. br2 Signatures: Dispatcher [employer] EDMS Tricia Loera RN RN ld1 Dwight Corey MD MD bo1 Aundrea Flores RN RN br2 Fernando Martinez 2
[2024-11-27] MEDS ORDERED: ACETAMINOPHEN 500 MG TAB ONE (19:45)
[2024-11-27 23:17] VITALS: BP 126/68; TEMP 97.2; O2SAT 96
== END 2024-11-27 19:59 | disposition home or self-care (01) ==
LOC: ER 16:57
DX: S09.90XA Unspecified injury of head, initial encounter (principal); R07.9 Chest pain, unspecified; M79.605 Pain in left leg; W18.30XA Fall on same level, unspecified, initial encounter; I10 Essential (primary) hypertension; Z95.818 Presence of other cardiac implants and grafts
CPT/HCPCS: 70450; 71250; 99282

== ENCOUNTER 2025-01-22 13:00 | Day surgery (SDC) | payer OTHER ==
[2025-01-13 10:13] LABS: Absolute Basophils 0.1 K/uL (0-0.5); Absolute Eosinophils 0.2 K/uL (0-0.5); Absolute Lymphocytes (CBC) 2.7 K/uL (0.7-4.9); Absolute Monocytes 0.7 K/uL (0.1-1.3); Absolute Neutrophil 2.6 K/uL (1.8-8.0); Basophils % 1.5 % (0-1.3); Eosinophils % 3.4 % (0-4.4); Hematocrit 42.5 % (36.0-45.0); Hemoglobin 14.5 g/dL (12.0-15.0); Lymphocytes % 43.3 % (15.3-44.8); MCV 91.2 fL (80-100); MPV 7.2 fL (7.6-11.3); Monocytes % 10.3 % (3.3-12.3); Neutrophils % 41.5 % (41.7-73.7); Platelets 333 thou/uL (152-406); RBC Red Blood Cell Count 4.67 M/uL (3.86-4.86); Red Cell Distribution Width 14.4 % (12.1-15.2)
[2025-01-13 10:24] LABS: Anion Gap 8.9 mEq/L (5.0-15.0); Potassium 3.9 mEq/L (3.5-5.1)
[2025-01-13 10:33] LABS: PT Prothrombin Time 11.6 SECONDS (10-13.0); PTT, Activated Partial Thromb 37.2 SECONDS (27.2-37.4); Protime INR 1.02
--- NOTE | 2025-01-13 10:55 | EKG ---
Test Date: 2025-01-13 Test Time: 09:52:46 Net Programmer Analyst: BAILEY MEASUREMENT RESULTS: Intervals: Rate: 43 ID: [id number] QRSD: 98 QT: 502 QTc: 424 [place]: P: 71 ID: [id number] QRS: -3 T: 78 INTERPRETIVE STATEMENTS: Marked sinus bradycardia Abnormal ECG Compared to ECG 11/27/2021 01:55:21 Sinus rhythm no longer present Electronically Signed On 01-13-25 10:55:34 CDT by Blane Shay
--- NOTE | 2025-01-13 12:07 | RAD REPORT ---
EXAMINATION: TWO VIEW CHEST XR CLINICAL INDICATION: Female, [address] [facility] Pre-op pending heart catheterization TECHNIQUE: 2 view radiographs of the chest were performed. COMPARISON: 11/26/2021 FINDINGS: The lungs are well inflated and clear. No pneumothorax or sizable effusion. The heart is normal in si ze. Mediastinal contours are unremarkable. IMPRESSION: No acute or significant abnormalities.
[2025-01-22] MEDS ORDERED: NA CHLORIDE 0.9% 500 ML ONE (13:23)
[2025-01-22] MEDS ORDERED: HEPARIN 10,000 UNIT/10 ML VIAL IV ONE (16:08)
[2025-01-22] MEDS ORDERED: LIDOCAINE 1% 20 ML MDV ONE (16:08)
[2025-01-22] MEDS ORDERED: ATROPINE SULF 1 MG/10 ML SYR IV ONE (16:08)
[2025-01-22] MEDS ORDERED: VERAPAMIL HCL 10 MG/4 ML VIAL IV ONE (16:08)
[2025-01-22] MEDS ORDERED: HEPA 1000U/500MLS 2,000 UNIT/1,000 ML BAG IV ONE (16:08)
[2025-01-22] MEDS ORDERED: HEPARIN 5000 UNIT/ML 1 ML VIAL ONE (16:09)
[2025-01-22] MEDS ORDERED: MIDAZOLAM HCL 2 MG/2 ML INJ ONE (16:18)
[2025-01-22] MEDS ORDERED: FENTANYL CITR 100 MCG/2 ML ONE (16:18)
[2025-01-22 19:16] VITALS: BP 128/66; O2SAT 94
--- NOTE | 2025-01-22 20:51 | OP ---
Date of Procedure: 01/22/2025 Surgeon: SHRUTI THOMAS Procedures Performed: 1. Selective coronary angiogram. 2. Left heart catheterization. Indication: Unstable angina. Access: Right radial artery 6-Kosovan, closed with TR band. Complications: None. Bleedin mL. Anesthesia: Total sedation time is 45 minutes. Fentanyl and Versed were used. Description Of Procedure: After risks, benefits, and alternatives were explained, patient agreed to procedure, signed informed consent. The patient was brought into cardiac catheterization laboratory, prepped and draped in sterile fashion. Then, I accessed right radial artery using pediatric micropu ncture kit and placed 6-Kosovan slender sheath and took 5-Kosovan [place] 4 catheter into aortic root ove r J-wire across the aortic valve, measured the LVEDP. Pullback did not record any significant gradie nt. Then, engaged left main, took standard views and the RCA, took standard views and removed the ca theter and the sheath, placed TR band with good hemostasis. Findings: 1. Left main: Large and normal. 2. LAD: Widely patent. Ostial to proximal LAD stent. Distal to the stent, there is focal 30% steno sis and then normal LAD, normal diagonal branches. 3. Left circumflex is very large and dominant and normal. In fact, in the proximal segment of the RC A, there is a branch that comes off and it travels to the territory of the RCA and supplies the infer ior wall. 4. RCA is occluded proximally right after the conus takeoff, but it is nondominant circulation. Conclusion: 1. Widely patent LAD stent with known INTERACTIVE MEDIA MARKETING DIRECTOR of the proximal RCA. However, it is nondominant vessel wit h large left circumflex that is compensating. 2. Mild coronary artery disease elsewhere. Recommendation: Medical management. SR/MODL Voice ID: [id number] Report ID: [id number]
== END 2025-01-22 19:15 | disposition home or self-care (01) ==
LOC: CCL 13:00
PROVIDERS: ATTEND Internal Medicine
DX: I25.110 Atherosclerotic heart disease of native coronary artery with unstable angina pectoris (principal); I25.82 Chronic total occlusion of coronary artery; I65.29 Occlusion and stenosis of unspecified carotid artery; I70.213 Atherosclerosis of native arteries of extremities with intermittent claudication, bilateral legs; I10 Essential (primary) hypertension; E78.5 Hyperlipidemia, unspecified; Z95.5 Presence of coronary angioplasty implant and graft; Z87.891 Personal history of nicotine dependence; Z79.02 Long term (current) use of antithrombotics/antiplatelets; Z79.82 Long term (current) use of aspirin; Z88.5 Allergy status to narcotic agent
CPT/HCPCS: 36415; 71046; 76937; 80048; 85025; 85610; 85730; 93005; 93458; 99152; 99153; C1893; J0461; J1644; J2003; J2250; J3010; J7040; Q9966

== ENCOUNTER 2025-06-11 14:36 | Emergency (ER) | payer OTHER ==
--- OUTSIDE RECORDS SUMMARY | 2025-06-11 14:47 | XMS REPORT | Continuity of Care Document ---
Author Name Unknown Address [address] [facility] [place] [address] [facility] [place] Address [address] 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 Role Phone Suzanna Covington Attending Clinician Unavailable Ted Montiel Attending Clinician Unavailable John Covington Admitting Clinician Unavailable Payers Payer Name Policy Type Policy Number Effective Date Expirati on Date Source MEDICAID MC [id number] 2019 00:00:00 [facility] MEDICARE NOVITAS [id number] [facility] [employer] MEDICARE C1 [id number] [facility] MEDICAID MC [id number] 2019 00:00:00 [facility] [employer] MEDICARE C1 [id number] [facility] MEDICAID MC [id number] 2019 00:00:00 [facility] [employer] MEDICARE C1 [id number] [facility] MEDICAID MC [id number] 2019 00:00:00 [facility] [employer] MEDICARE C1 [id number] [facility] [employer] MEDICARE [id number] Comm on [facility] MEDICAID [id number] 2019 00:00:00 [facility] Problems Condition Name Condition Details Condition Category Status Onset Date Resolution Date Last Treatment Date Treating Clinician Comments Source Type B viral hepatitis Type B Viral Hepatitis Problem Active 2- 00:00: 00 [facility] 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 coma Viral Hepatitis B without Hepatic Coma Problem Active 2 00:00: 00 [facility] Exposure to viral hepatitis Exposure to Viral Hepatitis Problem Active 2 00:00: 00 [facility] Hepatitis C carrier Hepatitis C Carrier Problem Active 12-27 00:00: 00 [facility] Herpetic vulvovagin itis Herpetic Vulvovagin itis Problem Active 12-27 00:00: 00 [facility] Ulceration of vulva Ulceration of Vulva Problem Active 2 00:00: 00 [facility] Atrophic vaginitis Atrophic Vaginitis Problem Active 12-05 00:00: 00 [facility] Gynecologi kalyan examinatio n abnormal Gynecologi kalyan Examinatio n Abnormal Problem Active 2020-11 2 00:00: 00 [facility] [id number] Stage 3a chronic kidney disease Problem Common [facility] Gout Gout, unspecifie d cause, unspecifie d chronicity , unspecifie d site Problem Common [facility] [id number] Acute gout of multiple sites, unspecifie d cause Problem [facility] Mild dementia (disorder) Mild dementia, unspecifie d dementia type, unspecifie d whether behavioral , psychotic, or mood disturbanc e or anxiety Problem Common [facility] [id number] Ataxia Problem Common [facility] [id number] Lumbar radiculopa thy Problem [facility] [id number] Lumbar spondylosi s Problem [facility] [id number] PAD (periphera l artery disease) Problem [facility] [id number] 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 Problem Common [facility] Laboratory test result abnormal Abnormal laboratory test Problem [facility] [id number] Genital herpes simplex, unspecifie d site Problem [facility] [id number] Other obesity due to excess calories Problem [facility] [id number] Body mass index [BMI] 31.0-31.9, adult Problem [facility] [id number] Tobacco use disorder Problem [facility] [id number] Mixed hyperlipid emia Problem [facility] [id number] Stented coronary artery Problem [facility] [id number] Acute hepatitis C virus infection without hepatic coma Problem [facility] [id number] Essential (primary) hypertensi on Problem [facility] [id number] Hypothyroi dism (acquired) Problem [facility] [id number] Coronary artery disease involving [place] coronary artery of [place] heart with other form of angina pectoris Problem [facility] [id number] 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 of body Problem [facility] [place] Memory loss Problem [facility] [id number] Primary insomnia Problem [facility] [id number] Chronic hepatitis C without hepatic coma Problem [facility] Allergies, Adverse Reactions, Alerts Allergy Name Allergy Type Status Severity Reaction(s) Onset Date Inactive Date Treating Clinician Comments Source morphine DA Active U ITCHING 2020-11 00:00: 00 [facility] No Known Allergie s DA Active U 2020-11 00:00: 00 [facility] morphine DA Active U ITCHING 2020-11 00:00: 00 [facility] morphine morphine Active rash [facility] Social History Social Habit Start Date Stop Date Quantity Comments Source History of Tobacco Use [facility] Sex Assigned At [facility] Smoking Status Start Date Stop Date Source Former Smoker [facility] Current Smoker 2022-05-04 00:00:00 [facility] Medications Ordered Medication Name Filled Medication Name Start Date Stop Date Current Medication? Ordering Clinician Indication Dosage Frequency Signature (SIG) Comments Components Source Ketorolac 15mg Ketorolac 15mg 2023-11 00:00: 00 No 30mg [facility] Kenalog (Triamcinol one) Kenalog (Triamcinol one) 2023-11 00:00: 00 No 40mg [facility] traZODone HCl 100 MG traZODone HCl 100 MG 07-10 00:00: 00 No 1{table t} QD traZODone HCl 100 MG valACYclovi r HCl 1 GM valACYclovi r HCl 1 GM 08-03 00:00: 00 08-23 00:00 :00 No 1{table t} BID valACYclov ir HCl 1 GM aspirin 80 aspirin 80 No aspirin 80 [facility] atorvastati n 80 mg tablet Take 1 tablet every day by oral route. atorvastati n 80 mg tablet Take 1 tablet every day by oral route. No 1 Q1D atorvastat in 80 mg tablet Take 1 tablet every day by oral route. [facility] clopidogrel 75 mg tablet Take 1 tablet every day by oral route. clopidogrel 75 mg tablet Take 1 tablet every day by oral route. No 1 Q1D clopidogre l 75 mg tablet Take 1 tablet every day by oral route. [facility] hydrochloro thiazide 25 mg tablet Take 1 tablet every day by oral route. hydrochloro thiazide 25 mg tablet Take 1 tablet every day by oral route. No 1 Q1D hydrochlor othiazide 25 mg tablet Take 1 tablet every day by oral route. [facility] levothyroxi ne levothyroxi ne No levothyrox ine [facility] metoprolol tartrate 100 mg tablet 1 tablet with food; Twice a day; 30 day(s) metoprolol tartrate 100 mg tablet 1 tablet with food; Twice a day; 30 day(s) No metoprolol tartrate 100 mg tablet 1 tablet with food; Twice a day; 30 day(s) [facility] Levothyroxi ne Sodium 88 MCG Levothyroxi ne [...] QD Aspirin Adult Low Strength 81 MG Cyclobenzap rine HCl 5 MG Cyclobenzap rine HCl 5 MG No 1{table t_at_be dtime_a s_neede d} QD Cyclobenza kirsten HCl 5 MG Pantoprazol e Sodium 40 MG Pantoprazol e Sodium 40 MG No QD Pantoprazo le Sodium 40 MG Metoprolol Succinate ER 100 MG Metoprolol Succinate ER 100 MG No 1{table t} QD Metoprolol Succinate ER 100 MG Multivitami n Multivitami n No Multivitam in Immunizations Ordered Immunization Name Filled Immunization Name Date Status Comments Source FLUZONE HIGH DOSE OVER 65 FLUZONE HIGH DOSE OVER 65 2022-08-03 10:12:00 Completed [facility] FLUZONE HIGH DOSE OVER 65 FLUZONE HIGH DOSE OVER 65 2022-08-03 10:12:00 Completed [facility] FLUZONE HIGH DOSE OVER 65 FLUZONE HIGH DOSE OVER 65 2022-08-03 10:12:00 Completed [facility] FLUZONE HIGH DOSE OVER 65 FLUZONE HIGH DOSE OVER 65 2022-08-03 10:12:00 Completed [facility] FLUZONE HIGH DOSE OVER 65 FLUZONE HIGH DOSE OVER 65 2022-08-03 10:12:00 Completed [facility] FLUZONE HIGH DOSE OVER 65 FLUZONE HIGH DOSE OVER 65 2022-08-03 10:12:00 Completed [facility] FLUZONE HIGH DOSE OVER 65 FLUZONE HIGH DOSE OVER 65 2022-08-03 10:12:00 Completed [facility] FLUZONE HIGH DOSE OVER 65 FLUZONE HIGH DOSE OVER 65 2022-08-03 10:12:00 Completed [facility] Fluzone Fluzone 2021-10-04 10:15:00 Completed [facility] Fluzone Fluzone 2021-10-04 10:15:00 Completed [facility] Fluzone Fluzone 2021-10-04 10:15:00 Completed [facility] Fluzone Fluzone 2021-10-04 10:15:00 Completed [facility] Fluzone Fluzone 2021-10-04 10:15:00 Completed [facility] Fluzone Fluzone 2021-10-04 10:15:00 Completed [facility] Fluzone Fluzone 2021-10-04 10:15:00 Completed [facility] Fluzone Fluzone 2021-10-04 10:15:00 Completed [facility] Fluzone Fluzone 2021-10-04 10:15:00 Completed [facility] Fluzone Fluzone 2021-10-04 10:15:00 Completed [facility] Fluzone Fluzone 2021-10-04 10:15:00 Completed [facility] Moderna COVID-19 Vaccine Moderna COVID-19 Vaccine 2021-08-05 10:19:00 Completed [facility] Moderna COVID-19 Vaccine Moderna COVID-19 Vaccine 2021-08-05 10:19:00 Completed [facility] Moderna COVID-19 Vaccine Moderna COVID-19 Vaccine 2021-08-05 10:19:00 Completed [facility] Moderna COVID-19 Vaccine Moderna COVID-19 Vaccine 2021-08-05 10:19:00 Completed [facility] Moderna COVID-19 Vaccine Moderna COVID-19 Vaccine 2021-08-05 10:19:00 Completed Common [facility] Moderna COVID-19 Vaccine Moderna COVID-19 Vaccine 2021-08-05 10:19:00 Completed [facility] Moderna COVID-19 Vaccine Moderna COVID-19 Vaccine 2021-08-05 10:19:00 Completed [facility] Moderna COVID-19 Vaccine Moderna COVID-19 Vaccine 2021-08-05 10:19:00 Completed [facility] Moderna COVID-19 Vaccine Moderna COVID-19 Vaccine 2021-08-05 10:19:00 Completed [facility] Moderna COVID-19 Vaccine Moderna COVID-19 Vaccine 2021-08-05 10:19:00 Completed [facility] Moderna COVID-19 Vaccine Moderna COVID-19 Vaccine 2021-08-05 10:19:00 Completed [facility] Moderna COVID-19 Vaccine Moderna COVID-19 Vaccine 2021-08-05 10:19:00 Completed [facility] Moderna COVID-19 Vaccine Moderna COVID-19 Vaccine 2021-07-08 09:01:00 Completed [facility] Moderna COVID-19 Vaccine Moderna COVID-19 Vaccine 2021-07-08 09:01:00 Completed [facility] Moderna COVID-19 Vaccine Moderna COVID-19 Vaccine 2021-07-08 09:01:00 Completed [facility] Moderna COVID-19 Vaccine Moderna COVID-19 Vaccine 2021-07-08 09:01:00 Completed [facility] Moderna COVID-19 Vaccine Moderna COVID-19 Vaccine 2021-07-08 09:01:00 Completed [facility] Moderna COVID-19 Vaccine Moderna COVID-19 Vaccine 2021-07-08 09:01:00 Completed [facility] Moderna COVID-19 Vaccine Moderna COVID-19 Vaccine 2021-07-08 09:01:00 Completed [facility] Moderna COVID-19 Vaccine Moderna COVID-19 Vaccine 2021-07-08 09:01:00 Completed [facility] Moderna COVID-19 Vaccine Moderna COVID-19 Vaccine 2021-07-08 09:01:00 Completed [facility] Moderna COVID-19 Vaccine Moderna COVID-19 Vaccine 2021-07-08 09:01:00 Completed [facility] Moderna COVID-19 Vaccine Moderna COVID-19 Vaccine 2021-07-08 09:01:00 Completed [facility] Moderna COVID-19 Vaccine Moderna COVID-19 Vaccine 2021-07-08 09:01:00 Completed [facility] Prevnar 13 (PCV13) Prevnar 13 (PCV13) 2021-07-05 12:03:00 Completed [facility] Prevnar 13 (PCV13) Prevnar 13 (PCV13) 2021-07-05 12:03:00 Completed [facility] Prevnar 13 (PCV13) Prevnar 13 (PCV13) 2021-07-05 12:03:00 Completed [facility] Prevnar 13 (PCV13) Prevnar 13 (PCV13) 2021-07-05 12:03:00 Completed [facility] Prevnar 13 (PCV13) Prevnar 13 (PCV13) 2021-07-05 12:03:00 Completed [facility] Prevnar 13 (PCV13) Prevnar 13 (PCV13) 2021-07-05 12:03:00 Completed [facility] Prevnar 13 (PCV13) Prevnar 13 (PCV13) 2021-07-05 12:03:00 Completed [facility] Prevnar 13 (PCV13) Prevnar 13 (PCV13) 2021-07-05 12:03:00 Completed [facility] Prevnar 13 (PCV13) Prevnar 13 (PCV13) 2021-07-05 12:03:00 Completed [facility] Prevnar 13 (PCV13) Prevnar 13 (PCV13) 2021-07-05 12:03:00 Completed [facility] Prevnar 13 (PCV13) Prevnar 13 (PCV13) 2021-07-05 12:03:00 Completed [facility] Prevnar 13 (PCV13) Prevnar 13 (PCV13) 2021-07-05 12:03:00 Completed [facility] Prevnar 20 (PCV20) Prevnar 20 (PCV20) Unknown Completed [facility] Moderna COVID-19 Vaccine Moderna COVID-19 Vaccine Unknown Completed [facility] Fluzone Fluzone Unknown Completed [facility] FLUZONE HIGH DOSE OVER 65 FLUZONE HIGH DOSE OVER 65 Unknown Completed [facility] Prevnar 13 (PCV13) Prevnar 13 (PCV13) Unknown Completed [facility] Prevnar 20 (PCV20) Prevnar 20 (PCV20) Unknown Completed [facility] Moderna COVID-19 Vaccine Moderna COVID-19 Vaccine Unknown Completed [facility] Fluzone Fluzone Unknown Completed [facility] FLUZONE HIGH DOSE OVER 65 FLUZONE HIGH DOSE OVER 65 Unknown Completed [facility] Prevnar 13 (PCV13) Prevnar 13 (PCV13) Unknown Completed [facility] Prevnar 20 (PCV20) Prevnar 20 (PCV20) Unknown Completed [facility] Moderna COVID-19 Vaccine Moderna COVID-19 Vaccine Unknown Completed [facility] Fluzone Fluzone Unknown Completed [facility] FLUZONE HIGH DOSE OVER 65 FLUZONE HIGH DOSE OVER 65 Unknown Completed [facility] Prevnar 13 (PCV13) Prevnar 13 (PCV13) Unknown Completed [facility] Prevnar 20 (PCV20) Prevnar 20 (PCV20) Unknown Completed [facility] Moderna COVID-19 Vaccine Moderna COVID-19 Vaccine Unknown Completed [facility] Fluzone Fluzone Unknown Completed [facility] FLUZONE HIGH DOSE OVER 65 FLUZONE HIGH DOSE OVER 65 Unknown Completed [facility] Prevnar 13 (PCV13) Prevnar 13 (PCV13) Unknown Completed [facility] Prevnar 20 (PCV20) Prevnar 20 (PCV20) Unknown Completed [facility] Moderna COVID-19 Vaccine Moderna COVID-19 Vaccine Unknown Completed [facility] Fluzone Fluzone Unknown Completed [facility] FLUZONE HIGH DOSE OVER 65 FLUZONE HIGH DOSE OVER 65 Unknown Completed [facility] Prevnar 13 (PCV13) Prevnar 13 (PCV13) Unknown Completed [facility] Prevnar 20 (PCV20) Prevnar 20 (PCV20) Unknown Completed [facility] Moderna COVID-19 Vaccine Moderna COVID-19 Vaccine Unknown Completed [facility] Fluzone Fluzone Unknown Completed [facility] FLUZONE HIGH DOSE OVER 65 FLUZONE HIGH DOSE OVER 65 Unknown Completed [facility] Prevnar 13 (PCV13) Prevnar 13 (PCV13) Unknown Completed [facility] Prevnar 20 (PCV20) Prevnar 20 (PCV20) Unknown Completed [facility] Moderna COVID-19 Vaccine Moderna COVID-19 Vaccine Unknown Completed [facility] Fluzone Fluzone Unknown Completed [facility] FLUZONE HIGH DOSE OVER 65 FLUZONE HIGH DOSE OVER 65 Unknown Completed [facility] Prevnar 13 (PCV13) Prevnar 13 (PCV13) Unknown Completed [facility] Prevnar 20 (PCV20) Prevnar 20 (PCV20) Unknown Completed [facility] Moderna COVID-19 Vaccine Moderna COVID-19 Vaccine Unknown Completed [facility] Fluzone Fluzone Unknown Completed [facility] FLUZONE HIGH DOSE OVER 65 FLUZONE HIGH DOSE OVER 65 Unknown Completed [facility] Prevnar 13 (PCV13) Prevnar 13 (PCV13) Unknown Completed [facility] Prevnar 20 (PCV20) Prevnar 20 (PCV20) Unknown Completed [facility] Moderna COVID-19 Vaccine Moderna COVID-19 Vaccine Unknown Completed [facility] Fluzone Fluzone Unknown Completed [facility] FLUZONE HIGH DOSE OVER 65 FLUZONE HIGH DOSE OVER 65 Unknown Completed [facility] Prevnar 13 (PCV13) Prevnar 13 (PCV13) Unknown Completed [facility] Prevnar 20 (PCV20) Prevnar 20 (PCV20) Unknown Completed [facility] Moderna COVID-19 Vaccine Moderna COVID-19 Vaccine Unknown Completed [facility] Fluzone Fluzone Unknown Completed [facility] FLUZONE HIGH DOSE OVER 65 FLUZONE HIGH DOSE OVER 65 Unknown Completed [facility] Prevnar 13 (PCV13) Prevnar 13 (PCV13) Unknown Completed [facility] Prevnar 20 (PCV20) Prevnar 20 (PCV20) Unknown Completed [facility] Moderna COVID-19 Vaccine Moderna COVID-19 Vaccine Unknown Completed [facility] Fluzone Fluzone Unknown Completed [facility] FLUZONE HIGH DOSE OVER 65 FLUZONE HIGH DOSE OVER 65 Unknown Completed [facility] Prevnar 13 (PCV13) Prevnar 13 (PCV13) Unknown Completed [facility] Prevnar 20 (PCV20) Prevnar 20 (PCV20) Unknown Completed [facility] Moderna COVID-19 Vaccine Moderna COVID-19 Vaccine Unknown Completed [facility] Fluzone Fluzone Unknown Completed [facility] FLUZONE HIGH DOSE OVER 65 FLUZONE HIGH DOSE OVER 65 Unknown Completed [facility] Prevnar 13 (PCV13) Prevnar 13 (PCV13) Unknown Completed [facility] Prevnar 20 (PCV20) Prevnar 20 (PCV20) Unknown Completed [facility] Moderna COVID-19 Vaccine Moderna COVID-19 Vaccine Unknown Completed [facility] Fluzone Fluzone Unknown Completed [facility] FLUZONE HIGH DOSE OVER 65 FLUZONE HIGH DOSE OVER 65 Unknown Completed [facility] Prevnar 13 (PCV13) Prevnar 13 (PCV13) Unknown Completed [facility] Prevnar 20 (PCV20) Prevnar 20 (PCV20) Unknown Completed [facility] Moderna COVID-19 Vaccine Moderna COVID-19 Vaccine Unknown Completed [facility] Fluzone Fluzone Unknown Completed [facility] FLUZONE HIGH DOSE OVER 65 FLUZONE HIGH DOSE OVER 65 Unknown Completed [facility] Prevnar 13 (PCV13) Prevnar 13 (PCV13) Unknown Completed [facility] Vital Signs Vital Name Observation Time Observation Value Comments S ource height 2025-03-18 10:50:00 67 [in_i] Commo n [facility] weight 2025-03-18 10:50:00 195 [lb_av] Comm on [facility] bmi 2025-03-18 10:50:00 30.54 kg/m2 Comm on [facility] blood pressure systolic 2025-03-18 10:50:00 119 mm[Hg] [facility] blood pressure diastolic 2025-03-18 10:50:00 78 mm[Hg] [facility] height 2024-12-25 10:00:00 67 [in_i] Commo n [facility] weight 2024-12-25 10:00:00 200 [lb_av] Comm on [facility] temperature 2024-12-25 10:00:00 97.4 [degF] Com [facility] bmi 2024-12-25 10:00:00 31.32 kg/m2 Comm on [facility] blood pressure systolic 2024-12-25 10:00:00 118 mm[Hg] [facility] blood pressure diastolic 2024-12-25 10:00:00 70 mm[Hg] Common [facility] height 2024-12-01 08:00:00 67 [in_i] Commo n [facility] weight 2024-12-01 08:00:00 200 [lb_av] Comm on [facility] temperature 2024-12-01 08:00:00 97.3 [degF] Com mon [facility] bmi 2024-12-01 08:00:00 31.32 kg/m2 Comm on [facility] oximetry 2024-12-01 08:00:00 97 % Commo n [facility] blood pressure systolic 2024-12-01 08:00:00 130 mm[Hg] Common [facility] blood pressure diastolic 2024-12-01 08:00:00 70 mm[Hg] [facility] height 2024-10-24 09:30:00 67 [in_i] Commo n [facility] weight 2024-10-24 09:30:00 201 [lb_av] Comm on [facility] bmi 2024-10-24 09:30:00 31.48 kg/m2 Comm on [facility] blood pressure systolic 2024-10-24 09:30:00 121 mm[Hg] [facility] blood pressure diastolic 2024-10-24 09:30:00 76 mm[Hg] [facility] height 2024-09-30 13:20:00 67 [in_i] Commo n [facility] weight 2024-09-30 13:20:00 202.4 [lb_av] Co mmon [facility] temperature 2024-09-30 13:20:00 97.5 [degF] Com mon [facility] bmi 2024-09-30 13:20:00 31.7 kg/m2 Commo n [facility] oximetry 2024-09-30 13:20:00 97 % Commo n [facility] respiratory rate 2024-09-30 13:20:00 17 /min Common [facility] blood pressure systolic 2024-09-30 13:20:00 119 mm[Hg] Common [facility] blood pressure diastolic 2024-09-30 13:20:00 59 mm[Hg] [facility] height 2024-06-17 10:00:00 67 [in_i] Commo n [facility] weight 2024-06-17 10:00:00 205.4 [lb_av] Co on [facility] temperature 2024-06-17 10:00:00 97.4 [degF] Com [facility] bmi 2024-06-17 10:00:00 32.17 kg/m2 Comm on [facility] oximetry 2024-06-17 10:00:00 96 % Commo n [facility] respiratory rate 2024-06-17 10:00:00 16 /min Common [facility] blood pressure systolic 2024-06-17 10:00:00 130 mm[Hg] Common [facility] blood pressure diastolic 2024-06-17 10:00:00 68 mm[Hg] [facility] height 2024-06-17 10:00:00 67 [in_i] Commo n [facility] weight 2024-06-17 10:00:00 205.4 [lb_av] Co mmon [facility] temperature 2024-06-17 10:00:00 97.4 [degF] Com mon [facility] bmi 2024-06-17 10:00:00 32.17 kg/m2 Comm on [facility] oximetry 2024-06-17 10:00:00 96 % Commo n [facility] respiratory rate 2024-06-17 10:00:00 16 /min Common [facility] blood pressure systolic 2024-06-17 10:00:00 130 mm[Hg] Common [facility] blood pressure diastolic 2024-06-17 10:00:00 68 mm[Hg] Common [facility] height 2024-06-17 10:00:00 67 [in_i] Commo n [facility] weight 2024-06-17 10:00:00 205.4 [lb_av] Co on [facility] temperature 2024-06-17 10:00:00 97.4 [degF] Com [facility] bmi 2024-06-17 10:00:00 32.17 kg/m2 Comm on [facility] oximetry 2024-06-17 10:00:00 96 % Commo n [facility] respiratory rate 2024-06-17 10:00:00 16 /min Common [facility] blood pressure systolic 2024-06-17 10:00:00 130 mm[Hg] Common [facility] blood pressure diastolic 2024-06-17 10:00:00 68 mm[Hg] [facility] height 2024-02-08 11:10:00 67 [in_i] Commo n [facility] weight 2024-02-08 11:10:00 209 [lb_av] Comm on [facility] temperature 2024-02-08 11:10:00 98 [degF] Comm on [facility] bmi 2024-02-08 11:10:00 32.73 kg/m2 Comm on [facility] blood pressure systolic 2024-02-08 11:10:00 116 mm[Hg] Common [facility] blood pressure diastolic 2024-02-08 11:10:00 78 mm[Hg] [facility] BMI (Body Mass Index) 2023-12-25 00:00:00 34 kg/m2 [facility] Body Weight 2023-12-25 00:00:00 210.4 [lb_av] [facility] BP Diastolic 2023-12-25 00:00:00 69 mm[Hg] [facility] Height 2023-12-25 00:00:00 66 [in_i] [facility] BP Systolic 2023-12-25 00:00:00 146 mm[Hg] [facility] height 2023-10-09 11:40:00 67 [in_i] Commo n [facility] weight 2023-10-09 11:40:00 206 [lb_av] Comm on [facility] temperature 2023-10-09 11:40:00 98 [degF] Comm on [facility] bmi 2023-10-09 11:40:00 32.26 kg/m2 Comm on [facility] blood pressure systolic 2023-10-09 11:40:00 132 mm[Hg] [facility] blood pressure diastolic 2023-10-09 11:40:00 70 mm[Hg] Common [facility] height 2023-07-10 09:50:00 67 [in_i] Commo n [facility] weight 2023-07-10 09:50:00 211.0 [lb_av] Co mmon [facility] temperature 2023-07-10 09:50:00 97.9 [degF] Com mon [facility] bmi 2023-07-10 09:50:00 33.04 kg/m2 Comm on [facility] oximetry 2023-07-10 09:50:00 98 % Commo n [facility] respiratory rate 2023-07-10 09:50:00 18 /min Common [facility] blood pressure systolic 2023-07-10 09:50:00 122 mm[Hg] [facility] blood pressure diastolic 2023-07-10 09:50:00 65 mm[Hg] [facility] height 2023-07-10 10:00:00 67 [in_i] Commo n [facility] weight 2023-07-10 10:00:00 211.0 [lb_av] Co mmon [facility] temperature 2023-07-10 10:00:00 97.9 [degF] Com mon [facility] bmi 2023-07-10 10:00:00 33.04 kg/m2 Comm on [facility] oximetry 2023-07-10 10:00:00 98 % Commo n [facility] respiratory rate 2023-07-10 10:00:00 18 /min [facility] blood pressure systolic 2023-07-10 10:00:00 122 mm[Hg] Common [facility] blood pressure diastolic 2023-07-10 10:00:00 65 mm[Hg] Common [facility] height 2023-03-05 11:40:00 67 [in_i] Commo n [facility] weight 2023-03-05 11:40:00 197 [lb_av] Comm on [facility] temperature 2023-03-05 11:40:00 97 [degF] Comm on [facility] bmi 2023-03-05 11:40:00 30.85 kg/m2 Comm on [facility] blood pressure systolic 2023-03-05 11:40:00 132 mm[Hg] [facility] blood pressure diastolic 2023-03-05 11:40:00 70 mm[Hg] Common [facility] height 2022-12-06 11:20:00 67 [in_i] Commo n [facility] weight 2022-12-06 11:20:00 198 [lb_av] Comm on [facility] temperature 2022-12-06 11:20:00 98 [degF] Comm on [facility] bmi 2022-12-06 11:20:00 31.01 kg/m2 Comm on [facility] blood pressure systolic 2022-12-06 11:20:00 126 mm[Hg] Common [facility] blood pressure diastolic 2022-12-06 11:20:00 76 mm[Hg] Common [facility] height 2022-11-01 14:40:00 67 [in_i] Commo n [facility] weight 2022-11-01 14:40:00 198.1 [lb_av] Co mmon [facility] bmi 2022-11-01 14:40:00 31.02 kg/m2 Comm on [facility] height 2022-09-04 11:20:00 67 [in_i] Commo n [facility] weight 2022-09-04 11:20:00 198.1 [lb_av] [facility] 2022-09-04 11:20:00 98.1 [degF] Com mon [facility] bmi 2022-09-04 11:20:00 31.02 kg/m2 Comm on [facility] oximetry 2022-09-04 11:20:00 95 % Commo n [facility] respiratory rate 2022-09-04 11:20:00 18 /min Common [facility] blood pressure systolic 2022-09-04 11:20:00 133 mm[Hg] Common [facility] blood pressure diastolic 2022-09-04 11:20:00 68 mm[Hg] [facility] height 2022-08-03 10:20:00 67 [in_i] Commo n [facility] weight 2022-08-03 10:20:00 198.2 [lb_av] Co mmon [facility] temperature 2022-08-03 10:20:00 97.1 [degF] Com [facility] bmi 2022-08-03 10:20:00 31.04 kg/m2 Comm on [facility] oximetry 2022-08-03 10:20:00 99 % Commo n [facility] respiratory rate 2022-08-03 10:20:00 18 /min Common [facility] blood pressure systolic 2022-08-03 10:20:00 127 mm[Hg] Common [facility] blood pressure diastolic 2022-08-03 10:20:00 74 mm[Hg] Common [facility] height 2022-08-03 09:20:00 67 [in_i] Commo n [facility] weight 2022-08-03 09:20:00 198.2 [lb_av] Co mmon [facility] temperature 2022-08-03 09:20:00 97.1 [degF] Com [facility] bmi 2022-08-03 09:20:00 31.04 kg/m2 Comm on [facility] oximetry 2022-08-03 09:20:00 99 % Commo n [facility] respiratory rate 2022-08-03 09:20:00 18 /min Common [facility] blood pressure systolic 2022-08-03 09:20:00 127 mm[Hg] [facility] blood pressure diastolic 2022-08-03 09:20:00 74 mm[Hg] Common [facility] height 2022-05-04 11:10:00 67 [in_i] Commo n [facility] weight 2022-05-04 11:10:00 200.7 [lb_av] Co mmon [facility] temperature 2022-05-04 11:10:00 97.9 [degF] Com mon [facility] bmi 2022-05-04 11:10:00 31.43 kg/m2 Comm on [facility] oximetry 2022-05-04 11:10:00 97 % Commo n [facility] respiratory rate 2022-05-04 11:10:00 17 /min Common [facility] blood pressure systolic 2022-05-04 11:10:00 135 mm[Hg] Common [facility] blood pressure diastolic 2022-05-04 11:10:00 78 mm[Hg] Common [facility] height 2022-01-03 08:30:00 67 [in_i] Commo n [facility] weight 2022-01-03 08:30:00 197 [lb_av] Comm on [facility] temperature 2022-01-03 08:30:00 97.4 [degF] Com mon [facility] bmi 2022-01-03 08:30:00 30.85 kg/m2 Comm on [facility] blood pressure systolic 2022-01-03 08:30:00 132 mm[Hg] [facility] blood pressure diastolic 2022-01-03 08:30:00 73 mm[Hg] Common [facility] height 2021-12-21 13:20:00 67 [in_i] Commo n [facility] weight 2021-12-21 13:20:00 198 [lb_av] Comm on [facility] bmi 2021-12-21 13:20:00 31.01 kg/m2 Comm on [facility] height 2021-10-25 09:40:00 67 [in_i] Commo n [facility] weight 2021-10-25 09:40:00 197.5 [lb_av] Co mmon [facility] temperature 2021-10-25 09:40:00 98.4 [degF] Com mon [facility] bmi 2021-10-25 09:40:00 30.93 kg/m2 Comm on [facility] oximetry 2021-10-25 09:40:00 97 % Commo n [facility] respiratory rate 2021-10-25 09:40:00 17 /min Common [facility] blood pressure systolic 2021-10-25 09:40:00 135 mm[Hg] Common [facility] blood pressure diastolic 2021-10-25 09:40:00 74 mm[Hg] [facility] height 2021-10-04 10:00:00 67 [in_i] Commo n [facility] weight 2021-10-04 10:00:00 199.8 [lb_av] Co mmon [facility] temperature 2021-10-04 10:00:00 98.1 [degF] Com [facility] bmi 2021-10-04 10:00:00 31.29 kg/m2 Comm on [facility] oximetry 2021-10-04 10:00:00 95 % Commo n [facility] respiratory rate 2021-10-04 10:00:00 16 /min [facility] blood pressure systolic 2021-10-04 10:00:00 133 mm[Hg] [facility] blood pressure diastolic 2021-10-04 10:00:00 72 mm[Hg] [facility] Procedures Procedure Date / Time Performed Performing Clinician Source MAMMO, screening, digital, bilateral 2023-12-25 00:00:00 [facility] [id number] 2021-10-21 00:00:00 WILLY CARNEY [facility] - Coronary Artery Stent 2020-11-05 00:00:00 [facility] Cholecystectomy (Gallbladder) 2017-11-05 00:00:00 [facility] Plan of Care Planned Activity Planned Date Details Comments Source Diagnostic Test Pending 2023-12-25 00:00:00 urin alysis, dipstick [code = urinalysis, dipstick] [facility] Medical Future Appointment 2025-12-28 11:30:00 Makayla aguayo, [address] [place] [address] Dr Campbell; [address] [id number] [facility] Medical Encounters Start Date/Time End Date/Time Encounter Type Admission Type Attending [facility] Care Department Encounter ID Source 2024-01-04 10:43:00 Outpatient [place], Suzanna STLC STLMLC [id number] [facility] 2023-11-30 08:23:00 Outpatient [place], Suzanna [facility] STLMLC [id number] [facility] 2022-12-06 07:55:01 Outpatient [place], Suzanna [facility] STLMLC [id number] [facility] 2022-08-31 09:17:06 Outpatient [place], Suzanna [facility] STLMLC [id number] [facility] 2022-05-02 10:18:02 Outpatient [place], Suzanna [facility] STLMLC [id number] [facility] 2021-11-30 14:18:57 Outpatient [place], Suzanna [facility] STL[facility]C [id number] [facility] 2021-11-30 14:09:44 Outpatient [place], Suzanna [facility] STL[facility]C [id number] [facility] 2021-11-30 13:45:52 Outpatient [place], Suzanna [facility] STL[facility] [id number] [facility] 2021-11-30 13:45:04 Outpatient [place], Suzanna [facility] STL[facility] [id number] [facility] 2021-11-30 13:43:37 Outpatient [facility] STL[facility] [id number] [facility] 2021-11-30 13:21:03 Outpatient COV[place], SUZANNA [facility] STLMLC [id number] [facility] 2025-05-20 00:00:00 2025-05-20 00:00:00 (TEL) STLMLC STLMLC [id number] [facility] 2025-03-18 00:00:00 2025-03-18 00:00:00 OFFICE VISIT ESTAB PT LEVEL 4 STLMLC STLMLC [id number] [facility] 2025-03-06 00:00:00 2025-03-06 00:00:00 (TEL) STLMLC STLMLC [id number] [facility] 2025-02-24 00:00:00 2025-02-24 00:00:00 (TEL) STLMLC STLMLC [id number] [facility] 2025-01-12 00:00:00 2025-01-12 00:00:00 (TEL) STLMLC STLMLC [id number] [facility] 2024-12-25 00:00:00 2024-12-25 00:00:00 OFFICE VISIT ESTAB PT LEVEL 3 STLMLC STLMLC [id number] [facility] 2024-12-24 00:00:00 2024-12-24 00:00:00 (TEL) STLMLC STLMLC [id number] [facility] 2024-12-19 00:00:00 2024-12-19 00:00:00 (TEL) STLMLC STLMLC [id number] [facility] 2024-12-09 00:00:00 2024-12-09 00:00:00 (TEL) STLMLC STLMLC [id number] [facility] 2024-12-01 00:00:00 2024-12-01 00:00:00 OFFICE VISIT ESTAB PT LEVEL 4 STLMLC STLMLC [id number] [facility] 2024-12-01 00:00:00 2024-12-01 00:00:00 (TEL) STLMLC STLMLC [id number] [facility] 2024-11-27 00:00:00 2024-11-27 00:00:00 (TEL) STLMLC STLMLC [id number] [facility] 2024-11-27 00:00:00 2024-11-27 00:00:00 (TEL) STLMLC STLMLC [id number] [facility] 2024-10-24 00:00:00 2024-10-24 00:00:00 OFFICE VISIT ESTAB PT LEVEL 4 STLMLC STLMLC [id number] [facility] 2024-09-30 00:00:00 2024-09-30 00:00:00 (TEL) STLMLC STLMLC [id number] [facility] 2024-09-30 00:00:00 2024-09-30 00:00:00 OFFICE VISIT ESTAB PT LEVEL 4 STLMLC STLMLC [id number] [facility] 2024-09-26 00:00:00 2024-09-26 00:00:00 (TEL) STLMLC STLMLC [id number] [facility] 2024-09-26 00:00:00 2024-09-26 00:00:00 (TEL) STLMLC STLMLC [id number] [facility] 2024-06-17 00:00:00 2024-06-17 00:00:00 OFFICE VISIT ESTAB PT LEVEL 4 STLMLC STLMLC [id number] [facility] 2024-06-17 00:00:00 2024-06-17 00:00:00 SUB ANNUAL [facility] WELLNESS VISIT STLMLC STLMLC [id number] [facility] 2024-04-09 00:00:00 2024-04-09 00:00:00 (TEL) STLMLC STLMLC [id number] [facility] 2024-02-08 00:00:00 2024-02-08 00:00:00 OFFICE VISIT ESTAB PT LEVEL 4 STLMLC STLMLC [id number] [facility] 2024-01-04 00:00:00 2024-01-04 00:00:00 (TEL) STLMLC STLMLC [id number] [facility] 2023-12-25 00:00:00 2023-12-25 00:00:00 Aleena Graham, [employer]PINE PAT[employer]LLER: [address], [address], [place] [address] , Ph. [facility] - [id number] [facility]* [id number] [facility] 2023-12-13 00:00:00 2023-12-13 00:00:00 (TEL) STLMLC STLMLC [id number] [facility] 2023-11-29 00:00:00 2023-11-29 00:00:00 (TEL) STLMLC STLMLC [id number] [facility] 2023-10-15 00:00:00 2023-10-15 00:00:00 (TEL) STLMLC STLMLC [id number] [facility] 2023-10-09 00:00:00 2023-10-09 00:00:00 OFFICE VISIT ESTAB PT LEVEL 4 STLMLC STLMLC [id number] [facility] 2023-09-03 00:00:00 2023-09-03 00:00:00 (TEL) STLMLC STLMLC [id number] [facility] 2023-07-10 00:00:00 2023-07-10 00:00:00 OFFICE VISIT ESTAB PT LEVEL 4 STLMLC STLMLC [id number] [facility] 2023-07-10 00:00:00 2023-07-10 00:00:00 SUB ANNUAL [facility] WELLNESS VISIT STLMLC STLMLC [id number] [facility] 2023-07-10 00:00:00 2023-07-10 00:00:00 (TEL) STLMLC STLMLC [id number] [facility] 2023-03-05 00:00:00 2023-03-05 00:00:00 OFFICE VISIT ESTAB PT LEVEL 4 STLMLC STLMLC [id number] [facility] 2023-01-05 00:00:00 2023-01-05 00:00:00 (TEL) STLMLC STLMLC [id number] [facility] 2022-12-26 00:00:00 2022-12-26 00:00:00 (TEL) STLMLC STLMLC [id number] [facility] 2022-12-06 00:00:00 2022-12-06 00:00:00 OFFICE VISIT ESTAB PT LEVEL 4 STLMLC STLMLC [id number] [facility] 2022-11-01 00:00:00 2022-11-01 00:00:00 OFFICE VISIT EST PT LEVEL 3 STLMLC STLMLC [id number] [facility] 2022-11-01 00:00:00 2022-11-01 00:00:00 (TEL) STLMLC STLMLC [id number] [facility] 2022-10-06 00:00:00 2022-10-06 00:00:00 (TEL) STLMLC STLMLC [id number] [facility] 2022-09-04 00:00:00 2022-09-04 00:00:00 OFFICE VISIT ESTAB PT LEVEL 4 STLMLC STLMLC [id number] [facility] 2022-08-03 00:00:00 2022-08-03 00:00:00 SUB ANNUAL [facility] WELLNESS VISIT STLMLC STLMLC [id number] [facility] 2022-08-03 00:00:00 2022-08-03 00:00:00 OFFICE VISIT ESTAB PT LEVEL 4 STLMLC STLMLC [id number] [facility] 2022-07-24 00:00:00 2022-07-24 00:00:00 (TEL) STLMLC STLMLC [id number] [facility] 2022-07-03 00:00:00 2022-07-03 00:00:00 (TEL) STLMLC STLMLC [id number] [facility] 2022-05-04 00:00:00 2022-05-04 00:00:00 OFFICE VISIT ESTAB PT LEVEL 4 STLMLC STLMLC [id number] [facility] 2022-03-09 00:00:00 2022-03-09 00:00:00 (TEL) STLMLC STLMLC [id number] [facility] 2022-01-03 00:00:00 2022-01-03 00:00:00 OFFICE VISIT ESTAB PT LEVEL 4 STLMLC STLMLC [id number] [facility] 2022-01-02 00:00:00 2022-01-02 00:00:00 (TEL) STLMLC STLMLC [id number] [facility] 2021-12-28 05:25:00 2021-12-28 05:25:00 Inpatient Ted Sevilla [facility] OUTD [id number] 74 [facility] 2021-12-21 00:00:00 2021-12-21 00:00:00 OFFICE VISIT EST PT LEVEL 3 STLMLC STLMLC [id number] [facility] 2021-12-20 00:00:00 2021-12-20 00:00:00 (TEL) STLMLC STLMLC [id number] [facility] 2021-11-16 05:04:00 2021-11-16 05:04:00 Inpatient Ted Sevilla [facility] OUTD [id number] 87 [facility] 2021-10-25 00:00:00 2021-10-25 00:00:00 (HOSP F/U) Hospital Follow Up STLMLC STLMLC [id number] [facility] 2021-10-25 00:00:00 2021-10-25 00:00:00 (TEL) STLMLC STLMLC [id number] [facility] 2021-10-24 00:00:00 2021-10-24 00:00:00 (TEL) STLMLC STLMLC [id number] [facility] 2021-10-11 05:17:00 2021-10-11 05:17:00 Inpatient Ted Sevilla [facility] OUTD [id number] 34 [facility] 2021-10-10 09:00:00 2021-10-10 23:00:00 Outpatient Ted Sevilla [facility] 3DAY [id number] 56 [facility] 2021-10-04 00:00:00 2021-10-04 00:00:00 OFFICE VISIT ESTAB PT LEVEL 4 STLMLC STLMLC [id number] [facility] 2021-09-05 00:00:00 2021-09-05 00:00:00 (TEL) STLMLC STLMLC [id number] [facility] 2021-08-31 00:00:00 2021-08-31 00:00:00 (TEL) STLMLC STLMLC [id number] [facility] 2021-08-31 00:00:00 2021-08-31 00:00:00 (TEL) STLMLC STLMLC [id number] [facility] 2021-08-05 00:00:00 2021-08-05 00:00:00 (COVID Inj) COVID Injection STLMLC STLMLC [id number] [facility] 2021-07-08 00:00:00 2021-07-08 00:00:00 Outpatient STLMLC STLMLC [id number] [facility] 2021-07-05 00:00:00 2021-07-05 00:00:00 Outpatient STLMLC STLMLC [id number] [facility] 2021-07-05 00:00:00 2021-07-05 00:00:00 Outpatient STLMLC STLMLC [id number] [facility] 2021-07-05 00:00:00 2021-07-05 00:00:00 Outpatient STLMLC STLMLC [id number] [facility] 2021-05-04 00:00:00 2021-05-04 00:00:00 Outpatient STLMLC STLMLC [id number] [facility] Results Test Description Test Time Test Comments Results Result Co mments Source LIPID PANEL WITH REFLEX TO DIRECT [id number] 00:00:00* Test Item Value Reference Range Interpretation Comme nts ABSOLUTE BASOPHILS (test code = 704-7) 92 cells/uL See_Comment N [Automated m essage] The system which generated this result transmitted reference range: 0-200 cells/uL. The reference range was not used to interpret this result as normal/abnormal. ABSOLUTE EOSINOPHILS (test code = 711-2) 192 cells/uL See_Comment N [Automated m essage] The system which generated this result transmitted reference range: 15-500 cells/uL. The reference range was not used to interpret this result as normal/abnormal. ABSOLUTE LYMPHOCYTES (test code = 731-0) 2925 cells/uL See_Comment N [Automated m essage] The system which generated this result transmitted reference range: 850-3900 cells/uL. The reference range was not used to interpret this result as normal/abnormal. ABSOLUTE MONOCYTES (test code = 742-7) 611 cells/uL See_Comment N [Automated m essage] The system which generated this result transmitted reference range: 200-950 cells/uL. The reference range was not used to interpret this result as normal/abnormal. ABSOLUTE NEUTROPHILS (test code = 751-8) 3280 cells/uL See_Comment N [Automated m essage] The system which generated this result transmitted reference range: 7293-7863 cells/uL. The reference range was not used to interpret this result as normal/abnormal. BASOPHILS (test code = 706-2) 1.3 % N EOSINOPHILS (test code = 713-8) 2.7 % N HEMATOCRIT (test code = 4544-3) 43.8 % See_Comment N [Automated messa ge] The system which generated this result transmitted reference range: 35.0-45.0 %. The reference range was not used to interpret this result as normal/abnormal. HEMOGLOBIN (test code = 718-7) 14.6 g/dL See_Comment N [Automated messa ge] The system which generated this result transmitted reference range: 11.7-15.5 g/dL. The reference range was not used to interpret this result as normal/abnormal. LYMPHOCYTES (test code = 736-9) 41.2 % N MCH (test code = 785-6) 30.8 pg See_Comment N [Automated messa ge] The system which generated this result transmitted reference range: 27.0-33.0 pg. The reference range was not used to interpret this result as normal/abnormal. MCHC (test code = 786-4) 33.3 g/dL See_Comment N [Automated messa ge] The system which generated this result transmitted reference range: 32.0-36.0 g/dL. The reference range was not used to interpret this result as normal/abnormal. MCV (test code = 787-2) 92.4 fL See_Comment N [Automated messa ge] The system which generated this result transmitted reference range: 80.0-100.0 fL. The reference range was not used to interpret this result as normal/abnormal. MONOCYTES (test code = 5905-5) 8.6 % N MPV (test code = 776-5) 9.3 fL See_Comment N [Automated messa ge] The system which generated this result transmitted reference range: 7.5-12.5 fL. The reference range was not used to interpret this result as normal/abnormal. NEUTROPHILS (test code = 770-8) 46.2 % N PLATELET COUNT (test code = 777-3) 359 Thousand/uL See_Comment N [Automated message] The system which generated this result transmitted reference range: 140-400 Thousand/uL. The reference range was not used to interpret this result as normal/abnormal. RDW (test code = 788-0) 13.9 % See_Comment N [Automated messa ge] The system which generated this result transmitted reference range: 11.0-15.0 %. The reference range was not used to interpret this result as normal/abnormal. RED BLOOD CELL COUNT (test code = 789-8) 4.74 Million/uL See_Comment N [Automated message] The system which generated this result transmitted reference range: 3.80-5.10 Million/uL. The reference range was not used to interpret this result as normal/abnormal. WHITE BLOOD CELL COUNT (test code = 6690-2) 7.1 Thousand/uL See_Comment N [Automated message] The system which generated this result transmitted reference range: 3.8-10.8 Thousand/uL. The reference range was not used to interpret this result as normal/abnormal. HEMOGLOBIN A1c (test code = 4548-4) 5.9 % See_Comment H [Automated [employer]] The system which generated this result transmitted reference range: <5.7 %. The reference range was not used to interpret this result as normal/abnormal. MEAN PLASMA GLUCOSE (test code = 80849-1) 133 mg/dL (calc) ALBUMIN (test code = 1751-7) 4.6 g/dL See_Comment N [Automated [employer]] The system which generated this result transmitted reference range: 3.6-5.1 g/dL. The reference range was not used to interpret this result as normal/abnormal. ALBUMIN/GLOBULIN RATIO (test code = 1759-0) 1.4 (calc) See_Comment N [Automated message] The system which generated this result transmitted reference range: 1.0-2.5 (calc). The reference range was not used to interpret this result as normal/abnormal. ALKALINE PHOSPHATASE (test code = 6768-6) 56 U/L See_Comment N [Automated message] The system which generated this result transmitted reference range: 37-153 U/L. The reference range was not used to interpret this result as normal/abnormal. ALT (test code = 1742-6) 30 U/L See_Comment H [Automated [employer]] The system which generated this result transmitted reference range: 6-29 U/L. The reference range was not used to interpret this result as normal/abnormal. AST (test code = 1920-8) 25 U/L See_Comment N [Automated [employer]] The system which generated this result transmitted reference range: 10-35 U/L. The reference range was not used to interpret this result as normal/abnormal. BILIRUBIN, TOTAL (test code = 1975-2) 0.5 mg/dL See_Comment N [Automated [employer]] The system which generated this result transmitted reference range: 0.2-1.2 mg/dL. The reference range was not used to interpret this result as normal/abnormal. BUN/CREATININE RATIO (test code = 3097-3) 14 (calc) See_Comment N [Automated message] The system which generated this result transmitted reference range: 6-22 (calc). The reference range was not used to interpret this result as normal/abnormal. CALCIUM (test code = 65025-0) 10.5 mg/dL See_Comment H [Automated messa ge] The system which generated this result transmitted reference range: 8.6-10.4 mg/dL. The reference range was not used to interpret this result as normal/abnormal. CARBON DIOXIDE (test code = 2028-9) 32 mmol/L See_Comment N [Automated messa ge] The system which generated this result transmitted reference range: 20-32 mmol/L. The reference range was not used to interpret this result as normal/abnormal. CHLORIDE (test code = 2075-0) 97 mmol/L See_Comment L [Automated messa ge] The system which generated this result transmitted reference range: 98-110 mmol/L. The reference range was not used to interpret this result as normal/abnormal. CREATININE (test code = 2160-0) 1.08 mg/dL See_Comment H [Automated messa ge] The system which generated this result transmitted reference range: 0.60-1.00 mg/dL. The reference range was not used to interpret this result as normal/abnormal. GLOBULIN (test code = 83748-7) 3.3 g/dL (calc) See_Comment N [Automated message] The system which generated this result transmitted reference range: 1.9-3.7 g/dL (calc). The reference range was not used to interpret this result as normal/abnormal. GLUCOSE (test code = 2345-7) 114 mg/dL See_Comment H [Automated messa ge] The system which generated this result transmitted reference range: 65-99 mg/dL. The reference range was not used to interpret this result as normal/abnormal. POTASSIUM (test code = 2823-3) 3.9 mmol/L See_Comment N [Automated messa ge] The system which generated this result transmitted reference range: 3.5-5.3 mmol/L. The reference range was not used to interpret this result as normal/abnormal. PROTEIN, TOTAL (test code = 2885-2) 7.9 g/dL See_Comment N [Automated messa ge] The system which generated this result transmitted reference range: 6.1-8.1 g/dL. The reference range was not used to interpret this result as normal/abnormal. SODIUM (test code = 2951-2) 142 mmol/L See_Comment N [Automated messa ge] The system which generated this result transmitted reference range: 135-146 mmol/L. The reference range was not used to interpret this result as normal/abnormal. UREA NITROGEN (BUN) (test code = 3094-0) 15 mg/dL See_Comment N [Automated message] The system which generated this result transmitted reference range: 7-25 mg/dL. The reference range was not used to interpret this result as normal/abnormal. TSH W/REFLEX TO FT4 (test code = 3016-3) 2.16 mIU/L See_Comment N [Automated message] The system which generated this result transmitted reference range: 0.40-4.50 mIU/L. The reference range was not used to interpret this result as normal/abnormal. CHOL/HDLC RATIO (test code = 9830-1) 5.4 (calc) See_Comment H [Automated messa ge] The system which generated this result transmitted reference range: <5.0 (calc). The reference range was not used to interpret this result as normal/abnormal. CHOLESTEROL, TOTAL (test code = 2093-3) 194 mg/dL See_Comment N [Automated message] The system which generated this result transmitted reference range: <200 mg/dL. The reference range was not used to interpret this result as normal/abnormal. HDL CHOLESTEROL (test code = 2085-9) 36 mg/dL See_Comment L [Automated [employer]] The system which generated this result transmitted reference range: > OR = 50 mg/dL. The reference range was not used to interpret this result as normal/abnormal. LDL-CHOLESTEROL (test code = 51859-3) 105 mg/dL (calc) H TRIGLYCERIDES (test code = 2571-8) 397 mg/dL See_Comment H [Automated messa ge] The system which generated this result transmitted reference range: <150 mg/dL. The reference range was not used to interpret this result as normal/abnormal. COMPREHENSIVE METABOLIC [id number] 00:00:00* Test Item Value Reference Range Interpretation Comme nts NUCLEATED RBCS (test code = 56966-7) 0.0 /100 WBC'S See_Comment [Automated message] The system which generated this result transmitted reference range: 0.0 /100 WBC'S. The reference range was not used to interpret this result as normal/abnormal. ABSOLUTE EOSINOPHILS (test code = 03851-2) 0.20 K/UL See_Comment [Automated message] The system which generated this result transmitted reference range: 0.00-0.50 K/UL. The reference range was not used to interpret this result as normal/abnormal. ABSOLUTE LYMPHOCYTES (test code = 71087-7) 2.98 K/UL See_Comment [Automated message] The system which generated this result transmitted reference range: 1.00-4.00 K/UL. The reference range was not used to interpret this result as normal/abnormal. ABSOLUTE MONOCYTES (test code = 62732-5) 0.57 K/UL See_Comment [Automated message] The system which generated this result transmitted reference range: 0.20-1.00 K/UL. The reference range was not used to interpret this result as normal/abnormal. ABSOLUTE NEUTROPHILS (test code = 42754-9) 4.11 K/UL See_Comment [Automated message] The system which generated this result transmitted reference range: 1.50-7.50 K/UL. The reference range was not used to interpret this result as normal/abnormal. BASOPHILS (test code = 41747-3) 1.1 % EOSINOPHILS (test code = 12604-1) 2.5 % HEMATOCRIT (test code = 71011-0) 43.6 % See_Comment [Automated messa ge] The system which generated this result transmitted reference range: 34.0-45.0 %. The reference range was not used to interpret this result as normal/abnormal. HEMOGLOBIN (test code = 718-7) 14.8 G/DL See_Comment [Automated messa ge] The system which generated this result transmitted reference range: 11.5-15.5 G/DL. The reference range was not used to interpret this result as normal/abnormal. LYMPHOCYTES (test code = 64235-9) 37.3 % MCH (test code = 41434-1) 31.4 PG See_Comment [Automated messa ge] The system which generated this result transmitted reference range: 25.0-33.0 PG. The reference range was not used to interpret this result as normal/abnormal. MCHC (test code = 90798-9) 33.9 G/DL See_Comment [Automated messa ge] The system which generated this result transmitted reference range: 31.0-36.0 G/DL. The reference range was not used to interpret this result as normal/abnormal. MCV (test code = 18769-0) 92.4 fL See_Comment [Automated messa ge] The system which generated this result transmitted reference range: 80.0-99.0 fL. The reference range was not used to interpret this result as normal/abnormal. MONOCYTES (test code = 72812-3) 7.1 % NEUTROPHILS (test code = 85909-4) 51.6 % PLATELET COUNT (test code = 34873-2) 407 K/UL See_Comment H [Automated messa ge] The system which generated this result transmitted reference range: 130-400 K/UL. The reference range was not used to interpret this result as normal/abnormal. RBC (test code = 26137-1) 4.72 M/UL See_Comment [Automated messa ge] The system which generated this result transmitted reference range: 3.80-5.40 M/UL. The reference range was not used to interpret this result as normal/abnormal. RDW (test code = 49741-3) 14.3 % See_Comment [Automated messa ge] The system which generated this result transmitted reference range: 11.5-15.0 %. The reference range was not used to interpret this result as normal/abnormal. WBC (test code = 18599-9) 8.0 K/UL See_Comment [Automated messa ge] The system which generated this result transmitted reference range: 3.5-11.0 K/UL. The reference range was not used to interpret this result as normal/abnormal. HEMOGLOBIN A1c (test code = 4548-4) 5.9 % See_Comment H [Automated messa ge] The system which generated this result transmitted reference range: 4.2-5.6 %. The reference range was not used to interpret this result as normal/abnormal. TSH REFLEX TO FREE T4 (test code = 59018-7) 1.250 UIU/ML See_Comment [Automated message] The system which generated this result transmitted reference range: 0.400-4.100 UIU/ML. The reference range was not used to interpret this result as normal/abnormal. CALC LDL CHOL (test code = 82927-3) 107 MG/DL See_Comment H [Automated messa ge] The system which generated this result transmitted reference range: <100 MG/DL. The reference range was not used to interpret this result as normal/abnormal. CHOLESTEROL (test code = 2093-3) 186 MG/DL See_Comment [Automated messa ge] The system which generated this result transmitted reference range: <200 MG/DL. The reference range was not used to interpret this result as normal/abnormal. HDL CHOLESTEROL (test code = 2085-9) 34 MG/DL See_Comment L [Automated messa ge] The system which generated this result transmitted reference range: >39 MG/DL. The reference range was not used to interpret this result as normal/abnormal. RISK RATIO LDL/HDL (test code = 27807-7) 3.15 RATIO See_Comment [Automated message] The system which generated this result transmitted reference range: <3.22 RATIO. The reference range was not used to interpret this result as normal/abnormal. TRIGLYCERIDES (test code = 2571-8) 341 MG/DL See_Comment H [Automated messa ge] The system which generated this result transmitted reference range: <150 MG/DL. The reference range was not used to interpret this result as normal/abnormal. ALBUMIN (test code = 1751-7) 4.6 G/DL See_Comment [Automated [employer]] The system which generated this result transmitted reference range: 3.5-5.2 G/DL. The reference range was not used to interpret this result as normal/abnormal. ALKALINE PHOSPHATASE (test code = 6768-6) 67 U/L See_Comment [Automated message] The system which generated this result transmitted reference range: 40-142 U/L. The reference range was not used to interpret this result as normal/abnormal. BILIRUBIN, TOTAL (test code = 1975-2) 0.4 MG/DL See_Comment [Automated messa ge] The system which generated this result transmitted reference range: <=1.2 MG/DL. The reference range was not used to interpret this result as normal/abnormal. BUN (test code = 3094-0) 20 MG/DL See_Comment [Automated [employer]] The system which generated this result transmitted reference range: 8-23 MG/DL. The reference range was not used to interpret this result as normal/abnormal. CALCIUM (test code = 26782-8) 10.1 MG/DL See_Comment [Automated messa ge] The system which generated this result transmitted reference range: 8.5-10.5 MG/DL. The reference range was not used to interpret this result as normal/abnormal. CALC A/G RATIO (test code = 1759-0) 1.5 RATIO See_Comment [Automated messa ge] The system which generated this result transmitted reference range: 1.0-2.6 RATIO. The reference range was not used to interpret this result as normal/abnormal. CALC BUN/CREAT (test code = 3097-3) 19 RATIO See_Comment [Automated messa ge] The system which generated this result transmitted reference range: 6-28 RATIO. The reference range was not used to interpret this result as normal/abnormal. CALC GLOBULIN (test code = 39913-2) 3.1 G/DL See_Comment [Automated messa ge] The system which generated this result transmitted reference range: 1.9-3.7 G/DL. The reference range was not used to interpret this result as normal/abnormal. CARBON DIOXIDE (test code = 1963-8) 29 MEQ/L See_Comment [Automated messa ge] The system which generated this result transmitted reference range: 19-31 MEQ/L. The reference range was not used to interpret this result as normal/abnormal. CHLORIDE (test code = 2075-0) 99 MEQ/L See_Comment [Automated messa ge] The system which generated this result transmitted reference range: 95-107 MEQ/L. The reference range was not used to interpret this result as normal/abnormal. CREATININE (test code = 2160-0) 1.04 MG/DL See_Comment [Automated messa ge] The system which generated this result transmitted reference range: 0.60-1.30 MG/DL. The reference range was not used to interpret this result as normal/abnormal. eGFR (2020 CKD-EPI) (test code = 06976-6) 58 ML/MIN/1.73 See_Comment L [Automated message] The system which generated this result transmitted reference range: >60 ML/MIN/1.73. The reference range was not used to interpret this result as normal/abnormal. GLUCOSE (test code = 1558-6) 107 MG/DL See_Comment H [Automated messa ge] The system which generated this result transmitted reference range: 70-99 MG/DL. The reference range was not used to interpret this result as normal/abnormal. POTASSIUM (test code = 2823-3) 3.6 MEQ/L See_Comment [Automated messa ge] The system which generated this result transmitted reference range: 3.5-5.4 MEQ/L. The reference range was not used to interpret this result as normal/abnormal. PROTEIN, TOTAL (test code = 2885-2) 7.7 G/DL See_Comment [Automated messa ge] The system which generated this result transmitted reference range: 6.1-8.3 G/DL. The reference range was not used to interpret this result as normal/abnormal. AST (test code = 1920-8) 21 U/L See_Comment [Automated messa ge] The system which generated this result transmitted reference range: 9-40 U/L. The reference range was not used to interpret this result as normal/abnormal. ALT (test code = 1742-6) 23 U/L See_Comment [Automated messa ge] The system which generated this result transmitted reference range: 5-40 U/L. The reference range was not used to interpret this result as normal/abnormal. SODIUM (test code = 2951-2) 140 MEQ/L See_Comment [Automated messa ge] The system which generated this result transmitted reference range: 133-146 MEQ/L. The reference range was not used to interpret this result as normal/abnormal. LIPID PANEL WITH REFLEX DIRECT [id number] 00:00:00* Test Item Value Reference Range Interpretation Comme nts CALC LDL CHOL (test code = 75984-0) (NOTE) MG/DL See_Comment [Automated messa ge] The system which generated this result transmitted reference range: <100 MG/DL. The reference range was not used to interpret this result as normal/abnormal. CHOLESTEROL (test code = 2093-3) 211 MG/DL See_Comment H [Automated messa ge] The system which generated this result transmitted reference range: <200 MG/DL. The reference range was not used to interpret this result as normal/abnormal. HDL CHOLESTEROL (test code = 2085-9) 31 MG/DL See_Comment L [Automated messa ge] The system which generated this result transmitted reference range: >39 MG/DL. The reference range was not used to interpret this result as normal/abnormal. RISK RATIO LDL/HDL (test code = 95054-9) (NOTE) RATIO See_Comment [Automated message] The system which generated this result transmitted reference range: <3.22 RATIO. The reference range was not used to interpret this result as normal/abnormal. TRIGLYCERIDES (test code = 2571-8) 472 MG/DL See_Comment H [Automated [employer]] The system which generated this result transmitted reference range: <150 MG/DL. The reference range was not used to interpret this result as normal/abnormal. Urinalysis macro (dipstick) panel - [id number] 11:49:32* Test Item Value Reference Range Interpretation Comme nts Leukocytes (test code = Leukocytes) Negative Nitrite (test code = Nitrite) negative Urobilinogen (test code = Urobilinogen) Normal Protein (test code = Protein) Negative pH (test code = pH) 6.0 Blood (test code = Blood) Negative Specific [place] (test code = Specific [place]) 1.005 Ketone (test code = Ketone) Negative Bilirubin (test code = Bilirubin) Negative Glucose (test code = Glucose) Negative Appearance (test code = Appearance) Clear Color (test code = Color) Yellow [facility] W/AUTO [id number] 00:00:00* Test Item Value Reference Range Interpretation Comme nts NUCLEATED RBCS (test code = 41457-8) 0.0 /100 WBC'S See_Comment [Automated [employer]] The system which generated this result transmitted reference range: 0.0 /100 WBC'S. The reference range was not used to interpret this result as normal/abnormal. ABSOLUTE EOSINOPHILS (test code = 65665-8) 0.33 K/UL See_Comment [Automated [employer]] The system which generated this result transmitted reference range: 0.00-0.50 K/UL. The reference range was not used to interpret this result as normal/abnormal. ABSOLUTE LYMPHOCYTES (test code = 30192-1) 3.46 K/UL See_Comment [Automated [employer]] The system which generated this result transmitted reference range: 1.00-4.00 K/UL. The reference range was not used to interpret this result as normal/abnormal. ABSOLUTE MONOCYTES (test code = 59683-6) 0.61 K/UL See_Comment [Automated [employer]] The system which generated this result transmitted reference range: 0.20-1.00 K/UL. The reference range was not used to interpret this result as normal/abnormal. ABSOLUTE NEUTROPHILS (test code = 14893-3) 3.17 K/UL See_Comment [Automated messa ge] The system which generated this result transmitted reference range: 1.50-7.50 K/UL. The reference range was not used to interpret this result as normal/abnormal. BASOPHILS (test code = 40533-0) 1.0 % EOSINOPHILS (test code = 08963-3) 4.3 % HEMATOCRIT (test code = 28945-7) 41.2 % See_Comment [Automated messa ge] The [...] result as normal/abnormal. LYMPHOCYTES (test code = 71018-6) 44.9 % MCH (test code = 97152-1) 31.0 PG See_Comment [Automated messa ge] The system which generated this result transmitted reference range: 25.0-33.0 PG. The reference range was not used to interpret this result as normal/abnormal. MCHC (test code = 92385-3) 34.2 G/DL See_Comment [Automated messa ge] The system which generated this result transmitted reference range: 31.0-36.0 G/DL. The reference range was not used to interpret this result as normal/abnormal. MCV (test code = 12202-1) 90.5 fL See_Comment [Automated messa ge] The system which generated this result transmitted reference range: 80.0-99.0 fL. The reference range was not used to interpret this result as normal/abnormal. MONOCYTES (test code = 61633-4) 7.9 % NEUTROPHILS (test code = 01065-3) 41.3 % PLATELET COUNT (test code = 40943-0) 363 K/UL See_Comment [Automated messa ge] The system which generated this result transmitted reference range: 130-400 K/UL. The reference range was not used to interpret this result as normal/abnormal. RBC (test code = 42998-4) 4.55 M/UL See_Comment [Automated messa ge] The system which generated this result transmitted reference range: 3.80-5.40 M/UL. The reference range was not used to interpret this result as normal/abnormal. RDW (test code = 68725-8) 13.9 % See_Comment [Automated messa ge] The system which generated this result transmitted reference range: 11.5-15.0 %. The reference range was not used to interpret this result as normal/abnormal. WBC (test code = 86829-1) 7.7 K/UL See_Comment [Automated messa ge] The system which generated this result transmitted reference range: 3.5-11.0 K/UL. The reference range was not used to interpret this result as normal/abnormal. CBC W/AUTO [id number] 00:00:00* Test Item Value Reference Range Interpretation Comme nts NUCLEATED RBCS (test code = 55874-1) 0.0 /100 WBC'S See_Comment [Automated messa ge] The system which generated this result transmitted reference range: 0.0 /100 WBC'S. The reference range was not used to interpret this result as normal/abnormal. ABSOLUTE EOSINOPHILS (test code = 87686-7) 0.27 K/UL See_Comment [Automated messa ge] The system which generated this result transmitted reference range: 0.00-0.50 K/UL. The reference range was not used to interpret this result as normal/abnormal. ABSOLUTE LYMPHOCYTES (test code = 27548-4) 3.28 K/UL See_Comment [Automated messa ge] The system which generated this result transmitted reference range: 1.00-4.00 K/UL. The reference range was not used to interpret this result as normal/abnormal. ABSOLUTE MONOCYTES (test code = 65949-5) 0.82 K/UL See_Comment [Automated messa ge] The system which generated this result transmitted reference range: 0.20-1.00 K/UL. The reference range was not used to interpret this result as normal/abnormal. ABSOLUTE NEUTROPHILS (test code = 88474-1) 3.58 K/UL See_Comment [Automated messa ge] The system which generated this result transmitted reference range: 1.50-7.50 K/UL. The reference range was not used to interpret this result as normal/abnormal. BASOPHILS (test code = 56027-4) 1.4 % EOSINOPHILS (test code = 94403-9) 3.3 % HEMATOCRIT (test code = 88474-3) 43.7 % See_Comment [Automated messa ge] The [...] result as normal/abnormal. LYMPHOCYTES (test code = 06320-4) 40.3 % MCH (test code = 80485-6) 30.8 PG See_Comment [Automated messa ge] The system which generated this result transmitted reference range: 25.0-33.0 PG. The reference range was not used to interpret this result as normal/abnormal. MCHC (test code = 53964-0) 34.6 G/DL See_Comment [Automated messa ge] The system which generated this result transmitted reference range: 31.0-36.0 G/DL. The reference range was not used to interpret this result as normal/abnormal. MCV (test code = 21737-2) 89.0 fL See_Comment [Automated messa ge] The system which generated this result transmitted reference range: 80.0-99.0 fL. The reference range was not used to interpret this result as normal/abnormal. MONOCYTES (test code = 44083-6) 10.1 % NEUTROPHILS (test code = 99745-8) 43.9 % PLATELET COUNT (test code = 21266-8) 373 K/UL See_Comment [Automated messa ge] The system which generated this result transmitted reference range: 130-400 K/UL. The reference range was not used to interpret this result as normal/abnormal. RBC (test code = 70417-9) 4.91 M/UL See_Comment [Automated messa ge] The system which generated this result transmitted reference range: 3.80-5.40 M/UL. The reference range was not used to interpret this result as normal/abnormal. RDW (test code = 16686-5) 13.7 % See_Comment [Automated [employer]] The system which generated this result transmitted reference range: 11.5-15.0 %. The reference range was not used to interpret this result as normal/abnormal. WBC (test code = 92797-0) 8.1 K/UL See_Comment [Automated messa ge] The system which generated this result transmitted reference range: 3.5-11.0 K/UL. The reference range was not used to interpret this result as normal/abnormal. Lipid Panel With LDL/HDL [id number] 00:00:00* Test Item Value Reference Range Interpretation Comme [facility] Cholesterol, Total (test code = 2093-3) 179 mg/dL See_Comment [Automated message] The system which generated this result transmitted reference range: 100-199 mg/dL. The reference range was not used to interpret this result as normal/abnormal. Triglycerides (test code = 2571-8) 329 mg/dL See_Comment H [Automated [employer]] The system which generated this result transmitted reference range: 0-149 mg/dL. The reference range was not used to interpret this result as normal/abnormal. HDL Cholesterol (test code = 2085-9) 33 mg/dL See_Comment L [Automated [employer]] The system which generated this result transmitted reference range: >39 mg/dL. The reference range was not used to interpret this result as normal/abnormal. [id number] 15:47:00* Test Item Value Reference Range Interpretation Comme [facility] ACT-ISTAT (test code = ACTI) 255 SEC 74-137 H Performed by cer tified link trainer operator at [facility] [id number] 15:14:00* Test Item Value Reference Range Interpretation Comme nts ACT-ISTAT (test code = ACTI) 398 SEC 74-137 H Performed by [facility] [employer] link trainer operator at [facility] PROTHROMBIN [id number] 11:06:00* Test Item Value Reference Range Interpretation [...] Infarction (to prevent recurrent infarct). BASIC METABOLIC [id number] 11:03:00* Test Item Value Reference Range Interpretation [...] CA) 9.3 mg/dL 8.0-10.5 N CBC W/AUTO [id number] 10:48:00* Test Item Value Reference Range Interpretation [...] REQUIRED (test c ode = MDIFF) NO [id number] 17:09:00* Test Item Value Reference Range Interpretation Comme nts ACT-ISTAT (test code = ACTI) 249 SEC 74-137 H Performed by cer tified link trainer operator at [facility] [id number] 16:29:00* Test Item Value Reference Range Interpretation Comme nts ACT-ISTAT (test code = ACTI) 261 SEC 74-137 H Performed by cer tified link trainer operator at [facility] [id number] 16:11:00* Test Item Value Reference Range Interpretation Comme nts ACT-ISTAT (test code = ACTI) 350 SEC 74-137 H Performed by cer tified link trainer operator at [facility] BASIC METABOLIC [id number] 13:11:00* Test Item Value Reference Range Interpretation [...] = CA) 9.4 mg/dL 8.0-10.5 N PROTHROMBIN [id number] 13:03:00* Test Item Value Reference Range Interpretation [...] Infarction (to prevent recurrent infarct). CBC W/AUTO [id number] 12:56:00* Test Item Value Reference Range Interpretation [...] 3/uL 0.0-0.1 N - XR CHEST 2 [id number] 00:00:00 [facility] MARIANGEL : 1955 Sex: FFAX: John Landin MD [phone] [place]: St: PRE FAX: Ted Pendleton MD [phone] ----- Name: SIMONA JUÁREZ [facility] : 1955 Age/S: 66/F [address] [place], [place] [address] Unit #: [id number] Loc: [place] [address] Phys: Ted Montiel MD Acct: [id number] Dis Date: Status: PRE [facility] PHONE #: [phone] Exam Date: 11/15/2021 1244 FAX #: [phone] Reason: PREOP EXAMS: CPT CODE: [id number] XR CHEST 2 V 59115 PROCEDURE INFORMATION: Exam: XR Chest Exam date [...] MD Technologist: RT Omar(R) Trnscrd Date/Time/By: 11/15/2021 (8906) : By: [email or web address] Orig Print D/T: S: 11/15/2021 (3869) PAGE 1 Signed ReportBASIC METABOLIC [id number] 20:17:00* Test Item Value Reference Range Interpretation [...] CA) 8.1 mg/dL 8.0-10.5 N CBC W/AUTO [id number] 19:19:00* Test Item Value Reference Range Interpretation [...] REQUIRED (test c ode = MDIFF) NO [id number] 18:42:00* Test Item Value Reference Range Interpretation Comme nts ACT-ISTAT (test code = ACTI) 255 SEC 74-137 H Performed by cer tified link trainer operator at [facility] [id number] 17:59:00* Test Item Value Reference Range Interpretation Comme nts ACT-ISTAT (test code = ACTI) 273 SEC 74-137 H Performed by cer tified link trainer operator at [facility] [id number] 17:29:00* Test Item Value Reference Range Interpretation Comme nts ACT-ISTAT (test code = ACTI) 357 SEC 74-137 H Performed by cer tified link trainer operator at [facility] BASIC METABOLIC [id number] 11:34:00* Test Item Value Reference Range Interpretation [...] = CA) 9.1 mg/dL 8.0-10.5 N PROTHROMBIN [id number] 11:32:00* Test Item Value Reference Range Interpretation [...] Infarction (to prevent recurrent infarct). CBC W/AUTO [id number] 11:11:00* Test Item Value Reference Range Interpretation [...] c ode = MDIFF) NO BASIC METABOLIC [id number] 18:08:00* Test Item Value Reference Range Interpretation [...] = CA) 9.2 mg/dL 8.0-10.5 N PROTHROMBIN [id number] 18:03:00* Test Item Value Reference Range Interpretation [...] Infarction (to prevent recurrent infarct). CBC W/AUTO [id number] 17:52:00* Test Item Value Reference Range Interpretation [...] = MDIFF) NO - XR CHEST 2 [id number] 00:00:00 [facility] SIM[facility]REZ : 1955 Sex: F FAX: John Landin MD [phone] [place]: St: PRE FAX: Ted Pendleton MD [phone] ---- Name: SIMONA JUÁREZ [facility] : 1955 Age/S: 66/F [address] [place] [address] Unit #: [id number] Loc: [place] [address] Phys: Ted Montiel MD Acct: [id number] Dis Date: Status: PRE SDC PHONE #: [phone] Exam Date: 10/10/20211658 FAX #: [phone] Reason: PREOP EXAMS: CPT CODE: [id number] XR CHEST 2 V 09428 PROCEDURE INFORMATION: Exam: XR Chest Exam date [...] Jian(R) Trnscrd Date/Time/By: 10/10/2021 (1721) : By: [email or web address] Orig Print D/T: S: 10/10/2021 (172) PAGE1 Signed ReportDEXA, BONE DENSITY AXIAL SKELEDEXA, BONE DENSITY AXIAL SKELEColonoscopyColonoscopy Notes Date/Time Note Provider Source 2022-01-18 14:31:00 [id number] [address] PATIENT NAME: SIMONA JUÁREZ ADMIT DATE: 10/21/21 ACCOUNT NO: [id number] ROOM NO: G.4425 AGE: 66 REPORT TYPE: OPERATIVE REPORT SEX: F ADMITTING PHYSICIAN:Ted Montiel MD ATTENDING PHYSICIAN:Ted Montiel MD OPERATION DATE: 10/21/2021 PREOPERATIVE DIAGNOSIS: POSTOPERATIVE DIAGNOSIS: PROCEDURE PERFORMED: Failed attempt of left ostial internal iliac artery LOGGING OPERATIONS INSPECTOR intervention. SURGEON: ADVERTISING MATERIAL DISTRIBUTOR: ANESTHESIA: ACCESS: 1. Right radial artery, 6-Comoran closed with TR band. 2. Right femoral artery, 6-Comoran closed with manual pressure. COMPLICATIONS: None. ESTIMATED BLOOD LOSS: Less than 10 mL. DESCRIPTION OF PROCEDURE: After risks, benefits, and alternatives were explained, the patient agreed to proceed and signed informed consent. The patient was brought into cardiac catheterization laboratory, prepped and draped in usual sterile fashion. Then, we accessed the right radial artery using pediatric micropuncture kit and placed 6-Comoran slender sheath and then I took a long multipurpose catheter into the distal aorta trying to perform angiogram; however, could not get a good picture. Then, I accessed the right femoral artery using ultrasound and micropuncture kit and placed a 6-Comoran [place] sheath and then I took a 6-Comoran Destination sheath after doing a crossover and hooked that distal sheath into the area of LOGGING OPERATIONS INSPECTOR and multiple attempts to wire the LOGGING OPERATIONS INSPECTOR however failed to reenter the lumen. As such, I decided to abort the procedure and consult Vascular Surgery. I then removed all catheters and wires and closed the first access with TR band and the ____ closed with manual pressure. CONCLUSION: LOGGING OPERATIONS INSPECTOR of the left common iliac artery, status post failed attempt of balloon angioplasty. Dictated By: Ted Montiel MD PATIENT NAME: SIMONA JUÁREZ WT: OP:NIHARIKA/WILLY/GAMAL Conf#: [id number]/DID#: [id number] Authenticated by Ted Montiel MD On 02/02/2022 02:25:01 PM at 0225 PATIENT NAME: SIMONA JUÁREZ [facility] 2021-12-28 16:05:00 [phone] [address] PATIENT NAME: SIMONA JUÁREZ ADMIT DATE: 12/28/21 ACCOUNT NO: [id number] ROOM NO: AGE: 66 REPORT TYPE: OPERATIVE REPORT SEX: F ADMITTING PHYSICIAN: ATTENDING PHYSICIAN:Ted Montiel MD OPERATION DATE: 12/28/2021 PROCEDURES PERFORMED: 1. Selective peripheral angiogram. 2. CSI atherectomy of mid to distal right superficial femoral artery LOGGING OPERATIONS INSPECTOR 100% occlusion followed by balloon angioplasty and then a stent placement of 6 x 150 mm self-expandable stent, postdilated using a 5 x 100 mm balloon to high pressure. ACCESS: Right radial artery, 6-Comoran closed with TR band. COMPLICATIONS: None. BLEEDING: [...] artery using pediatric micropuncture kit, placed a 6-Comoran slender sheath and then I took a long Glidewire into the distal aorta and to the right common iliac and then right femoral artery and then the right SFA and then exchanged the 6-Comoran sheath for a long 6-Comoran Destination sheath and placed it in the common femoral artery. Then, I took a microcatheter over the Glidewire into the area of the LOGGING OPERATIONS INSPECTOR and was able to cross and advance the microcatheter into the distal portion of the SFA and injecting contrast confirmed being within the lumen. Then, I took a ViperWire into the distal SFA and popliteal artery and placed it distally and took a 1.5 solid crown CSI into the area of LOGGING OPERATIONS INSPECTOR and did the atherectomy at low, medium, [...] hemostasis. CONCLUSION: Mid to distal right SFA LOGGING OPERATIONS INSPECTOR, status post successful CSI atherectomy and stent placement after balloon angioplasty. I used a 6 x 150 mm PATIENT NAME: SIMONA JUÁREZ self-expandable stent. PLAN: Aspirin and Plavix and high-dose statin. Follow up with me in the office in 1 week. Dictated By: Ted Montiel MD WT: OP:NIHARIKA/WILLY/GAMAL Conf#: [id number]/DID#: [id number] Authenticated by Ted Montiel MD On 01/03/2022 10:56:06 AM at 1056 PATIENT NAME: SIMONA JUÁREZ [facility] 2021-12-26 10:06:00 [id number] [place] [address] PATIENT NAME: SIMNOA JUÁREZ ADMIT DATE: ACCOUNT NO: [id number] ROOM NO: AGE: 66 REPORT TYPE: eELECTROCARDIOGRAM REPORT SEX: F ADMITTING PHYSICIAN: ATTENDING PHYSICIAN:Ted Montiel MD Order: [id number] Test Reason : PREOP Test Date/Time Stamp: SunDec 26 2021 10:06:54 Blood Pressure : / mmHG Vent. Rate : 054 BPM Atrial Rate : 054 BPM P-R Int : 190 ms QRS Dur : 092 ms QT Int : 454 ms P-R-T Axes : 063 009 053 degrees QTc Int : 430 ms Sinus bradycardia Abnormal ECG PRE_OP Confirmed by JACOB CASPER MD ([id number]) on 12/26/2021 2:21:31 PM Referred By: Ted Montiel Confirmed by:JACOB CASPER MD at 1421 PATIENT NAME: SIMONA JUÁREZ [facility] 2021-11-21 10:46:00 [id number] [place] [address] PATIENT NAME: SIMONA JUÁREZ ADMIT DATE: 11/16/21 ACCOUNT NO: [id number] ROOM NO: AGE: 66 REPORT TYPE: OPERATIVE REPORT SEX: F ADMITTING PHYSICIAN: ATTENDING PHYSICIAN:Ted Montiel MD OPERATION DATE: 11/16/2021 PROCEDURES PERFORMED: 1. Selective peripheral angiogram. 2. Balloon angioplasty of totally occluded left common iliac artery followed by stent placement using 7 x 150 mm Viabahn stent, self-expandable stent followed by post-dilation using 7 x 100 mm balloon. ACCESS: Right femoral artery, 6-Comoran closed with Perclose. COMPLICATIONS: None. BLEEDING: Less [...] using ultrasound guidance and fluoroscopy and placed 6-Comoran [place] sheath and then took an Omniflush catheter into the distal aorta and using a Glidewire, we were able to cross the LOGGING OPERATIONS INSPECTOR. Subsequently, lesion was predilated and then placed [...] By: Ted Montiel MD WT: OP:NIHARIKA/WILLY/GAMAL Conf#: [id number]/DID#: [id number] PATIENT NAME: SIMONA JUÁREZ Authenticated by Ted Montiel MD On 12/14/2021 12:29:39 PM at 1229 PATIENT NAME: SIMONA JUÁREZ [facility] 2021-11-15 11:22:00 [id number] [place] [address] PATIENT NAME: SIMONA JUÁREZ ADMIT DATE: ACCOUNT NO: [id number] ROOM NO: AGE: 66 REPORT TYPE: eELECTROCARDIOGRAM REPORT SEX: F ADMITTING PHYSICIAN: ATTENDING PHYSICIAN:Ted Montiel MD Order: [id number] Test Reason : PREOP Test Date/Time Stamp: [...] MD at 1304 PATIENT NAME: SIMONA JUÁREZ [facility] 2021-10-22 21:27:00 [facility] ([facility] Brief Discharge Note w/Med Rec REPORT#:[id number] REPORT STATUS: Signed DATE:10/22/21 TIME: 2126 PATIENT: SIMONA JUÁREZ UNIT #: [id number] ROOM/BED: [address] : [birth year] AGE: 66 SEX: F ATTEND: [...] non-tender, no guarding, no rebound, no distention Neuro/MANAGEMENT EXPERT: alert, oriented X 3, normal speech, no [...] Home/Self Care Additional Discharge Routines: PCP Follow-Up, [facility] Follow-Up (Dr Montiel as directed ), F/U [...] timeframe: In 1-2 weeks at 0648 RPT #:[id number] END OF REPORT [facility] 2021-10-22 20:57:00 [facility] ([facility]) Consultation Note - Brief REPORT#:[id number] REPORT STATUS: Signed DATE:10/22/21 TIME: 2056 PATIENT: SIMONA JUÁREZ UNIT #: [id number] ROOM/BED: [place] [address] : [birth year] AGE: 66 SEX: F ATTEND: [...] Time Status Admin Sodium Chloride 1,000 ML .[id number] 10/21 1615 DC 10/21 (SODIUM CHLORIDE IV 10/22 0534 1953 0.9%) Sodium Chloride 500 ML ASDIR PRN 10/21 1615 DC (SODIUM CHLORIDE IV 10/22 1605 0.9%) Sodium Chloride 300 ML PREOP IV FLUID 10/10 1830 AC (SODIUM CHLORIDE IV 0.9%) Sodium Chloride 1,000 ML PREOP IV FLUID 10/10 183 AC (SODIUM CHLORIDE IV 11/09 1829 0.9%) Hormones And Synthetic Substit Sig/Moise Start [...] non-tender, no guarding, no rebound, no distention Neuro/MANAGEMENT EXPERT: alert, oriented X 3, normal speech, no [...] does not feel comfortable driving back to [place] at night. Patient family also requested to speak to Dr. Montiel and the patient's phone number of [phone] Montiel to contact patient and address concerns. Will place conditional discharge if the patient's right lower extremity pain remains resolved for discharge in the morning at 0648 RPT #:[id number] END OF [address]PORT [facility] 2021-10-10 16:43:00 [id number] [place] [address] PATIENT NAME: SIMONA JUÁREZ ADMIT DATE: ACCOUNT NO: [id number] ROOM NO: AGE: 66 REPORT TYPE: eELECTROCARDIOGRAM REPORT SEX: F ADMITTING PHYSICIAN: ATTENDING PHYSICIAN:Ted Montiel MD Order: [id number] Test Reason : PREOP Test Date/Time Stamp: [...] Ted Montiel Confirmed by:BLAYNE YAÑEZ MD at 4258 PATIENT NAME: SIMONA JUÁREZ [facility]
[2025-06-11 15:41] LABS: Absolute Lymphocytes (CBC) 3.1 K/uL (0.7-4.9); Hematocrit 38.6 % (36.0-45.0); Hemoglobin 13.2 g/dL (12.0-15.0); MCH 30.4 pg (27.0-35.0); MCHC 34.3 g/dL (32.0-36.0); MCV 88.8 fL (80-100); MPV 6.9 fL (7.6-11.3); Nucleated RBC Absolute Count 0.0 (0-0); Nucleated Red Blood Cells % 0.2 % (0-0); RBC Red Blood Cell Count 4.34 M/uL (3.86-4.86); White Blood Count 8.00 thou/uL (4.3-10.9)
--- NOTE | 2025-06-11 16:25 | RAD REPORT ---
EXAM: CT brain without contrast HISTORY: TRAUMA COMPARISON: None TECHNIQUE: Multiple contiguous axial images were obtained and a CT of the brain without contrast. Sag ittal and coronal reformats were performed. FINDINGS: No evidence of hydrocephalus, intracranial hemorrhage, or extra-axial fluid collection. The brain is normal in morphology. The calvarium is intact. The visualized paranasal sinuses and mastoid air cells are essentially clear . IMPRESSION: No evidence of acute intracranial abnormality. EXAM: CT of the cervical spine without contrast HISTORY: TRAUMA COMPARISON: None TECHNIQUE: Multiple contiguous axial images were obtained in a CT of the cervical spine without contr ast. Sagittal and coronal reformats were performed. FINDINGS: The vertebral bodies demonstrate normal height and alignment. No evidence of acute fracture or subluxation.. Multilevel degenerative changes most pronounced at C3-4 contributing to moderate to severe bilateral neural foraminal narrowing, and to lesser extent at C6-7 bilaterally, contributin g to right severe and left moderate neural foraminal narrowing. No bony central canal stenosis. No prevertebral soft tissue swelling is seen. The posterior facets are well aligned. Normal alignment of the skull base with the cervical spine is seen. The lung apices are unremarkable. IMPRESSION: No evidence of acute osseous abnormality of the cervical spine. Degenerative changes as above.
--- NOTE | 2025-06-11 16:30 | RAD REPORT ---
EXAMINATION: CT Thorax Wo Con CLINICAL INDICATION: Female, 70 years [address] [facility] MAIN TRAUMA Bed Name: 15 Y TECHNIQUE: Axial CT scan of the chest without intravenous contrast. Multiplanar reformats were genera wendy and reviewed. One or more of the following dose reduction techniques were used: Automated exposure control, adjustment of the mA and/or kV according patient size, and/or iterative reconstruct ion. Unless otherwise specified, incidental findings do not require dedicated imaging follow-up. COMPARISON: No prior exam. FINDINGS: LOWER NECK: Visualized thyroid gland and soft tissues are normal. LUNGS: The lungs are clear. No evidence of airspace or interstitial process. No worrisome nodules. PLEURA: No pleural effusion. No pneumothorax. . MEDIASTINUM AND LYMPH NODES: No mediastinal mass or fluid collection. Normal size mediastinal, hilar, and axillary lymph nodes. OSSEOUS STRUCTURES AND CHEST WALL: Intact. Small hemangioma within the body of T6, stable. Mild thora cic spine degenerative changes. UPPER ABDOMEN: Status post cholecystectomy IMPRESSION: No acute or traumatic abnormalities. Examination is limited by lack of contrast.
[2025-06-11 16:35] LABS: Anion Gap 10.4 mEq/L (5.0-15.0); BUN Blood Urea Nitrogen 20.0 mg/dL (7-18); Glucose Level 109.0 mg/dL (74-106); Potassium 3.4 mEq/L (3.5-5.1); Troponin High Sensitivity 7.3 pg/mL (<58.9)
--- NOTE | 2025-06-11 16:40 | EDPHYS ---
Physician Documentation [facility] Name: Simona Juárez Age: 70 yrs Sex: Female : 1955 Arrival Date: 06/11/2025 Time: 14:36 Bed 16 Private MD: ED Physician Jose Covington HPI: 06/11 14:54 This 70 yrs old Female presents to ER via EMS with complaints of Fall Injury. sp3 14:54 70-year-old female with history of hypertension, hyperlipidemia presents with sp3 mechanical fall after slipping while coming out of the [facility]. Patient hit the right temporal region of her head and now complains of headache, mild neck pain and pain rating to her right shoulder and right posterior scapular area. She denies loss of consciousness, bleeding, medical prodrome prior to the event, extremity pain, shortness of breath, chest pain, abdominal pain, vomiting, diarrhea, syncope, or any other signs or symptoms on ROS at this time. She does take Plavix. She denies any other anticoagulants or antiplatelet agents.. Historical: - Allergies: 14:53 Morphine; af3 - PMHx: 14:53 Hypercholesterolemia; Hypertension; af3 - PSHx: 14:53 Cholecystectomy; heart stent; af3 - Immunization history:: Adult Immunizations up to date. - Infectious Disease History:: Denies. - Social history:: Smoking status: Patient denies any tobacco usage or history of. ROS: 14:56 Constitutional: Negative for fever, chills, and weight loss, Eyes: Negative for injury, sp3 pain, redness, and discharge, ENT: Negative for injury, pain, and discharge, Cardiovascular: Negative for chest pain, palpitations, and edema, Respiratory: Negative for shortness of breath, cough, wheezing, and pleuritic chest pain, Abdomen/GI: Negative for abdominal pain, nausea, vomiting, diarrhea, and constipation, MS/Extremity: Negative for injury and deformity, Skin: Negative for injury, rash, and discoloration, Psych: Negative for depression, anxiety, suicide ideation, homicidal ideation, and hallucinations, Allergy/Immunology: Negative for hives, rash, and allergies, 14:56 All other systems are negative, Exam: 14:57 Constitutional: This is a well developed, well nourished patient who is awake, alert, sp3 and in no acute distress. Eyes: Pupils equal round and reactive to light, extra-ocular motions intact. Lids and lashes normal. Conjunctiva and sclera are non-icteric and not injected. Cornea within normal limits. Periorbital areas with no swelling, redness, or edema. ENT: Nares patent. No nasal discharge, no septal abnormalities noted. External auditory canals are clear. Oropharynx with no redness, swelling, or masses, exudates, or evidence of obstruction, uvula midline. Mucous membranes moist. Cardiovascular: Regular rate and rhythm with a normal S1 and S2. No gallops, murmurs, or rubs. Normal PMI, no JVD. No pulse deficits. Abdomen/GI: Soft, non-tender, with normal bowel sounds. No distension or tympany. No guarding or rebound. No evidence of tenderness throughout. Back: No spinal tenderness. No costovertebral tenderness. Full range of motion. Skin: Warm, dry with normal turgor. Normal color with no rashes, no lesions, and no evidence of cellulitis. MS/ Extremity: Pulses equal, no cyanosis. Neurovascular intact. Full, normal range of motion. Neuro: Awake and alert, GCS 15, oriented to person, place, time, and situation. Cranial nerves II-XII grossly intact. Motor strength 5/5 in all extremities. Sensory grossly intact. Cerebellar exam normal. Normal gait. Psych: Awake, alert, with orientation to person, place and time. Behavior, mood, and affect are within normal limits. 14:57 Head/face: Mild hematoma to the right temporal region noted. Patient has pain to palpation of the mid neck as well as right posterior scapula. Breath sounds normal. Vital signs are normal.. 15:16 ECG was reviewed by the Attending Physician. EKG demonstrates sinus bradycardia at 50 sp3 bpm with normal intervals, normal QRS, normal axis, nonspecific diffuse ST/T changes without evidence of acute ischemia. Vital Signs: 14:51 BP 164 / 72; Pulse 52; Resp 19; Pulse Ox 98% on R/A; Weight 88.9 kg; Height 5 ft. 7 in. af3 ; 16:05 BP 165 / 80; Pulse 55; Resp 16 S; Pulse Ox 100% on R/A; kc6 17:19 BP 173 / 74; Pulse 55; Resp 15 S; Pulse Ox 99% on R/A; Pain 8/10; kc6 14:51 Body Mass Index 30.70 (88.90 kg, 170.18 cm) af3 17:19 Pain Scale: Adult kc6 MDM: 14:52 Medical Screening Exam initiated sp3 14:59 Data reviewed: vital signs, nurses notes, EMS record, lab test result(s), EKG, sp3 radiologic studies. ED course: 70-year-old female with mechanical slip and fall with injury to the right head, and neck and right scapula. We will obtain CT scan of the head, C-spine and chest noncontrast. Routine labs and EKG also pending. I do not believe patient a medical prodrome or medical event prior to her fall. Differential diagnosis includes closed head injury, intracranial hemorrhage, skull fracture, C-spine fracture, C-spine strain, back contusion, scapular fracture, among others. If workup negative we will safely discharge patient home.. 16:39 ED course: All imaging negative. Will safely discharge patient home at this time.. sp3 06/11 14:52 Order name: Basic Metabolic Panel; Complete Time: 16:38 sp3 06/11 14:52 Order name: CBC with Diff; Complete Time: 16:23 sp3 06/11 14:52 Order name: Troponin High Sensitivity; Complete Time: 16:38 sp3 06/11 14:52 Order name: CT Head C Spine; Complete Time: 16:38 sp3 06/11 14:52 Order name: CT Chest Wo Con; Complete Time: 16:38 sp3 06/11 14:52 Order name: Labs collected and sent; Complete Time: 15:32 sp3 06/11 14:52 Order name: EKG - Nurse/Tech; Complete Time: 15:08 sp3 Administered Medications: 17:16 Drug: HYDROcodone-acetaminophen PO 5 mg-325 mg 2 tabs PO once Route: PO; kc6 17:31 Follow up: Response: No adverse reaction; Pain is unchanged, physician notified kc6 Disposition Summary: 06/11/25 16:39 Discharge Ordered Notes: Location: Home sp3 Condition: Stable sp3 Diagnosis - Closed head injury, right scapular contusion sp3 Followup: sp3 - With: Private Physician - When: Upon discharge from the Emergency Department - Reason: Continuance of care Discharge Instructions: - Discharge Summary Sheet sp3 - Head Injury, Adult sp3 Forms: - Medication Reconciliation Form sp3 - Antibiotic Education sp3 - Prescription Opioid Use sp3 - Patient Portal Instructions sp3 - Leadership Thank You Letter sp3 Signatures: Dispatcher [employer] EDMS Jose Covington MD MD sp3 Sia Garzon, RN RN kc6 Jillian Sibley RN RN af3 Corrections: (The following items were deleted from the chart) 14:53 14:53 BASIC METABOLIC PANEL+C.LAB.BRZ ordered. EDMS EDMS 14:53 14:53 CBC+H.LAB.BRZ ordered. EDMS EDMS 14:53 14:53 Troponin High Sensitivity+C.LAB.BRZ ordered. EDMS EDMS 14:53 14:53 Head C Spine MPR Wo Con+CT.RAD.BRZ ordered. EDMS EDMS 14:53 14:53 Thorax Wo Con+CT.RAD.BRZ ordered. EDMS EDMS
--- NOTE | 2025-06-11 16:40 | ER ---
Nurse's Notes [facility] Jan Name: Simona Juárez Age: 70 yrs Sex: Female : 1955 Arrival Date: 06/11/2025 Time: 14:36 Bed 16 Private MD: Diagnosis: Closed head injury, right scapular contusion Presentation: 06/11 14:51 Chief complaint: EMS states: pt fell, hit right shoulder, right elbow. pt hypotensive af3 upon ems arrival. 71/40, denies LOC, takes bloodthinners daily. Coronavirus screen: At this time, the client does not indicate any symptoms associated with coronavirus-19. Ebola Screen: No symptoms or risks identified at this time. Initial Sepsis Screen: Does the patient meet any 2 criteria? No. Patient's initial sepsis screen is negative. Does the patient have a suspected source of infection? No. Patient's initial sepsis screen is negative. Risk Assessment: Do you want to hurt yourself or someone else? Patient reports no desire to harm self or others. Onset of symptoms was June 11, 2025. Care prior to arrival: IV initiated. 18 GA, in the right antecubital area. 14:51 Method Of Arrival: EMS: [facility] af3 14:51 Acuity: FRANCOISE 3 af3 Historical: - Allergies: 14:53 Morphine; af3 - PMHx: 14:53 Hypercholesterolemia; Hypertension; af3 - PSHx: 14:53 Cholecystectomy; heart stent; af3 - Immunization history:: Adult Immunizations up to date. - Infectious Disease History:: Denies. - Social history:: Smoking status: Patient denies any tobacco usage or history of. Screenin:08 [facility] ED Fall Risk Assessment (Adult) History of falling in the last 3 months, kc6 including since admission Yes- single mechanical fall (1 pt) Confusion or Disorientation No (0 pts) Intoxicated or Sedated No (0 pts) Impaired Gait No (0 pts) Mobility Assist Device Used No (0 pt) Altered Elimination No (0 pt) Score/Fall Risk Level 0 - 2 = Low Risk Oriented to surroundings. Abuse screen: Denies threats or abuse. Denies injuries from another. Nutritional screening: No deficits noted. Tuberculosis screening: No symptoms or risk factors identified. Assessment: 15:09 General: Appears in no apparent distress. comfortable, well groomed, well developed, kc6 Behavior is calm, cooperative, appropriate for age. Pain: Complains of pain in anterior aspect of right shoulder and right elbow Pain began suddenly. Neuro: Level of Consciousness is awake, alert, obeys commands, Oriented to person, place, time, situation, Appropriate for age. Cardiovascular: Capillary refill < 3 seconds. Respiratory: Airway is patent Trachea midline Respiratory effort is even, unlabored, Respiratory pattern is regular, symmetrical. GI: No signs and/or symptoms were reported involving the gastrointestinal system. : No signs and/or symptoms were reported regarding the genitourinary system. EENT: No signs and/or symptoms were reported regarding the EENT system. Derm: Skin is healthy with good turgor, Skin is pink, warm \T\ dry. Musculoskeletal: Circulation, motion, and sensation intact. 16:09 Reassessment: Patient appears in no apparent distress at this time. No changes from kc6 previously documented assessment. Patient and/or family updated on plan of care and expected duration. Pain level reassessed. Patient is alert, oriented x 3, equal unlabored respirations, skin warm/dry/pink. 17:19 Reassessment: Patient appears in no apparent distress at this time. No changes from kc6 previously documented assessment. Patient and/or family updated on plan of care and expected duration. Pain level reassessed. Patient is alert, oriented x 3, equal unlabored respirations, skin warm/dry/pink. d/c pending ride home. daughter states she is on the way. Vital Signs: 14:51 BP 164 / 72; Pulse 52; Resp 19; Pulse Ox 98% on R/A; Weight 88.9 kg; Height 5 ft. 7 in. af3 ; 16:05 BP 165 / 80; Pulse 55; Resp 16 S; Pulse Ox 100% on R/A; kc6 17:19 BP 173 / 74; Pulse 55; Resp 15 S; Pulse Ox 99% on R/A; Pain 8/10; kc6 14:51 Body Mass Index 30.70 (88.90 kg, 170.18 cm) af3 17:19 Pain Scale: Adult kc6 ED Course: 14:45 Patient arrived in ED. sp3 14:45 Jose Covington MD is Attending Physician. sp3 14:53 Triage completed. af3 14:53 Arm band placed on. af3 14:55 Sia Garzon, RN is Primary Nurse. kc6 15:08 Patient has correct armband on for positive identification. Bed in low position. Call kc6 light in reach. Side rails up X2. bus driver/monitor on. Pulse ox on. NIBP on. Door closed. Noise minimized. Lights dimmed. Warm blanket given. Pillow given. Verbal reassurance given. 15:08 Maintain EMS IV. Dressing intact. Good blood return noted. Site clean \T\ dry. Gauge \T\ rebekah 6 site: 18G RAC. Flushed with 10 mL NS. Patient maintains SpO2 saturation greater than 95% on room air. 15:21 CT Head C Spine In Process Unspecified. EDMS 15:23 CT Chest Wo Con In Process Unspecified. EDMS 17:31 No provider procedures requiring assistance completed. IV discontinued, intact, kc6 bleeding controlled, No redness/swelling at site. Pressure dressing applied. Administered Medications: 17:16 Drug: HYDROcodone-acetaminophen PO 5 mg-325 mg 2 tabs PO once Route: PO; kc6 17:31 Follow up: Response: No adverse reaction; Pain is unchanged, physician notified kc6 Medication: 17:32 VIS not applicable for this client. kc6 Outcome: 16:39 Discharge ordered by . sp3 17:31 Discharged to home via wheelchair, with family, kc6 17:31 Condition: good 17:31 Discharge instructions given to patient, family, Instructed on discharge instructions, follow up and referral plans. no drinking with medication, no driving heavy equipment, Demonstrated understanding of instructions, follow-up care, 17:32 Patient left the ED. kc6 Signatures: Dispatcher [employer] Jose Jones MD MD sp3 Sia Garzon, RN RN kc6 Jillian Sibley RN RN af3
[2025-06-11] MEDS ORDERED: HYDROCODONE/APAP 5/325 MG TAB ONE (17:11)
[2025-06-11 17:41] VITALS: BP 173/74; O2SAT 99
== END 2025-06-11 17:32 | disposition home or self-care (01) ==
LOC: ER 14:36
DX: S00.83XA Contusion of other part of head, initial encounter (principal); S40.011A Contusion of right shoulder, initial encounter; W01.0XXA Fall on same level from slipping, tripping and stumbling without subsequent striking against object, initial encounter; Y92.838 Other recreation area as the place of occurrence of the external cause; Z95.818 Presence of other cardiac implants and grafts
CPT/HCPCS: 36415; 70450; 71250; 72125; 80048; 84484; 85025; 93005; 99284